=== PATIENT | male | born 1970 | race Caucasian/White ===

== ENCOUNTER 2016-12-22 20:49 | Outpatient (CLI) | payer OTHER | END 2016-12-22 20:50 | disposition critical access hospital (66) | DX: R61 Generalized hyperhidrosis (principal); R46.4 Slowness and poor responsiveness; R06.82 Tachypnea, not elsewhere classified | CPT/HCPCS: A0425; A0427 ==

== ENCOUNTER 2016-12-22 20:57 | Emergency (ER) | payer OTHER | END 2016-12-22 23:25 | disposition home or self-care (01) | DX: R41.82 Altered mental status, unspecified (principal); T50.7X5A Adverse effect of analeptics and opioid receptor antagonists, initial encounter; Y92.019 Unspecified place in single-family (private) house as the place of occurrence of the external cause; I10 Essential (primary) hypertension; E03.9 Hypothyroidism, unspecified; M54.9 Dorsalgia, unspecified; G89.29 Other chronic pain ==

== ENCOUNTER 2017-11-06 14:20 | Emergency (ER) | payer OTHER ==
--- NOTE | 2017-11-06 14:52 | ED Physician Documentation ---
PD HPI HEAD INJURY - Stated complaint Stated Complaint: GLF/HIT HEAD/NAUSEA/SANDERSON - Chief complaint Chief Complaint: Neuro - History obtained from History obtained from: Patient - History of Present Illness Mechanism of head injury: Fell, Blow (slipped and struck back of head with possible LOC of unknown duration. Has had headache, upper neck pain, nausea, and feeling lightheaded/slightly slow to process thoughts since that time.) Timing - onset: How many weeks ago (1) Location of injury: Back Quality of pain: Throbbing, Aching Associated symptoms: LOC, AMS, Nausea / vomiting, Neck pain. No: Paresthesias Symptoms improve with: Rest Symptoms worsen with: Palpation Contributing factors: No: Anticoagulated Similar symptoms before: Has not had sx before Recently seen: Not recently seen Review of Systems Eyes: denies: Loss of vision, Decreased vision, Photophobia Nose: denies: Rhinorrhea / runny nose, Congestion Throat: denies: Sore throat Cardiac: denies: Chest pain / pressure Respiratory: denies: Dyspnea, Cough GI: reports: Nausea. denies: Abdominal Pain, Vomiting, Diarrhea Neurologic: reports: Altered mental status (feeling slow to process thinking), Headache (posteriorly). denies: Focal weakness, Numbness Psychiatric: denies: Depressed, Suicidal PD PAST MEDICAL HISTORY - Past Medical History Cardiovascular: Hypertension Respiratory: None Neuro: None Endocrine/Autoimmune: HyPOthyroidism Psych: Depression Musculoskeletal: Chronic back pain - Past Surgical History Past Surgical History: Yes Ortho: Arthroscopic surgery, Spine surgery - Present Medications Home Medications: Ambulatory Orders Medication Instructions Recorded Confirmed Gabapentin [Neurontin] 600 mg PO TID 11/09/13 12/22/16 Levothyroxine [Synthroid] 200 mcg PO DAILY 11/09/13 12/22/16 Amitriptyline HCl 50 mg ORAL DAILY 12/22/16 12/22/16 Ibuprofen 800 mg PO Q6HR PRN 12/22/16 12/22/16 Lisinopril 10 mg PO DAILY 12/22/16 12/22/16 Oxycodone HCl/Acetaminophen 2 each PO Q6HR PRN 12/22/16 12/22/16 [Percocet 5-325 mg Tablet] oxyCODONE [Roxicodone] 20 mg ORAL Q6HR PRN 12/22/16 12/22/16 Dexamethasone [Decadron] 4 mg PO DAILY #5 tablet 11/06/17 Naproxen 375 mg PO BID #20 tablet 11/06/17 Ondansetron HCl [Zofran] 8 mg PO Q6H PRN #20 tablet 11/06/17 Oxycodone HCl/Acetaminophen 1 each PO Q6H PRN #20 tablet 11/06/17 [Percocet 5-325 mg Tablet] - Allergies Allergies/Adverse Reactions: Allergies Allergy/AdvReac Type Severity Reaction Status Date / Time No Known Drug Allergies Allergy Verified 12/22/16 21:09 - Social History Does the pt smoke?: No Smoking Status: Never smoker Does the pt drink ETOH?: No Does the pt have substance abuse?: No - Immunizations Immunizations are current?: Yes - POLST Patient has POLST: No PD ED PE NORMAL - Vitals Vital signs reviewed: Yes - General General: Alert and oriented X 3, No acute distress, Well developed/nourished - HEENT HEENT: PERRL, EOMI, Pharynx benign, Other (tender upper cervical to lower occipital area, more to right. No obvious deformity. ) - Neck Neck: Supple, no meningeal sign, No adenopathy - Cardiac Cardiac: RRR, No murmur - Respiratory Respiratory: Clear bilaterally - Abdomen Abdomen: Soft, Non tender - Back Back: No spinal TTP - Derm Derm: Normal color, Warm and dry - Neuro Neuro: Alert and oriented X 3, pediatric oncologist 2-12 intact, No motor deficit, No sensory deficit, Normal speech, Other Eye Opening: Spontaneous Motor: Obeys Commands Verbal: Oriented GCS Score: 15 - Psych Psych: Normal mood, Normal affect Results - Vitals Vitals: Vital Signs - 24 hr 11/06/17 11/06/17 14:28 17:08 Temperature 37.3 C Heart Rate 122 H 99 Respiratory 18 16 Rate Blood Pressure 137/101 H 161/98 H O2 Saturation 100 94 Oxygen O2 Source Room air - Rads (name of study) head CT Radiology: Prelim report reviewed (no ICH nor fractures; no acute findings) cervical CT Radiology: Prelim report reviewed (no fractures) PD MEDICAL DECISION MAKING - ED course Complexity details: reviewed results, considered differential, d/w patient, d/w family (friend) Departure - Departure Disposition: 01 Home, Self Care Clinical Impression: Post-concussion headache Condition: Stable Record reviewed to determine appropriate education?: Yes Instructions: ED Concussion Follow-Up: Joe Pantoja DO [Primary Care Provider] - Prescriptions: Dexamethasone [Decadron] 4 mg PO DAILY #5 tablet Naproxen 375 mg PO BID #20 tablet Ondansetron HCl [Zofran] 8 mg PO Q6H PRN #20 tablet PRN Reason: Nausea / Vomiting Oxycodone HCl/Acetaminophen [Percocet 5-325 mg Tablet] 1 each PO Q6H PRN #20 tablet PRN Reason: Pain Comments: Continue usual medications. For the short-term due to the postconcussive headache, add Decadron daily for the next 4 5 days. Naproxen twice daily for the next week. Add ondansetron if needed for nausea. Add oxycodone if needed for headache in the short-term. Follow-up with your primary care if not improved over the next several days. Discharge Date/Time: 11/06/17 17:09
[2017-11-06] MEDS ORDERED: oxyCOD/ACETAMIN 5 MG/325 MG TABLET PO STA (15:11)
[2017-11-06] MEDS ORDERED: DEXAMETHASONE 10 MG/ML VIAL PO STA (15:11)
[2017-11-06] MEDS ORDERED: ONDANSETRON ODT 4 MG TABLET TL STA (15:11)
--- NOTE | 2017-11-06 15:48 | CT Preliminary Report ---
Exam: CT HEAD W/O IMPRESSION: Normal head CT. [facility] SITE ID: [id number]
--- NOTE | 2017-11-06 15:54 | CT Preliminary Report ---
Exam: CT CERVICAL SPINE W/O IMPRESSION: No acute bony abnormality. [facility] SITE ID: [id number]
--- NOTE | 2017-11-06 15:55 | CT Report ---
EXAM: CT HEAD EXAM DATE: 11/06/2017 03:38 PM. CLINICAL HISTORY: Fall one week ago with posterior head trauma. Persistent headache. COMPARISON: 12/22/2016. Head MRI 06/12/2015. TECHNIQUE: Multiaxial CT images were obtained from the foramen magnum to the vertex. Reformats: Coron al. IV contrast: None. In accordance with CT protocol optimization, one or more of the following dose reduction techniques w ere utilized for this exam: automated exposure control, adjustment of mA and/or KV based on patient s ize, or use of iterative reconstructive technique. FINDINGS: Parenchyma: No intraparenchymal hemorrhage. No evidence of mass, midline shift, or CT findings of inf arction. Hummel-white differentiation is distinct. Extraaxial Spaces: Normal for age. No subdural or epidural collections identified. Ventricles: Normal in size and position. Sinuses and Orbits: Imaged paranasal sinuses, orbits, and mastoids show no significant abnormality. Bones: No evidence of fracture or calvarial defect. Other: None. IMPRESSION: Normal head CT. [facility] Referring Provider Line: [phone] SITE ID: [id number]
--- NOTE | 2017-11-06 16:02 | CT Report ---
EXAM: CT CERVICAL SPINE WITHOUT CONTRAST DATE: 11/06/2017 03:38 PM. HISTORY: Fall one week ago with posterior head trauma. Persistent headache and neck pain since then. COMPARISONS: None. TECHNIQUE: Thin-section axial images were acquired of the cervical spine without contrast. Post-proce ssing: Coronal and sagittal reformats. Other: None. In accordance with CT protocol optimization, one or more of the following dose reduction techniques w ere utilized for this exam: automated exposure control, adjustment of mA and/or KV based on patient s ize, or use of iterative reconstructive technique. FINDINGS: Alignment: No scoliosis or spondylolisthesis. Bones: No fracture or bone lesion. Interspace Levels/Facets: C1-C2: Unremarkable. C2-C3: Normal caliber. Old tiny central disk herniation. C3-C4: Normal caliber. Mild degenerative changes C3-C4 facets with mild bilateral C3-C4 bony neural f oraminal compromise. C4-C5: Slight narrowing. Mild degenerative changes C4-C5 facets bilaterally. C5-C6: Moderate narrowing. Old moderate central disk herniation. Mild degenerative changes C5-C6 face ts with mild bilateral C5-C6 bony neural foraminal compromise. C6-C7: Moderate narrowing. Old moderate central disk herniation. Mild degenerative changes C6-C7 face ts bilaterally with moderate bilateral C6-C7 bony neural foraminal compromise. C7-T1: Unremarkable. Musculature: Normal. No fatty atrophy. Other: The paravertebral and prevertebral soft tissues are unremarkable. The lung apices are clear. IMPRESSION: No acute bony abnormality. [facility] Referring Provider Line: [phone] SITE ID: [id number]
[2017-11-06] MEDS ORDERED: HYDROmorphone 1 MG/ML SYRINGE IM STA (16:17)
[2017-11-06] MEDS ORDERED: KETOROLAC 60 MG/2 ML VIAL IM STA (16:17)
[2017-11-06 17:09] VITALS: BP 161/98
== END 2017-11-06 17:09 | disposition home or self-care (01) ==
LOC: ED 14:20
DX: F07.81 Postconcussional syndrome (principal); G44.309 Post-traumatic headache, unspecified, not intractable; W01.198A Fall on same level from slipping, tripping and stumbling with subsequent striking against other object, initial encounter; I10 Essential (primary) hypertension; E03.9 Hypothyroidism, unspecified
CPT/HCPCS: 70450; 72125; 96372; 99283; 99284; A9270; J1170; Q0162

== ENCOUNTER 2017-11-29 13:15 | Emergency (ER) | payer OTHER ==
--- NOTE | 2017-11-29 13:37 | ED Physician Documentation ---
History of Present Illness - Stated complaint Stated Complaint: MALE - Chief complaint Chief Complaint: General - History obtained from History obtained from: Patient - History of Present Illness Timing: How many days ago (5) Pain level max: 10 Pain level now: 7 Improved by: elevating the scrotum Worsened by: walking - Additonal information Additional information: r sided, aching dull pain. Review of Systems Ten Systems: 10 systems reviewed and negative Constitutional: denies: Fever, Chills Ears: denies: Ear pain Nose: denies: Rhinorrhea / runny nose, Congestion Cardiac: denies: Chest pain / pressure Respiratory: denies: Cough GI: denies: Nausea, Vomiting, Diarrhea : reports: Testicular pain, Other (no change in sexual partners). denies: Dysuria, Frequency, Hesitancy, Discharge, Testicular mass Skin: denies: Rash Musculoskeletal: denies: Neck pain, Back pain PD PAST MEDICAL HISTORY - Past Medical History Past Medical History: Yes Cardiovascular: Hypertension Respiratory: None Neuro: None Endocrine/Autoimmune: HyPOthyroidism Psych: Depression Musculoskeletal: Chronic back pain - Past Surgical History Past Surgical History: Yes Ortho: Arthroscopic surgery, Spine surgery - Present Medications Home Medications: Ambulatory Orders Medication Instructions Recorded Confirmed Gabapentin [Neurontin] 600 mg PO TID 11/09/13 12/22/16 Levothyroxine [Synthroid] 200 mcg PO DAILY 11/09/13 12/22/16 Amitriptyline HCl 50 mg ORAL DAILY 12/22/16 12/22/16 Lisinopril 10 mg PO DAILY 12/22/16 12/22/16 Doxycycline Hyclate 100 mg PO BID #20 capsule 11/29/17 - Allergies Allergies/Adverse Reactions: Allergies Allergy/AdvReac Type Severity Reaction Status Date / Time No Known Drug Allergies Allergy Verified 11/29/17 13:21 - Social History Does the pt smoke?: No Smoking Status: Never smoker Does the pt drink ETOH?: No Does the pt have substance abuse?: No - Immunizations Immunizations are current?: Yes - POLST Patient has POLST: No PD ED PE NORMAL - Vitals Vital signs reviewed: Yes - General General: Alert and oriented X 3, No acute distress - HEENT HEENT: Moist mucous membranes - Neck Neck: Supple, no meningeal sign - Cardiac Cardiac: RRR - Respiratory Respiratory: No respiratory distress, Clear bilaterally - Abdomen Abdomen: Soft, Non tender, Non distended - Male Male : Other (no penile discharge. normal penis exam. L testicle is normal. R epididymis is swollen and tender. testicle is normal.) - Derm Derm: Warm and dry - Neuro Neuro: Alert and oriented X 3 - Psych Psych: Normal mood, Normal affect Results - Vitals Vitals: Vital Signs - 24 hr 11/29/17 11/29/17 13:18 14:51 Temperature 36.1 C L Heart Rate 86 74 Respiratory 20 18 Rate Blood Pressure 146/100 H 151/106 H O2 Saturation 100 99 Oxygen O2 Source Room air - Labs Labs: Laboratory Tests 11/29/17 14:52 Urine Color YELLOW Urine Clarity CLEAR Urine pH 7.0 Ur Specific [place] 1.010 Urine Protein NEGATIVE Urine Glucose (UA) NEGATIVE Urine Ketones NEGATIVE Urine Occult Blood NEGATIVE Urine Nitrite NEGATIVE Urine Bilirubin NEGATIVE Urine Urobilinogen 0.2 (NORMAL) Ur Leukocyte Esterase NEGATIVE Ur Microscopic Review NOT INDICATED Urine Culture Comments NOT INDICATED - Rads (name of study) testicular US Radiology: Prelim report reviewed, EMP read contemporaneously, See rad report ( Right inguinal hernia, fat-containing. Otherwise normal) PD MEDICAL DECISION MAKING - ED course Complexity details: reviewed results, re-evaluated patient, considered differential, d/w patient ED course: Patient is a 47-year-old male who presents to the emergency department with right testicular pain of unclear etiology. Will treat for epididymitis as this seems likely given his clinical presentation. No acute findings on ultrasound other than A fat-containing right inguinal hernia. No evidence of UTI. No blood in the urine. Abdomen is soft, nontender nondistended. No evidence of appendicitis. Doubt ureteral stone. Possible this is referred pain from his chronic back pain? We will have him follow-up with his doctor for further evaluation and care. Patient counseled regarding signs and symptoms for which I believe and urgent re-evaluation would be necessary. Patient with good understanding of and agreement to plan and is comfortable going home at this time This document was made in part using voice recognition software. While efforts are made to proofread this document, sound alike and grammatical errors may occur. Departure - Departure Disposition: 01 Home, Self Care Clinical Impression: Testicular pain, right, Inguinal hernia, right Condition: Good Instructions: ED Testicular Pain [facility] Follow-Up: Heimer,Joe A, DO [Primary Care Provider] - Within 1 week Prescriptions: Doxycycline Hyclate 100 mg PO BID #20 capsule Comments: Take all antibiotics until gone. Return if you worsen. The cause of your symptoms is unclear today. You do have a fat-containing right inguinal hernia, but this does not seem to be causing your pain today. Follow-up with your doctor for further care. Discharge Date/Time: 11/29/17 16:03
[2017-11-29] MEDS ORDERED: HYDROmorphone 1 MG/ML SYRINGE IM STA ×2 (13:49→15:32)
[2017-11-29 15:00] VITALS: BP 151/106
[2017-11-29 15:06] LABS: BILIRUBIN,URINE NEGATIVE (NEGATIVE); GLUCOSE, URINE (UA) NEGATIVE (NEGATIVE); KETONES,URINE (UA) NEGATIVE (NEGATIVE); LEUKOCYTE ESTERASE, URINE NEGATIVE (NEGATIVE); NITRITE,URINE NEGATIVE (NEGATIVE); OCCULT BLOOD,URINE NEGATIVE (NEGATIVE); PROTEIN,URINE NEGATIVE (NEGATIVE); UROBILINOGEN,URINE 0.2 (NORMAL) E.U./dL (NORMAL)
[2017-11-29 15:07] LABS: CLARITY,URINE CLEAR (CLEAR)
[2017-11-29] MEDS ORDERED: KETOROLAC 60 MG/2 ML VIAL IM STA (15:20)
[2017-11-29] MEDS ORDERED: LIDOCAINE 1% 2 ML VIAL SUBQ ONE (15:21)
[2017-11-29] MEDS ORDERED: cefTRIAXone 1 GM VIAL IM STA (15:21)
--- NOTE | 2017-11-29 18:03 | Ultrasound Report ---
SCROTAL DUPLEX: 11/29/2017 CLINICAL INDICATION: Right-sided pain. TECHNIQUE: Real-time scanning was performed with admissions representative static images obtained. FINDINGS: The right testicle measures 4.6 x 2.4 x 2.0 cm, and the left testicle measures 4.1 x 2.5 x 2.0 cm. Both testicles demonstrate normal flow and echotexture. Trace hydroceles are present. No varicocele is seen. The epididymides are unremarkable. There is a right inguinal hernia, containing fat. IMPRESSION: RIGHT INGUINAL HERNIA, CONTAINING FAT. NORMAL TESTES. TD: 11/29/2017 18:02
== END 2017-11-29 16:03 | disposition home or self-care (01) ==
LOC: ED 13:15
DX: N50.811 Right testicular pain (principal); K40.90 Unilateral inguinal hernia, without obstruction or gangrene, not specified as recurrent; I10 Essential (primary) hypertension
CPT/HCPCS: 76870; 81003; 87491; 87591; 93975; 96372; 99283; 99284; J1170; 81001; 87086

== ENCOUNTER 2018-03-11 07:08 | Day surgery (SDC) | payer OTHER ==
[2018-03-11] MEDS ORDERED: BUPIVACAINE 0.5% PF 30 ML VIAL ONE (07:23)
[2018-03-11] MEDS ORDERED: ceFAZolin 3 GM/20 ML SYRINGE ONE (07:26)
[2018-03-11] MEDS ORDERED: LACTATED RINGERS 1,000 ML IV ONE ×6 (08:03→11:30)
[2018-03-11] MEDS ORDERED: ceFAZolin 1 GM VIAL ONE (08:49)
[2018-03-11] MEDS ORDERED: SODIUM CHLORIDE FLUSH 0.9% 10 ML SYRINGE ONE (08:51)
[2018-03-11] MEDS ORDERED: SCOPOLAMINE PATCH TOP ONE (09:15)
[2018-03-11] MEDS ORDERED: BUPIVACAINE 0.5%-EPI 1:200000 PF 30 ML VIAL SUBQ ONE (09:48)
[2018-03-11] MEDS ORDERED: BUPIVACAINE 0.5%-EPI 1:200000 PF 30 ML VIAL ONE (09:58)
[2018-03-11] MEDS ORDERED: PHENYLEPHRINE 10 MG/ML VIAL IV ONE (10:25)
[2018-03-11] MEDS ORDERED: ePHEDrine 50 MG/ML AMP IVP ONE (10:25)
[2018-03-11] MEDS ORDERED: KETAMINE 500 MG/10 ML VIAL IVP ONE (10:25)
[2018-03-11] MEDS ORDERED: PROPOFOL 200 MG/20 ML VIAL IVP ONE (10:25)
[2018-03-11] MEDS ORDERED: fentaNYL 250 MCG/5 ML VIAL IVP ONE (10:25)
[2018-03-11] MEDS ORDERED: GLYCOPYRROLATE 1 MG/5 ML VIAL IVP ONE (10:25)
[2018-03-11] MEDS ORDERED: KETOROLAC 30 MG/ML VIAL IVP ONE (10:25)
[2018-03-11] MEDS ORDERED: SUCCINYLCHOLINE 200 MG/10 ML VIAL IVP ONE (10:25)
[2018-03-11] MEDS ORDERED: ONDANSETRON 4 MG/2 ML VIAL IVP ONE (10:25)
[2018-03-11] MEDS ORDERED: LIDOCAINE-MPF 2% 5 ML VIAL IM ONE (10:25)
[2018-03-11] MEDS ORDERED: MIDAZOLAM 2 MG/2 ML VIAL IVP ONE (10:25)
[2018-03-11] MEDS ORDERED: DEXAMETHASONE 4 MG/ML VIAL IVP ONE (10:25)
[2018-03-11] MEDS ORDERED: NEOSTIGMINE 1 MG/1 ML 10 ML MDV IVP ONE (10:25)
[2018-03-11] MEDS ORDERED: ACETAMINOPHEN 1,000 MG/100 ML 100 ML IV ONE (11:58)
[2018-03-11] MEDS: HYDROmorphone 1 MG/ML CARPUJECT ONE ×4 (12:15→12:30)
[2018-03-11] MEDS ORDERED: oxyCODONE 5 MG TABLET ONE (13:13)
[2018-03-11 13:55] VITALS: BP 133/92
--- NOTE | 2018-03-11 14:00 | OPERATIVE REPORT ---
DATE OF SERVICE: 03/11/2018 Physician: Colin Silva MD DATE OF PROCEDURE: 03/11/2018. PREOPERATIVE DIAGNOSIS: Symptomatic right inguinal hernia. POSTOPERATIVE DIAGNOSIS: Symptomatic right inguinal hernia. PROCEDURE PERFORMED: Laparoscopic repair of right inguinal hernia with mesh. ANESTHESIA: General endotracheal. SURGEON: Colin Silva MD ESTIMATED BLOOD LOSS: Minimal. DRAINS: None. COMPLICATIONS: None. FINDINGS: A moderately large cord lipoma was identified. There was no evidence of indirect right inguinal hernia, small direct defect was identified. No femoral hernia was noted. A right-sided 3DMax Light mesh was used for the reconstruction. INDICATIONS: The patient is a 47-year-old gentleman with recent onset of right groin pain. Evaluation included evidence of a small right inguinal hernia on ultrasound evaluation. Although his pain was more located in the scrotum than in the inguinal canal, he was interested in undergoing repair in an attempt to alleviate his symptoms. TECHNIQUE: After informed consent, the patient was taken to the operating room and was placed under general endotracheal anesthesia. Preoperative preparation included application of sequential calf compression boots, administration of 3 grams of cefazolin intravenously within an hour of the incision and the patient voiding prior to induction of anesthesia. His lower abdomen and right groin were clipped and prepared with ChloraPrep solution and draped in the usual sterile fashion. A 2 cm infraumbilical midline incision was made and carried down through subcutaneous tissues until the midline fascia was identified. It was incised, just to the right of the midline vertically 2 cm in length, exposing the right rectus sheath and muscle. The Covidien dissecting balloon was then inserted and directed towards the pubis, where it was inflated, held in place for 3 minutes, deflated and replaced with the structural balloon. Pneumopreperitoneum was achieved with carbon dioxide. The patient was placed in Trendelenburg position and rotated towards the left side. Two additional 5 mm ports were placed in the lower midline. A 10 mm 30-degree Deisy telescope was inserted. Laparoscopy was carried out. The retroperitoneal space was carefully dissected exposing the inguinal floor including Marty's ligament, the pubis, the epigastric vessels, the direct femoral and indirect spaces. It was noted that the balloon had dissected anterior to the epigastric vessels. These were mobilized and lifted anteriorly. The inguinal canal was carefully dissected and the peritoneum identified, but no indirect sac was noted. Small direct defect was noted. After the dissection was complete, hemostasis assured a right-sided 3DMax Light mesh Bard prosthesis was soaked in antibiotic solution containing 1 gram of cefazolin per liter placed into the preperitoneal space, where it was expanded to cover the direct femoral and indirect spaces. It was secured in place with approximately 5 absorbable helical tacks securing it to the pubis, Marty's ligament and the anterior abdominal wall on either side of the epigastric vessels. Care was taken to avoid placing tacks in the inferolateral quadrant to avoid nerve injury. After hemostasis was assured, pneumopreperitoneum was allowed to escape and the peritoneal sac was seen to expand nicely against the mesh. Instruments and cannulas removed and wound closure was accomplished in layers using continuous 0 Vicryl to reapproximate the midline fascia at the infraumbilical port, followed by 3-0 Vicryl for the subcutaneous tissues and 4-0 Monocryl for subcuticular skin closure at all the port sites, followed by Dermabond. A 20 mL of 0.5% Marcaine with epinephrine was infiltrated into the incisions to assist in postoperative analgesia. Anesthesia was terminated. The patient was transferred to the recovery room in satisfactory condition. Sponge and needle counts were correct. No drains were used. TD: 03/11/2018 11:49
[2018-03-11] MEDS ORDERED: ONDANSETRON 4 MG/2 ML VIAL IVP PRN (15:32)
[2018-03-11] MEDS ORDERED: SODIUM CHLORIDE FLUSH 0.9% 10 ML SYRINGE IVP PRN (15:32)
[2018-03-11] MEDS ORDERED: oxyCODONE 5 MG TABLET PO PRN (15:32)
[2018-03-11] MEDS ORDERED: LACTATED RINGERS 1,000 ML IV SCH (16:00)
== END 2018-03-11 07:09 | disposition home or self-care (01) ==
LOC: SDS 07:08
PROVIDERS: ATTEND Internal Medicine Gastroenterology
PROC: 0YU54JZ Supplement Right Inguinal Region with Synthetic Substitute, Percutaneous Endoscopic Approach (ICD-10-PCS; principal; 2018-03-11 08:15)
DX: K40.90 Unilateral inguinal hernia, without obstruction or gangrene, not specified as recurrent (principal); D17.6 Benign lipomatous neoplasm of spermatic cord; E03.9 Hypothyroidism, unspecified; G47.30 Sleep apnea, unspecified
CPT/HCPCS: 49650; A9270; C1781; J0131; J1170; J3490; J7120

== ENCOUNTER 2019-11-05 11:05 | Emergency (ER) | payer OTHER ==
[2019-11-05] MEDS ORDERED: ONDANSETRON ODT 4 MG TABLET TL STA (11:29)
[2019-11-05] MEDS ORDERED: KETOROLAC 60 MG/2 ML VIAL IM STA (11:29)
[2019-11-05] MEDS ORDERED: DEXAMETHASONE 10 MG/ML VIAL PO STA (11:29)
[2019-11-05] MEDS ORDERED: CHERRY SYRUP 10 ML UDC PO ONE (11:29)
[2019-11-05] MEDS ORDERED: HYDROmorphone 1 MG/ML CARPUJECT IM STA ×3 (11:29→13:37)
--- NOTE | 2019-11-05 11:32 | ED Physician Documentation ---
PD HPI BACK PAIN - Stated complaint Stated Complaint: BACK PAIN - Chief complaint Chief Complaint: Back Pain - History obtained from History obtained from: Patient - History of Present Illness Timing - onset: How many days ago (4) Timing - duration: Days (4) Timing - details: Abrupt onset, Still present Location: Lower, Left Quality: Pain, Spasm, Sharp, Similar to prior episodes Associated symptoms: Numbness. No: Fever, Weakness, Incontinent of urine, Unable to urinate, Hematuria, Incontinent of stool Improves with: Rest, Position, Meds Worsened by: Movement Similar symptoms before: Diagnosis (sciatica and lumbar disc disease) Recently seen: Not recently seen - Additional information Additional information: 49-year-old male with chronic back pain on pain management has had exacerbation of his back pain started about 4 days ago. He is unable to get comfortable at all with this he has pain radiating down the left leg and weakness his legs are giving out on him. He has had prior fusion and he is on pain management. Review of Systems Constitutional: denies: Fever Eyes: denies: Decreased vision Ears: denies: Ear pain Nose: denies: Congestion Throat: denies: Sore throat Cardiac: denies: Chest pain / pressure Respiratory: denies: Dyspnea, Cough GI: denies: Vomiting : denies: Dysuria PD PAST MEDICAL HISTORY - Past Medical History Cardiovascular: Hypertension Respiratory: Sleep apnea, CPAP use Endocrine/Autoimmune: HyPOthyroidism GI: None : None HEENT: Chronic vision loss, Other Psych: Depression, Anxiety Musculoskeletal: Chronic back pain Derm: None - Past Surgical History Past Surgical History: Yes Ortho: Arthroscopic surgery, Spine surgery - Present Medications Home Medications: Ambulatory Orders Medication Instructions Recorded Confirmed Gabapentin [Neurontin] 600 mg PO TID 11/09/13 03/08/18 Levothyroxine [Synthroid] 225 mcg PO DAILY 11/09/13 03/08/18 Amitriptyline HCl 100 mg ORAL DAILY 12/22/16 03/08/18 DULoxetine [Cymbalta] 30 mg PO DAILY 03/08/18 03/08/18 Lisinopril/Hydrochlorothiazide 1 each PO DAILY 03/08/18 03/08/18 [Lisinopril-Hctz 20-12.5 mg Tab] Oxycodone HCl 10 mg PO QDBREAKFAST 03/08/18 03/08/18 oxyCODONE ER [OxyCONTIN] 10 mg PO .QLUNCH, QDINNER 03/08/18 03/08/18 oxyCODONE ER [OxyCONTIN] 20 mg PO TID 03/08/18 03/08/18 - Allergies Allergies/Adverse Reactions: Allergies Allergy/AdvReac Type Severity Reaction Status Date / Time No Known Drug Allergies Allergy Verified 11/05/19 11:25 - Social History Does the pt smoke?: No Smoking Status: Never smoker Does the pt drink ETOH?: No Does the pt have substance abuse?: No - Immunizations Immunizations are current?: Yes - POLST Patient has POLST: No PD ED PE NORMAL - Vitals Vital signs reviewed: Yes (hypertensive ) - General General: Alert and oriented X 3, No acute distress, Well developed/nourished - HEENT HEENT: Atraumatic, PERRL, EOMI - Neck Neck: Supple, no meningeal sign, No bony TTP - Cardiac Cardiac: RRR, No murmur - Respiratory Respiratory: No respiratory distress, Clear bilaterally - Back Back: No CVA TTP, No spinal TTP, Other (There is a spinal stimulator in place on the left and there is tenderness present below this into the sciatic notch. ) - Derm Derm: Normal color, Warm and dry, No rash - Extremities Extremities: No deformity, No tenderness to palpate, Normal ROM s pain, No calf tenderness / cord - Neuro Neuro: Alert and oriented X 3, Normal speech, Other (there is mild weakness to dorsiflexion of the left great toe (per-existing)) Eye Opening: Spontaneous Motor: Obeys Commands Verbal: Oriented GCS Score: 15 - Psych Psych: Normal mood, Normal affect Results - Vitals Vitals: Vital Signs - 24 hr 11/05/19 11/05/19 11:22 12:29 Temperature 36.2 C L 36.8 C Heart Rate 90 76 Respiratory 16 18 Rate Blood Pressure 137/101 H 132/98 H O2 Saturation 100 97 Oxygen O2 Source Room air - Rads (name of study) lumbar spine Radiology: Prelim report reviewed (Pression: 1. Stable L5-S1 fusion. Alignment stable with no fracture or listhesis), EMP read indepedently, See rad report PD MEDICAL DECISION MAKING - ED course Complexity details: reviewed old records, re-evaluated patient, considered differential, d/w patient ED course: 49-year-old male with acute sciatica worsening of his chronic back pain is on pain management he is failed as an outpatient and he here in the emergency department is administered Toradol as well as Dilaudid he requires a second dose of Dilaudid we have given him some dexamethasone as well. He is worried about his hardware and he insists on an x-ray of his back. The patient is experiencing pain way out of proportion to what he normally experiences and he has come to the emergency department after collapsing twice on the way to the bathroom today. His pain is uncontrolled after a second dose of Dilaudid but with some improvement and a third dose is administered. I believe getting the patient's pain under control may help him keep his pain under control. Departure - Departure Disposition: 01 Home, Self Care Clinical Impression: Sciatica Qualifiers: Laterality: left Qualified Code(s): M54.32 - Sciatica, left side Condition: Stable Instructions: ED Sciatica Follow-Up: Ning Sanchez MD [Primary Care Provider] -
--- NOTE | 2019-11-05 13:13 | XRAY Report ---
Reason: increased chronic back pain with hardware in place Procedure Date: 11/05/2019 Accession Number: [id number] / [id number] Procedure: XR - Lumbar Spine 2 View CPT Code: Final Report FULL RESULT: EXAM: LUMBOSACRAL SPINE RADIOGRAPHY EXAM DATE: 11/05/2019 01:05 PM. CLINICAL HISTORY: Increased chronic back pain with hardware in place. COMPARISONS: LUMBAR SPINE 2 VIEW 08/02/2014 10:54 AM. TECHNIQUE: 2 views on 3 films. FINDINGS: Alignment: Mild, approximate 10 degree mid lumbar dextrocurvature, stable. No listhesis. Bones: Five [id number] lumbar vertebral bodies are present. Previous L5-S1 fusion, intact and solidly fused with normal alignment. Disks: Mild degenerative disk disease L4-L5, stable. Facets: Mild lower lumbar facet arthropathy, stable. Sacroiliac Joints: Unremarkable. Soft Tissues: Implanted neurostimulator device overlies left paraspinous region. IMPRESSION: 1. Stable L5-S1 fusion. 2. Alignment stable with no fracture or listhesis. 3. Stable degenerative disk disease and facet arthropathy lower lumbar spine. RADIA
[2019-11-05 14:16] VITALS: BP 137/101
== END 2019-11-05 14:19 | disposition home or self-care (01) ==
LOC: ED 11:05
DX: M51.16 Intervertebral disc disorders with radiculopathy, lumbar region (principal); Z98.1 Arthrodesis status; I10 Essential (primary) hypertension
CPT/HCPCS: 72100; 96372; 99283; 99284; J1170; Q0162

== ENCOUNTER 2019-12-05 09:21 | Emergency (ER) | payer OTHER ==
--- NOTE | 2019-12-05 10:14 | ED Physician Documentation ---
PD HPI HEAD INJURY - Stated complaint Stated Complaint: HEAD INJURY - Chief complaint Chief Complaint: Laceration - History obtained from History obtained from: Patient - History of Present Illness Mechanism of head injury: Fell (he says his back hurt as he was getting up and his back/leg gave out, and he fell, striking head on stove edge. No LOC nor concussive symptoms. Back has been hurting with ROM for awhile and PMD is getting pt into PT and for ?MRI.), Blow Where head injury occurred: Home Timing - onset: Today Location of injury: Front Associated symptoms: No: LOC, AMS, Nausea / vomiting Symptoms worsen with: Palpation Contributing factors: No: Anticoagulated, Intoxicated Similar symptoms before: Diagnosis (has had back spasms and surges of pain with ROM for months. History of prior back pain and surgery.) Review of Systems Constitutional: denies: Fever Nose: denies: Rhinorrhea / runny nose, Congestion Throat: denies: Sore throat Respiratory: denies: Cough GI: denies: Abdominal Pain, Nausea, Vomiting, Diarrhea Musculoskeletal: reports: Back pain. denies: Neck pain Neurologic: denies: Focal weakness (he does not have persistent leg weakness but says his right leg will give out with pain spasms at times.), Numbness PD PAST MEDICAL HISTORY - Past Medical History Cardiovascular: Hypertension Respiratory: Sleep apnea, CPAP use Endocrine/Autoimmune: HyPOthyroidism GI: None : None HEENT: Chronic vision loss, Other Psych: Depression, Anxiety Musculoskeletal: Chronic back pain Derm: None - Past Surgical History Past Surgical History: Yes Ortho: Arthroscopic surgery, Spine surgery - Present Medications Home Medications: Ambulatory Orders Medication Instructions Recorded Confirmed Gabapentin [Neurontin] 600 mg PO TID 11/09/13 03/08/18 Levothyroxine [Synthroid] 225 mcg PO DAILY 11/09/13 03/08/18 Amitriptyline HCl 100 mg ORAL DAILY 12/22/16 03/08/18 DULoxetine [Cymbalta] 30 mg PO DAILY 03/08/18 03/08/18 Lisinopril/Hydrochlorothiazide 1 each PO DAILY 03/08/18 03/08/18 [Lisinopril-Hctz 20-12.5 mg Tab] Oxycodone HCl 10 mg PO QDBREAKFAST 03/08/18 03/08/18 oxyCODONE ER [OxyCONTIN] 10 mg PO .QLUNCH, QDINNER 03/08/18 03/08/18 oxyCODONE ER [OxyCONTIN] 20 mg PO TID 03/08/18 03/08/18 Naproxen 500 mg PO BID #20 tablet 12/05/19 Tizanidine HCl 4 mg PO TID PRN #25 capsule 12/05/19 dexAMETHasone [Decadron] 4 mg PO DAILY #5 tablet 12/05/19 - Allergies Allergies/Adverse Reactions: Allergies Allergy/AdvReac Type Severity Reaction Status Date / Time No Known Drug Allergies Allergy Verified 12/05/19 09:30 - Social History Does the pt smoke?: No Smoking Status: Never smoker Does the pt drink ETOH?: No Does the pt have substance abuse?: No - Immunizations Immunizations are current?: Yes - POLST Patient has POLST: No PD ED PE NORMAL - Vitals Vital signs reviewed: Yes - General General: Alert and oriented X 3, No acute distress, Well developed/nourished - HEENT HEENT: Other (right frontal scalp with 2 cm laceration through skin, but not deeper. Some oozing of bleeding. No FB. ) - Neck Neck: Supple, no meningeal sign, No bony TTP, No adenopathy - Back Back: No spinal TTP - Derm Derm: Normal color, Warm and dry - Extremities Extremities: Normal ROM s pain - Neuro Neuro: Alert and oriented X 3, No motor deficit, No sensory deficit Eye Opening: Spontaneous Motor: Obeys Commands Verbal: Oriented GCS Score: 15 Results - Vitals Vitals: Oxygen O2 Source Room air Procedures - Laceration (location) right frontal scalp Length in cm: 2 Wound type: Linear, Into subcut fat, Clean Neurovascular status: Sensory intact Anesthesia: LET Wound Preparation: Irrigated copiously NS, Wound explored, To the base. No: FB identified Skin layer closure: Nylon, Running, Size #-0 - enter number (4) Other: Patient tolerated well, No complications, Neurovascular intact, Dressing applied Complexity: Simple PD MEDICAL DECISION MAKING - ED course Complexity details: considered differential (no notable leg weakness so not apparent need for urgent imaging. Scalp lac without concussive symptoms. No anticoagulants.), d/w patient Departure - Departure Disposition: 01 Home, Self Care Clinical Impression: Acute exacerbation of chronic low back pain Accidental fall Qualifiers: Encounter type: initial encounter Qualified Code(s): W19.XXXA - Unspecified fall, initial encounter Scalp laceration Qualifiers: Encounter type: initial encounter Qualified Code(s): S01.01XA - Laceration without foreign body of scalp, initial encounter Condition: Stable Record reviewed to determine appropriate education?: Yes Instructions: ED Laceration Scalp Stitch Or Stap Follow-Up: Ning Sanchez MD [Primary Care Provider] - Prescriptions: dexAMETHasone [Decadron] 4 mg PO DAILY #5 tablet Naproxen 500 mg PO BID #20 tablet Tizanidine HCl 4 mg PO TID PRN #25 capsule PRN Reason: Spasms Comments: It is okay to wash and shower. Clean off the wound twice a day with soap and water, or peroxide and water. Apply some antibiotic ointment to it to keep it moist. Also to watch for signs of infection such as purulence, redness or increasing pain. Return to your primary care or the ER at the specified time for suture removal. Suture removal 7 to 10 days. Continue usual medications. Add Decadron steroid daily for 5 days and tizanidine muscle relaxant 2 or 3 times a day for the next week. Add naproxen twice daily as needed for pains. Follow-up with your primary care regarding any additional opioid pain medicines and further evaluation of the back pain. Discharge Date/Time: 12/05/19 12:44
[2019-12-05] MEDS ORDERED: HYDROmorphone 2 MG/ML VIAL IM STA ×2 (10:36→12:21)
[2019-12-05] MEDS ORDERED: KETOROLAC 30 MG/ML VIAL IM STA (10:36)
[2019-12-05] MEDS ORDERED: LIDOCAINE-EPINEPH-TETRACAINE 3 ML SYRINGE TOP STA (10:36)
[2019-12-05] MEDS ORDERED: LIDOCAINE 1%-EPI 1:100000 20 ML MDV SUBQ STA (11:16)
[2019-12-05] MEDS ORDERED: DEXAMETHASONE 10 MG/ML VIAL PO STA (12:22)
[2019-12-05] MEDS ORDERED: CHERRY SYRUP 10 ML UDC PO ONE (12:22)
[2019-12-05 12:44] VITALS: BP 140/82
== END 2019-12-05 12:44 | disposition home or self-care (01) ==
LOC: ED 09:21
DX: S01.01XA Laceration without foreign body of scalp, initial encounter (principal); W18.39XA Other fall on same level, initial encounter; W22.09XA Striking against other stationary object, initial encounter; Y92.009 Unspecified place in unspecified non-institutional (private) residence as the place of occurrence of the external cause; M54.5 Low back pain; G89.29 Other chronic pain; M62.830 Muscle spasm of back; I10 Essential (primary) hypertension
CPT/HCPCS: 12001; 96372; 99283; 99284; A9270; J1170

== ENCOUNTER 2019-12-12 17:33 | Emergency (ER) | payer OTHER ==
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
[2019-12-12] MEDS ORDERED: KETOROLAC 60 MG/2 ML VIAL IM STA (18:59)
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
[2019-12-12] MEDS ORDERED: DEXAMETHASONE 10 MG/ML VIAL PO STA (20:11)
[2019-12-12] MEDS ORDERED: CHERRY SYRUP 10 ML UDC PO ONE (20:11)
[2019-12-12 20:23] VITALS: BP 159/120
== END 2019-12-12 20:25 | disposition home or self-care (01) ==
LOC: ED 17:33
DX: S01.81XA Laceration without foreign body of other part of head, initial encounter (principal); S09.90XA Unspecified injury of head, initial encounter; V89.2XXA Person injured in unspecified motor-vehicle accident, traffic, initial encounter; Y93.89 Activity, other specified; Y92.410 Unspecified street and highway as the place of occurrence of the external cause; I10 Essential (primary) hypertension
CPT/HCPCS: 70450; 72125; 72128; 72131; 96372; 99284; A9270

== ENCOUNTER 2021-11-11 09:59 | Emergency (ER) | payer OTHER ==
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
[2021-11-11] MEDS ORDERED: HYDROmorphone 1 MG/ML CARPUJECT IVP STA ×3 (10:56→13:23)
[2021-11-11] MEDS ORDERED: KETOROLAC 15 MG/ML VIAL IVP STA (12:04)
--- NOTE | 2021-11-11 13:36 | CT Report ---
PROCEDURE: LUMBAR SPINE WO INDICATIONS: back injury TECHNIQUE: Noncontrast 3 mm thick sections acquired from the T12 level to the sacrum. Sagittal and coronal refo rmats were constructed. For radiation dose reduction, the following was used: automated exposure co ntrol, adjustment of mA and/or kV according to patient size. COMPARISON: None. FINDINGS: Image quality: Excellent. Bones: There is normal bony alignment. No acute vertebral body compression fractures. No suspiciou s lytic or blastic bony lesions. Central spinal caliber is of normal overall caliber. No pars defec ts. T12-L1: No significant disc bulge. The foramina and central canal are patent. L1-L2: Mild diffuse disc bulge asymmetric to the right causing moderate right foraminal stenosis. T he left foramen and central canal are patent. L2-L3: No significant disc bulge. The foramina and central canal are patent. L3-L4: Diffuse disc bulge causes moderate bilateral foraminal stenosis. The central canal has mild stenosis. L4-L5: No significant disc bulge. The foramina and central canal are patent. L5-S1: Postoperative changes of discectomy, laminectomy, and fusion with pedicular screw and rajeev fi xation. The foramina and central canal are patent. Soft tissues: No retroperitoneal masses or hematomas. Visualized aorta is normal in caliber. The r ight kidney has a 5 cm simple cyst. IMPRESSION: 1. Postoperative changes at L5-S1 without complication. 2. No acute fracture or subluxation. 3. Multilevel chronic degenerative disc disease as above. Reviewed by: Oscar Vanegas on 11/11/2021 1:35 PM PST Approved by: Oscar Vanegas on 11/11/2021 1:35 PM PST Station ID: [id number]
[2021-11-11 13:59] VITALS: BP 140/100
== END 2021-11-11 13:59 | disposition home or self-care (01) ==
LOC: ED 09:59
DX: M54.50 Low back pain, unspecified (principal); G89.29 Other chronic pain; Z96.82 Presence of neurostimulator; I10 Essential (primary) hypertension; W18.30XA Fall on same level, unspecified, initial encounter
CPT/HCPCS: 72131; 96374; 96375; 96376; 99284; J1170

== ENCOUNTER 2021-11-13 11:46 | Emergency (ER) | payer OTHER ==
--- NOTE | 2021-11-13 12:03 | ED Physician Documentation ---
PD HPI BACK PAIN - Stated complaint Stated Complaint: EXTREME BACK PX - History obtained from History obtained from: Patient - History of Present Illness Timing - onset: How many days ago (several) Timing - duration: Days Timing - details: Abrupt onset (With a history of chronic back pain for which she takes ongoing pain medicine regularly. He states had increased pain a few days ago. Seen 2 days ago in the ER for this with medications in the ER and prescription lidocaine patch. He states no improvement and now some numbness in the right leg.), Still present Location: Lower, Right Quality: Pain, Spasm, Other (pain radiating posterolateral right leg and also noting some since last night to right inguinal/scrotal area. No swelling of testicle.) Associated symptoms: Weakness, Incontinent of stool (Description is really more pain and getting to the toilet and unable to get there prior to having to defecate.). No: Fever, Incontinent of urine, Unable to urinate Improves with: No: Meds (no improvement with lidocaine patch nor Tylenol orally.) Worsened by: Movement, Twisting Contributing factors: Twisting Similar symptoms before: Diagnosis (chronic low back pain with prior fusion and stimulator.) Recently seen: Emergency Dept (2 days ago here with meds in ER and CT lumbar.) Review of Systems Constitutional: denies: Fever, Chills Nose: denies: Rhinorrhea / runny nose, Congestion Throat: denies: Sore throat Cardiac: denies: Chest pain / pressure Respiratory: denies: Cough GI: denies: Abdominal Pain : denies: Dysuria, Frequency, Incontinent Skin: denies: Rash, Lesions Neurologic: reports: Numbness (lateral right leg and lateral foot.). denies: Focal weakness PD PAST MEDICAL HISTORY - Past Medical History Cardiovascular: Hypertension Respiratory: Sleep apnea, CPAP use Endocrine/Autoimmune: HyPOthyroidism GI: None : None HEENT: Chronic vision loss, Other Psych: Depression, Anxiety Musculoskeletal: Chronic back pain Derm: None - Past Surgical History Past Surgical History: Yes Ortho: Arthroscopic surgery, Spine surgery - Present Medications Home Medications: Ambulatory Orders Medication Instructions Recorded Confirmed Gabapentin [Neurontin] 600 mg PO TID 11/09/13 03/08/18 Levothyroxine [Synthroid] 225 mcg PO DAILY 11/09/13 03/08/18 Amitriptyline HCl 100 mg ORAL DAILY 12/22/16 03/08/18 DULoxetine [Cymbalta] 30 mg PO DAILY 03/08/18 03/08/18 Lisinopril/Hydrochlorothiazide 1 each PO DAILY 03/08/18 03/08/18 [Lisinopril-Hctz 20-12.5 mg Tab] Oxycodone HCl 10 mg PO QDBREAKFAST 03/08/18 03/08/18 oxyCODONE ER [OxyCONTIN] 10 mg PO .QLUNCH, QDINNER 03/08/18 03/08/18 oxyCODONE ER [OxyCONTIN] 20 mg PO TID 03/08/18 03/08/18 Naproxen 500 mg PO BID #20 tablet 12/05/19 Tizanidine HCl 4 mg PO TID PRN #25 capsule 12/05/19 dexAMETHasone [Decadron] 4 mg PO DAILY #5 tablet 12/05/19 predniSONE [Deltasone] 20 mg PO [id number] #21 tab 12/12/19 Lidocaine Patch 5% [Lidoderm Patch] 1 patch TOP DAILY PRN #10 patch 11/11/21 dexAMETHasone [Decadron] 4 mg PO DAILY #5 tablet 11/13/21 tiZANidine [Zanaflex] 4 mg PO Q8H PRN #25 tablet 11/13/21 - Allergies Allergies/Adverse Reactions: Allergies Allergy/AdvReac Type Severity Reaction Status Date / Time No Known Drug Allergies Allergy Verified 11/13/21 11:56 - Social History Does the pt smoke?: No Smoking Status: Never smoker Does the pt drink ETOH?: No Does the pt have substance abuse?: No - Immunizations Immunizations are current?: Yes - POLST Patient has POLST: No PD ED PE NORMAL - Vitals Vital signs reviewed: Yes - General General: Alert and oriented X 3, Well developed/nourished, Other (appears in pain, with spasm appearing worse with movement. ) - Cardiac Cardiac: RRR, No murmur - Respiratory Respiratory: Clear bilaterally - Abdomen Abdomen: Soft, Non tender - Male Male : Other (no inguinal hernias. Testicles normal size. Some tenderness ri ght scrotum/testicle. Normal cremaster reflex. Normal sensation penis and scrotum. ) - Back Back: No CVA TTP, No spinal TTP (tender right lower lumbar right paralumbar muscles, with focal tenderness area in muscle. ) - Derm Derm: Normal color, Warm and dry - Neuro Neuro: Alert and oriented X 3, Normal speech, Other (normal patellar reflexes. Normal cremater reflex and good perirectal muscle tone. ). No: No sensory deficit (decreased sensation lateral right thigh and anterolateral lower leg/foot c/w nerve root distribution. ) Eye Opening: Spontaneous Motor: Obeys Commands Verbal: Oriented GCS Score: 15 Results - Vitals Vitals: Vital Signs - 24 hr 11/13/21 11/13/21 11:56 14:03 Temperature 37.3 C Heart Rate 80 65 Respiratory 20 18 Rate Blood Pressure 157/115 H 129/105 H O2 Saturation 100 95 Oxygen O2 Source Room air Procedures - General procedure General procedure: The patient does have an area of worst tenderness in the right paralumbar area just at the iliac crest. No rash or redness seen. A trigger point injection was done with Marcaine 2 mL combined with Kenalog 40 milligrams in 1 mL. Patient tolerated well. He said it did help well in area administered and asked for another in muscle area a bit higher. I did second muscle injection with just Marcaine few cm higher and lateral to first. PD MEDICAL DECISION MAKING - ED course Complexity details: reviewed old records (seen 2 days ago with no acute findings on CT lumbar. ), considered differential (The patient states persistence of severe back pain primarily on the right with some numbness down the right leg. He still has patellar reflexes. Mild weakness for plantar flexion at the foot. He has normal rectal tone, cremaster reflex and sensation on the genitalia and perirectal.), d/w patient Departure - Departure Disposition: 01 Home, Self Care Clinical Impression: Acute exacerbation of chronic low back pain Inguinal strain Qualifiers: Encounter type: initial encounter Laterality: right Qualified Code(s): S76.211A - Strain of adductor muscle, fascia and tendon of right thigh, initial encounter Condition: Stable Record reviewed to determine appropriate education?: Yes Instructions: ED Sciatica Follow-Up: Ciro Vickers PA-C [Primary Care Provider] - Prescriptions: dexAMETHasone [Decadron] 4 mg PO DAILY #5 tablet tiZANidine [Zanaflex] 4 mg PO Q8H PRN #25 tablet PRN Reason: Spasms Comments: Continue with usual medications and Tylenol every 4-6 hours if needed for pain. Add tizanidine muscle relaxant for spasms. Also add Decadron steroid anti- inflammatory daily for 5 more days. Heat and stretching and gentle motion to reduce spasm and stiffness. Follow-up with your primary care regarding further assessment or any change in your opioid pain medicines. Discharge Date/Time: 11/13/21 14:40
[2021-11-13] MEDS ORDERED: methocarbamoL 500 MG TABLET PO STA (12:19)
[2021-11-13] MEDS ORDERED: BUPIVACAINE 0.5%-EPI 1:200000 PF 30 ML VIAL SUBQ ONE (12:19)
[2021-11-13] MEDS ORDERED: TRIAMCINOLONE 40 MG/ML VIAL IM STA (12:19)
[2021-11-13] MEDS ORDERED: HYDROmorphone 1 MG/ML CARPUJECT IM STA ×2 (12:19→13:30)
[2021-11-13] MEDS ORDERED: KETOROLAC 30 MG/ML VIAL IM STA (12:19)
[2021-11-13] MEDS ORDERED: BUPIVACAINE 0.5% PF 10 ML VIAL SUBQ STA (12:30)
[2021-11-13 14:35] VITALS: BP 129/105
== END 2021-11-13 14:40 | disposition home or self-care (01) ==
LOC: ED 11:46
DX: S76.211A Strain of adductor muscle, fascia and tendon of right thigh, initial encounter (principal); X58.XXXA Exposure to other specified factors, initial encounter; M54.50 Low back pain, unspecified; G89.29 Other chronic pain; Z96.82 Presence of neurostimulator; I10 Essential (primary) hypertension
CPT/HCPCS: 20552; 96372; 99282; 99283; A9270; J1170

== ENCOUNTER 2021-12-13 21:45 | Outpatient (CLI) | payer OTHER ==
--- NOTE | 2021-12-14 15:56 | Ultrasound Report ---
PROCEDURE: Testicle INDICATIONS: TESTICULAR PAIN TECHNIQUE: Real-time scanning was performed of the scrotum and testicles, with image documentation. Color and p ulse Doppler interrogation was performed of both testicles. COMPARISON: Testicular ultrasound 11/29/2017 FINDINGS: Right: Testicle is normal in size at 3.8 x 2.0 x 2.8 cm, and homogenous in echotexture. Epididymis is normal in overall size and morphology. No hydrocele. Minimal varicocele. Overlying scrotal skin is normal in thickness. Left: Testicle is normal in size at 1.9 x 2.2 x 3.7 cm, and homogeneous in echotexture. Epididymal c yst is present measuring 4 x 3 x 4 mm. This was not previously visualized. Minimal varicocele. Additi onal small hydrocele. Overlying scrotal skin is normal in thickness. Doppler: Color and pulse Doppler demonstrate normal and symmetric arterial flow in both testicles. IMPRESSION: Minimal left hydrocele. Minimal bilateral varicoceles. Left epididymal cyst. Reviewed by: January Rossi MD on 12/14/2021 3:55 PM PDT Approved by: January Rossi MD on 12/14/2021 3:55 PM PDT Station ID: [id number]
== END 2021-12-13 21:46 | disposition home or self-care (01) ==
LOC: DI 21:45
PROVIDERS: ATTEND Student in an Organized Health Care Education/Training Program
DX: N43.3 Hydrocele, unspecified (principal); I86.1 Scrotal varices; N50.3 Cyst of epididymis

== ENCOUNTER 2022-07-11 16:51 | Emergency (ER) | payer OTHER ==
--- NOTE | 2022-07-11 17:36 | ED Physician Documentation ---
PD HPI LOWER EXT INJURY - Stated complaint Stated Complaint: KNEE PAIN - Chief complaint Chief Complaint: Trauma Ext - History obtained from History obtained from: Patient - History of Present Illness PD HPI LOW EXT INJURY LOCATION: Right, Knee Type of injury: No: Fall, Twist Where injury occurred: Home Timing - onset: How many weeks ago Timing - duration: Weeks (2-3 weeks of right knee pain and some swelling, much worse the past few days.) Timing - details: Gradual onset, Still present (much worse to severe the past several days or so.) Improved by: No: Rest, Meds (takes pain meds oxycodone 10 mg 5 times daily for back pain. knee is still hurting worse than meds help.) Associated symptoms: Swelling. No: Weakness, Numbness, Discolored (no redness nor skin lesions.) Similar symptoms before: Has not had sx before (chronic back pain. No prior knee problems.) Recently seen: Clinic (Seen at [facility] this afternoon and he states they did an ultrasound and showed a fluid collection behind the knee but question of no DVT. Referred to the ER however. No paperwork with him.) Review of Systems Constitutional: denies: Fever, Chills Nose: denies: Rhinorrhea / runny nose, Congestion Throat: denies: Sore throat Cardiac: denies: Chest pain / pressure Respiratory: denies: Dyspnea, Cough Skin: denies: Rash, Lesions Musculoskeletal: reports: Back pain (chronic), Joint swelling (right knee effusion) Neurologic: denies: Focal weakness, Numbness PD PAST MEDICAL HISTORY - Past Medical History Cardiovascular: Hypertension Respiratory: Sleep apnea, CPAP use Endocrine/Autoimmune: HyPOthyroidism GI: None : None HEENT: Chronic vision loss, Other Psych: Depression, Anxiety Musculoskeletal: Chronic back pain Derm: None - Past Surgical History Past Surgical History: Yes Ortho: Arthroscopic surgery, Spine surgery - Present Medications Home Medications: Ambulatory Orders Medication Instructions Recorded Confirmed Gabapentin [Neurontin] 600 mg PO TID 11/09/13 03/08/18 Levothyroxine [Synthroid] 225 mcg PO DAILY 11/09/13 03/08/18 Amitriptyline HCl 100 mg ORAL DAILY 12/22/16 03/08/18 DULoxetine [Cymbalta] 30 mg PO DAILY 03/08/18 03/08/18 Lisinopril/Hydrochlorothiazide 1 each PO DAILY 03/08/18 03/08/18 [Lisinopril-Hctz 20-12.5 mg Tab] Oxycodone HCl 10 mg PO QDBREAKFAST 03/08/18 03/08/18 oxyCODONE ER [OxyCONTIN] 10 mg PO .QLUNCH, QDINNER 03/08/18 03/08/18 oxyCODONE ER [OxyCONTIN] 20 mg PO TID 03/08/18 03/08/18 Naproxen 500 mg PO BID #20 tablet 12/05/19 Tizanidine HCl 4 mg PO TID PRN #25 capsule 12/05/19 dexAMETHasone [Decadron] 4 mg PO DAILY #5 tablet 12/05/19 predniSONE [Deltasone] 20 mg PO [id number] #21 tab 12/12/19 Lidocaine Patch 5% [Lidoderm Patch] 1 patch TOP DAILY PRN #10 patch 11/11/21 dexAMETHasone [Decadron] 4 mg PO DAILY #5 tablet 11/13/21 tiZANidine [Zanaflex] 4 mg PO Q8H PRN #25 tablet 11/13/21 Meloxicam [Mobic] 7.5 mg PO BID 10 Days #20 tablet 07/11/22 - Allergies Allergies/Adverse Reactions: Allergies Allergy/AdvReac Type Severity Reaction Status Date / Time No Known Drug Allergies Allergy Verified 07/11/22 17:06 - Social History Does the pt smoke?: No Smoking Status: Never smoker Does the pt drink ETOH?: No Does the pt have substance abuse?: No - Immunizations Immunizations are current?: Yes - POLST Patient has POLST: No PD ED PE NORMAL - Vitals Vital signs reviewed: Yes - General General: Alert and oriented X 3, Well developed/nourished, Other (appears in pain with knee ROM and palpaiton laterally. ) - Derm Derm: Normal color, Warm and dry - Extremities Extremities: No tenderness to palpate, Normal ROM s pain, No edema, No calf tenderness / cord, Other (right knee with limited ligament testing due to pain. There is mild effusion. Most tenderness at lateral joint line and lateral peripatellar area. No redness, rash nor sores. ) - Neuro Neuro: Alert and oriented X 3, No motor deficit, No sensory deficit, Normal speech Results - Vitals Vitals: Vital Signs - 24 hr 07/11/22 07/11/22 07/11/22 17:02 17:06 19:06 Temperature 37.4 C 37.4 C 36.5 C Heart Rate 82 82 80 Respiratory 20 20 16 Rate Blood Pressure 159/102 H 159/102 H 150/90 H O2 Saturation 100 100 98 Oxygen O2 Source Room air - Rads (name of study) duplex right leg Radiology: Prelim report reviewed (no DVT. Has bakers cyst and some fluid lateral joint area. ), See rad report PD MEDICAL DECISION MAKING - ED course Complexity details: reviewed results (No DVT. Has moran cyst but that is not where main pain is. Seems more likely gout but not redness. consider meniscal process, or ligamental injury. Meniscal seems more likely. Soem pain may con tribute by Moran cyst but not most of it. ), re-evaluated patient (given higher doses of Dilaudid IM due to patient tolerance from usual PO pain meds. Moderate improvement. ), considered differential (History of back pain with occasional ER visits for exacerbations. No prior knee problems. Ultrasound done at [facility] with unclear findings and they were not called to us. Patient referred to the ER. At this point I think we just need to repeat the ultrasound.), d/w patient Departure - Departure Disposition: 01 Home, Self Care Clinical Impression: Acute pain of right knee, Bakers cyst, Knee internal derangement Clinical Impression: (Ruled Out): DVT (deep venous thrombosis) Condition: Stable Record reviewed to determine appropriate education?: Yes Instructions: ED Cyst Moran, ED Meniscal Injury Knee Poss Follow-Up: CARLOTA ALDANA MD [Primary Care Provider] - Prescriptions: Meloxicam [Mobic] 7.5 mg PO BID 10 Days #20 tablet Comments: Your ultrasound here to (since we did not get a official report from the one from the [facility]) showed a Moran's cyst which is a small fluid-filled cyst in the back of the knee. There was a little bit of fluid in the lateral aspect of the joint. You do have a knee effusion which is fluid in the joint as well. 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 I think the findings on your exam and the degree of pain are more likely attributable to a cartilage or meniscal type process with the Moran's cyst being in incidental and just slightly additive. To the pain and problem and not the primary cause. Continue with usual medications and including your pain medication. To that add an anti-inflammatory. I prescribed meloxicam 7.5 mg twice daily to take with food for the next 10 days. [place] Also consider calling the orthopedic office that takes care of your back and see if they are able to assess your knee as well. What likely will be useful will be an MRI of your knee to better assess the ligaments and cartilage. Use the knee immobilizer provided by the [facility]. Discharge Date/Time: 07/11/22 20:14
[2022-07-11] MEDS ORDERED: KETOROLAC 30 MG/ML VIAL IM STA (18:04)
[2022-07-11] MEDS ORDERED: HYDROmorphone 2 MG/ML VIAL IM STA ×2 (18:04→19:05)
[2022-07-11 19:33] VITALS: BP 150/90
--- NOTE | 2022-07-11 19:53 | Ultrasound Report ---
PROCEDURE: Duplex Ext Veins Right INDICATIONS: right knee/popliteal pain and swelling TECHNIQUE: Real-time imaging, as well as color and pulse Doppler interrogation, were performed of the lower extr emity deep veins from the inguinal ligament to the popliteal fossa. COMPARISON: None. FINDINGS: The deep veins are normally compressible, and free of intraluminal thrombus. Color and pu lse Doppler demonstrate normal phasic intraluminal flow. There is normal augmentation response to di stal compression maneuver. Right popliteal fossa cyst measuring 5.5 x 2.2 x 1.5 cm. Adjacent to the lateral aspect of the knee f luid collection measuring 5.1 x 4.7 x 1 cm. No hyperemia. No internal vascularity. IMPRESSION: No right lower extremity DVT. Suspect Moran's cyst or cysts. Possible lateral hematoma. Reviewed by: Gregory Tejeda MD on 07/11/2022 7:51 PM PDT Approved by: Gregory Tejeda MD on 07/11/2022 7:51 PM PDT Station ID: [id number]
== END 2022-07-11 20:14 | disposition home or self-care (01) ==
LOC: EDUNIT# → ED 16:51
DX: M71.21 Synovial cyst of popliteal space [Baker], right knee (principal); M23.91 Unspecified internal derangement of right knee
CPT/HCPCS: 93971; 96372; 99283; 99284; J1170

== ENCOUNTER 2022-08-01 14:04 | Outpatient (CLI) | payer OTHER ==
[2022-08-01 09:23] VITALS: BP 140/90
--- NOTE | 2022-08-01 09:23 | SLEEP CARE CONSULTATION ---
Information from patient questionnaire entered by Sharif Simpson. I have reviewed and concur with the information entered by Sharif Simpson. This document represents the service I personally performed and the decisions made by me, Niki Espinosa ARNP. History of Present Illness Service Date and Time: 08/01/2022 0840 Reason for Visit: New patient, Previously diagnosed sleep apnea, sleep apnea on CPAP therapy, Re-establish care Chief Complaint: reports: Unrefreshed sleep, Snoring, Observed pauses in breathing, Other (update suplies ) Date of Onset: 2001 Usual bedtime: 9pm Time it takes to fall asleep: 10 mins Snores at night: Yes Observed to quit breathing while asleep: Yes Sleeps alone due to snoring: No Number of times waking at night: 3-4 Reasons for waking at night: reports: Choking, Snoring, Gasping for air, Pain, Bathroom Toss, Turn, or Twitch while sleeping: Yes Recalls having dreams: No Usually gets out of bed at: 6-8 Feels refreshed in the morning: No Morning headache: Yes Sleepy or fatigued during the day: Yes Ever fallen asleep while driving: Yes Takes day naps: Yes Dreams during day naps: No Prior sleep studies: Yes Year and Where: located within [facility] 2007 Additional HPI information: I had the pleasure of seeing LARS KERN today regarding the possibility of him having a sleep disorder. His current complaints are unrefreshed sleep, obs erved pauses in breathing and snoring. Patient was seen previously and diagnosed with sleep apnea in 2009 here at [facility]. His AHI was 19.2, moderate obstructive sleep apnea. He states his old machine stopped working. His father and he inherited his father's machine. He changed it to the pressure he was used to on his old APAP machine. This machine is now not working well now and he feels the pressure is not coming out at the right level. He is here to get a prescription for supplies. He has been switching back and forth between machines to try to get good therapy but they are both malfunctioning. - Parasomnia Symptoms Ever been unable to move upon waking from sleep: No Walks in sleep: Yes Talks in sleep: Yes Ever acted out dreams in sleep: No Ever felt weak in the knees when startled or emotional: No Bothered by creepy, crawly, restless sensations in legs: Yes Problems with memory or concentration: Yes CPAP Compliance Data - Data Reviewed with Patient Average duration of nightly device use: 8 hours 14 minutes Compliance rate %: 80 (25/30 days used; 31.1% 222 days but using other CPAP at time) Current pressure setting (cmH2O): 13.0 Average residual AHI: 1.5 Average large leak: 5 mins 48 secs Compliance data discussion: He is using a ResMed Mirage and other full face that is very old. He has a RemStar Pro CPAP machine. It may be malfunctioning and is on the recall. It is now set at 13 cmH2O but he prefers 11.5 cmH2O when the pressure is coming out right. Subjective Missed days of use due to: reports: other (CPAP malfunctioning) Patient concerns: denies: aerophagia, mask discomfort, air blowing in eyes, mask leak noise, condensation in mask/hose, nasal congestion, dry mouth, nose, throat, epistaxis Observed to snore while using device: No Current pressure setting perceived as: too low (feels since machine is malfunctioning) On therapy, patient: reports: sleeping better, awakening more refreshed, being more awake and alert during the day, more rested overall. denies: drowsiness while driving Initial Noble Sleepiness Scale score: 14 (08/01/2022) Past Medical History Past Medical History: reports: Hypothyroidism, Anxiety Social History The patient's occupation is a RE. Patient is and lives in [place]. Have you smoked in the past 12 months: No Alcohol use: No Caffeine use: Yes Caffeine amount and frequency: daily Family History Family history of sleep disordered breathing: Yes Family Hx Sleep Apnea: Mother: Sleep apnea - Treated, Father: Snoring, Sleep apnea - Treated Allergies and Home Medications Known drug allergies: No Drug allergies reviewed: Yes (NKDA) Home medication list reviewed: Yes Allergy and home medication list: Medications: see list in chart Review of Systems Neurological: reports: gait or balance problems Psychiatric: reports: anxiety Ear/Nose/Throat: reports: wisdom teeth removed. denies: tonsillectomy Endocrine: reports: thyroid disease, sluggishness Musculoskeletal: reports: joint pain, back pain, mobility problems Physical Exam Vital signs obtained and entered by: SHARIF Carlson MA Blood Pressure: 140/90 (LEFT ARM) Cuff size: regular Heart Rate: 101 O2 Saturation: 98 Height: 6 ft 2 in Weight: 248 lb 12.8 oz Body Mass Index: 31.9 BMI Classification: Obese Neck circumference: 17.75 Heart: regular rate and rhythm Lungs: clear bilaterally Impression and Plan 1. Obstructive Sleep Apnea-Hypopnea Syndrome, moderate, with good treatment compliance and good apnea control. On CPAP therapy, the patient has better sleep quality and is more rested overall. Patient needs a new device because what he is using is malfunctioning. The patients CPAP is also over 5 years old and of reasonable use. Thus, the CPAP will be updated. A DWO prescription will be made. Compliance guidelines for new device and follow up discussed.Patient's apnea severity and rationale for treatment to reduce apnea, improve sleep quality and reduce cardiovascular and cerebrovascular events was reviewed. I also reviewed the benefit of consistent device use of CPAP for anxiety. 2. Obesity, unspecified. Currently patients BMI is 31.9. Obesity increases the risk of apnea, CPAP pressure requirements and overall health risks especially cardiovascular and diabetes. Thus patient is advised to lose weight. * Change auto CPAP pressure to 11.5-14 cmH2O * Update machine * Update supplies * Notify me if snoring with mask or feeling that the pressure is too much or too little * Attempt to lose weight * Call this office if any problems using CPAP * Return for follow up one month after obtaining new device, or sooner if concerns arise Counseling Topics: Spare mask, Weight loss health impact Visit Type: In Office Time Spent with Patient (minutes): 31 Provider Statement: I spent 100% of the Face to Face Visit with the patient with greater than 50% spent counseling the patient and coordination of care.
== END 2022-08-01 14:05 | disposition home or self-care (01) ==
LOC: SC 14:04
PROVIDERS: ATTEND Nurse Practitioner Family
DX: G47.33 Obstructive sleep apnea (adult) (pediatric) (principal); E66.9 Obesity, unspecified; Z68.31 Body mass index [BMI] 31.0-31.9, adult
CPT/HCPCS: 99203; 99212

== ENCOUNTER 2022-08-15 15:09 | Outpatient (CLI) | payer OTHER ==
--- NOTE | 2022-08-16 08:26 | XRAY Report ---
PROCEDURE: Knee 1 View BILAT INDICATIONS: RIGHT KNEE PAIN BILAT AP FOR COMPARISON TECHNIQUE: Weightbearing frontal view of both knees COMPARISON: Right knee radiographs 07/11/2022 FINDINGS: No definite acute fracture identified on this single view. Mild-moderate narrowing and spurring of th e right knee lateral compartment as before. Probable mild medial compartment narrowing of the left kn ee. IMPRESSION: Degenerative changes of both knees. Reviewed by: Parth Denton MD on 08/16/2022 8:25 AM PST Approved by: Parth Denton MD on 08/16/2022 8:25 AM PST Station ID: [id number]
== END 2022-08-15 15:10 | disposition home or self-care (01) ==
LOC: DI.WOS 15:09
PROVIDERS: ATTEND Physician Assistant Surgical
DX: M17.0 Bilateral primary osteoarthritis of knee (principal)

== ENCOUNTER 2022-09-11 12:36 | Emergency (ER) | payer OTHER ==
[2022-09-11] MEDS: HYDROmorphone 1 MG/ML CARPUJECT IM STA ×2 (15:10→16:32)
[2022-09-11] MEDS: KETOROLAC 60 MG/2 ML VIAL IM STA (15:12)
--- NOTE | 2022-09-11 15:13 | ED Physician Documentation ---
PD HPI LOWER EXT INJURY - Stated complaint Stated Complaint: R KNEE PX - Chief complaint Chief Complaint: Ext Problem - History obtained from History obtained from: Patient - History of Present Illness PD HPI LOW EXT INJURY LOCATION: Right, Knee Where injury occurred: Home Timing - duration: Days (1) Timing - details: Abrupt onset Pain level max: 10 Pain level now: 10 Improved by: Rest, Ice Worsened by: Moving, Palpating Associated symptoms: Swelling. No: Weakness, Numbness, Tingling, Discolored Contributing factors: No: Anticoagulated - Additional information Additional information: Patient is a 52-year-old male who presents to the emergency department the right knee pain. He states is been ongoing issue for about the past 6 months. He has seen orthopedics several times for same. He is on chronic oxycodone at home. He states that last night he fell and landed on the right knee. States increased pain today. He does have a knee brace but was not wearing this when he fell. Worse with walking, nothing makes it better. States increased swelling today. No numbness or tingling. No other injuries Review of Systems Constitutional: denies: Fever Respiratory: denies: Cough GI: denies: Vomiting, Diarrhea Skin: denies: Rash Musculoskeletal: denies: Neck pain, Back pain Neurologic: denies: Headache PD PAST MEDICAL HISTORY - Past Medical History Cardiovascular: Hypertension Respiratory: Sleep apnea, CPAP use Endocrine/Autoimmune: HyPOthyroidism GI: None : None HEENT: Chronic vision loss, Other Psych: Depression, Anxiety Musculoskeletal: Chronic back pain Derm: None - Past Surgical History Past Surgical History: Yes Ortho: Arthroscopic surgery, Spine surgery - Present Medications Home Medications: Ambulatory Orders Medication Instructions Recorded Confirmed Gabapentin [Neurontin] 600 mg PO TID 11/09/13 03/08/18 Levothyroxine [Synthroid] 225 mcg PO DAILY 11/09/13 03/08/18 Amitriptyline HCl 100 mg ORAL DAILY 12/22/16 03/08/18 DULoxetine [Cymbalta] 30 mg PO DAILY 03/08/18 03/08/18 oxyCODONE ER [OxyCONTIN] 40 mg PO TID 03/08/18 03/08/18 Ibuprofen [Motrin] See Rx Instructions .ROUTE .COMPLEX 08/01/22 08/01/22 Ketorolac [Toradol] 10 mg PO Q6H PRN #20 tablet 09/11/22 - Allergies Allergies/Adverse Reactions: Allergies Allergy/AdvReac Type Severity Reaction Status Date / Time No Known Drug Allergies Allergy Verified 07/11/22 17:06 - Social History Does the pt smoke?: No Smoking Status: Never smoker Does the pt drink ETOH?: No Does the pt have substance abuse?: No - Immunizations Immunizations are current?: Yes - POLST Patient has POLST: No PD ED PE NORMAL - Vitals Vital signs reviewed: Yes - General General: Alert and oriented X 3, No acute distress - HEENT HEENT: Moist mucous membranes - Derm Derm: Warm and dry - Extremities Extremities: Other (Right lower extremity - Mild swelling. No significant joint effusion. Tender to palpation over the patella. ACL, MCL, PCL, LCL are intact. Unable to tolerate meniscus testing. Neurovascularly intact. Otherwise normal exam of the knee.) - Neuro Neuro: Alert and oriented X 3 Results - Vitals Vitals: Vital Signs - 24 hr 09/11/22 09/11/22 12:49 16:48 Temperature 36.5 C 36.5 C Heart Rate 113 H 88 Respiratory 20 18 Rate Blood Pressure 146/103 H 140/90 H O2 Saturation 99 100 Oxygen O2 Source Room air - Rads (name of study) R knee xray Radiology: Final report received, See rad report PD Medical Decision Making - ED course Complexity details: reviewed results, re-evaluated patient, considered differential, d/w patient ED course: 52-year-old male with right knee pain, appears to be a strain/sprain. No acute findings on x-ray. He already has a hinged knee brace. Recommend that he wear this. He declines a walker. He is already on significant amounts of oxycodone at home. He requests a prescription of Toradol. We will prescribe this for him. Patient is ambulating well. Patient counseled regarding signs and symptoms for which I believe and urgent re-evaluation would be necessary. Patient with good understanding of and agreement to plan and is comfortable going home at this time This document was made in part using voice recognition software. While efforts are made to proofread this document, sound alike and grammatical errors may occur. Departure - Departure Disposition: 01 Home, Self Care Clinical Impression: Knee sprain Qualifiers: Encounter type: initial encounter Involved ligament of knee: unspecified ligament Laterality: right Qualified Code(s): S83.91XA - Sprain of unspecified site of right knee, initial encounter Condition: Good Instructions: ED Sprain Knee Follow-Up: JARAD DIAS ARNP [Primary Care Provider] - Within 1 week Prescriptions: Ketorolac [Toradol] 10 mg PO Q6H PRN #20 tablet PRN Reason: back pain Comments: Your x-ray does not show any acute abnormalities today. I would recommend that you wear your brace as given to you by orthopedics. Continue your pain medications at home. Your prescription was sent to the [facility] pharmacy. Please follow-up with your doctor for further care. Return if you worsen. Discharge Date/Time: 09/11/22 16:48
--- NOTE | 2022-09-11 15:47 | XRAY Report ---
PROCEDURE: Knee 4 View RT INDICATIONS: fall, R knee pain TECHNIQUE: 4 views of the right knee(s) were acquired. COMPARISON: None. FINDINGS: Bones: No fractures or dislocations. No suspicious bony lesions. There is degenerative arthritis w ith moderate lateral compartment joint space loss. Soft tissues: [Small joint effusion. No suspicious soft tissue calcifications. ] IMPRESSION: Degenerative arthritis of the right knee. No evidence acute bony abnormality of the righ t knee. If clinical suspicion and/or symptoms persist, further assessment with repeat plain films or advanced imaging (e.g., CT, MRI, or bone scan) may be helpful for further assessment. Reviewed by: Pablo Fuentes MD on 09/11/2022 3:46 PM PST Approved by: Pablo Fuentes MD on 09/11/2022 3:46 PM PST Station ID: [id number]
[2022-09-11 16:50] VITALS: BP 140/90
== END 2022-09-11 16:48 | disposition home or self-care (01) ==
LOC: ED 12:36
DX: S83.91XA Sprain of unspecified site of right knee, initial encounter (principal); W19.XXXA Unspecified fall, initial encounter
CPT/HCPCS: 73564; 96372; 99283; 99284; J1170

== ENCOUNTER 2022-09-23 07:37 | Outpatient (CLI) | payer OTHER | END 2022-09-23 07:38 | disposition EMS.NT | LOC: EMS 07:37 | DX: R40.4 Transient alteration of awareness (principal); T40.2X1A Poisoning by other opioids, accidental (unintentional), initial encounter ==

== ENCOUNTER 2022-10-26 15:06 | Outpatient (CLI) | payer OTHER ==
[2022-10-26 13:24] VITALS: BP 130/83
--- NOTE | 2022-10-26 13:24 | SLEEP CARE CONSULTATION ---
Information from patient questionnaire entered by Susanna Simpson. I have reviewed and concur with the information entered by Susanna Simpson. This document represents the service I personally performed and the decisions made by me, Niki Espinosa ARNP. History of Present Illness Service Date and Time: 10/26/2022 1300 Previous diagnosis: Moderate, Obstructive Sleep Apnea-Hypopnea Syndrome AHI: 19.2 (in 2009) Reason for follow up: first compliance after device update Equipment type: CPAP (RESMED Airsense 10, s/u 07/2022) Equipment obtained from: Other ([facility]; getting supplies) Mask style: Full face Mask brand: Resmed (Airfit F20) Backup mask available: Yes (old mask) Last cushion change: 4 days Prior sleep studies: Yes [facility] and Where: [facility] HPI additional information: LARS KERN was diagnosed to have moderate, AHI 19.2, obstructive sleep apnea-hypopnea syndrome and returns via video telehealth visit today for CPAP therapy first compliance after updating device follow-up. Sleep Study - Results Prior sleep studies: Yes Year and Where: [facility] CPAP Compliance Data - Data Reviewed with Patient Average duration of nightly device use: 7 HRS 20 MIN Compliance rate %: 93 (09/25/22-10/24/22; 30/ days used) Current pressure setting (cmH2O): 11.4-14 (median 11.4, avg 12.0, max 12.7) Average residual AHI: 1.8 Central apnea: 0.7 Obstructive apnea: 0.3 Subjective Patient concerns: reports: condensation in mask/hose ( resolved on own). denies: aerophagia, mask discomfort, air blowing in eyes, mask leak noise, nasal congestion, dry mouth, nose, throat, epistaxis Observed to snore while using device: No Current pressure setting perceived as: comfortable On therapy, patient: reports: sleeping better, awakening more refreshed, being more awake and alert during the day, more rested overall. denies: drowsiness while driving Initial [place] Sleepiness Scale score: 14 (08/01/2022) Current [place] Sleepiness Scale score: 2 (10/26/22) Allergies and Home Medications Drug allergies reviewed: Yes (NKDA) Home medication list reviewed: Yes (no changes) Review of Systems Review of systems same as previous: Yes (no changes) Physical Exam Vital signs obtained and entered by: VIA PHONE SUSANNA Carlson MA Blood Pressure: 130/83 (PER PT ) Height: 6 ft 1 in (PER PT) Weight: 235 lb (PER PT) Body Mass Index: 30.9 BMI Classification: Obese Impression and Plan 1. Obstructive Sleep Apnea-Hypopnea Syndrome, moderate, with good treatment compliance and good apnea control. On CPAP therapy, the patient has better sleep quality and is more rested overall. Patient has significant improvement of their sleep apnea and are satisfied with current CPAP therapy. Patient denies problems with oral dryness, nasal congestion, epistaxis, skin irritation or aerophagia. Patient's apnea severity and rationale for treatment to reduce apnea, improve sleep quality and reduce cardiovascular and cerebrovascular events was reviewed. I also reviewed the benefit of consistent device use of CPAP for anxiety. 2. Obesity, unspecified. Currently patients BMI is 30.9. Obesity increases the risk of apnea, CPAP pressure requirements and overall health risks especially cardiovascular and diabetes. Thus patient is advised to lose weight. * Continue auto CPAP pressure at 11.4-14 cmH2O * Notify me if snoring with mask or feeling that the pressure is too much or too little * Attempt to lose weight * Call this office if any problems using CPAP * Return for follow up in 1 year, or sooner if concerns arise Counseling Topics: Spare mask, Weight loss health impact Visit Type: Telehealth Video Video Type: Doximity Patient Location: car Location of Provider: Office Patient agrees and consents to this telehealth visit type: Yes Patient agrees to have their insurance billed: Yes Time Spent with Patient (minutes): 20 Provider Statement: I spent 100% of the Telehealth Video Call with the patient with greater than 50% spent counseling the patient and coordination of care.
== END 2022-10-26 15:07 | disposition home or self-care (01) ==
LOC: SC 15:06
PROVIDERS: ATTEND Nurse Practitioner Family
DX: G47.33 Obstructive sleep apnea (adult) (pediatric) (principal); E66.9 Obesity, unspecified; Z68.30 Body mass index [BMI] 30.0-30.9, adult

== ENCOUNTER 2022-12-01 13:55 | Emergency (ER) | payer OTHER ==
--- NOTE | 2022-12-01 14:21 | ED Physician Documentation ---
PD HPI BACK PAIN - Stated complaint Stated Complaint: GLF/BACK PX - Chief complaint Chief Complaint: Trauma Ch/Bk - History obtained from History obtained from: Patient - History of Present Illness Timing - onset: Today Timing - details: Abrupt onset, Still present (he has had chronic back pain and had surgery for insertion of spinal sitmulator a week ago at [facility], Dr. Thomas. He was doing okay. Has Oxycodone 10 mg 3-4 times daily for the pain. He uses cane. He says he lost balance due to back stiffness and fell back against a counter, hitting surgical area.) Location: Mid, Lower Quality: Pain, Spasm, Tearing Associated symptoms: No: Fever, Weakness, Numbness Worsened by: Movement, Palpation Contributing factors: No: Anticoagulated Recently seen: Surgery Review of Systems Constitutional: denies: Fever, Chills Skin: denies: Rash (he states had redness around lower incision last week and rx antibioticl, which he is still on.), Lesions Neurologic: denies: Altered mental status, Headache PD PAST MEDICAL HISTORY - Past Medical History Cardiovascular: Hypertension Respiratory: Sleep apnea, CPAP use Endocrine/Autoimmune: HyPOthyroidism GI: None : None HEENT: Chronic vision loss, Other Psych: Depression, Anxiety Musculoskeletal: Chronic back pain Derm: None - Past Surgical History Past Surgical History: Yes Ortho: Arthroscopic surgery, Spine surgery - Present Medications Home Medications: Ambulatory Orders Medication Instructions Recorded Confirmed Gabapentin [Neurontin] 600 mg PO TID 11/09/13 10/26/22 Levothyroxine [Synthroid] 225 mcg PO DAILY 11/09/13 10/26/22 Amitriptyline HCl 100 mg ORAL DAILY 12/22/16 10/26/22 DULoxetine [Cymbalta] 30 mg PO DAILY 03/08/18 10/26/22 oxyCODONE ER [OxyCONTIN] 40 mg PO TID 03/08/18 10/26/22 Ibuprofen [Motrin] See Rx Instructions .ROUTE .COMPLEX 08/01/22 10/26/22 Ketorolac [Toradol] 10 mg PO Q6H PRN #20 tablet 09/11/22 10/26/22 Oxycodone HCl 10 mg PO Q6H PRN #20 tablet 12/01/22 tiZANidine [Zanaflex] 4 mg PO Q8H PRN #25 tablet 12/01/22 - Allergies Allergies/Adverse Reactions: Allergies Allergy/AdvReac Type Severity Reaction Status Date / Time No Known Drug Allergies Allergy Verified 12/01/22 14:12 - Social History Does the pt smoke?: No Smoking Status: Never smoker Does the pt drink ETOH?: No Does the pt have substance abuse?: No - Immunizations Immunizations are current?: Yes - POLST Patient has POLST: No PD ED PE NORMAL - Vitals Vital signs reviewed: Yes - General General: Alert and oriented X 3, Well developed/nourished, Other (appears in considerable pain in back. the incisions there are with some ruffled redness at sunil c/w irritaion and does not appear infection. no purulence. the stimulator battery pouch is tender. There is lower incision to that that has 3 missing sunil. No dehiscence. Upper wound intact. ) - HEENT HEENT: Atraumatic - Respiratory Respiratory: Clear bilaterally - Abdomen Abdomen: Soft, Non tender - Back Back: No CVA TTP, No spinal TTP - Derm Derm: Normal color, Warm and dry - Neuro Neuro: No motor deficit, No sensory deficit Results - Vitals Vitals: Vital Signs - 24 hr 12/01/22 12/01/22 14:05 17:18 Temperature 36.9 C Heart Rate 111 H 83 Respiratory 18 20 Rate Blood Pressure 161/100 H 153/98 H O2 Saturation 100 100 Oxygen O2 Source Room air - Rads (name of study) thoracic and lumbar spines Relevant Findings:: Prelim report reviewed, EMP independent interpretation of test (stimulator parts and wires appear intact and connected. ), See rad report PD Medical Decision Making - ED course Complexity details: reviewed results, considered differential (he fell and struck back against counter. Had surgery a week ago for stimulator to treat chronic back pain. He did strike against that area. 3 sunil pulled out. No signs of infection. No dehiscence. ), d/w patient Drug Therapy Requiring Monitoring for Toxicity: he is given IM dilaudid and Toradol for pain iwth moderate improvement. Subsequently given dilaudid 2 mg more IM. this improved pain to closer to baseline amount. Discussion with him that he has meds for 3 daily to last til follow up. He is likely goiing to need more than baseline amount of pain meds for next few days, so will rx him more. He takes Methadone twice daily and then currently oxycodone 10 mg tid-qid post-op. The pharmacy called to see if I was aware that he had gotten Rx for 50 tabs oxycodone in the past week. I told them I was aware, he had told me, and I was writing for supplemental amount to last until his post-op follow up next . Departure - Departure Disposition: Home, Self Care Clinical Impression: Postoperative back pain, Accidental fall Condition: Stable Record reviewed to determine appropriate education?: Yes Prescriptions: Oxycodone HCl 10 mg PO Q6H PRN #20 tablet PRN Reason: Pain 5-7 tiZANidine [Zanaflex] 4 mg PO Q8H PRN #25 tablet PRN Reason: Spasms Comments: Your stimulator and the wires seem to be in place and connected on x-ray. The 3 sunil that were pulled out when he fell were replaced with Steri-Strips and that should be enough to hold the skin together in that area. The other areas show some redness around the staple points like an irritation but does not appear infected. We can supplement your current pain medication given you will have some increased pain with falling now. I wrote a prescription for some more oxycodone to be able to increase from 3-4 times a day for your pain. Continue your other usual medicines. Tizanidine muscle relaxants 3-4 times daily to help with spasms and stiffness. Activity as tolerated and allowed by your back surgeon. Follow-up Sunday as planned for your postop check. Return if needed. I sent your prescription to the [facility] pharmacy here in [place]. I am prescribing a short course of narcotic pain medication for you. These are potentially dangerous and addictive medications that should be used carefully. These medications may constipate you. Take an eedw-bfc-fawirmm stool softener such as docusate twice daily with plenty of water while taking these medicatio ns. If you go 24 hours without a bowel movement, take zxde-ilp-kklchhv MiraLAX, per package instructions. Do not drink or drive while taking these medications. If you received narcotic or sedating medications while in the emergency department do not drive for 24 hours. Store this medication in a safe, secure place and out of reach of children. It is a violation of federal law to give or sell this medication to another person or to use in a manner other than prescribed. The ED will not refill narcotic prescriptions, including prescriptions lost or stolen. You can dispose of unwanted medications at the [facility]'s office or at several pharmacies such as [facility]. Discharge Date/Time: 12/01/22 17:22
[2022-12-01] MEDS ORDERED: CYCLOBENZAPRINE 10 MG TABLET PO STA (14:32)
[2022-12-01] MEDS ORDERED: KETOROLAC 30 MG/ML VIAL IM STA (14:32)
[2022-12-01] MEDS ORDERED: HYDROmorphone 2 MG/ML VIAL IM STA ×2 (14:32→15:39)
--- NOTE | 2022-12-01 15:53 | XRAY Report ---
PROCEDURE: Thoracic Spine 2 View INDICATIONS: recent stimulator surgery; fell on back TECHNIQUE: 2 views of the thoracic spine were acquired. COMPARISON: Same day AP thoracic spine radiographs. CT thoracic spine 12/12/2019. FINDINGS: Bones: No fractures or dislocations. No suspicious bony lesions. 12 pairs of ribs are noted, and a ppear intact where visualized. Thecal lead projecting at T8-T9 level. Soft tissues: No paravertebral stripe thickening. IMPRESSION: No acute osseous abnormality. Reviewed by: Gregory Tejeda MD on 12/01/2022 3:51 PM PST Approved by: Gregory Tejeda MD on 12/01/2022 3:51 PM PST Station ID: [id number]
--- NOTE | 2022-12-01 15:54 | XRAY Report ---
PROCEDURE: Lumbar Spine 2 View INDICATIONS: recent stimulator surgery; fell onto back TECHNIQUE: 4 views of the lumbar spine were acquired. COMPARISON: None. FINDINGS: Bones: 5 cox-hie-rgozbxb vertebrae are present. Mild scoliosis. L5-S1 pedicle screw fixation. Left g enerator device with thecal lead projecting cranial. No vertebral body compression fractures. Small vertebral body osteophytes. No suspicious bony lesions. Soft tissues: Overlying bowel gas pattern is normal. No suspicious soft tissue calcifications. IMPRESSION: No acute osseous abnormality. L5-S1 pedicle screw fixation. Reviewed by: Gregory Tejeda MD on 12/01/2022 3:53 PM [facility] Approved by: Gregory Tejeda MD on 12/01/2022 3:53 PM [facility] Station ID: [id number]
[2022-12-01 17:21] VITALS: BP 153/98
== END 2022-12-01 17:22 | disposition home or self-care (01) ==
LOC: ED 13:55
DX: G89.18 Other acute postprocedural pain (principal); M54.50 Low back pain, unspecified; M54.6 Pain in thoracic spine
CPT/HCPCS: 72070; 72100; 96372; 99283; 99284; A9270; J1170

== ENCOUNTER 2022-12-03 12:54 | Emergency (ER) | payer OTHER ==
[2022-12-03] MEDS ORDERED: HYDROmorphone 1 MG/ML CARPUJECT IM STA (14:13)
--- NOTE | 2022-12-03 14:16 | ED Physician Documentation ---
PD HPI SKIN - Stated complaint Stated Complaint: INCISION OPEN - Chief complaint Chief Complaint: Laceration - History obtained from History obtained from: Patient - Additional information Additional information: The pt returns to the ED with CC of incision opening up after nerve stimulator placement about 10 days ago for chronic back pain. He was just seen 2 days ago for the same thing, at which time a small area of dehiscence was noted. Steri- strips were placed, and the pt was given a prescription for narcotic pain medication to last until his post-op appointment, which is coming up in 3 days. The pt reports that he has taken all of his pain medication in the past less than 48 hours, and that his incision keeps opening up. He states he can feel blood running down into his gluteal area, and "can't live with the bleeding". His surgeon's office had told him to come here for any problems prior to post-op follow-up appt. PD PAST MEDICAL HISTORY - Past Medical History Cardiovascular: Hypertension Respiratory: Sleep apnea, CPAP use Endocrine/Autoimmune: HyPOthyroidism GI: None : None HEENT: Chronic vision loss, Other Psych: Depression, Anxiety Musculoskeletal: Chronic back pain Derm: None - Past Surgical History Past Surgical History: Yes Ortho: Arthroscopic surgery, Spine surgery - Present Medications Home Medications: Ambulatory Orders Medication Instructions Recorded Confirmed Gabapentin [Neurontin] 600 mg PO TID 11/09/13 10/26/22 Levothyroxine [Synthroid] 225 mcg PO DAILY 11/09/13 10/26/22 Amitriptyline HCl 100 mg ORAL DAILY 12/22/16 10/26/22 DULoxetine [Cymbalta] 30 mg PO DAILY 03/08/18 10/26/22 oxyCODONE ER [OxyCONTIN] 40 mg PO TID 03/08/18 10/26/22 Ibuprofen [Motrin] See Rx Instructions .ROUTE .COMPLEX 08/01/22 10/26/22 Ketorolac [Toradol] 10 mg PO Q6H PRN #20 tablet 09/11/22 10/26/22 Oxycodone HCl 10 mg PO Q6H PRN #20 tablet 12/01/22 tiZANidine [Zanaflex] 4 mg PO Q8H PRN #25 tablet 12/01/22 oxyCODONE ER [OxyCONTIN] 10 mg PO Q12H PRN #6 tablet 12/03/22 - Allergies Allergies/Adverse Reactions: Allergies Allergy/AdvReac Type Severity Reaction Status Date / Time No Known Drug Allergies Allergy Verified 12/03/22 13:13 - Social History Does the pt smoke?: No Smoking Status: Never smoker Does the pt drink ETOH?: No Does the pt have substance abuse?: No - Immunizations Immunizations are current?: Yes - POLST Patient has POLST: No PD ED PE NORMAL - Vitals Vital signs reviewed: Yes - General General: Alert and oriented X 3, Well developed/nourished, Other (The pt is gasping and very agitated, stating that he can't bear the pain.) - HEENT HEENT: Atraumatic, PERRL, EOMI, Moist mucous membranes - Neck Neck: Supple, no meningeal sign - Respiratory Respiratory: No respiratory distress - Back Back: No spinal TTP, Other (midline lumbar incision site reveals a 2.5 cm length x 1.5 cm depth area of dehiscence and mild oozing of blood. No erythema or i nduration of surrounding skin. No purulent drainage. Remainder of wound intact, with sunil about 5mm apart. No trace of steri-strips) - Derm Derm: Normal color, Warm and dry, No rash - Extremities Extremities: No deformity - Neuro Neuro: Alert and oriented X 3 - Psych Psych: Normal mood, Normal affect Results - Vitals Vitals: Oxygen O2 Source Room air PD Medical Decision Making - ED course Complexity details: reviewed old records, considered differential, d/w patient ED course: The pt was very agitated and distraught in the ED, and complained of terrible pain at the area of wound dehiscence. There was no evidence of wound infection whatsoever, and the dehisced area appeared significantly longer than would be expected, given the spacing of the intact sunil, for the documented 3 sunil missing on the pt's previous visit. Additionally, there was no trace of the Steri-Strips which had been placed only 48 hours before in our department. There was no evidence of bruising, swelling, or other indicators of trauma to the surrounding tissues/skin. His x-rays had shown intact stimulator apparatus. The pt stated repeatedly that he has "a very high tolerance to narcotics". He is on methadone at baseline, and since the surgery, was given a large prescription for #50 10mg tabs of oxycodone. When seen in the ED 2 days ago, he was already running low on this, and was given an additional 20 tablets of oxycodone. The pt now states that just in the past 48 hours, he is down to 2 tablets, including what was already prescribed after the surgery. Review of the records reveals that the pt also was given a total of 4 mg of Dilaudid on the last visit before finally reporting pain relief. I am concerned, given all of the above, for nonaccidental trauma to the pt's wound in order to replace the narcotic meds he is going through too quickly. I ordered the pt 1mg of Dilaudid. The pt has asked for more Dilaudid, and I have declined. The reported pain is way out of proportion to the findings on examination of the wound, and the pt is 10 days post-op at this point, and surgery-related pain should be abating. I have discussed with the pt that I am giving him 6 tablets only of Percocet by prescription, and this will have to last him until his appointment. If he requires further pain management, he will need to call his surgeon. If he returns to the ED for this problem, he understands that no further pain medication will be prescribed. We have discussed that given the age of the wound, it will have to heal by secondary intention, and that no further sutures or sunil will be placed. Departure - Departure Disposition: 01 Home, Self Care Clinical Impression: Traumatic wound dehiscence Qualifiers: Encounter type: initial encounter Qualified Code(s): T81.33XA - Disruption of traumatic injury wound repair, initial encounter Condition: Stable Instructions: ED Wound Check Post Op Bleeding Prescriptions: oxyCODONE ER [OxyCONTIN] 10 mg PO Q12H PRN #6 tablet PRN Reason: Pain >8 Comments: You have traumatized your incision site and caused the wound end to split apart. If you have not had any further trauma to the wound, it is not clear why it has suddenly started bleeding now. Whatever the case, 10 days after the surgery, it is not appropriate to put more sunil or sutures in the wound. A dressing has been placed over the wound again today, as was done on Sunday when you were here. It is not clear how or why the adhesive Steri-Strips which we placed have gone missing, but you will need to leave the adhesive strips in place to allow the wound edges to stick together and prevent bleeding. As far as your need for pain medication, again it is not clear why there is such a large need for pain medication for this wound injury, even with the high tolerance for pain meds. You were already given enough extra medication to last until your doctor's appointment, and you have already gone through this in 2 days, on top of your usual oxycodone and methadone. We will give you a small amount more of oxycodone, but after this, no further pain medication will be given from the emergency department for this particular problem. You have already had imaging to show that there is no underlying damage to your nerve stimulator, and it is not appropriate to give further narcotic pain medication from the emergency department between now and your surgery appointment. Please call your surgeon's office first thing tomorrow to see if they would like to see you earlier. Otherwise, please follow up for your Sunday appointment, as scheduled. Your prescription has been electronically transmitted to the [facility] in [place]. You have been given a dose of Dilaudid in the emergency department, so you should not drive or operate heavy equipment for the next approximately 8 hours. Discharge Date/Time: 12/03/22 15:00
[2022-12-03 14:49] VITALS: BP 108/75
== END 2022-12-03 15:00 | disposition home or self-care (01) ==
LOC: ED 12:54
DX: T81.31XA Disruption of external operation (surgical) wound, not elsewhere classified, initial encounter (principal)
CPT/HCPCS: 96372; 99283; J1170

== ENCOUNTER 2022-12-15 09:01 | Emergency (ER) | payer OTHER ==
[2022-12-15 09:14] VITALS: BP 137/93
[2022-12-15] MEDS ORDERED: oxyCODONE 5 MG TABLET PO STA (09:47)
[2022-12-15] MEDS ORDERED: KETOROLAC 30 MG/ML VIAL IM STA (09:47)
--- NOTE | 2022-12-15 09:57 | ED Physician Documentation ---
PD HPI BACK PAIN - Stated complaint Stated Complaint: LOWER BACK PX - Chief complaint Chief Complaint: Back Pain - History obtained from History obtained from: Patient - Additional information Additional information: Patient is a 52-year-old with chronic low back pain presenting for evaluation of worsening back pain since Sunday. He reports the pain has actually been getting worse over the past 1 month since he had a spinal stimulator placed at [facility] by Dr. Tomlin.He has had other prior emergency department visits for the same reasons. He has also been seen by his orthopedic surgeon.Patient states that the pain is in his low back and radiates to his left leg. He denies bowel or bladder incontinence, saddle anesthesia, fevers.He does not take a blood thinner. Patient states he last received a pain prescription 2 weeks ago and that he ran out on Sunday. He states he has otherwise been using acetaminophen for pain which is not helping.He states that his surgeon will no longer see him as he should be recovered from his surgery and that he was directed to see his PCP. He states that he was post to see his PCP today but they canceled the appointment and rescheduled him for Sunday. He denies he is currently in pain management. Information obtained from the [facility] Rx Details Fill Date Drug Description Qty. Prescriber MED 2022-12-12 OXYCODONE HCL (IR) 5 MG TABLET 48 NUPUR Rapp'PATY 2 60 2022-12-11 DIAZEPAM 5 MG TABLET 20 GUILLERMINA RG MD 4 0 2022-12-06 OXYCODONE HCL (IR) 10 MG TAB 42 GUILLERMINA RG MD 0 2022-12-04 OXYCODONE HCL (IR) 10 MG TAB 20 SACHIN BURKS MD 2 60 2022-12-03 OXYCONTIN ER 10 MG TABLET 6 JERICHO NORMAN M.D. 2 30 2022-11-28 OXYCODONE HCL (IR) 10 MG TAB 50 GUILLERMINA RG MD 2 93.75 2022-11-27 DIAZEPAM 5 MG TABLET 15 GUILLERMINA RG MD 4 0 2022-11-22 OXYCODONE HCL (IR) 10 MG TAB 60 GUILLERMINA RG MD 2 300 Review of Systems Cardiac: denies: Chest pain / pressure Respiratory: denies: Dyspnea GI: denies: Abdominal Pain : denies: Dysuria, Unable to Void, Incontinent Musculoskeletal: reports: Back pain Neurologic: denies: Headache PD PAST MEDICAL HISTORY - Past Medical History Cardiovascular: Hypertension Respiratory: Sleep apnea, CPAP use Endocrine/Autoimmune: HyPOthyroidism GI: None : None HEENT: Chronic vision loss, Other Psych: Depression, Anxiety Musculoskeletal: Chronic back pain Derm: None - Past Surgical History Past Surgical History: Yes Ortho: Arthroscopic surgery, Spine surgery - Present Medications Home Medications: Ambulatory Orders Medication Instructions Recorded Confirmed Gabapentin [Neurontin] 600 mg PO TID 11/09/13 10/26/22 Levothyroxine [Synthroid] 225 mcg PO DAILY 11/09/13 10/26/22 Amitriptyline HCl 100 mg ORAL DAILY 12/22/16 10/26/22 DULoxetine [Cymbalta] 30 mg PO DAILY 03/08/18 10/26/22 oxyCODONE ER [OxyCONTIN] 40 mg PO TID 03/08/18 10/26/22 Ibuprofen [Motrin] See Rx Instructions .ROUTE .COMPLEX 08/01/22 10/26/22 Ketorolac [Toradol] 10 mg PO Q6H PRN #20 tablet 09/11/22 10/26/22 Oxycodone HCl 10 mg PO Q6H PRN #20 tablet 12/01/22 tiZANidine [Zanaflex] 4 mg PO Q8H PRN #25 tablet 12/01/22 oxyCODONE ER [OxyCONTIN] 10 mg PO Q12H PRN #6 tablet 12/03/22 - Allergies Allergies/Adverse Reactions: Allergies Allergy/AdvReac Type Severity Reaction Status Date / Time No Known Drug Allergies Allergy Verified 12/15/22 09:14 - Social History Does the pt smoke?: No Smoking Status: Never smoker Does the pt drink ETOH?: No Does the pt have substance abuse?: No - Immunizations Immunizations are current?: Yes - POLST Patient has POLST: No PD ED PE NORMAL - General General: Alert and oriented X 3, No acute distress, Well developed/nourished - HEENT HEENT: Atraumatic - Neck Neck: Supple, no meningeal sign - Cardiac Cardiac: RRR, Strong equal pulses - Respiratory Respiratory: No respiratory distress - Back Back: Other (Healing incision to left lumbar region with overlying Steri-Strips, no appreciable swelling, abnormal drainage or erythema) - Derm Derm: Warm and dry - Extremities Extremities: No deformity, No edema - Neuro Neuro: No motor deficit, No sensory deficit Results - Vitals Vitals: Vital Signs - 24 hr 12/15/22 09:08 Temperature 36.1 C L Heart Rate 116 H Respiratory 18 Rate Blood Pressure 137/93 H O2 Saturation 100 Oxygen O2 Source Room air PD Medical Decision Making - ED course ED course: Patient presenting to emergency department with worsening low back pain in the setting of chronic back pain.Surgical site from recent stimulator placement appears to be healing with no signs of infection. He has no red flag signs or symptoms in regards to his back pain and is ambulatory here with his cane.He has had prior visits for similar symptoms.He initially told me that his last pain prescription was written 2 weeks ago. I printed his [facility] and showed him the list of Recently filled her prescriptions including 1 for oxycodone that was filled to 3 days ago on December 12 for 42 pills.When asked about this he says "I guess the black and white doesn't lie". He did not seem to want to discuss much how much pain medicine he really is using recently. I expressed concern for how quickly he is going through pain medication recently prescribed to him.I explained that I am not able to provide any further narcotic prescriptions from the emergency department. I have able to give a one-time dose of a pain pill here. Patient states that he does understand this. I Offered other nonnarcotic treatments such as with muscle relaxers, anti-inflammatories, lidocaine patches. The patient does not want prescriptions for any of her medications. He is counseled to follow-up with his primary care doctor and highly encouraged to try to establish with pain management. He is advised on concerning symptoms to return for. Departure - Departure Disposition: Home, Self Care Clinical Impression: Back pain with sciatica of left side Condition: Stable Instructions: ED Neck Back Pain General Follow-Up: NATHAN Martinez [Provider Group] Comments: You were evaluated for pain in your back. I am concerned as to how quickly you are going through narcotic medications that have been prescribed to you recently. We are not able to write any further Prescriptions from the emergency department for any narcotic medications. I would recommend reaching out to your orthopedic surgeon, Dr. Tomlin or your primary care To see what else they may be able to offer you for your symptoms.You may consider getting a referral to pain management. Discharge Date/Time: 12/15/22 10:10
== END 2022-12-15 10:10 | disposition home or self-care (01) ==
LOC: ED 09:01
DX: M54.42 Lumbago with sciatica, left side (principal); I10 Essential (primary) hypertension
CPT/HCPCS: 96372; 99283; 99284; A9270

== ENCOUNTER 2022-12-21 16:05 | Emergency (ER) | payer OTHER ==
[2022-12-21 16:14] VITALS: BP 180/100
--- NOTE | 2022-12-21 16:51 | ED Physician Documentation ---
History of Present Illness - Stated complaint Stated Complaint: BACK PX/INCONTINENCE - Chief complaint Chief Complaint: Back Pain - History obtained from History obtained from: Patient - Additonal information Additional information: This is a 52-year-old male with a history of chronic lower back pain, status post L5-S1 spinal fusion as well as recent spinal stimulator replacement earlier this month. He is followed by Dr. Tolbert in [facility]. He has been seen here several times over the last couple of weeks for back pain related issues. He is here today because he states over the past 2 days he has had 5 incontinent episodes, incontinent of stool. He states he called his regular doctor as well as his surgeon who advised him to come into the ER. The patient states that 3 of the episodes has been while his spinal stimulator and on into while his spinal stimulator was off. This is new for him, he has never had issues with stool incontinence in the past. He is quite frustrated by this. He does not have urinary retention or incontinence, and denies any saddle anesthesia. He has no new lower extremity pain or weakness but does have chronic left leg weakness. Has not had any fever or chills, no chest pain or difficulty breathing, no abdominal pain nausea vomiting diarrhea or constipation. He states his new spinal simulator is MRI compatible. Review of Systems Constitutional: reports: Reviewed and negative Cardiac: reports: Reviewed and negative Respiratory: reports: Reviewed and negative GI: reports: Reviewed and negative : reports: Reviewed and negative Skin: reports: Reviewed and negative Musculoskeletal: reports: Back pain PD PAST MEDICAL HISTORY - Past Medical History Cardiovascular: Hypertension Respiratory: Sleep apnea, CPAP use Endocrine/Autoimmune: HyPOthyroidism GI: None : None HEENT: Chronic vision loss, Other Psych: Depression, Anxiety Musculoskeletal: Chronic back pain Derm: None - Past Surgical History Past Surgical History: Yes Ortho: Arthroscopic surgery, Spine surgery - Present Medications Home Medications: Ambulatory Orders Medication Instructions Recorded Confirmed Gabapentin [Neurontin] 600 mg PO TID 11/09/13 10/26/22 Levothyroxine [Synthroid] 225 mcg PO DAILY 11/09/13 10/26/22 Amitriptyline HCl 100 mg ORAL DAILY 12/22/16 10/26/22 DULoxetine [Cymbalta] 30 mg PO DAILY 03/08/18 10/26/22 oxyCODONE ER [OxyCONTIN] 40 mg PO TID 03/08/18 10/26/22 Ibuprofen [Motrin] See Rx Instructions .ROUTE .COMPLEX 08/01/22 10/26/22 Ketorolac [Toradol] 10 mg PO Q6H PRN #20 tablet 09/11/22 10/26/22 Oxycodone HCl 10 mg PO Q6H PRN #20 tablet 12/01/22 tiZANidine [Zanaflex] 4 mg PO Q8H PRN #25 tablet 12/01/22 oxyCODONE ER [OxyCONTIN] 10 mg PO Q12H PRN #6 tablet 12/03/22 - Allergies Allergies/Adverse Reactions: Allergies Allergy/AdvReac Type Severity Reaction Status Date / Time No Known Drug Allergies Allergy Verified 12/21/22 16:10 - Social History Does the pt smoke?: No Smoking Status: Never smoker Does the pt drink ETOH?: No Does the pt have substance abuse?: No - Immunizations Immunizations are current?: Yes - POLST Patient has POLST: No PD ED PE NORMAL - Vitals Vital signs reviewed: Yes - General General: Alert and oriented X 3, No acute distress, Well developed/nourished - Cardiac Cardiac: RRR, No murmur - Respiratory Respiratory: No respiratory distress, Clear bilaterally - Abdomen Abdomen: Normal bowel sounds, Soft, Non tender, Non distended - Back Back: No CVA TTP, Other (Lumbosacral tenderness to palpation) - Derm Derm: Normal color, Warm and dry, No rash - Extremities Extremities: No deformity, Normal ROM s pain, Other (No foot drop, normal sensation in the legs) - Neuro Neuro: Alert and oriented X 3 Eye Opening: Spontaneous Motor: Obeys Commands Verbal: Oriented GCS Score: 15 - Psych Psych: Normal mood, Normal affect Results - Vitals Vitals: Vital Signs - 24 hr 12/21/22 16:11 Temperature 36.5 C Heart Rate 100 Respiratory 18 Rate Blood Pressure 180/100 H O2 Saturation 100 Oxygen O2 Source Room air - Rads (name of study) No standard instances Relevant Findings:: Final report received PD Medical Decision Making - ED course Complexity details: reviewed results, re-evaluated patient, considered differential, d/w patient, d/w family ED course: 52-year-old male who has known history of chronic lower back pain status post spinal fusion and recent spinal stimulator placement presents with fecal incontinence. He has no other signs of cauda equina syndrome, no saddle anesthesia, no lower extremity weakness new or foot drop. He has not had a fever or chills. He is onChronic pain management. Here he presents appearing uncomfortable and reporting fecal incontinence though he had none here. He denies any other GI or symptoms such as vomiting, diarrhea, nausea, And does not believe this is related to constipation or fecal overload. I therefore did obtain an MRI of his back as he has an MRI compatible spinal stimulator. Showed no acute findings that would cause his symptoms. The patient requested pain medication prior to the MRI which she was given so that he could lay flat and then he required an additional 1 mg of Dilaudid prior to discharge but he was advised that I would not be giving him any other narcotic prescriptions as he is currently being followed on the outpatient basis for this issue, and he stated understanding. I do think the patient is stable for discharge home at this time, if he continues to have fecal incontinence, consider increasing bowel regimen to clear out any stool, and consider outpatient GI evaluation. The patient was also advised to talk to his surgeon as it seems that this is a more frequent occurrence and the spinal stimulator is on and this may be a factor though I am not sure therefore he is to follow-up with his spine surgeon. I discussed return precautions if new or worsening symptoms including fever, increasing lower extremity weakness foot drop or other new concerns. Departure - Departure Disposition: 01 Home, Self Care Clinical Impression: Chronic back pain Qualifiers: Back pain location: low back pain Back pain laterality: bilateral Sciatica presence: without sciatica Qualified Code(s): M54.50 - Low back pain, unspecified Fecal incontinence Qualifiers: Fecal incontinence type: unspecified Qualified Code(s): R15.9 - Full incontinence of feces Condition: Good Instructions: ED Chronic Pain Management Comments: Your MRI today was reassuring. There are no acute findings to explain your fecal incontinence. Please continue your chronic pain management via your pain specialist or surgeon. As previously discussed with you, we will not continue to prescribe narcotic pain medication for you from the ER. Discharge Date/Time: 12/21/22 19:28
[2022-12-21] MEDS: KETOROLAC 60 MG/2 ML VIAL IM STA (16:56)
[2022-12-21] MEDS: HYDROmorphone 1 MG/ML CARPUJECT IM STA ×2 (16:57→19:25)
--- NOTE | 2022-12-21 19:06 | MRI Report ---
PROCEDURE: LUMBAR SPINE WO INDICATIONS: chronic back issues, new incontinence TECHNIQUE: Noncontrast sagittal T1 spin echo and T2 fast echo, sagittal STIR, axial T1 and T2 fast spin echo thr ough the lumbar spine. In cases with scoliosis, additional coronal T2 fast spin echo may be performe d. COMPARISON: Radiographs 12/01/2022, CT 11/11/2021 FINDINGS: Image quality: There is motion artifact Alignment: Persistent trace anterolisthesis of L5 on S1. Marrow: No acute fracture. Postsurgical changes again seen at L5-S1, better evaluated on radiography or CT. Multilevel disc desiccation. Cord: Terminates in normal position. Normal appearance of the cauda equina nerve roots. Soft tissues: Large right renal cyst partially evaluated. No paravertebral abscess or hematoma identi fied. Specific levels: No stenosis identified from T12 to L3. Minimal disc bulging and facet arthropathy is present at these levels. L3-L4: Mild diffuse disc bulge and [id number] facet arthropathy. Mild central narrowing. Mild b ilateral neural foraminal narrowing. L4-L5: Mild diffuse disc bulge. There is facet arthropathy. Mild left subarticular recess narrowing. Mild right neural foraminal narrowing. L5-S1: No central stenosis identified. IMPRESSION: L5-S1 postsurgical changes. Hardware would be better evaluated on CT or x-ray, previously obtained. O verall low-grade degenerative disc disease and facet arthropathy at L3-L4 and L4-L5, above the fusion construct. No critical stenosis to suggest cauda equina syndrome. Reviewed by: Antwon Perry MD on 12/21/2022 7:05 PM PDT Approved by: Antwon Perry MD on 12/21/2022 7:05 PM PDT Station ID: [id number]
== END 2022-12-21 19:28 | disposition home or self-care (01) ==
LOC: ED 16:05
DX: R15.9 Full incontinence of feces (principal); M54.50 Low back pain, unspecified; G89.29 Other chronic pain
CPT/HCPCS: 72148; 96372; 99283; 99284; J1170

== ENCOUNTER 2022-12-23 15:55 | Emergency (ER) | payer OTHER ==
[2022-12-23] MEDS ORDERED: DIPHENOX/ATROPINE 2.5/0.025 MG TABLET PO STA (16:20)
[2022-12-23] MEDS ORDERED: HYDROmorphone 1 MG/ML CARPUJECT IM STA (16:22)
--- NOTE | 2022-12-23 16:59 | XRAY Report ---
PROCEDURE: Abdomen Acute INDICATIONS: constipation TECHNIQUE: One view chest and two views of the abdomen were acquired. COMPARISON: 12/01/2022 FINDINGS: Surgical changes and devices: There is a thoracic spine stimulator seen. L5-S1 postoperative hardware is seen. Chest: Lungs are clear. Heart size is normal. No pleural effusions. No pneumoperitoneum. Abdomen: Bowel gas pattern is normal. No suspicious calcifications. Visualized solid organ contour s appear normal. Bones: No suspicious bony lesions. Age-appropriate degenerative changes are seen. Mild dextroconve x scoliotic curvature is seen. IMPRESSION: There is a moderate amount of stool seen, which is consistent with the given clinical hi story of constipation. A nonobstructive bowel gas pattern is seen. Postoperative and degenerative changes are seen. Reviewed by: Fox Harirs MD on 12/23/2022 3:57 PM [facility] Approved by: Fox Harris MD on 12/23/2022 3:57 PM LAUR[facility] Station ID: [id number]
--- NOTE | 2022-12-23 17:05 | ED Physician Documentation ---
History of Present Illness - Stated complaint Stated Complaint: MALE - Chief complaint Chief Complaint: Back Pain - Additonal information Additional information: This is a 52-year-old male with type past medical history of chronic low back pain on chronic narcotics, status post recent LEEP placed new spinal stimulator who has been seen here several times in the past couple weeks for various issues with the spinal stimulator, back pain, and fecal incontinence. I actually saw him 2 days ago for fecal incontinence and he had an MRI at that time which was stable. He states he is continue to have issues with fecal incontinence despite having his spinal stimulator turned off. He claims to have normal bowel movements periodically and then occasional watery incontinent of bowel movements. He states that he is having to wear attends due to this issue. He has not had any abdominal pain, no nausea vomiting, he denies feeling constipated and states he has been taking Imodium without relief. He has not had a fever or chills. He has no saddle anesthesia, no lower extremity weakness or numbness that is new, and he has chronic unchanged low back pain. Review of Systems Constitutional: reports: Reviewed and negative, Other (All other systems reviewed and are negative as described in HPI) PD PAST MEDICAL HISTORY - Past Medical History Cardiovascular: Hypertension Respiratory: Sleep apnea, CPAP use Endocrine/Autoimmune: HyPOthyroidism GI: None : None HEENT: Chronic vision loss, Other Psych: Depression, Anxiety Musculoskeletal: Chronic back pain Derm: None - Past Surgical History Past Surgical History: Yes Ortho: Arthroscopic surgery, Spine surgery - Present Medications Home Medications: Ambulatory Orders Medication Instructions Recorded Confirmed Gabapentin [Neurontin] 600 mg PO TID 11/09/13 10/26/22 Levothyroxine [Synthroid] 225 mcg PO DAILY 11/09/13 10/26/22 Amitriptyline HCl 100 mg ORAL DAILY 12/22/16 10/26/22 DULoxetine [Cymbalta] 30 mg PO DAILY 03/08/18 10/26/22 oxyCODONE ER [OxyCONTIN] 40 mg PO TID 03/08/18 10/26/22 Ibuprofen [Motrin] See Rx Instructions .ROUTE .COMPLEX 08/01/22 10/26/22 Ketorolac [Toradol] 10 mg PO Q6H PRN #20 tablet 09/11/22 10/26/22 Oxycodone HCl 10 mg PO Q6H PRN #20 tablet 12/01/22 tiZANidine [Zanaflex] 4 mg PO Q8H PRN #25 tablet 12/01/22 oxyCODONE ER [OxyCONTIN] 10 mg PO Q12H PRN #6 tablet 12/03/22 Psyllium [Metamucil] 1 each PO DAILY #30 packet 12/23/22 - Allergies Allergies/Adverse Reactions: Allergies Allergy/AdvReac Type Severity Reaction Status Date / Time No Known Drug Allergies Allergy Verified 12/21/22 16:10 - Social History Does the pt smoke?: No Smoking Status: Never smoker Does the pt drink ETOH?: No Does the pt have substance abuse?: No - Immunizations Immunizations are current?: Yes - POLST Patient has POLST: No PD ED PE NORMAL - Vitals Vital signs reviewed: Yes - General General: Alert and oriented X 3, No acute distress, Well developed/nourished - HEENT HEENT: Atraumatic, Moist mucous membranes - Cardiac Cardiac: RRR, No murmur - Respiratory Respiratory: No respiratory distress, Clear bilaterally - Abdomen Abdomen: Normal bowel sounds, Soft, Non tender, Non distended Results - Vitals Vitals: Vital Signs - 24 hr 12/23/22 12/23/22 15:58 17:14 Temperature 36.8 C 36.7 C Heart Rate 104 H 94 Respiratory 16 18 Rate Blood Pressure 164/101 H 166/109 H O2 Saturation 100 95 Oxygen O2 Source Room air - Rads (name of study) No standard instances Relevant Findings:: Final report received PD Medical Decision Making - ED course Complexity details: reviewed results, re-evaluated patient ED course: 52-year-old male on chronic narcotic therapy for chronic lower back pain presents for the second time in a couple of days for fecal incontinence. He had a recent MRI which was reassuring. He is well-appearing on physical exam in no acute distress. I discussed with patient this this may be Constipation with overflow, versus other incontinence. I discussed supportive measures including fiber, toileting, and ensuring that he is not in fact constipated. We obtained a x-ray of his abdomen which does show mild constipation, no other acute findings. I suspect the patient is suffering from overflow incontinence, and recommended that he increase fiber in his diet, have provided Metamucil. I recommended that he stop using the Imodium as its not working anyhow. He should continue his regular bowel regimen at home and try to clear out his constipation. He has follow-up with his surgeon and neurosurgeon soon to address his issues with the spinal stimulator but. At this time, there are no other emergent issues causing his fecal incontinence, as I did an MRI just 2 days ago. The patient was given a single dose of IM pain control here for his chronic pain issues but was advised that no further medication will be given no prescriptions for pain medication would be given from here as this needs to all come from his primary pain specialist at this time. Departure - Departure Disposition: Home, Self Care Clinical Impression: Constipation Qualifiers: Constipation type: unspecified constipation type Qualified Code(s): K59.00 - Constipation, unspecified Condition: Good Instructions: Diet High Fiber Dc, ED Constipation Prescriptions: Psyllium [Metamucil] 1 each PO DAILY #30 packet Comments: Your xray does show Constipation therefore I am reluctant to give you any more antidiarrheal medication. You can try bulking medication such as psyllium fiber to help both constipation and diarrhea. Please follow-up with your surgeon regarding her spinal stimulator issues.
[2022-12-23 17:16] VITALS: BP 166/109
== END 2022-12-23 17:15 | disposition home or self-care (01) ==
LOC: ED 15:55
DX: K59.00 Constipation, unspecified (principal); M54.50 Low back pain, unspecified; G89.29 Other chronic pain; Z96.82 Presence of neurostimulator
CPT/HCPCS: 74022; 96372; 99283; 99284; A9270; J1170

== ENCOUNTER 2022-12-26 16:13 | Emergency (ER) | payer OTHER ==
--- NOTE | 2022-12-26 17:26 | ED Physician Documentation ---
PD HPI BACK PAIN - Stated complaint Stated Complaint: BACK PX - Chief complaint Chief Complaint: Back Pain - History obtained from History obtained from: Patient PD PAST MEDICAL HISTORY - Past Medical History Cardiovascular: Hypertension Respiratory: Sleep apnea, CPAP use Endocrine/Autoimmune: HyPOthyroidism GI: None : None HEENT: Chronic vision loss, Other Psych: Depression, Anxiety Musculoskeletal: Chronic back pain Derm: None - Past Surgical History Past Surgical History: Yes Ortho: Arthroscopic surgery, Spine surgery - Present Medications Home Medications: Ambulatory Orders Medication Instructions Recorded Confirmed Gabapentin [Neurontin] 600 mg PO TID 11/09/13 10/26/22 Levothyroxine [Synthroid] 225 mcg PO DAILY 11/09/13 10/26/22 Amitriptyline HCl 100 mg ORAL DAILY 12/22/16 10/26/22 DULoxetine [Cymbalta] 30 mg PO DAILY 03/08/18 10/26/22 oxyCODONE ER [OxyCONTIN] 40 mg PO TID 03/08/18 10/26/22 Ibuprofen [Motrin] See Rx Instructions .ROUTE .COMPLEX 08/01/22 10/26/22 Ketorolac [Toradol] 10 mg PO Q6H PRN #20 tablet 09/11/22 10/26/22 Oxycodone HCl 10 mg PO Q6H PRN #20 tablet 12/01/22 tiZANidine [Zanaflex] 4 mg PO Q8H PRN #25 tablet 12/01/22 oxyCODONE ER [OxyCONTIN] 10 mg PO Q12H PRN #6 tablet 12/03/22 Psyllium [Metamucil] 1 each PO DAILY #30 packet 12/23/22 - Allergies Allergies/Adverse Reactions: Allergies Allergy/AdvReac Type Severity Reaction Status Date / Time No Known Drug Allergies Allergy Verified 12/26/22 16:27 - Social History Does the pt smoke?: No Smoking Status: Never smoker Does the pt drink ETOH?: No Does the pt have substance abuse?: No - Immunizations Immunizations are current?: Yes - POLST Patient has POLST: No PD ED PE NORMAL - Vitals Vital signs reviewed: Yes - General General: Alert and oriented X 3, Well developed/nourished, Other (appears in considerable pain. ) - Cardiac Cardiac: RRR, No murmur - Respiratory Respiratory: No respiratory distress, Clear bilaterally - Abdomen Abdomen: Soft, Non tender - Back Back: No CVA TTP, Other (healing surgical scars in back without signs of infection. walks with cane. ) - Derm Derm: Normal color, Warm and dry, No rash - Extremities Extremities: No edema, No calf tenderness / cord - Neuro Neuro: Alert and oriented X 3, No motor deficit, Normal speech Results - Vitals Vitals: Vital Signs - 24 hr 12/26/22 12/26/22 16:17 18:05 Temperature 36.6 C Heart Rate 109 H 111 H Respiratory 20 20 Rate Blood Pressure 154/117 H 130/96 H O2 Saturation 99 98 Oxygen O2 Source Room air PD Medical Decision Making - ED course Complexity details: reviewed results (recent MRI lumbar when he complained of incontinence urine. He talked with Spine surgeon office today and they wanted thoracic spine mRI now as well. set up for . Had worse pain so here to ED to see if can get it earlier. ), considered differential (severe back pain with recent surgery for spinal stimulator. Had a fall after surgery and has had increased pain. had ct scan that showed no disruption of stimulator/wires. back several times for pain. Had MRI lumbar few days ago without acute findings. no caudal compression. ), d/w patient Drug Therapy Requiring Monitoring for Toxicity: IM dilaudid and toradol to decrease current pain in ER. No untoward effects. Moderate enough pain improvement. ED course: Has chronic pain, recently worse post stimulator suregery and fall striking back after that. Had MRI lumbar few days ago with complaints of incontinence. That was deemed urgent/emergent. His back surgeon wants thoracic MRI to ensure the wi res/stimulator are in position/etc. Pt with CT scan for that issue after his fall recently. I presume his surgeon knows that ct was done. The thoracic mri right now would not seem to fit as emergent, but urgent. We are not able to get mrI at this time of day. He can get MRI through his spine surgeon outpt. He has increased pain and was given IM Dilaudid and toradol here in ED to decrease symptoms. review of his Johana and recent scripts review from pharmacy audit shows that he has gotten large amount of meds by script the past month. also review of his recent MRI. Departure - Departure Disposition: 01 Home, Self Care Clinical Impression: Intractable low back pain Condition: Stable Record reviewed to determine appropriate education?: Yes Follow-Up: NATHAN Martinez [Provider Group] Comments: We are unable to get a nonemergent or even emergent MRI of the back at this time of day. Sometimes were able to get nonemergent ones during the day if they can fit them into the schedule. Otherwise good mostly be appropriate to get an urgent MRI scheduled by your back surgeon at a scheduled time. I do not know the capabilities of [facility] for getting MRIs after hours. Continue with your current usual medications. We did give you a injection of extra medications for this evening. Follow-up with your back specialist. Discharge Date/Time: 12/26/22 18:06
[2022-12-26] MEDS ORDERED: KETOROLAC 30 MG/ML VIAL IM STA (17:39)
[2022-12-26] MEDS ORDERED: LIDOCAINE PATCH 5% TOP STA (17:40)
[2022-12-26] MEDS ORDERED: HYDROmorphone 2 MG/ML VIAL IM STA (17:40)
[2022-12-26 18:06] VITALS: BP 130/96
== END 2022-12-26 18:06 | disposition home or self-care (01) ==
LOC: ED 16:13
DX: M54.50 Low back pain, unspecified (principal); G89.29 Other chronic pain; Z96.82 Presence of neurostimulator
CPT/HCPCS: 96372; 99283; A9270; J1170

== ENCOUNTER 2022-12-27 14:03 | Emergency (ER) | payer OTHER ==
--- NOTE | 2022-12-27 15:06 | ED Physician Documentation ---
PD HPI BACK PAIN - Stated complaint Stated Complaint: BACK PX - Chief complaint Chief Complaint: Back Pain - History obtained from History obtained from: Patient - History of Present Illness Timing - onset: Chronic Timing - duration: Years (but has had current level of pain since recent surgery with spinal stimulator placed by back surgeon, dr. Tolbert at [facility]. Has had multiple visits for intractable pain. Had MRI lumbar several days ago to exclude caudal compression. Surgeon ordering thoracic mri to eval position of the stimulator.) Timing - details: Constant Location: Lower Recently seen: Clinic, Emergency Dept Review of Systems Constitutional: denies: Fever, Chills Skin: denies: Rash, Lesions Neurologic: denies: Focal weakness PD PAST MEDICAL HISTORY - Past Medical History Cardiovascular: Hypertension Respiratory: Sleep apnea, CPAP use Endocrine/Autoimmune: HyPOthyroidism GI: None : None HEENT: Chronic vision loss, Other Psych: Depression, Anxiety Musculoskeletal: Chronic back pain Derm: None - Past Surgical History Past Surgical History: Yes Ortho: Arthroscopic surgery, Spine surgery - Present Medications Home Medications: Ambulatory Orders Medication Instructions Recorded Confirmed Gabapentin [Neurontin] 600 mg PO TID 11/09/13 10/26/22 Levothyroxine [Synthroid] 225 mcg PO DAILY 11/09/13 10/26/22 Amitriptyline HCl 100 mg ORAL DAILY 12/22/16 10/26/22 DULoxetine [Cymbalta] 30 mg PO DAILY 03/08/18 10/26/22 oxyCODONE ER [OxyCONTIN] 40 mg PO TID 03/08/18 10/26/22 Ibuprofen [Motrin] See Rx Instructions .ROUTE .COMPLEX 08/01/22 10/26/22 Ketorolac [Toradol] 10 mg PO Q6H PRN #20 tablet 09/11/22 10/26/22 Oxycodone HCl 10 mg PO Q6H PRN #20 tablet 12/01/22 tiZANidine [Zanaflex] 4 mg PO Q8H PRN #25 tablet 12/01/22 oxyCODONE ER [OxyCONTIN] 10 mg PO Q12H PRN #6 tablet 12/03/22 Psyllium [Metamucil] 1 each PO DAILY #30 packet 12/23/22 - Allergies Allergies/Adverse Reactions: Allergies Allergy/AdvReac Type Severity Reaction Status Date / Time No Known Drug Allergies Allergy Verified 12/27/22 14:14 - Social History Does the pt smoke?: No Smoking Status: Never smoker Does the pt drink ETOH?: No Does the pt have substance abuse?: No - Immunizations Immunizations are current?: Yes - POLST Patient has POLST: No PD ED PE NORMAL - General General: Alert and oriented X 3, Well developed/nourished - Back Back: Other (seems tender at lower back midlines and sides. No redness/signs of infection. Healing surgical wounds. ) - Derm Derm: Normal color, Warm and dry Results - Vitals Vitals: Vital Signs - 24 hr 12/27/22 12/27/22 14:09 16:21 Temperature 35.7 C L Heart Rate 100 86 Respiratory 17 16 Rate Blood Pressure 158/98 H 138/106 H O2 Saturation 100 97 Oxygen O2 Source Room air PD Medical Decision Making - ED course Complexity details: reviewed old records (multiple prior visits to the er. ), considered differential, d/w patient ED course: patient has become familiar to department staff, with frequent visits for pain. I had seen him couple days ago. given iM meds for pain, but he needs to see his primary and back surgeon for pain control outpt and not get scripts from the ER. Departure - Departure Disposition: 01 Home, Self Care Clinical Impression: Acute exacerbation of chronic low back pain Condition: Stable Record reviewed to determine appropriate education?: Yes Follow-Up: Reuben Tolbert MD [Physician No Access] - Comments: Follow-up with your primary care and your back specialist (Dr. Tomlin) regarding coordinated pain management. Continue your current prescriptions for now. Follow-up with your back specialist regarding the request for the thoracic spine MRI. Return as needed. Discharge Date/Time: 12/27/22 16:22
[2022-12-27] MEDS ORDERED: KETOROLAC 15 MG/ML VIAL IM STA (15:36)
[2022-12-27] MEDS ORDERED: HYDROmorphone 2 MG/ML VIAL IM STA (15:36)
[2022-12-27] MEDS ORDERED: tiZANidine 4 MG TABLET PO STA (15:37)
[2022-12-27 16:22] VITALS: BP 138/106
== END 2022-12-27 16:22 | disposition home or self-care (01) ==
LOC: ED 14:03
DX: G89.29 Other chronic pain (principal); M54.50 Low back pain, unspecified; I10 Essential (primary) hypertension
CPT/HCPCS: 96372; 99283; A9270; J1170

== ENCOUNTER 2022-12-28 17:31 | Emergency (ER) | payer OTHER ==
[2022-12-28] MEDS ORDERED: KETOROLAC 30 MG/ML VIAL IM STA (18:58)
--- NOTE | 2022-12-28 19:01 | ED Physician Documentation ---
PD HPI BACK PAIN - Stated complaint Stated Complaint: BACK PAIN - Chief complaint Chief Complaint: Back Pain - History obtained from History obtained from: Patient - History of Present Illness Timing - onset: Chronic Timing - details: Gradual onset, Still present Worsened by: Movement (he describes a pinching pain when he straightens back, is in area of stimulator and wires.) Recently seen: Emergency Dept (has been to ED multiple times recently for ongoing pain. I had seen him several times this week and had been telling him each time that we would not bee repeating meds for chronic pain and needs to be through his pmd/back surgeon.) PD PAST MEDICAL HISTORY - Past Medical History Cardiovascular: Hypertension Respiratory: Sleep apnea, CPAP use Endocrine/Autoimmune: HyPOthyroidism GI: None : None HEENT: Chronic vision loss, Other Psych: Depression, Anxiety Musculoskeletal: Chronic back pain Derm: None - Past Surgical History Past Surgical History: Yes Ortho: Arthroscopic surgery, Spine surgery - Present Medications Home Medications: Ambulatory Orders Medication Instructions Recorded Confirmed Gabapentin [Neurontin] 600 mg PO TID 11/09/13 10/26/22 Levothyroxine [Synthroid] 225 mcg PO DAILY 11/09/13 10/26/22 Amitriptyline HCl 100 mg ORAL DAILY 12/22/16 10/26/22 DULoxetine [Cymbalta] 30 mg PO DAILY 03/08/18 10/26/22 oxyCODONE ER [OxyCONTIN] 40 mg PO TID 03/08/18 10/26/22 Ibuprofen [Motrin] See Rx Instructions .ROUTE .COMPLEX 08/01/22 10/26/22 Ketorolac [Toradol] 10 mg PO Q6H PRN #20 tablet 09/11/22 10/26/22 Oxycodone HCl 10 mg PO Q6H PRN #20 tablet 12/01/22 tiZANidine [Zanaflex] 4 mg PO Q8H PRN #25 tablet 12/01/22 oxyCODONE ER [OxyCONTIN] 10 mg PO Q12H PRN #6 tablet 12/03/22 Psyllium [Metamucil] 1 each PO DAILY #30 packet 12/23/22 - Allergies Allergies/Adverse Reactions: Allergies Allergy/AdvReac Type Severity Reaction Status Date / Time No Known Drug Allergies Allergy Verified 12/28/22 18:24 - Social History Does the pt smoke?: No Smoking Status: Never smoker Does the pt drink ETOH?: No Does the pt have substance abuse?: No - Immunizations Immunizations are current?: Yes - POLST Patient has POLST: No PD ED PE NORMAL - Vitals Vital signs reviewed: Yes - General General: Alert and oriented X 3, Well developed/nourished - Back Back: Other (healing wounds without signs of infection. ) - Derm Derm: Normal color, Warm and dry Results - Vitals Vitals: Vital Signs - 24 hr 12/28/22 12/28/22 18:19 19:22 Temperature 36.6 C Heart Rate 97 99 Respiratory 16 18 Rate Blood Pressure 149/100 H 144/96 H O2 Saturation 98 98 Oxygen O2 Source Room air PD Medical Decision Making - ED course Complexity details: considered differential (he has been to ED multiple times for this. he has gotten scripts from PMD and back surgeon for pain meds. See script pharmacy report and VANDANA. I have seen him several times this past week myself in er. He had been told that we would not keep giving meds for his pain; to see own providers. ), d/w patient ED course: I had been telling pt that he needs to have pain meds through pMD and back surgeon. This visit is the one that I am holding to that. I told him he had had warnings and this should not be a surprise. Departure - Departure Disposition: 01 Home, Self Care Clinical Impression: Chronic back pain Qualifiers: Back pain location: low back pain Back pain laterality: bilateral Sciatica presence: with sciatica Sciatica laterality: sciatica laterality unspecified Qualified Code(s): M54.40 - Lumbago with sciatica, unspecified side Condition: Stable Record reviewed to determine appropriate education?: Yes Follow-Up: Reuben Tolbert MD [Primary Care Provider] - Comments: I am sorry if I was not for more clear in telling you that we were not going to be continuing repeated medication for you and that this was not the proper way to continue daily. I am sorry it is been taking time for you to work with your primary care and back specialist regarding further pain medicines. Our department here does follow of appropriate pain management guidelines that we are not the source for chronic ongoing pain management. You were given a injection of Toradol here. I am not going to give you any narcotic medication. This needs to be done through your primary care and back specialist. You have been here several days in a row and multiple times even before that and we did try to convey to you that that was not going to be an ongoing process. You are welcome to return to the ER at any time and we you will always see you to evaluate for emergency medical conditions. Discharge Date/Time: 12/28/22 19:25
[2022-12-28 19:25] VITALS: BP 144/96
== END 2022-12-28 19:25 | disposition home or self-care (01) ==
LOC: ED 17:31
DX: M54.40 Lumbago with sciatica, unspecified side (principal)
CPT/HCPCS: 96374; 99283

== ENCOUNTER 2023-01-21 12:03 | Emergency (ER) | payer OTHER ==
[2023-01-21] MEDS ORDERED: KETOROLAC 60 MG/2 ML VIAL IM STA (14:19)
[2023-01-21] MEDS ORDERED: DEXAMETHASONE 10 MG/ML VIAL IM STA (14:19)
[2023-01-21] MEDS ORDERED: HYDROmorphone 2 MG TABLET PO STA (14:20)
--- NOTE | 2023-01-21 14:38 | ED Physician Documentation ---
PD HPI BACK PAIN - Stated complaint Stated Complaint: BACK PX - Chief complaint Chief Complaint: Back Pain - History obtained from History obtained from: Patient - History of Present Illness Timing - onset: Chronic (several weeks) Timing - duration: Weeks Timing - details: Gradual onset Pain level max: 10 Pain level now: 10 Location: Mid, Lower Quality: Pain, Spasm, Similar to prior episodes Associated symptoms: Incontinent of urine (has had some issues with this, none currently. has had MRI's since.). No: Fever, Weakness, Numbness, Unable to urinate, Hematuria, Incontinent of stool Improves with: Rest Worsened by: Movement Contributing factors: Other (states down to 30mg oxycodone daily.). No: Lifting, Twisting, Trauma, Anticoagulated, Cancer, IVDA - Additional information Additional information: 52-year-old male with chronic back pain. He states he had a spinal stimulator placed a few months ago. He states since that time he has had continued pain. He states that he had been on as much as 120 mg of oxycodone a day, states that he is down to 30 mg. He states increasing pain over the past week. He has had an MRI of his thoracic and lumbar spine which reportedly shows a herniated disc at T9 but no other findings. He states his doctor told him to come here for pain control if he has increasing pain. Patient has had intermittent loss of bowel control. none recently. none since the MRI. No numbness or tingling. Worse with movement, better with rest. Denies any current injury. Review of Systems Constitutional: denies: Fever, Chills Throat: denies: Sore throat Cardiac: denies: Chest pain / pressure, Palpitations Respiratory: denies: Cough GI: denies: Vomiting, Diarrhea Skin: denies: Rash Musculoskeletal: denies: Neck pain Neurologic: denies: Focal weakness, Numbness, Headache PD PAST MEDICAL HISTORY - Past Medical History Cardiovascular: Hypertension Respiratory: Sleep apnea, CPAP use Endocrine/Autoimmune: HyPOthyroidism GI: None : None HEENT: Chronic vision loss, Other Psych: Depression, Anxiety Musculoskeletal: Chronic back pain Derm: None - Past Surgical History Past Surgical History: Yes Ortho: Arthroscopic surgery, Spine surgery - Present Medications Home Medications: Ambulatory Orders Medication Instructions Recorded Confirmed Gabapentin [Neurontin] 600 mg PO TID 11/09/13 10/26/22 Levothyroxine [Synthroid] 225 mcg PO DAILY 11/09/13 10/26/22 Amitriptyline HCl 100 mg ORAL DAILY 12/22/16 10/26/22 DULoxetine [Cymbalta] 30 mg PO DAILY 03/08/18 10/26/22 oxyCODONE ER [OxyCONTIN] 40 mg PO TID 03/08/18 10/26/22 Ibuprofen [Motrin] See Rx Instructions .ROUTE .COMPLEX 08/01/22 10/26/22 Ketorolac [Toradol] 10 mg PO Q6H PRN #20 tablet 09/11/22 10/26/22 Oxycodone HCl 10 mg PO Q6H PRN #20 tablet 12/01/22 tiZANidine [Zanaflex] 4 mg PO Q8H PRN #25 tablet 12/01/22 oxyCODONE ER [OxyCONTIN] 10 mg PO Q12H PRN #6 tablet 12/03/22 Psyllium [Metamucil] 1 each PO DAILY #30 packet 12/23/22 Ketorolac [Toradol] 10 mg PO Q6H PRN #30 tablet 01/21/23 methylPREDNISolone [Medrol] 4 mg PO DAILY #1 tab 01/21/23 - Allergies Allergies/Adverse Reactions: Allergies Allergy/AdvReac Type Severity Reaction Status Date / Time No Known Drug Allergies Allergy Verified 01/21/23 12:27 - Social History Does the pt smoke?: No Smoking Status: Never smoker Does the pt drink ETOH?: No Does the pt have substance abuse?: No - Immunizations Immunizations are current?: Yes - POLST Patient has POLST: No PD ED PE NORMAL - Vitals Vital signs reviewed: Yes - General General: Alert and oriented X 3, No acute distress - HEENT HEENT: PERRL, Moist mucous membranes - Neck Neck: Supple, no meningeal sign - Cardiac Cardiac: RRR, Strong equal pulses - Respiratory Respiratory: No respiratory distress, Clear bilaterally - Abdomen Abdomen: Soft, Non tender, Non distended - Back Back: Other (Mild tenderness to palpation around T10. No swelling. No signs of infection. No step-off or deformity. Surgical sites do not show any sign of infection) - Derm Derm: Warm and dry - Extremities Extremities: No edema, No calf tenderness / cord - Neuro Neuro: Alert and oriented X 3, No motor deficit, No sensory deficit, Other (No saddle anesthesia.) - Psych Psych: Normal mood, Normal affect Results - Vitals Vitals: Vital Signs - 24 hr 01/21/23 01/21/23 12:21 14:53 Temperature 36.8 C Heart Rate 118 H 103 H Respiratory 17 18 Rate Blood Pressure 158/107 H 150/105 H O2 Saturation 100 99 Oxygen O2 Source Room air PD Medical Decision Making - ED course Complexity details: reviewed old records, considered differential (No cauda equina, no spinal epidural abscess, no fracture, no aortic dissection or evidence of aneursym rupture), d/w patient ED course: Patient with acute on chronic back pain. Given Toradol and dexamethasone intramuscularly. Given oral Dilaudid. He has been told in the past that he will not receive injectable narcotics for his chronic pain. Patient will need to follow-up with his surgeon for further care. We will place him on oral Toradol and a Medrol Dosepak for home. He has oxycodone and Valium at home. No evidence of cauda equina, epidural abscess. No indication for emergent neuroimaging. Ambulating well in the emergency department. Patient counseled regarding signs and symptoms for which I believe and urgent re-evaluation would be necessary. Patient with good understanding of and agreement to plan and is comfortable going home at this time This document was made in part using voice recognition software. While efforts are made to proofread this document, sound alike and grammatical errors may occur. Departure - Departure Disposition: 01 Home, Self Care Clinical Impression: Acute exacerbation of chronic low back pain Condition: Good Instructions: ED Neck Back Pain General Follow-Up: Reuben Tolbert MD [Physician No Access] - Within 1 week Prescriptions: methylPREDNISolone [Medrol] 4 mg PO DAILY #1 tab Ketorolac [Toradol] 10 mg PO Q6H PRN #30 tablet PRN Reason: back pain Comments: We will try changing you to oral Toradol for home and trial you on a Medrol Dosepak as well. Please follow-up with your surgeon tomorrow for further care of your back. Your prescriptions were sent to the [facility] pharmacy. Discharge Date/Time: 01/21/23 14:53
[2023-01-21 14:54] VITALS: BP 150/105
== END 2023-01-21 14:53 | disposition home or self-care (01) ==
LOC: ED 12:03
DX: M54.50 Low back pain, unspecified (principal); G89.29 Other chronic pain; I10 Essential (primary) hypertension; E03.9 Hypothyroidism, unspecified; Z79.899 Other long term (current) drug therapy
CPT/HCPCS: 96372; 99283; 99284; A9270

== ENCOUNTER 2023-01-22 15:03 | Emergency (ER) | payer OTHER ==
[2023-01-22 15:21] VITALS: BP 158/102
[2023-01-22] MEDS ORDERED: KETOROLAC 60 MG/2 ML VIAL IM STA (15:24)
--- NOTE | 2023-01-22 15:26 | ED Physician Documentation ---
PD HPI BACK PAIN - Stated complaint Stated Complaint: BACK PX - Chief complaint Chief Complaint: Back Pain - History obtained from History obtained from: Patient - Additional information Additional information: 52-year-old gentleman presents for an exacerbation of chronic back pain. He has been having increased trouble with his back over the last 3 weeks and has a known T9 herniated disc for which she is seeing Dr. Tolbert in [place]. States he is receiving 3 [place] pain is uncontrolled. Chart review shows that this is his 12th emergency department visit in the last 12 months here and also 1 to [facility]. He has been receiving quite a bit of pain medication both from his back surgeon as well as his primary care physician as well as a smattering of emergency physicians. He denies saddle anesthesia, fevers, or incontinence. PD PAST MEDICAL HISTORY - Past Medical History Cardiovascular: Hypertension Respiratory: Sleep apnea, CPAP use Endocrine/Autoimmune: HyPOthyroidism GI: None : None HEENT: Chronic vision loss, Other Psych: Depression, Anxiety Musculoskeletal: Chronic back pain Derm: None - Past Surgical History Past Surgical History: Yes Ortho: Arthroscopic surgery, Spine surgery - Present Medications Home Medications: Ambulatory Orders Medication Instructions Recorded Confirmed Gabapentin [Neurontin] 600 mg PO TID 11/09/13 10/26/22 Levothyroxine [Synthroid] 225 mcg PO DAILY 11/09/13 10/26/22 Amitriptyline HCl 100 mg ORAL DAILY 12/22/16 10/26/22 DULoxetine [Cymbalta] 30 mg PO DAILY 03/08/18 10/26/22 oxyCODONE ER [OxyCONTIN] 40 mg PO TID 03/08/18 10/26/22 Ibuprofen [Motrin] See Rx Instructions .ROUTE .COMPLEX 08/01/22 10/26/22 Ketorolac [Toradol] 10 mg PO Q6H PRN #20 tablet 09/11/22 10/26/22 Oxycodone HCl 10 mg PO Q6H PRN #20 tablet 12/01/22 tiZANidine [Zanaflex] 4 mg PO Q8H PRN #25 tablet 12/01/22 oxyCODONE ER [OxyCONTIN] 10 mg PO Q12H PRN #6 tablet 12/03/22 Psyllium [Metamucil] 1 each PO DAILY #30 packet 12/23/22 Ketorolac [Toradol] 10 mg PO Q6H PRN #30 tablet 01/21/23 methylPREDNISolone [Medrol] 4 mg PO DAILY #1 tab 01/21/23 - Allergies Allergies/Adverse Reactions: Allergies Allergy/AdvReac Type Severity Reaction Status Date / Time No Known Drug Allergies Allergy Verified 01/21/23 12:27 - Social History Does the pt smoke?: No Smoking Status: Never smoker Does the pt drink ETOH?: No Does the pt have substance abuse?: No - Immunizations Immunizations are current?: Yes - POLST Patient has POLST: No PD ED PE NORMAL - Vitals Vital signs reviewed: Yes - General General: Alert and oriented X 3, No acute distress - HEENT HEENT: Other (Dilated pupils) - Back Back: No spinal TTP - Extremities Extremities: Other (The patient has equal and normal Achilles and patellar reflexes bilaterally. Normal sensation in all areas of the legs. Patient denies saddle anesthesia. Normal strength in flexion-extension at the ankles, knees, and flexion of the hips.) - Neuro Neuro: Alert and oriented X 3, Normal speech Results - Vitals Vitals: Vital Signs - 24 hr 01/22/23 15:14 Temperature 36.9 C Heart Rate 102 H Respiratory 24 Rate Blood Pressure 158/102 H O2 Saturation 99 Oxygen O2 Source Room air PD Medical Decision Making - ED course ED course: 52-year-old gentleman with an exacerbation of chronic back pain. Discussed with him that per policy and best practice we could no longer prescribe or dispense narcotics from the emergency department. He received 60 mg of IM Toradol here. He was seen here yesterday and states his prescription was not at the pharmacy, but he [facility]. I will resend his prescriptions from yesterday to the [facility] pharmacy. Departure - Departure Disposition: 01 Home, Self Care Clinical Impression: Acute exacerbation of chronic low back pain Condition: Good Record reviewed to determine appropriate education?: Yes Instructions: ED Neck Back Pain General Comments: I resent your prescriptions from Dr. Marc from yesterday to the [facility] pharmacy at the corner of [facility] [address] here in [place]. Follow-up with your back surgeon as scheduled. The policy of this emergency department is to not give more than 3 prescriptions for narcotics or other controlled substances in any 1 year. You have already surpassed this benchmark and we cannot prescribe narcotics for you. I encourage you to follow up with your primary care physician or to establish care with a primary care physician for ongoing pain management. You are always welcome to seek emergency care here for this or new issues but there will likely be limitations in the prescription of narcotic pain medication. Discharge Date/Time: 01/22/23 15:48
== END 2023-01-22 15:48 | disposition home or self-care (01) ==
LOC: ED 15:03
DX: M54.50 Low back pain, unspecified (principal); G89.29 Other chronic pain
CPT/HCPCS: 96372; 99283; 99284

== ENCOUNTER 2023-01-26 11:25 | Emergency (ER) | payer OTHER ==
[2023-01-26] MEDS ORDERED: oxyCODONE 5 MG TABLET PO STA (12:00)
[2023-01-26] MEDS ORDERED: KETOROLAC 60 MG/2 ML VIAL IM STA (12:00)
--- NOTE | 2023-01-26 12:06 | ED Physician Documentation ---
PD HPI BACK PAIN - Stated complaint Stated Complaint: BACK PX - Chief complaint Chief Complaint: Back Pain - History obtained from History obtained from: Patient - Additional information Additional information: Patient is a 52-year-old male presenting for evaluation of worsening chronic back pain. He has been having increasing episodes of back pain for the past month. He has recently had MRI both of his lumbar spine and thoracic spine and was found to have a T9 herniated disc. He follows with Dr. Tomlin in [facility]. He states that currently he is receiving 3 oxycodone a day and that his pain has not been controlled in a few days. He states that he previously had a Valium prescription but he is out of this. On chart review, patient filled a prescription for 30 Valium on January 18.Patient denies any new episodes of bowel or bladder incontinence. He denies saddle anesthesia, fevers. He does have a spinal stimulator in place. Reports having a follow-up appointment on Sunday with Dr. Tolbert. Review of Systems Constitutional: denies: Fever Cardiac: denies: Chest pain / pressure Respiratory: denies: Dyspnea GI: denies: Abdominal Pain : denies: Incontinent Musculoskeletal: reports: Back pain PD PAST MEDICAL HISTORY - Past Medical History Past Medical History: Yes Cardiovascular: Hypertension Respiratory: Sleep apnea, CPAP use Neuro: None Endocrine/Autoimmune: HyPOthyroidism GI: None : None HEENT: Chronic vision loss, Other Psych: Depression, Anxiety Musculoskeletal: Chronic back pain Derm: None - Past Surgical History Past Surgical History: Yes Ortho: Arthroscopic surgery, Spine surgery - Present Medications Home Medications: Ambulatory Orders Medication Instructions Recorded Confirmed Gabapentin [Neurontin] 600 mg PO TID 11/09/13 01/26/23 Levothyroxine [Synthroid] 225 mcg PO DAILY 11/09/13 01/26/23 Amitriptyline HCl 100 mg ORAL DAILY 12/22/16 01/26/23 DULoxetine [Cymbalta] 30 mg PO DAILY 03/08/18 01/26/23 Oxycodone HCl 10 mg PO Q6H PRN #20 tablet 12/01/22 01/26/23 Ibuprofen [Motrin] 600 mg PO Q6H PRN 01/26/23 01/26/23 - Allergies Allergies/Adverse Reactions: Allergies Allergy/AdvReac Type Severity Reaction Status Date / Time No Known Drug Allergies Allergy Verified 01/26/23 11:30 - Social History Does the pt smoke?: No Smoking Status: Never smoker Does the pt drink ETOH?: No Does the pt have substance abuse?: No - Immunizations Immunizations are current?: Yes - POLST Patient has POLST: No PD ED PE NORMAL - General General: Alert and oriented X 3, No acute distress, Well developed/nourished - HEENT HEENT: Atraumatic - Neck Neck: Supple, no meningeal sign - Cardiac Cardiac: RRR, No murmur, Strong equal pulses - Respiratory Respiratory: No respiratory distress, Clear bilaterally - Abdomen Abdomen: Soft, Non tender - Back Back: No spinal TTP, Other (Well-healing incisions, spinal stimulator in place with no overlying erythema) - Extremities Extremities: Other (Normal strength and sensation bilateral lower extremities, patient is ambulatory, normal patellar & achilles reflexes) - Neuro Neuro: Alert and oriented X 3, No motor deficit, No sensory deficit, Normal speech Results - Vitals Vitals: Vital Signs - 24 hr 01/26/23 01/26/23 11:32 12:30 Temperature 37.2 C Heart Rate 122 H 113 H Respiratory 20 16 Rate Blood Pressure 152/102 H 173/116 H O2 Saturation 100 100 Oxygen O2 Source Room air PD Medical Decision Making - ED course ED course: Patient is a 52-year-old presenting for evaluation of chronic back pain exacerbation. Patient has been seen numerous times in our emergency department. I have previously reviewed his Prior work-ups and visits. Patient has no red flag signs or symptoms in regards to his back pain.He is afebrile.He is aware of our department policies regarding refill of medications as well as treatment of chronic pain. I have offered him a single dose of pain medicine here as well as IM Toradol which she is agreeable to. I have encouraged him to continue to work with Dr. Tolbert in finding a more long-term solution to his pain. Patient is aware of return precautions. He is ambulatory at discharge. Departure - Departure Disposition: 01 Home, Self Care Clinical Impression: Chronic back pain Condition: Stable Instructions: ED Chronic Pain Management Follow-Up: Reuben Tolbert MD [Physician No Access] - Comments: Please follow-up with Dr. Tolbert as scheduled. Please make sure you are taking your medication only as prescribed. I am prescribing a short course of narcotic pain medication for you. These are potentially dangerous and addictive medications that should be used carefully. These medications may constipate you. Take an [id number] stool softener (docusate) twice daily with plenty of water while taking these medications. If you go 24 hours without a bowel movement, take [id number] miralax, per package instructions. Do not drink or drive while taking these medications. If you received narcotic or sedating medications while in the emergency department, do not drive for 24 hours. Store this medication in a safe, secure place and out of reach of children. It is a violation of federal law to give or sell this medication to another person or to use in a manner other than prescribed. The ED will not refill narcotic prescriptions, including prescriptions lost or stolen. To dispose of unwanted medications: 1. [facility] [address] [facility] in [place] has a medication drop box. They accept prescription medications (in pill form) Sunday through Sunday 9:00 a.m. to 5:00 p.m. 2. The [facility] [employer] accepts prescription medications (in pill form only) for disposal year round. Call for more information. 3. Contact the [facility] for the next [facility] sponsored prescription drug collection event. , [phone], or [phone]; Note that many narcotic pain relievers also contain Tylenol/acetaminophen. Please ensure that your total dose of acetaminophen from all sources does not exceed 3 g (3000 mg) per day. Discharge Date/Time: 01/26/23 12:31
--- OUTSIDE RECORDS SUMMARY | 2023-01-26 12:10 | EXTERNAL MEDICAL SUMMARY RPT | Continuity of Care Document ---
:1970 Author Organization [place] Address [address] [place] [address] Phone Care Team Providers Name Role Phone Ning Sanchez Unavailable Unavailable Allergies and Intolerances date description facility type (no date) No Known Drug Allergies [facility] (unkn own) Encounters No information. Functional Status No information. Immunizations No information. Medications date description facility 2023-01-25 00:00 [facility] 2023-01-25 00:00 Cyclobenzaprine [facility] Problems date description facility 2023-01-25 00:00 Back pain [facility] Procedures No information. Results/Labs test date author facility value unit interpret ation Result panel 1 (unknown) (no (unknown) (unknown) (no value) (units (unk nown) date) unknown) (unknown) (no (unknown) (unknown) (Neurontin) (units (un known) date) unknown) (unknown) (no (unknown) (unknown) (Synthroid) (units (un known) date) unknown) (unknown) (no (unknown) (unknown) * Clinical (units (unk nown) date) Decision unknown) Rules/Scores evaluated: None (unknown) (no (unknown) (unknown) * Independent (units ( unknown) date) discussions with: unknown) None (unknown) (no (unknown) (unknown) * My imgaing (units (u nknown) date) interpretation: [ unknown) ] (unknown) (no (unknown) (unknown) * My lab (units (unkno wn) date) interpretation: [ unknown) ] (unknown) (no (unknown) (unknown) * Prior records (units (unknown) date) reviewed: [ ] unknown) (unknown) (no (unknown) (unknown) * differential (units (unknown) date) diagnosis unknown) includes but not limited to [ ] (unknown) (no (unknown) (unknown) 0.2 mg PO QDAY (units (unknown) date) Qty: 0 unknown) (unknown) (no (unknown) (unknown) [id number] (units (unkn own) date) unknown) (unknown) (no (unknown) (unknown) 01/25/23 (units (unkno wn) date) unknown) (unknown) (no (unknown) (unknown) 1,200 mg PO TID (units (unknown) date) Qty: 0 unknown) (unknown) (no (unknown) (unknown) 10 mg PO QDAY (units ( unknown) date) Qty: 0 unknown) (unknown) (no (unknown) (unknown) 12 point review (units (unknown) date) of systems is unknown) negative except for those stated above (unknown) (no (unknown) (unknown) 12:07 (units (unkno wn) date) unknown) (unknown) (no (unknown) (unknown) 20 mg PO QID (units (u nknown) date) Qty: 0 unknown) (unknown) (no (unknown) (unknown) 50 mg PO HS Qty: (units (unknown) date) 0 unknown) (unknown) (no (unknown) (unknown) Age/Sex: 52 / M (units (unknown) date) unknown) (unknown) (no (unknown) (unknown) Allergies (units (unkn own) date) unknown) (unknown) (no (unknown) (unknown) Allergy/AdvReac (units (unknown) date) Type Severity unknown) Reaction Status Date / Time (unknown) (no (unknown) (unknown) BACK: Nontender (units (unknown) date) without deformity unknown) or crepitance. No flank tenderness. (unknown) (no (unknown) (unknown) Blood Pressure (units (unknown) date) 172/107 H unknown) 01/25/23 12:07 (unknown) (no (unknown) (unknown) Blood Pressure (units (unknown) date) 172/107 H unknown) (unknown) (no (unknown) (unknown) Ning Sanchez, (units (unknown) date) [Primary Care unknown) Provider] (unknown) (no (unknown) (unknown) CARDIOVASCULAR: (units (unknown) date) Denies chest unknown) pain, palpitations, orthopnea, edema, (unknown) (no (unknown) (unknown) CARDIOVASCULAR: (units (unknown) date) Regular rate and unknown) rhythm without murmurs, gallops, or rubs. (unknown) (no (unknown) (unknown) Chief Complaint: (units (unknown) date) Back Pain/Injury unknown) (unknown) (no (unknown) (unknown) Course (units (unkno wn) date) unknown) (unknown) (no (unknown) (unknown) : 1970 (units (unknown) date) Acct:[id number] unknown) (unknown) (no (unknown) (unknown) Date of Service: (units (unknown) date) 01/25/23 unknown) (unknown) (no (unknown) (unknown) Departure (units (unkn own) date) unknown) (unknown) (no (unknown) (unknown) Discharge Plan (units (unknown) date) unknown) (unknown) (no (unknown) (unknown) Disposition: [ ] (units (unknown) date) unknown) (unknown) (no (unknown) (unknown) ED Course: [ ] (units (unknown) date) unknown) (unknown) (no (unknown) (unknown) ENT: Nose (units (unkn own) date) without bleeding, unknown) purulent drainage. Throat without erythema, (unknown) (no (unknown) (unknown) ER Physician: (units ( unknown) date) Wilfred Phillips P.A-C unknown) (unknown) (no (unknown) (unknown) EXTREMITIES: No (units (unknown) date) edema or joint unknown) tenderness. (unknown) (no (unknown) (unknown) EYES: Pupils (units (u nknown) date) equal round and unknown) reactive. Extraocular motions intact. No scleral (unknown) (no (unknown) (unknown) Emergency Report (units (unknown) date) unknown) (unknown) (no (unknown) (unknown) Exam Narrative: (units (unknown) date) unknown) (unknown) (no (unknown) (unknown) Exam (units (unkno wn) date) unknown) (unknown) (no (unknown) (unknown) GASTROINTESTINAL (units (unknown) date) : Abdomen soft, unknown) non-tender, nondistended. (unknown) (no (unknown) (unknown) GASTROINTESTINAL (units (unknown) date) : Denies nausea, unknown) vomiting, abdominal pain, diarrhea, (unknown) (no (unknown) (unknown) GENERAL: Denies (units (unknown) date) chills, fatigue, unknown) malaise, fever, sweats. (unknown) (no (unknown) (unknown) GENERAL: (units (unkno wn) date) Well-developed unknown) patient, in mild distress. (unknown) (no (unknown) (unknown) : Denies (units (unk nown) date) dysuria, unknown) frequency, incontinence, hematuria, urinary retention. (unknown) (no (unknown) (unknown) General (units (unkno wn) date) unknown) (unknown) (no (unknown) (unknown) HEAD: (units (unkno wn) date) Atraumatic. unknown) Normocephalic. (unknown) (no (unknown) (unknown) HEENT: Denies (units ( unknown) date) sinus pain, ear unknown) pain, sore throat, difficulty swallowing, (unknown) (no (unknown) (unknown) HPI - Back (units (unk nown) date) Pain/Injury unknown) (unknown) (no (unknown) (unknown) HPI Narrative: (units (unknown) date) unknown) (unknown) (no (unknown) (unknown) History of (units (unk nown) date) Present Illness unknown) (unknown) (no (unknown) (unknown) Home Medications (units (unknown) date) unknown) (unknown) (no (unknown) (unknown) Initial Vital (units ( unknown) date) Signs unknown) (unknown) (no (unknown) (unknown) Initial Vital (units ( unknown) date) Signs: unknown) (unknown) (no (unknown) (unknown) [facility] (units (unknown) date) [address] [place] [address] Street unknown) [place] [address] (unknown) (no (unknown) (unknown) MDM - Back (units (unk nown) date) Pain/Injury unknown) (unknown) (no (unknown) (unknown) MDM Narrative (units ( unknown) date) unknown) (unknown) (no (unknown) (unknown) MDM (units (unkno wn) date) unknown) (unknown) (no (unknown) (unknown) MUSCULOSKELETAL: (units (unknown) date) Reports back unknown) pain, denies weakness, joint pain, or bony pain (unknown) (no (unknown) (unknown) Medical decision (units (unknown) date) making narrative: unknown) (unknown) (no (unknown) (unknown) Medication (units (unk nown) date) Instructions unknown) Recorded Confirmed (unknown) (no (unknown) (unknown) NECK: Trachea (units ( unknown) date) midline. Non unknown) tender (unknown) (no (unknown) (unknown) NEURO: AOx3. (units (u nknown) date) unknown) (unknown) (no (unknown) (unknown) NEUROLOGIC: (units (un known) date) Denies weakness, unknown) headache, numbness, change in speech, confusion, (unknown) (no (unknown) (unknown) Narrative (units (unkn own) date) unknown) (unknown) (no (unknown) (unknown) Narrative: (units (unk nown) date) unknown) (unknown) (no (unknown) (unknown) No Action (units (unkn own) date) unknown) (unknown) (no (unknown) (unknown) No Known Drug (units ( unknown) date) Allergies Allergy unknown) Verified 01/25/23 12:12 (unknown) (no (unknown) (unknown) Oxygen Delivery (units (unknown) date) Method Room Air unknown) 01/25/23 12:07 (unknown) (no (unknown) (unknown) Oxygen Delivery (units (unknown) date) Method Room Air unknown) (unknown) (no (unknown) (unknown) PSYCHIATRIC: No (units (unknown) date) concerning unknown) psychosocial issues. (unknown) (no (unknown) (unknown) Patient History (units (unknown) date) unknown) (unknown) (no (unknown) (unknown) Patient has a (units ( unknown) date) history of back unknown) surgery, L5-S1 secondary fracture. Two months ago (unknown) (no (unknown) (unknown) Patient has an (units (unknown) date) appointment next unknown) Sunday, in 5 days. Already has a oxycodone (unknown) (no (unknown) (unknown) Patient: (units (unkno wn) date) Mikey Velez Jyotsna unknown) MR#: M (unknown) (no (unknown) (unknown) Prescriptions: (units (unknown) date) unknown) (unknown) (no (unknown) (unknown) Pulse Oximetry (units (unknown) date) 99 01/25/23 12:07 unknown) (unknown) (no (unknown) (unknown) Pulse Oximetry (units (unknown) date) 99 unknown) (unknown) (no (unknown) (unknown) Pulse Rate 107 H (units (unknown) date) 01/25/23 12:07 unknown) (unknown) (no (unknown) (unknown) Pulse Rate 107 H (units (unknown) date) unknown) (unknown) (no (unknown) (unknown) RESPIRATORY: (units (un known) date) Clear to unknown) auscultation. Breath sounds equal bilaterally. No wheezes, (unknown) (no (unknown) (unknown) RESPIRATORY: (units (u nknown) date) Denies dyspnea, unknown) cough, wheezing, hemoptysis, sputum. (unknown) (no (unknown) (unknown) Referrals: (units (unk nown) date) unknown) (unknown) (no (unknown) (unknown) Related Data (units (u nknown) date) unknown) (unknown) (no (unknown) (unknown) Respiratory Rate (units (unknown) date) 18 01/25/23 12:07 unknown) (unknown) (no (unknown) (unknown) Respiratory Rate (units (unknown) date) 18 unknown) (unknown) (no (unknown) (unknown) Review of (units (unkn own) date) Systems unknown) (unknown) (no (unknown) (unknown) SKIN: Denies (units (u nknown) date) rash, skin unknown) lesions, or other (unknown) (no (unknown) (unknown) SKIN: No rash or (units (unknown) date) erythema of unknown) visible areas (unknown) (no (unknown) (unknown) Shared Decision (units (unknown) date) Making: Discussed unknown) plan with patient who is comfortable with the (unknown) (no (unknown) (unknown) Signed By: (units (unk nown) date) unknown) (unknown) (no (unknown) (unknown) Smoking Status: (units (unknown) date) Never smoker unknown) (unknown) (no (unknown) (unknown) Social (units (unkno wn) date) Considerations: unknown) None (unknown) (no (unknown) (unknown) Social History (units (unknown) date) unknown) (unknown) (no (unknown) (unknown) Source: patient (units (unknown) date) unknown) (unknown) (no (unknown) (unknown) Stated (units (unkno wn) date) Complaint: unknown) extreme back pain (unknown) (no (unknown) (unknown) Substance Use (units ( unknown) date) Type: does not unknown) use (unknown) (no (unknown) (unknown) Temperature 98.8 (units (unknown) date) F 01/25/23 12:07 unknown) (unknown) (no (unknown) (unknown) Temperature 98.8 (units (unknown) date) F unknown) (unknown) (no (unknown) (unknown) This is a (units (unkn own) date) 52-year-old male unknown) presents to the emergency department due to mid back (unknown) (no (unknown) (unknown) Time Seen by (units (u nknown) date) Provider: unknown) 01/25/23 12:34 (unknown) (no (unknown) (unknown) Vital Signs - 8 (units (unknown) date) hr unknown) (unknown) (no (unknown) (unknown) Vital Signs (units (un known) date) unknown) (unknown) (no (unknown) (unknown) Vital signs: (units (u nknown) date) unknown) (unknown) (no (unknown) (unknown) alcohol intake (units (unknown) date) frequency: 0-2 unknown) drinks per day (unknown) (no (unknown) (unknown) amitriptyline 50 (units (unknown) date) MG tablet unknown) (unknown) (no (unknown) (unknown) amitriptyline 50 (units (unknown) date) mg tablet 50 mg unknown) PO HS ##0 10/30/16 (unknown) (no (unknown) (unknown) constipation, (units ( unknown) date) melena. unknown) (unknown) (no (unknown) (unknown) dizziness. (units (unk nown) date) unknown) (unknown) (no (unknown) (unknown) gabapentin 600 (units (unknown) date) mg tablet 1,200 unknown) mg PO TID ##0 10/30/16 (unknown) (no (unknown) (unknown) gabapentin (units (unk nown) date) [Neurontin] 600 unknown) MG tablet (unknown) (no (unknown) (unknown) he would a (units (unk nown) date) stimulator placed unknown) scheduled. MRI was ordered which showed a (unknown) (no (unknown) (unknown) herniated disc (units (unknown) date) at T9. Has had unknown) sharp pain since the stimulator was placed. (unknown) (no (unknown) (unknown) icterus. No (units (un known) date) injection or unknown) drainage. (unknown) (no (unknown) (unknown) levothyroxine (units ( unknown) date) 200 mcg tablet unknown) 0.2 mg PO QDAY ##0 11/19/12 (unknown) (no (unknown) (unknown) levothyroxine (units ( unknown) date) [Synthroid] 200 unknown) MCG tablet (unknown) (no (unknown) (unknown) lisinopril 10 MG (units (unknown) date) tablet unknown) (unknown) (no (unknown) (unknown) lisinopril 10 mg (units (unknown) date) tablet 10 mg PO unknown) QDAY ##0 10/30/16 (unknown) (no (unknown) (unknown) oxycodone 5 MG (units (unknown) date) tablet unknown) (unknown) (no (unknown) (unknown) oxycodone 5 mg (units (unknown) date) tablet 20 mg PO unknown) QID ##0 10/30/16 (unknown) (no (unknown) (unknown) pain. (units (unkno wn) date) unknown) (unknown) (no (unknown) (unknown) plan. (units (unkno wn) date) unknown) (unknown) (no (unknown) (unknown) prescription for (units (unknown) date) 10 mg t.i.d.. unknown) Patient complaining of mid back pain and T9. (unknown) (no (unknown) (unknown) rales, or (units (unkn own) date) rhonchi. unknown) (unknown) (no (unknown) (unknown) seizures, (units (unkn own) date) incoordination. unknown) (unknown) (no (unknown) (unknown) tonsillar (units (unkn own) date) hypertrophy or unknown) exudate. Airway patent. Result panel 2 (unknown) (no (unknown) (unknown) (no value) (units (unk nown) date) unknown) (unknown) (no (unknown) (unknown) (Neurontin) (units (un known) date) unknown) (unknown) (no (unknown) (unknown) (Synthroid) (units (un known) date) unknown) (unknown) (no (unknown) (unknown) * Clinical (units (unk nown) date) Decision unknown) Rules/Scores evaluated: None (unknown) (no (unknown) (unknown) * Independent (units ( unknown) date) discussions with: unknown) None (unknown) (no (unknown) (unknown) * My imgaing (units (u nknown) date) interpretation: unknown) None obtained (unknown) (no (unknown) (unknown) * My lab (units (unkno wn) date) interpretation: unknown) None obtained (unknown) (no (unknown) (unknown) * Prior records (units (unknown) date) reviewed: Patient unknown) has not been here for the emergency (unknown) (no (unknown) (unknown) * differential (units (unknown) date) diagnosis unknown) includes but not limited to vertebral fracture, (unknown) (no (unknown) (unknown) 0.2 mg PO QDAY (units (unknown) date) Qty: 0 unknown) (unknown) (no (unknown) (unknown) [id number] (units (unkn own) date) unknown) (unknown) (no (unknown) (unknown) 01/25/23 (units (unkno wn) date) unknown) (unknown) (no (unknown) (unknown) 1,200 mg PO TID (units (unknown) date) Qty: 0 unknown) (unknown) (no (unknown) (unknown) 10 mg PO QDAY (units ( unknown) date) Qty: 0 unknown) (unknown) (no (unknown) (unknown) 12 point review (units (unknown) date) of systems is unknown) negative except for those stated above (unknown) (no (unknown) (unknown) 12:07 (units (unkno wn) date) unknown) (unknown) (no (unknown) (unknown) 20 mg PO QID (units (u nknown) date) Qty: 0 unknown) (unknown) (no (unknown) (unknown) 50 mg PO HS Qty: (units (unknown) date) 0 unknown) (unknown) (no (unknown) (unknown) Activity (units (unkno wn) date) Restrictions/Real unknown) tional Instructions: (unknown) (no (unknown) (unknown) Age/Sex: 52 / M (units (unknown) date) unknown) (unknown) (no (unknown) (unknown) Allergies (units (unkn own) date) unknown) (unknown) (no (unknown) (unknown) Allergy/AdvReac (units (unknown) date) Type Severity unknown) Reaction Status Date / Time (unknown) (no (unknown) (unknown) BACK: Mild (units (unk nown) date) tenderness to unknown) palpation to midthoracic spine, . No flank tenderness. (unknown) (no (unknown) (unknown) Back pain (units (unkn own) date) unknown) (unknown) (no (unknown) (unknown) Bedside Urine (units ( unknown) date) Bilirubin - unknown) Negative (unknown) (no (unknown) (unknown) Bedside Urine (units ( unknown) date) Glucose Negative unknown) (unknown) (no (unknown) (unknown) Bedside Urine (units ( unknown) date) Ketone - Negative unknown) (unknown) (no (unknown) (unknown) Bedside Urine (units ( unknown) date) Leukocytes - unknown) Negative (unknown) (no (unknown) (unknown) Bedside Urine (units ( unknown) date) Nitrite - unknown) Negative (unknown) (no (unknown) (unknown) Bedside Urine (units ( unknown) date) Occult Blood - unknown) Negative (unknown) (no (unknown) (unknown) Bedside Urine (units ( unknown) date) Protein - unknown) Negative (unknown) (no (unknown) (unknown) Bedside Urine (units ( unknown) date) Urobilinogen 0.2 unknown) (unknown) (no (unknown) (unknown) Bedside Urine pH (units (unknown) date) 6.0 unknown) (unknown) (no (unknown) (unknown) Blood Pressure (units (unknown) date) 172/107 H unknown) 01/25/23 12:07 (unknown) (no (unknown) (unknown) Blood Pressure (units (unknown) date) 172/107 H unknown) (unknown) (no (unknown) (unknown) Ning Sanchez, (units (unknown) date) [Primary Care unknown) Provider] (unknown) (no (unknown) (unknown) CARDIOVASCULAR: (units (unknown) date) Denies chest unknown) pain, palpitations, orthopnea, edema, (unknown) (no (unknown) (unknown) CARDIOVASCULAR: (units (unknown) date) Regular rate and unknown) rhythm without murmurs, gallops, or rubs. . (unknown) (no (unknown) (unknown) Chief Complaint: (units (unknown) date) Back Pain/Injury unknown) (unknown) (no (unknown) (unknown) Clinical (units (unkno wn) date) Impression: unknown) (unknown) (no (unknown) (unknown) Course (units (unkno wn) date) unknown) (unknown) (no (unknown) (unknown) : 1970 (units (unknown) date) Acct:[id number] unknown) (unknown) (no (unknown) (unknown) Date of Service: (units (unknown) date) 01/25/23 unknown) (unknown) (no (unknown) (unknown) Departure (units (unkn own) date) unknown) (unknown) (no (unknown) (unknown) Discharge Plan (units (unknown) date) unknown) (unknown) (no (unknown) (unknown) Discontinued (units (u nknown) date) Medications unknown) (unknown) (no (unknown) (unknown) Disposition: (units (u nknown) date) Discharged to unknown) home (unknown) (no (unknown) (unknown) ED Course: This (units (unknown) date) is a 52-year-old unknown) male presents emergency department due to (unknown) (no (unknown) (unknown) ENT: Nose (units (unkn own) date) without bleeding, unknown) purulent drainage. Throat without erythema, (unknown) (no (unknown) (unknown) ER Physician: (units ( unknown) date) Wilfred Phillips P.A-C unknown) (unknown) (no (unknown) (unknown) EXTREMITIES: No (units (unknown) date) edema or joint unknown) tenderness. (unknown) (no (unknown) (unknown) EYES: Pupils (units (u nknown) date) equal round and unknown) reactive. Extraocular motions intact. No scleral (unknown) (no (unknown) (unknown) Emergency Report (units (unknown) date) unknown) (unknown) (no (unknown) (unknown) Esterase (units (unkno wn) date) unknown) (unknown) (no (unknown) (unknown) Exam Narrative: (units (unknown) date) unknown) (unknown) (no (unknown) (unknown) Exam (units (unkno wn) date) unknown) (unknown) (no (unknown) (unknown) GASTROINTESTINAL (units (unknown) date) : Denies nausea, unknown) vomiting, abdominal pain, diarrhea, (unknown) (no (unknown) (unknown) GENERAL: Denies (units (unknown) date) chills, fatigue, unknown) malaise, fever, sweats. (unknown) (no (unknown) (unknown) GENERAL: (units (unkno wn) date) Well-developed unknown) patient, in mild distress. (unknown) (no (unknown) (unknown) : Denies (units (unk nown) date) dysuria, unknown) frequency, incontinence, hematuria, urinary retention. (unknown) (no (unknown) (unknown) General (units (unkno wn) date) unknown) (unknown) (no (unknown) (unknown) HEAD: (units (o wn) date) Atraumatic. unknown) Normocephalic. (unknown) (no (unknown) (unknown) HEENT: Denies (units ( unknown) date) sinus pain, ear unknown) pain, sore throat, difficulty swallowing, (unknown) (no (unknown) (unknown) HPI - Back (units (unk nown) date) Pain/Injury unknown) (unknown) (no (unknown) (unknown) HPI Narrative: (units (unknown) date) unknown) (unknown) (no (unknown) (unknown) History of (units (unk nown) date) Present Illness unknown) (unknown) (no (unknown) (unknown) Home Medications (units (unknown) date) unknown) (unknown) (no (unknown) (unknown) Hydromorphone (units ( unknown) date) HCl unknown) (Hydromorphone 1 Mg Inj) 0.5 mg IM NOW ONE (unknown) (no (unknown) (unknown) I hope you feel (units (unknown) date) better soon. unknown) (unknown) (no (unknown) (unknown) Initial Vital (units ( unknown) date) Signs unknown) (unknown) (no (unknown) (unknown) Initial Vital (units ( unknown) date) Signs: unknown) (unknown) (no (unknown) (unknown) Instructions: DI (units (unknown) date) for Back Strain unknown) or Sprain (unknown) (no (unknown) (unknown) [facility] (units (unknown) date) [address] unknown) [place] [address] (unknown) (no (unknown) (unknown) Ketorolac (units (unkn own) date) Tromethamine unknown) (Ketorolac 30 Mg/Ml Vial) 15 mg IM NOW ONE (unknown) (no (unknown) (unknown) Lab Data (units (unkno wn) date) unknown) (unknown) (no (unknown) (unknown) Labs: (units (unkno wn) date) unknown) (unknown) (no (unknown) (unknown) MDM - Back (units (unk nown) date) Pain/Injury unknown) (unknown) (no (unknown) (unknown) MDM Narrative (units ( unknown) date) unknown) (unknown) (no (unknown) (unknown) MDM (units (unkno wn) date) unknown) (unknown) (no (unknown) (unknown) MRI which showed (units (unknown) date) a herniated disc unknown) at T9 and has a appointment in 5 days to speak (unknown) (no (unknown) (unknown) MUSCULOSKELETAL: (units (unknown) date) Reports back unknown) pain, denies weakness, joint pain, or bony pain (unknown) (no (unknown) (unknown) Medical decision (units (unknown) date) making narrative: unknown) (unknown) (no (unknown) (unknown) Medication (units (unk nown) date) Instructions unknown) Recorded Confirmed (unknown) (no (unknown) (unknown) NECK: Trachea (units ( unknown) date) midline. Non unknown) tender (unknown) (no (unknown) (unknown) NEURO: AOx3. (units (u nknown) date) unknown) (unknown) (no (unknown) (unknown) NEUROLOGIC: (units (un known) date) Denies weakness, unknown) headache, numbness, change in speech, confusion, (unknown) (no (unknown) (unknown) Narrative (units (unkn own) date) unknown) (unknown) (no (unknown) (unknown) Narrative: (units (unk nown) date) unknown) (unknown) (no (unknown) (unknown) No Action (units (unkn own) date) unknown) (unknown) (no (unknown) (unknown) No Known Drug (units ( unknown) date) Allergies Allergy unknown) Verified 01/25/23 12:12 (unknown) (no (unknown) (unknown) Ordered: (units (unkno wn) date) unknown) (unknown) (no (unknown) (unknown) Orders (units (unkno wn) date) unknown) (unknown) (no (unknown) (unknown) Oxygen Delivery (units (unknown) date) Method Room Air unknown) 01/25/23 12:07 (unknown) (no (unknown) (unknown) Oxygen Delivery (units (unknown) date) Method Room Air unknown) (unknown) (no (unknown) (unknown) PSYCHIATRIC: No (units (unknown) date) concerning unknown) psychosocial issues. (unknown) (no (unknown) (unknown) Patient (units (unkno wn) date) Disposition: Home unknown) (unknown) (no (unknown) (unknown) Patient History (units (unknown) date) unknown) (unknown) (no (unknown) (unknown) Patient has a (units ( unknown) date) history of back unknown) surgery, L5-S1 secondary fracture. Two months ago (unknown) (no (unknown) (unknown) Patient has an (units (unknown) date) appointment next unknown) Sunday, in 5 days. Already has a oxycodone (unknown) (no (unknown) (unknown) Patient: (units (unkno wn) date) Mikey Velez Jyotsna unknown) MR#: M (unknown) (no (unknown) (unknown) Prescriptions: (units (unknown) date) unknown) (unknown) (no (unknown) (unknown) Pulse Oximetry (units (unknown) date) 99 01/25/23 12:07 unknown) (unknown) (no (unknown) (unknown) Pulse Oximetry (units (unknown) date) 99 unknown) (unknown) (no (unknown) (unknown) Pulse Rate 107 H (units (unknown) date) 01/25/23 12:07 unknown) (unknown) (no (unknown) (unknown) Pulse Rate 107 H (units (unknown) date) unknown) (unknown) (no (unknown) (unknown) RESPIRATORY: (units (u nknown) date) Denies dyspnea, unknown) cough, wheezing, hemoptysis, sputum. (unknown) (no (unknown) (unknown) Referrals: (units (unk nown) date) unknown) (unknown) (no (unknown) (unknown) Related Data (units (u nknown) date) unknown) (unknown) (no (unknown) (unknown) Respiratory Rate (units (unknown) date) 18 01/25/23 12:07 unknown) (unknown) (no (unknown) (unknown) Respiratory Rate (units (unknown) date) 18 unknown) (unknown) (no (unknown) (unknown) Review of (units (unkn own) date) Systems unknown) (unknown) (no (unknown) (unknown) SKIN: Denies (units (u nknown) date) rash, skin unknown) lesions, or other (unknown) (no (unknown) (unknown) SKIN: No rash or (units (unknown) date) erythema of unknown) visible areas (unknown) (no (unknown) (unknown) Shared Decision (units (unknown) date) Making: Discussed unknown) plan with patient who is comfortable with the (unknown) (no (unknown) (unknown) Signed By: (units (unk nown) date) unknown) (unknown) (no (unknown) (unknown) Smoking Status: (units (unknown) date) Never smoker unknown) (unknown) (no (unknown) (unknown) Social (units (unkno wn) date) Considerations: unknown) None (unknown) (no (unknown) (unknown) Social History (units (unknown) date) unknown) (unknown) (no (unknown) (unknown) Source: patient (units (unknown) date) unknown) (unknown) (no (unknown) (unknown) Stand Alone (units (un known) date) Forms: Patient unknown) Portal/API (unknown) (no (unknown) (unknown) Stated (units (unkno wn) date) Complaint: unknown) extreme back pain (unknown) (no (unknown) (unknown) Stop: 01/25/23 (units (unknown) date) 12:59 unknown) (unknown) (no (unknown) (unknown) Strongly (units (unkno wn) date) reinforced the unknown) fact that the emergency department is not the (unknown) (no (unknown) (unknown) Substance Use (units ( unknown) date) Type: does not unknown) use (unknown) (no (unknown) (unknown) Temperature 98.8 (units (unknown) date) F 01/25/23 12:07 unknown) (unknown) (no (unknown) (unknown) Temperature 98.8 (units (unknown) date) F unknown) (unknown) (no (unknown) (unknown) Thank you for (units ( unknown) date) coming to the unknown) [facility] Emergency Department today. We are (unknown) (no (unknown) (unknown) This is a (units (unkn own) date) 52-year-old male unknown) presents to the emergency department due to mid back (unknown) (no (unknown) (unknown) Time Seen by (units (u nknown) date) Provider: unknown) 01/25/23 12:34 (unknown) (no (unknown) (unknown) Tylenol and (units (unk nown) date) ibuprofen to help unknown) with the back pain until you are able to follow-up (unknown) (no (unknown) (unknown) Urine Dip (units (unkn own) date) unknown) (unknown) (no (unknown) (unknown) Urine Specific (units (unknown) date) [place] 1.010 unknown) (unknown) (no (unknown) (unknown) Vital Signs - 8 (units (unknown) date) hr unknown) (unknown) (no (unknown) (unknown) Vital Signs (units (un known) date) unknown) (unknown) (no (unknown) (unknown) Vital signs: (units (u nknown) date) unknown) (unknown) (no (unknown) (unknown) able to give you (units (unknown) date) a 1 time dose of unknown) Toradol as well as IM Dilaudid here but I (unknown) (no (unknown) (unknown) acute on chronic (units (unknown) date) worsening back unknown) pain. He states he has been unable to sleep for (unknown) (no (unknown) (unknown) alcohol intake (units (unknown) date) frequency: 0-2 unknown) drinks per day (unknown) (no (unknown) (unknown) amitriptyline 50 (units (unknown) date) MG tablet unknown) (unknown) (no (unknown) (unknown) amitriptyline 50 (units (unknown) date) mg tablet 50 mg unknown) PO HS ##0 10/30/16 (unknown) (no (unknown) (unknown) any new symptoms (units (unknown) date) since the MRI was unknown) taken. (unknown) (no (unknown) (unknown) appointment with (units (unknown) date) a spine unknown) specialist very soon for definitive management. (unknown) (no (unknown) (unknown) appropriate (units (un known) date) place for repeat unknown) visits for opiate pain relief. Eventually a 1 time (unknown) (no (unknown) (unknown) approximately a (units (unknown) date) month. He states unknown) for the last 4 days he has been unable to (unknown) (no (unknown) (unknown) as a steroid (units (u nknown) date) burst to help unknown) with the symptoms until he is able to follow up with (unknown) (no (unknown) (unknown) constipation, (units ( unknown) date) melena. unknown) (unknown) (no (unknown) (unknown) denies any new (units (unknown) date) weakness or focal unknown) nervous system changes. He is already had a (unknown) (no (unknown) (unknown) department for (units (unknown) date) similar symptoms unknown) in the past. (unknown) (no (unknown) (unknown) dizziness. (units (unk nown) date) unknown) (unknown) (no (unknown) (unknown) dose of Dilaudid (units (unknown) date) IM will be given unknown) here for the patient as well as Toradol as (unknown) (no (unknown) (unknown) dosing similar (units (unknown) date) to this. Please unknown) use the prescribed medications as well as (unknown) (no (unknown) (unknown) gabapentin 600 (units (unknown) date) mg tablet 1,200 unknown) mg PO TID ##0 10/30/16 (unknown) (no (unknown) (unknown) gabapentin (units (unk nown) date) [Neurontin] 600 unknown) MG tablet (unknown) (no (unknown) (unknown) he would a (units (unk nown) date) stimulator placed unknown) scheduled. MRI was ordered which showed a (unknown) (no (unknown) (unknown) herniated disc (units (unknown) date) at T9. Has had unknown) sharp pain since the stimulator was placed. (unknown) (no (unknown) (unknown) his spine (units (unkn own) date) specialist as he unknown) already has a prescription for oxycodone. Patient (unknown) (no (unknown) (unknown) icterus. No (units (un known) date) injection or unknown) drainage. (unknown) (no (unknown) (unknown) levothyroxine (units ( unknown) date) 200 mcg tablet unknown) 0.2 mg PO QDAY ##0 11/19/12 (unknown) (no (unknown) (unknown) levothyroxine (units ( unknown) date) [Synthroid] 200 unknown) MCG tablet (unknown) (no (unknown) (unknown) lisinopril 10 MG (units (unknown) date) tablet unknown) (unknown) (no (unknown) (unknown) lisinopril 10 mg (units (unknown) date) tablet 10 mg PO unknown) QDAY ##0 10/30/16 (unknown) (no (unknown) (unknown) muscular back (units ( unknown) date) pain, spinal unknown) stenosis (unknown) (no (unknown) (unknown) oxycodone 5 MG (units (unknown) date) tablet unknown) (unknown) (no (unknown) (unknown) oxycodone 5 mg (units (unknown) date) tablet 20 mg PO unknown) QID ##0 10/30/16 (unknown) (no (unknown) (unknown) pain. Patient (units ( unknown) date) states this unknown) episode of pain has been affecting him for (unknown) (no (unknown) (unknown) plan. (units (unkno wn) date) unknown) (unknown) (no (unknown) (unknown) prescription for (units (unknown) date) 10 mg t.i.d.. unknown) Patient complaining of mid back pain and T9. (unknown) (no (unknown) (unknown) repeatedly (units (unk nown) date) requested IM unknown) Dilaudid as he says this worked in the past, extensive (unknown) (no (unknown) (unknown) seizures, (units (unkn own) date) incoordination. unknown) (unknown) (no (unknown) (unknown) sleep due to the (units (unknown) date) severity of the unknown) pain. He is already taking oxycodone 10 mg (unknown) (no (unknown) (unknown) states that he (units (unknown) date) was instructed to unknown) come here through ?break through pain?. He (unknown) (no (unknown) (unknown) strongly (units (unkno wn) date) recommend you do unknown) not return to the emergency department for repeat (unknown) (no (unknown) (unknown) t.i.d. as (units (unkn own) date) prescribed by his unknown) closing specialist in [facility]. He (unknown) (no (unknown) (unknown) the last 4 days. (units (unknown) date) Offered IM unknown) Toradol, prescription for muscle relaxants, as well (unknown) (no (unknown) (unknown) tonsillar (units (unkn own) date) hypertrophy or unknown) exudate. Airway patent. (unknown) (no (unknown) (unknown) tox were had (units (u nknown) date) with the patient unknown) regarding the risks of opiate dependency. (unknown) (no (unknown) (unknown) well as muscle (units (unknown) date) relaxants as well unknown) as steroids prescribed. Patient has an (unknown) (no (unknown) (unknown) with the spine (units (unknown) date) specialist. He unknown) denies any urinary or bowel incontinence, denies (unknown) (no (unknown) (unknown) with your spine (units (unknown) date) specialist next unknown) Sunday. Result panel 3 (unknown) (no (unknown) (unknown) (no value) (units (unk nown) date) unknown) (unknown) (no (unknown) (unknown) (Neurontin) (units (un known) date) unknown) (unknown) (no (unknown) (unknown) (Synthroid) (units (un known) date) unknown) (unknown) (no (unknown) (unknown) * Clinical Decision (unit s (unknown) date) Rules/Scores unknown) evaluated: None (unknown) (no (unknown) (unknown) * Independent (units ( unknown) date) discussions with: unknown) None (unknown) (no (unknown) (unknown) * My imgaing (units (u nknown) date) interpretation: None unknown) obtained (unknown) (no (unknown) (unknown) * My lab (units (unkno wn) date) interpretation: None unknown) obtained (unknown) (no (unknown) (unknown) * Prior records (units (unknown) date) reviewed: Patient unknown) has not been here for the emergency (unknown) (no (unknown) (unknown) * differential (units (unknown) date) diagnosis includes unknown) but not limited to vertebral fracture, (unknown) (no (unknown) (unknown) 0.2 mg PO QDAY Qty: (unit s (unknown) date) 0 unknown) (unknown) (no (unknown) (unknown) [id number] (units (unkn own) date) unknown) (unknown) (no (unknown) (unknown) 01/25/23 (units (unkno wn) date) unknown) (unknown) (no (unknown) (unknown) 1,200 mg PO TID (units (unknown) date) Qty: 0 unknown) (unknown) (no (unknown) (unknown) 10 mg PO QDAY Qty: (units (unknown) date) 0 unknown) (unknown) (no (unknown) (unknown) 10 mg PO TID Qty: (units (unknown) date) 20 0RF unknown) (unknown) (no (unknown) (unknown) 12 point review of (units (unknown) date) systems is negative unknown) except for those stated above (unknown) (no (unknown) (unknown) 12:07 (units (unkno wn) date) unknown) (unknown) (no (unknown) (unknown) 20 mg PO QID Qty: 0 (unit s (unknown) date) unknown) (unknown) (no (unknown) (unknown) 50 mg PO HS Qty: 0 (units (unknown) date) unknown) (unknown) (no (unknown) (unknown) Activity (units (unkno wn) date) Restrictions/Additio unknown) nal Instructions: (unknown) (no (unknown) (unknown) Age/Sex: 52 / M (units (unknown) date) unknown) (unknown) (no (unknown) (unknown) Allergies (units (unkn own) date) unknown) (unknown) (no (unknown) (unknown) Allergy/AdvReac (units (unknown) date) Type Severity unknown) Reaction Status Date / Time (unknown) (no (unknown) (unknown) BACK: Mild (units (unk nown) date) tenderness to unknown) palpation to midthoracic spine, . No flank tenderness. (unknown) (no (unknown) (unknown) Back pain (units (unkn own) date) unknown) (unknown) (no (unknown) (unknown) Bedside Urine (units ( unknown) date) Bilirubin - Negative unknown) (unknown) (no (unknown) (unknown) Bedside Urine (units ( unknown) date) Glucose Negative unknown) (unknown) (no (unknown) (unknown) Bedside Urine (units ( unknown) date) Ketone - Negative unknown) (unknown) (no (unknown) (unknown) Bedside Urine (units ( unknown) date) Leukocytes - unknown) Negative (unknown) (no (unknown) (unknown) Bedside Urine (units ( unknown) date) Nitrite - Negative unknown) (unknown) (no (unknown) (unknown) Bedside Urine (units ( unknown) date) Occult Blood - unknown) Negative (unknown) (no (unknown) (unknown) Bedside Urine (units ( unknown) date) Protein - Negative unknown) (unknown) (no (unknown) (unknown) Bedside Urine (units ( unknown) date) Urobilinogen 0.2 unknown) (unknown) (no (unknown) (unknown) Bedside Urine pH (units (unknown) date) 6.0 unknown) (unknown) (no (unknown) (unknown) Blood Pressure (units (unknown) date) 172/107 H 01/25/23 unknown) 12:07 (unknown) (no (unknown) (unknown) Blood Pressure (units (unknown) date) 172/107 H unknown) (unknown) (no (unknown) (unknown) Ning Sanchez MD (units (unknown) date) [Primary Care unknown) Provider] (unknown) (no (unknown) (unknown) CARDIOVASCULAR: (units (unknown) date) Denies chest pain, unknown) palpitations, orthopnea, edema, (unknown) (no (unknown) (unknown) CARDIOVASCULAR: (units (unknown) date) Regular rate and unknown) rhythm without murmurs, gallops, or rubs. . (unknown) (no (unknown) (unknown) Chief Complaint: (units (unknown) date) Back Pain/Injury unknown) (unknown) (no (unknown) (unknown) Clinical (units (unkno wn) date) Impression: unknown) (unknown) (no (unknown) (unknown) Course (units (unkno wn) date) unknown) (unknown) (no (unknown) (unknown) : 1970 (units (unknown) date) Acct:[id number] unknown) (unknown) (no (unknown) (unknown) Date of Service: (units (unknown) date) 01/25/23 unknown) (unknown) (no (unknown) (unknown) Departure (units (unkn own) date) unknown) (unknown) (no (unknown) (unknown) Discharge Plan (units (unknown) date) unknown) (unknown) (no (unknown) (unknown) Discontinued (units (u nknown) date) Medications unknown) (unknown) (no (unknown) (unknown) Disposition: (units (u nknown) date) Discharged to home unknown) (unknown) (no (unknown) (unknown) ED Course: This is (units (unknown) date) a 52-year-old male unknown) presents emergency department due to (unknown) (no (unknown) (unknown) ENT: Nose without (units (unknown) date) bleeding, purulent unknown) drainage. Throat without erythema, (unknown) (no (unknown) (unknown) ER Physician: (units ( unknown) date) Wilfred Phillips P.A-C unknown) (unknown) (no (unknown) (unknown) EXTREMITIES: No (units (unknown) date) edema or joint unknown) tenderness. (unknown) (no (unknown) (unknown) EYES: Pupils equal (units (unknown) date) round and reactive. unknown) Extraocular motions intact. No scleral (unknown) (no (unknown) (unknown) Emergency Report (units (unknown) date) unknown) (unknown) (no (unknown) (unknown) Esterase (units (unkno wn) date) unknown) (unknown) (no (unknown) (unknown) Exam Narrative: (units (unknown) date) unknown) (unknown) (no (unknown) (unknown) Exam (units (unkno wn) date) unknown) (unknown) (no (unknown) (unknown) GASTROINTESTINAL: (units (unknown) date) Denies nausea, unknown) vomiting, abdominal pain, diarrhea, (unknown) (no (unknown) (unknown) GENERAL: Denies (units (unknown) date) chills, fatigue, unknown) malaise, fever, sweats. (unknown) (no (unknown) (unknown) GENERAL: (units (unkno wn) date) Well-developed unknown) patient, in mild distress. (unknown) (no (unknown) (unknown) : Denies dysuria, (unit s (unknown) date) frequency, unknown) incontinence, hematuria, urinary retention. (unknown) (no (unknown) (unknown) General (units (unkno wn) date) unknown) (unknown) (no (unknown) (unknown) HEAD: Atraumatic. (units (unknown) date) Normocephalic. unknown) (unknown) (no (unknown) (unknown) HEENT: Denies sinus (unit s (unknown) date) pain, ear pain, sore unknown) throat, difficulty swallowing, (unknown) (no (unknown) (unknown) HPI - Back (units (unk nown) date) Pain/Injury unknown) (unknown) (no (unknown) (unknown) HPI Narrative: (units (unknown) date) unknown) (unknown) (no (unknown) (unknown) History of Present (units (unknown) date) Illness unknown) (unknown) (no (unknown) (unknown) Home Medications (units (unknown) date) unknown) (unknown) (no (unknown) (unknown) Hydromorphone HCl (units (unknown) date) (Hydromorphone 1 Mg unknown) Inj) 0.5 mg IM NOW ONE (unknown) (no (unknown) (unknown) I hope you feel (units (unknown) date) better soon. unknown) (unknown) (no (unknown) (unknown) Initial Vital Signs (unit s (unknown) date) unknown) (unknown) (no (unknown) (unknown) Initial Vital (units ( unknown) date) Signs: unknown) (unknown) (no (unknown) (unknown) Instructions: DI (units (unknown) date) for Back Strain or unknown) Sprain (unknown) (no (unknown) (unknown) [facility] (units (unknown) date) [address] [place] [address] unknown) [place] [address] (unknown) (no (unknown) (unknown) Ketorolac (units (unkn own) date) Tromethamine unknown) (Ketorolac 30 Mg/Ml Vial) 15 mg IM NOW ONE (unknown) (no (unknown) (unknown) Lab Data (units (unkno wn) date) unknown) (unknown) (no (unknown) (unknown) Labs: (units (unkno wn) date) unknown) (unknown) (no (unknown) (unknown) MDM - Back (units (unk nown) date) Pain/Injury unknown) (unknown) (no (unknown) (unknown) MDM Narrative (units ( unknown) date) unknown) (unknown) (no (unknown) (unknown) MDM (units (unkno wn) date) unknown) (unknown) (no (unknown) (unknown) MRI which showed a (units (unknown) date) herniated disc at T9 unknown) and has a appointment in 5 days to speak (unknown) (no (unknown) (unknown) MUSCULOSKELETAL: (units (unknown) date) Reports back pain, unknown) denies weakness, joint pain, or bony pain (unknown) (no (unknown) (unknown) Medical decision (units (unknown) date) making narrative: unknown) (unknown) (no (unknown) (unknown) Medication (units (unk nown) date) Instructions unknown) Recorded Confirmed (unknown) (no (unknown) (unknown) Medication (units (unk nown) date) Instructions unknown) Recorded (unknown) (no (unknown) (unknown) NECK: Trachea (units ( unknown) date) midline. Non tender unknown) (unknown) (no (unknown) (unknown) NEURO: AOx3. (units (u nknown) date) unknown) (unknown) (no (unknown) (unknown) NEUROLOGIC: Denies (units (unknown) date) weakness, headache, unknown) numbness, change in speech, confusion, (unknown) (no (unknown) (unknown) Narrative (units (unkn own) date) unknown) (unknown) (no (unknown) (unknown) Narrative: (units (unk nown) date) unknown) (unknown) (no (unknown) (unknown) New (units (unkno wn) date) unknown) (unknown) (no (unknown) (unknown) No Action (units (unkn own) date) unknown) (unknown) (no (unknown) (unknown) No Known Drug (units ( unknown) date) Allergies Allergy unknown) Verified 01/25/23 12:12 (unknown) (no (unknown) (unknown) [place]. (units (un known) date) unknown) (unknown) (no (unknown) (unknown) Ordered: (units (unkno wn) date) unknown) (unknown) (no (unknown) (unknown) Orders (units (unkno wn) date) unknown) (unknown) (no (unknown) (unknown) Oxygen Delivery (units (unknown) date) Method Room Air unknown) 01/25/23 12:07 (unknown) (no (unknown) (unknown) Oxygen Delivery (units (unknown) date) Method Room Air unknown) (unknown) (no (unknown) (unknown) PSYCHIATRIC: No (units (unknown) date) concerning unknown) psychosocial issues. (unknown) (no (unknown) (unknown) Patient (units (unkno wn) date) Disposition: Home unknown) (unknown) (no (unknown) (unknown) Patient History (units (unknown) date) unknown) (unknown) (no (unknown) (unknown) Patient has a (units ( unknown) date) history of back unknown) surgery, L5-S1 secondary fracture. Two months ago (unknown) (no (unknown) (unknown) Patient has an (units (unknown) date) appointment next unknown) Sunday, in 5 days. Already has a oxycodone (unknown) (no (unknown) (unknown) Patient: (units (unkno wn) date) Mikey Velez Jyotsna unknown) MR#: [id number] (unknown) (no (unknown) (unknown) Prescriptions: (units (unknown) date) unknown) (unknown) (no (unknown) (unknown) Previous Rx's (units ( unknown) date) unknown) (unknown) (no (unknown) (unknown) Pulse Oximetry 99 (units (unknown) date) 01/25/23 12:07 unknown) (unknown) (no (unknown) (unknown) Pulse Oximetry 99 (units (unknown) date) unknown) (unknown) (no (unknown) (unknown) Pulse Rate 107 H (units (unknown) date) 01/25/23 12:07 unknown) (unknown) (no (unknown) (unknown) Pulse Rate 107 H (units (unknown) date) unknown) (unknown) (no (unknown) (unknown) RESPIRATORY: Denies (unit s (unknown) date) dyspnea, cough, unknown) wheezing, hemoptysis, sputum. (unknown) (no (unknown) (unknown) Referrals: (units (unk nown) date) unknown) (unknown) (no (unknown) (unknown) Related Data (units (u nknown) date) unknown) (unknown) (no (unknown) (unknown) Respiratory Rate 18 (unit s (unknown) date) 01/25/23 12:07 unknown) (unknown) (no (unknown) (unknown) Respiratory Rate 18 (unit s (unknown) date) unknown) (unknown) (no (unknown) (unknown) Review of Systems (units (unknown) date) unknown) (unknown) (no (unknown) (unknown) Rx Instructions: (units (unknown) date) unknown) (unknown) (no (unknown) (unknown) SKIN: Denies rash, (units (unknown) date) skin lesions, or unknown) other (unknown) (no (unknown) (unknown) SKIN: No rash or (units (unknown) date) erythema of visible unknown) areas (unknown) (no (unknown) (unknown) See Rx Instructions (unit s (unknown) date) .ROUTE .COMPLEX Qty: unknown) 21 0RF (unknown) (no (unknown) (unknown) Shared Decision (units (unknown) date) Making: Discussed unknown) plan with patient who is comfortable with the (unknown) (no (unknown) (unknown) Signed By: (units (unk nown) date) unknown) (unknown) (no (unknown) (unknown) Smoking Status: (units (unknown) date) Never smoker unknown) (unknown) (no (unknown) (unknown) Social (units (unkno wn) date) Considerations: None unknown) (unknown) (no (unknown) (unknown) Social History (units (unknown) date) unknown) (unknown) (no (unknown) (unknown) Source: patient (units (unknown) date) unknown) (unknown) (no (unknown) (unknown) Stand Alone Forms: (units (unknown) date) Patient Portal/API unknown) (unknown) (no (unknown) (unknown) Stated Complaint: (units (unknown) date) extreme back pain unknown) (unknown) (no (unknown) (unknown) Stop: 01/25/23 (units (unknown) date) 12:59 unknown) (unknown) (no (unknown) (unknown) Strongly reinforced (unit s (unknown) date) the fact that the unknown) emergency department is not the (unknown) (no (unknown) (unknown) Substance Use Type: (unit s (unknown) date) does not use unknown) (unknown) (no (unknown) (unknown) Temperature 98.8 F (units (unknown) date) 01/25/23 12:07 unknown) (unknown) (no (unknown) (unknown) Temperature 98.8 F (units (unknown) date) unknown) (unknown) (no (unknown) (unknown) Thank you for (units ( unknown) date) coming to the [facility] Emergency Department today. We are (unknown) (no (unknown) (unknown) This is a (units (unkn own) date) 52-year-old male unknown) presents to the emergency department due to mid back (unknown) (no (unknown) (unknown) Time Seen by (units (u nknown) date) Provider: 01/25/23 unknown) 12:34 (unknown) (no (unknown) (unknown) Tylenol and (units (unk nown) date) ibuprofen to help unknown) with the back pain until you are able to follow-up (unknown) (no (unknown) (unknown) Urine Dip (units (unkn own) date) unknown) (unknown) (no (unknown) (unknown) Urine Specific (units (unknown) date) [place] 1.010 unknown) (unknown) (no (unknown) (unknown) Vital Signs - 8 hr (units (unknown) date) unknown) (unknown) (no (unknown) (unknown) Vital Signs (units (un known) date) unknown) (unknown) (no (unknown) (unknown) Vital signs: (units (u nknown) date) unknown) (unknown) (no (unknown) (unknown) a dose pack (Medrol (unit s (unknown) date) (Orlin)) #21 ea unknown) (unknown) (no (unknown) (unknown) able to give you a (units (unknown) date) 1 time dose of unknown) Toradol as well as IM Dilaudid here but I (unknown) (no (unknown) (unknown) acute on chronic (units (unknown) date) worsening back pain. unknown) He states he has been unable to sleep for (unknown) (no (unknown) (unknown) alcohol intake (units (unknown) date) frequency: 0-2 unknown) drinks per day (unknown) (no (unknown) (unknown) amitriptyline 50 MG (unit s (unknown) date) tablet unknown) (unknown) (no (unknown) (unknown) amitriptyline 50 mg (unit s (unknown) date) tablet 50 mg PO HS unknown) ##0 10/30/16 (unknown) (no (unknown) (unknown) any new symptoms (units (unknown) date) since the MRI was unknown) taken. (unknown) (no (unknown) (unknown) appointment with a (units (unknown) date) closing specialist unknown) very soon for definitive management. (unknown) (no (unknown) (unknown) appropriate place (units (unknown) date) for repeat visits unknown) for opiate pain relief. Eventually a 1 time (unknown) (no (unknown) (unknown) approximately a (units (unknown) date) month. He states for unknown) the last 4 days he has been unable to (unknown) (no (unknown) (unknown) as a steroid burst (units (unknown) date) to help with the unknown) symptoms until he is able to follow up with (unknown) (no (unknown) (unknown) constipation, (units ( unknown) date) melena. unknown) (unknown) (no (unknown) (unknown) cyclobenzaprine 10 (units (unknown) date) mg tablet 10 mg PO unknown) TID #20 tabs 01/25/23 (unknown) (no (unknown) (unknown) cyclobenzaprine 10 (units (unknown) date) mg tablet unknown) (unknown) (no (unknown) (unknown) denies any new (units (unknown) date) weakness or focal unknown) nervous system changes. He is already had a (unknown) (no (unknown) (unknown) department for (units (unknown) date) similar symptoms in unknown) the past. (unknown) (no (unknown) (unknown) dizziness. (units (unk nown) date) unknown) (unknown) (no (unknown) (unknown) dose of Dilaudid IM (unit s (unknown) date) will be given here unknown) for the patient as well as Toradol as (unknown) (no (unknown) (unknown) dosing similar to (units (unknown) date) this. Please use the unknown) prescribed medications as well as (unknown) (no (unknown) (unknown) gabapentin 600 mg (units (unknown) date) tablet 1,200 mg PO unknown) TID ##0 10/30/16 (unknown) (no (unknown) (unknown) gabapentin (units (unk nown) date) [Neurontin] 600 MG unknown) tablet (unknown) (no (unknown) (unknown) he would a (units (unk nown) date) stimulator placed unknown) scheduled. MRI was ordered which showed a (unknown) (no (unknown) (unknown) herniated disc at (units (unknown) date) T9. Has had sharp unknown) pain since the stimulator was placed. (unknown) (no (unknown) (unknown) his spine (units (unkn own) date) specialist as he unknown) already has a prescription for oxycodone. Patient (unknown) (no (unknown) (unknown) icterus. No (units (un known) date) injection or unknown) drainage. (unknown) (no (unknown) (unknown) levothyroxine 200 (units (unknown) date) mcg tablet 0.2 mg PO unknown) QDAY ##0 11/19/12 (unknown) (no (unknown) (unknown) levothyroxine (units ( unknown) date) [Synthroid] 200 MCG unknown) tablet (unknown) (no (unknown) (unknown) lisinopril 10 MG (units (unknown) date) tablet unknown) (unknown) (no (unknown) (unknown) lisinopril 10 mg (units (unknown) date) tablet 10 mg PO QDAY unknown) ##0 10/30/16 (unknown) (no (unknown) (unknown) methylprednisolone (units (unknown) date) 4 mg tablets in See unknown) Rx Instructions PO .COMPLEX 01/25/23 (unknown) (no (unknown) (unknown) methylprednisolone (units (unknown) date) [Medrol (Orlin)] 4 mg unknown) tablets,dose pack (unknown) (no (unknown) (unknown) muscular back pain, (unit s (unknown) date) spinal stenosis unknown) (unknown) (no (unknown) (unknown) orally per package (units (unknown) date) directions unknown) (unknown) (no (unknown) (unknown) oxycodone 5 MG (units (unknown) date) tablet unknown) (unknown) (no (unknown) (unknown) oxycodone 5 mg (units (unknown) date) tablet 20 mg PO QID unknown) ##0 10/30/16 (unknown) (no (unknown) (unknown) pain. Patient (units ( unknown) date) states this episode unknown) of pain has been affecting him for (unknown) (no (unknown) (unknown) plan. (units (unkno wn) date) unknown) (unknown) (no (unknown) (unknown) prescription for 10 (unit s (unknown) date) mg t.i.d.. Patient unknown) complaining of mid back pain and T9. (unknown) (no (unknown) (unknown) repeatedly (units (unk nown) date) requested IM unknown) Dilaudid as he says this worked in the past, extensive (unknown) (no (unknown) (unknown) seizures, (units (unkn own) date) incoordination. unknown) (unknown) (no (unknown) (unknown) sleep due to the (units (unknown) date) severity of the unknown) pain. He is already taking oxycodone 10 mg (unknown) (no (unknown) (unknown) states that he was (units (unknown) date) instructed to come unknown) here through ?break through pain?. He (unknown) (no (unknown) (unknown) strongly recommend (units (unknown) date) you do not return to unknown) the emergency department for repeat (unknown) (no (unknown) (unknown) t.i.d. as (units (unkn own) date) prescribed by his unknown) closing specialist in [facility]. He (unknown) (no (unknown) (unknown) the last 4 days. (units (unknown) date) Offered IM Toradol, unknown) prescription for muscle relaxants, as well (unknown) (no (unknown) (unknown) tonsillar (units (unkn own) date) hypertrophy or unknown) exudate. Airway patent. (unknown) (no (unknown) (unknown) tox were had with (units (unknown) date) the patient unknown) regarding the risks of opiate dependency. (unknown) (no (unknown) (unknown) well as muscle (units (unknown) date) relaxants as well as unknown) steroids prescribed. Patient has an (unknown) (no (unknown) (unknown) with the spine (units (unknown) date) specialist. He unknown) denies any urinary or bowel incontinence, denies (unknown) (no (unknown) (unknown) with your spine (units (unknown) date) specialist next unknown) Sunday. I sent your medications to [facility] and Result panel 4 (unknown) (no (unknown) (unknown) (no value) (units (unk nown) date) unknown) (unknown) (no (unknown) (unknown) <Electronically (units (unknown) date) signed by Wilfred Beaver unknown) Alan> (unknown) (no (unknown) (unknown) (Neurontin) (units (un known) date) unknown) (unknown) (no (unknown) (unknown) (Synthroid) (units (un known) date) unknown) (unknown) (no (unknown) (unknown) * Clinical Decision (unit s (unknown) date) Rules/Scores unknown) evaluated: None (unknown) (no (unknown) (unknown) * Independent (units ( unknown) date) discussions with: unknown) None (unknown) (no (unknown) (unknown) * My imgaing (units (u nknown) date) interpretation: None unknown) obtained (unknown) (no (unknown) (unknown) * My lab (units (unkno wn) date) interpretation: None unknown) obtained (unknown) (no (unknown) (unknown) * Prior records (units (unknown) date) reviewed: Patient unknown) has not been here for the emergency (unknown) (no (unknown) (unknown) * differential (units (unknown) date) diagnosis includes unknown) but not limited to vertebral fracture, (unknown) (no (unknown) (unknown) 0.2 mg PO QDAY Qty: (unit s (unknown) date) 0 unknown) (unknown) (no (unknown) (unknown) [id number] (units (unkn own) date) unknown) (unknown) (no (unknown) (unknown) 01/25/23 1621 (units ( unknown) date) unknown) (unknown) (no (unknown) (unknown) 01/25/23 (units (unkno wn) date) unknown) (unknown) (no (unknown) (unknown) 1,200 mg PO TID (units (unknown) date) Qty: 0 unknown) (unknown) (no (unknown) (unknown) 10 mg PO QDAY Qty: (units (unknown) date) 0 unknown) (unknown) (no (unknown) (unknown) 10 mg PO TID Qty: (units (unknown) date) 20 0RF unknown) (unknown) (no (unknown) (unknown) 12 point review of (units (unknown) date) systems is negative unknown) except for those stated above (unknown) (no (unknown) (unknown) 12:07 01/25/23 (units (unknown) date) unknown) (unknown) (no (unknown) (unknown) 15:06 (units (unkno wn) date) unknown) (unknown) (no (unknown) (unknown) 20 mg PO QID Qty: 0 (unit s (unknown) date) unknown) (unknown) (no (unknown) (unknown) 50 mg PO HS Qty: 0 (units (unknown) date) unknown) (unknown) (no (unknown) (unknown) Activity (units (unkno wn) date) Restrictions/Additio unknown) nal Instructions: (unknown) (no (unknown) (unknown) Age/Sex: 52 / M (units (unknown) date) unknown) (unknown) (no (unknown) (unknown) Allergies (units (unkn own) date) unknown) (unknown) (no (unknown) (unknown) Allergy/AdvReac (units (unknown) date) Type Severity unknown) Reaction Status Date / Time (unknown) (no (unknown) (unknown) BACK: Mild (units (unk nown) date) tenderness to unknown) palpation to midthoracic spine, . No flank tenderness. (unknown) (no (unknown) (unknown) Back pain (units (unkn own) date) unknown) (unknown) (no (unknown) (unknown) Bedside Urine (units ( unknown) date) Bilirubin - Negative unknown) (unknown) (no (unknown) (unknown) Bedside Urine (units ( unknown) date) Glucose Negative unknown) (unknown) (no (unknown) (unknown) Bedside Urine (units ( unknown) date) Ketone - Negative unknown) (unknown) (no (unknown) (unknown) Bedside Urine (units ( unknown) date) Leukocytes - unknown) Negative (unknown) (no (unknown) (unknown) Bedside Urine (units ( unknown) date) Nitrite - Negative unknown) (unknown) (no (unknown) (unknown) Bedside Urine (units ( unknown) date) Occult Blood - unknown) Negative (unknown) (no (unknown) (unknown) Bedside Urine (units ( unknown) date) Protein - Negative unknown) (unknown) (no (unknown) (unknown) Bedside Urine (units ( unknown) date) Urobilinogen 0.2 unknown) (unknown) (no (unknown) (unknown) Bedside Urine pH (units (unknown) date) 6.0 unknown) (unknown) (no (unknown) (unknown) Blood Pressure (units (unknown) date) 172/107 H 01/25/23 unknown) 12:07 (unknown) (no (unknown) (unknown) Blood Pressure (units (unknown) date) 172/107 H 160/90 H unknown) (unknown) (no (unknown) (unknown) Ning Sanchez MD (units (unknown) date) [Primary Care unknown) Provider] (unknown) (no (unknown) (unknown) CARDIOVASCULAR: (units (unknown) date) Denies chest pain, unknown) palpitations, orthopnea, edema, (unknown) (no (unknown) (unknown) CARDIOVASCULAR: (units (unknown) date) Regular rate and unknown) rhythm without murmurs, gallops, or rubs. . (unknown) (no (unknown) (unknown) Chief Complaint: (units (unknown) date) Back Pain/Injury unknown) (unknown) (no (unknown) (unknown) Clinical (units (unkno wn) date) Impression: unknown) (unknown) (no (unknown) (unknown) Course (units (unkno wn) date) unknown) (unknown) (no (unknown) (unknown) Cyclobenzaprine HCl (unit s (unknown) date) (Cyclobenzaprine 10 unknown) Mg Tablet) 10 mg PO NOW ONE (unknown) (no (unknown) (unknown) : 1970 (units (unknown) date) Acct:[id number] unknown) (unknown) (no (unknown) (unknown) Date of Service: (units (unknown) date) 01/25/23 unknown) (unknown) (no (unknown) (unknown) Departure (units (unkn own) date) unknown) (unknown) (no (unknown) (unknown) Discharge Plan (units (unknown) date) unknown) (unknown) (no (unknown) (unknown) Discontinued (units (u nknown) date) Medications unknown) (unknown) (no (unknown) (unknown) Disposition: (units (u nknown) date) Discharged to home unknown) (unknown) (no (unknown) (unknown) Documented By: KB (units (unknown) date) unknown) (unknown) (no (unknown) (unknown) Documented By: RB (units (unknown) date) unknown) (unknown) (no (unknown) (unknown) ED Course: This is (units (unknown) date) a 52-year-old male unknown) presents emergency department due to (unknown) (no (unknown) (unknown) ENT: Nose without (units (unknown) date) bleeding, purulent unknown) drainage. Throat without erythema, (unknown) (no (unknown) (unknown) ER Physician: (units ( unknown) date) Wilfred Phillips P.A-C unknown) (unknown) (no (unknown) (unknown) EXTREMITIES: No (units (unknown) date) edema or joint unknown) tenderness. (unknown) (no (unknown) (unknown) EYES: Pupils equal (units (unknown) date) round and reactive. unknown) Extraocular motions intact. No scleral (unknown) (no (unknown) (unknown) Emergency Report (units (unknown) date) unknown) (unknown) (no (unknown) (unknown) Esterase (units (unkno wn) date) unknown) (unknown) (no (unknown) (unknown) Exam Narrative: (units (unknown) date) unknown) (unknown) (no (unknown) (unknown) Exam (units (unkno wn) date) unknown) (unknown) (no (unknown) (unknown) GASTROINTESTINAL: (units (unknown) date) Denies nausea, unknown) vomiting, abdominal pain, diarrhea, (unknown) (no (unknown) (unknown) GENERAL: Denies (units (unknown) date) chills, fatigue, unknown) malaise, fever, sweats. (unknown) (no (unknown) (unknown) GENERAL: (units (unkno wn) date) Well-developed unknown) patient, in mild distress. (unknown) (no (unknown) (unknown) : Denies dysuria, (unit s (unknown) date) frequency, unknown) incontinence, hematuria, urinary retention. (unknown) (no (unknown) (unknown) General (units (unkno wn) date) unknown) (unknown) (no (unknown) (unknown) HEAD: Atraumatic. (units (unknown) date) Normocephalic. unknown) (unknown) (no (unknown) (unknown) HEENT: Denies sinus (unit s (unknown) date) pain, ear pain, sore unknown) throat, difficulty swallowing, (unknown) (no (unknown) (unknown) HPI - Back (units (unk nown) date) Pain/Injury unknown) (unknown) (no (unknown) (unknown) HPI Narrative: (units (unknown) date) unknown) (unknown) (no (unknown) (unknown) History of Present (units (unknown) date) Illness unknown) (unknown) (no (unknown) (unknown) Home Medications (units (unknown) date) unknown) (unknown) (no (unknown) (unknown) Hydromorphone HCl (units (unknown) date) (Hydromorphone 1 Mg unknown) Inj) 0.5 mg IM NOW ONE (unknown) (no (unknown) (unknown) I hope you feel (units (unknown) date) better soon. unknown) (unknown) (no (unknown) (unknown) Initial Vital Signs (unit s (unknown) date) unknown) (unknown) (no (unknown) (unknown) Initial Vital (units ( unknown) date) Signs: unknown) (unknown) (no (unknown) (unknown) Instructions: DI (units (unknown) date) for Back Strain or unknown) Sprain (unknown) (no (unknown) (unknown) [facility] (units (unknown) date) [address] unknown) [place] [address] (unknown) (no (unknown) (unknown) Ketorolac (units (unkn own) date) Tromethamine unknown) (Ketorolac 30 Mg/Ml Vial) 15 mg IM NOW ONE (unknown) (no (unknown) (unknown) Lab Data (units (unkno wn) date) unknown) (unknown) (no (unknown) (unknown) Labs: (units (unkno wn) date) unknown) (unknown) (no (unknown) (unknown) Last Admin: (units (un known) date) 01/25/23 13:11 Dose: unknown) 0.5 mg (unknown) (no (unknown) (unknown) Last Admin: (units (un known) date) 01/25/23 13:11 Dose: unknown) 15 mg (unknown) (no (unknown) (unknown) Last Admin: (units (un known) date) 01/25/23 14:20 Dose: unknown) 0.5 mg (unknown) (no (unknown) (unknown) Last Admin: (units (un known) date) 01/25/23 14:21 Dose: unknown) 10 mg (unknown) (no (unknown) (unknown) MDM - Back (units (unk nown) date) Pain/Injury unknown) (unknown) (no (unknown) (unknown) MDM Narrative (units ( unknown) date) unknown) (unknown) (no (unknown) (unknown) MDM (units (unkno wn) date) unknown) (unknown) (no (unknown) (unknown) MRI which showed a (units (unknown) date) herniated disc at T9 unknown) and has a appointment in 5 days to speak (unknown) (no (unknown) (unknown) MUSCULOSKELETAL: (units (unknown) date) Reports back pain, unknown) denies weakness, joint pain, or bony pain (unknown) (no (unknown) (unknown) Medical decision (units (unknown) date) making narrative: unknown) (unknown) (no (unknown) (unknown) Medication (units (unk nown) date) Instructions unknown) Recorded Confirmed (unknown) (no (unknown) (unknown) Medication (units (unk nown) date) Instructions unknown) Recorded (unknown) (no (unknown) (unknown) NECK: Trachea (units ( unknown) date) midline. Non tender unknown) (unknown) (no (unknown) (unknown) NEURO: AOx3. (units (u nknown) date) unknown) (unknown) (no (unknown) (unknown) NEUROLOGIC: Denies (units (unknown) date) weakness, headache, unknown) numbness, change in speech, confusion, (unknown) (no (unknown) (unknown) Narrative (units (unkn own) date) unknown) (unknown) (no (unknown) (unknown) Narrative: (units (unk nown) date) unknown) (unknown) (no (unknown) (unknown) New (units (unkno wn) date) unknown) (unknown) (no (unknown) (unknown) No Action (units (unkn own) date) unknown) (unknown) (no (unknown) (unknown) No Known Drug (units ( unknown) date) Allergies Allergy unknown) Verified 01/25/23 12:12 (unknown) (no (unknown) (unknown) [place]. (units (un known) date) unknown) (unknown) (no (unknown) (unknown) Ordered: (units (unkno wn) date) unknown) (unknown) (no (unknown) (unknown) Orders (units (unkno wn) date) unknown) (unknown) (no (unknown) (unknown) Oxygen Delivery (units (unknown) date) Method Room Air unknown) 01/25/23 12:07 (unknown) (no (unknown) (unknown) Oxygen Delivery (units (unknown) date) Method Room Air Room unknown) Air (unknown) (no (unknown) (unknown) PSYCHIATRIC: No (units (unknown) date) concerning unknown) psychosocial issues. (unknown) (no (unknown) (unknown) Patient (units (unkno wn) date) Disposition: Home unknown) (unknown) (no (unknown) (unknown) Patient History (units (unknown) date) unknown) (unknown) (no (unknown) (unknown) Patient has a (units ( unknown) date) history of back unknown) surgery, L5-S1 secondary fracture. Two months ago (unknown) (no (unknown) (unknown) Patient has an (units (unknown) date) appointment next unknown) Sunday, in 5 days. Already has a oxycodone (unknown) (no (unknown) (unknown) Patient: (units (unkno wn) date) Mikey Velez unknown) MR#: [id number] (unknown) (no (unknown) (unknown) Prescriptions: (units (unknown) date) unknown) (unknown) (no (unknown) (unknown) Previous Rx's (units ( unknown) date) unknown) (unknown) (no (unknown) (unknown) Pulse Oximetry 99 (units (unknown) date) 01/25/23 12:07 unknown) (unknown) (no (unknown) (unknown) Pulse Oximetry 99 (units (unknown) date) 98 unknown) (unknown) (no (unknown) (unknown) Pulse Rate 107 H (units (unknown) date) 01/25/23 12:07 unknown) (unknown) (no (unknown) (unknown) Pulse Rate 107 H 78 (unit s (unknown) date) unknown) (unknown) (no (unknown) (unknown) RESPIRATORY: Denies (unit s (unknown) date) dyspnea, cough, unknown) wheezing, hemoptysis, sputum. (unknown) (no (unknown) (unknown) Referrals: (units (unk nown) date) unknown) (unknown) (no (unknown) (unknown) Related Data (units (u nknown) date) unknown) (unknown) (no (unknown) (unknown) Respiratory Rate 18 (unit s (unknown) date) 01/25/23 12:07 unknown) (unknown) (no (unknown) (unknown) Respiratory Rate 18 (unit s (unknown) date) 18 unknown) (unknown) (no (unknown) (unknown) Review of Systems (units (unknown) date) unknown) (unknown) (no (unknown) (unknown) Rx Instructions: (units (unknown) date) unknown) (unknown) (no (unknown) (unknown) SKIN: Denies rash, (units (unknown) date) skin lesions, or unknown) other (unknown) (no (unknown) (unknown) SKIN: No rash or (units (unknown) date) erythema of visible unknown) areas (unknown) (no (unknown) (unknown) See Rx Instructions (unit s (unknown) date) .ROUTE .COMPLEX Qty: unknown) 21 0RF (unknown) (no (unknown) (unknown) Shared Decision (units (unknown) date) Making: Discussed unknown) plan with patient who is comfortable with the (unknown) (no (unknown) (unknown) Signed By: (units (unk nown) date) unknown) (unknown) (no (unknown) (unknown) Smoking Status: (units (unknown) date) Never smoker unknown) (unknown) (no (unknown) (unknown) Social (units (unkno wn) date) Considerations: None unknown) (unknown) (no (unknown) (unknown) Social History (units (unknown) date) unknown) (unknown) (no (unknown) (unknown) Source: patient (units (unknown) date) unknown) (unknown) (no (unknown) (unknown) Stand Alone Forms: (units (unknown) date) Patient Portal/API unknown) (unknown) (no (unknown) (unknown) Stated Complaint: (units (unknown) date) extreme back pain unknown) (unknown) (no (unknown) (unknown) Stop: 01/25/23 (units (unknown) date) 12:59 unknown) (unknown) (no (unknown) (unknown) Stop: 01/25/23 (units (unknown) date) 13:55 unknown) (unknown) (no (unknown) (unknown) Strongly reinforced (unit s (unknown) date) the fact that the unknown) emergency department is not the (unknown) (no (unknown) (unknown) Substance Use Type: (unit s (unknown) date) does not use unknown) (unknown) (no (unknown) (unknown) Temperature 98.8 F (units (unknown) date) 01/25/23 12:07 unknown) (unknown) (no (unknown) (unknown) Temperature 98.8 F (units (unknown) date) unknown) (unknown) (no (unknown) (unknown) Thank you for (units ( unknown) date) coming to the [facility] Emergency Department today. We are (unknown) (no (unknown) (unknown) This is a (units (unkn own) date) 52-year-old male unknown) presents to the emergency department due to mid back (unknown) (no (unknown) (unknown) Time Seen by (units (u nknown) date) Provider: 01/25/23 unknown) 12:34 (unknown) (no (unknown) (unknown) Tylenol and (units (unk nown) date) ibuprofen to help unknown) with the back pain until you are able to follow-up (unknown) (no (unknown) (unknown) Urine Dip (units (unkn own) date) unknown) (unknown) (no (unknown) (unknown) Urine Specific (units (unknown) date) [place] 1.010 unknown) (unknown) (no (unknown) (unknown) Vital Signs - 8 hr (units (unknown) date) unknown) (unknown) (no (unknown) (unknown) Vital Signs (units (un known) date) unknown) (unknown) (no (unknown) (unknown) Vital signs: (units (u nknown) date) unknown) (unknown) (no (unknown) (unknown) a dose pack (Medrol (unit s (unknown) date) (Orlin)) #21 ea unknown) (unknown) (no (unknown) (unknown) able to give you a (units (unknown) date) 1 time dose of unknown) Toradol as well as IM Dilaudid here but I (unknown) (no (unknown) (unknown) acute on chronic (units (unknown) date) worsening back pain. unknown) He states he has been unable to sleep for (unknown) (no (unknown) (unknown) alcohol intake (units (unknown) date) frequency: 0-2 unknown) drinks per day (unknown) (no (unknown) (unknown) amitriptyline 50 MG (unit s (unknown) date) tablet unknown) (unknown) (no (unknown) (unknown) amitriptyline 50 mg (unit s (unknown) date) tablet 50 mg PO HS unknown) ##0 10/30/16 (unknown) (no (unknown) (unknown) any new symptoms (units (unknown) date) since the MRI was unknown) taken. (unknown) (no (unknown) (unknown) appointment with a (units (unknown) date) closing specialist unknown) very soon for definitive management. (unknown) (no (unknown) (unknown) appropriate place (units (unknown) date) for repeat visits unknown) for opiate pain relief. Eventually a 1 time (unknown) (no (unknown) (unknown) approximately a (units (unknown) date) month. He states for unknown) the last 4 days he has been unable to (unknown) (no (unknown) (unknown) as a steroid burst (units (unknown) date) to help with the unknown) symptoms until he is able to follow up with (unknown) (no (unknown) (unknown) constipation, (units ( unknown) date) melena. unknown) (unknown) (no (unknown) (unknown) cyclobenzaprine 10 (units (unknown) date) mg tablet 10 mg PO unknown) TID #20 tabs 01/25/23 (unknown) (no (unknown) (unknown) cyclobenzaprine 10 (units (unknown) date) mg tablet unknown) (unknown) (no (unknown) (unknown) denies any new (units (unknown) date) weakness or focal unknown) nervous system changes. He is already had a (unknown) (no (unknown) (unknown) department for (units (unknown) date) similar symptoms in unknown) the past. (unknown) (no (unknown) (unknown) dizziness. (units (unk nown) date) unknown) (unknown) (no (unknown) (unknown) dose of Dilaudid IM (unit s (unknown) date) will be given here unknown) for the patient as well as Toradol as (unknown) (no (unknown) (unknown) dosing similar to (units (unknown) date) this. Please use the unknown) prescribed medications as well as (unknown) (no (unknown) (unknown) gabapentin 600 mg (units (unknown) date) tablet 1,200 mg PO unknown) TID ##0 10/30/16 (unknown) (no (unknown) (unknown) gabapentin (units (unk nown) date) [Neurontin] 600 MG unknown) tablet (unknown) (no (unknown) (unknown) he would a (units (unk nown) date) stimulator placed unknown) scheduled. MRI was ordered which showed a (unknown) (no (unknown) (unknown) herniated disc at (units (unknown) date) T9. Has had sharp unknown) pain since the stimulator was placed. (unknown) (no (unknown) (unknown) his spine (units (unkn own) date) specialist as he unknown) already has a prescription for oxycodone. Patient (unknown) (no (unknown) (unknown) icterus. No (units (un known) date) injection or unknown) drainage. (unknown) (no (unknown) (unknown) levothyroxine 200 (units (unknown) date) mcg tablet 0.2 mg PO unknown) QDAY ##0 11/19/12 (unknown) (no (unknown) (unknown) levothyroxine (units ( unknown) date) [Synthroid] 200 MCG unknown) tablet (unknown) (no (unknown) (unknown) lisinopril 10 MG (units (unknown) date) tablet unknown) (unknown) (no (unknown) (unknown) lisinopril 10 mg (units (unknown) date) tablet 10 mg PO QDAY unknown) ##0 10/30/16 (unknown) (no (unknown) (unknown) methylprednisolone (units (unknown) date) 4 mg tablets in See unknown) Rx Instructions PO .COMPLEX 01/25/23 (unknown) (no (unknown) (unknown) methylprednisolone (units (unknown) date) [Medrol (Orlin)] 4 mg unknown) tablets,dose pack (unknown) (no (unknown) (unknown) muscular back pain, (unit s (unknown) date) spinal stenosis unknown) (unknown) (no (unknown) (unknown) orally per package (units (unknown) date) directions unknown) (unknown) (no (unknown) (unknown) oxycodone 5 MG (units (unknown) date) tablet unknown) (unknown) (no (unknown) (unknown) oxycodone 5 mg (units (unknown) date) tablet 20 mg PO QID unknown) ##0 10/30/16 (unknown) (no (unknown) (unknown) pain. Patient (units ( unknown) date) states this episode unknown) of pain has been affecting him for (unknown) (no (unknown) (unknown) plan. (units (unkno wn) date) unknown) (unknown) (no (unknown) (unknown) prescription for 10 (unit s (unknown) date) mg t.i.d.. Patient unknown) complaining of mid back pain and T9. (unknown) (no (unknown) (unknown) repeatedly (units (unk nown) date) requested IM unknown) Dilaudid as he says this worked in the past, extensive (unknown) (no (unknown) (unknown) seizures, (units (unkn own) date) incoordination. unknown) (unknown) (no (unknown) (unknown) sleep due to the (units (unknown) date) severity of the unknown) pain. He is already taking oxycodone 10 mg (unknown) (no (unknown) (unknown) states that he was (units (unknown) date) instructed to come unknown) here through ?break through pain?. He (unknown) (no (unknown) (unknown) strongly recommend (units (unknown) date) you do not return to unknown) the emergency department for repeat (unknown) (no (unknown) (unknown) t.i.d. as (units (unkn own) date) prescribed by his unknown) closing specialist in [facility]. He (unknown) (no (unknown) (unknown) the last 4 days. (units (unknown) date) Offered IM Toradol, unknown) prescription for muscle relaxants, as well (unknown) (no (unknown) (unknown) tonsillar (units (unkn own) date) hypertrophy or unknown) exudate. Airway patent. (unknown) (no (unknown) (unknown) tox were had with (units (unknown) date) the patient unknown) regarding the risks of opiate dependency. (unknown) (no (unknown) (unknown) well as muscle (units (unknown) date) relaxants as well as unknown) steroids prescribed. Patient has an (unknown) (no (unknown) (unknown) with the spine (units (unknown) date) specialist. He unknown) denies any urinary or bowel incontinence, denies (unknown) (no (unknown) (unknown) with your spine (units (unknown) date) specialist next unknown) Sunday. I sent your medications to [facility] and Result panel 5 (unknown) (no (unknown) (unknown) (no value) (units (unk nown) date) unknown) (unknown) (no (unknown) (unknown) <Electronically (units (unknown) date) signed by Ruben centeno) Fabiana SeoOTamela> (unknown) (no (unknown) (unknown) <Electronically (units (unknown) date) signed by Ruben centeno) Fabiana D.O.> (unknown) (no (unknown) (unknown) <Electronically (units (unknown) date) signed by Wilfred Beaver unknown) Alan> (unknown) (no (unknown) (unknown) <Ruben Jung DO (unit s (unknown) date) - Last Filed: unknown) 01/25/23 17:55> (unknown) (no (unknown) (unknown) <Wilfred Phillips PA-C - (units (unknown) date) Last Filed: 01/25/23 unknown) 16:21> (unknown) (no (unknown) (unknown) <cosigner> (units (unk nown) date) unknown) (unknown) (no (unknown) (unknown) (Neurontin) (units (un known) date) unknown) (unknown) (no (unknown) (unknown) (Synthroid) (units (un known) date) unknown) (unknown) (no (unknown) (unknown) * Clinical Decision (unit s (unknown) date) Rules/Scores unknown) evaluated: None (unknown) (no (unknown) (unknown) * Independent (units ( unknown) date) discussions with: unknown) None (unknown) (no (unknown) (unknown) * My imgaing (units (u nknown) date) interpretation: None unknown) obtained (unknown) (no (unknown) (unknown) * My lab (units (unkno wn) date) interpretation: None unknown) obtained (unknown) (no (unknown) (unknown) * Prior records (units (unknown) date) reviewed: Patient unknown) has not been here for the emergency (unknown) (no (unknown) (unknown) * differential (units (unknown) date) diagnosis includes unknown) but not limited to vertebral fracture, (unknown) (no (unknown) (unknown) 0.2 mg PO QDAY Qty: (unit s (unknown) date) 0 unknown) (unknown) (no (unknown) (unknown) [id number] (units (unkn own) date) unknown) (unknown) (no (unknown) (unknown) 01/25/23 1621 (units ( unknown) date) unknown) (unknown) (no (unknown) (unknown) 01/25/23 1755 (units ( unknown) date) unknown) (unknown) (no (unknown) (unknown) 01/25/23 (units (unkno wn) date) unknown) (unknown) (no (unknown) (unknown) 1,200 mg PO TID (units (unknown) date) Qty: 0 unknown) (unknown) (no (unknown) (unknown) 10 mg PO QDAY Qty: (units (unknown) date) 0 unknown) (unknown) (no (unknown) (unknown) 10 mg PO TID Qty: (units (unknown) date) 20 0RF unknown) (unknown) (no (unknown) (unknown) 12 point review of (units (unknown) date) systems is negative unknown) except for those stated above (unknown) (no (unknown) (unknown) 12:07 01/25/23 (units (unknown) date) unknown) (unknown) (no (unknown) (unknown) 15:06 (units (unkno wn) date) unknown) (unknown) (no (unknown) (unknown) 20 mg PO QID Qty: 0 (unit s (unknown) date) unknown) (unknown) (no (unknown) (unknown) 50 mg PO HS Qty: 0 (units (unknown) date) unknown) (unknown) (no (unknown) (unknown) Activity (units (unkno wn) date) Restrictions/Additio unknown) nal Instructions: (unknown) (no (unknown) (unknown) Age/Sex: 52 / M (units (unknown) date) unknown) (unknown) (no (unknown) (unknown) Allergies (units (unkn own) date) unknown) (unknown) (no (unknown) (unknown) Allergy/AdvReac (units (unknown) date) Type Severity unknown) Reaction Status Date / Time (unknown) (no (unknown) (unknown) BACK: Mild (units (unk nown) date) tenderness to unknown) palpation to midthoracic spine, . No flank tenderness. (unknown) (no (unknown) (unknown) Back pain (units (unkn own) date) unknown) (unknown) (no (unknown) (unknown) Bedside Urine (units ( unknown) date) Bilirubin - Negative unknown) (unknown) (no (unknown) (unknown) Bedside Urine (units ( unknown) date) Glucose Negative unknown) (unknown) (no (unknown) (unknown) Bedside Urine (units ( unknown) date) Ketone - Negative unknown) (unknown) (no (unknown) (unknown) Bedside Urine (units ( unknown) date) Leukocytes - unknown) Negative (unknown) (no (unknown) (unknown) Bedside Urine (units ( unknown) date) Nitrite - Negative unknown) (unknown) (no (unknown) (unknown) Bedside Urine (units ( unknown) date) Occult Blood - unknown) Negative (unknown) (no (unknown) (unknown) Bedside Urine (units ( unknown) date) Protein - Negative unknown) (unknown) (no (unknown) (unknown) Bedside Urine (units ( unknown) date) Urobilinogen 0.2 unknown) (unknown) (no (unknown) (unknown) Bedside Urine pH (units (unknown) date) 6.0 unknown) (unknown) (no (unknown) (unknown) Blood Pressure (units (unknown) date) 172/107 H 01/25/23 unknown) 12:07 (unknown) (no (unknown) (unknown) Blood Pressure (units (unknown) date) 172/107 H 160/90 H unknown) (unknown) (no (unknown) (unknown) Ning Sanchez MD (units (unknown) date) [Primary Care unknown) Provider] (unknown) (no (unknown) (unknown) CARDIOVASCULAR: (units (unknown) date) Denies chest pain, unknown) palpitations, orthopnea, edema, (unknown) (no (unknown) (unknown) CARDIOVASCULAR: (units (unknown) date) Regular rate and unknown) rhythm without murmurs, gallops, or rubs. . (unknown) (no (unknown) (unknown) Chief Complaint: (units (unknown) date) Back Pain/Injury unknown) (unknown) (no (unknown) (unknown) Clinical (units (unkno wn) date) Impression: unknown) (unknown) (no (unknown) (unknown) Cosign (units (unkno wn) date) unknown) (unknown) (no (unknown) (unknown) Course (units (unkno wn) date) unknown) (unknown) (no (unknown) (unknown) Cyclobenzaprine HCl (unit s (unknown) date) (Cyclobenzaprine 10 unknown) Mg Tablet) 10 mg PO NOW ONE (unknown) (no (unknown) (unknown) : 1970 (units (unknown) date) Acct:[id number] unknown) (unknown) (no (unknown) (unknown) Date of Service: (units (unknown) date) 01/25/23 unknown) (unknown) (no (unknown) (unknown) Departure (units (unkn own) date) unknown) (unknown) (no (unknown) (unknown) Discharge Plan (units (unknown) date) unknown) (unknown) (no (unknown) (unknown) Discontinued (units (u nknown) date) Medications unknown) (unknown) (no (unknown) (unknown) Disposition: (units (u nknown) date) Discharged to home unknown) (unknown) (no (unknown) (unknown) Documented By: KB (units (unknown) date) unknown) (unknown) (no (unknown) (unknown) Documented By: RB (units (unknown) date) unknown) (unknown) (no (unknown) (unknown) Dr Jung Co-Sign (units (unknown) date) Statement: I was unknown) available for consultation during this (unknown) (no (unknown) (unknown) ED Attending (units (u nknown) date) Cosignature unknown) Attestation: (unknown) (no (unknown) (unknown) ED Course: This is (units (unknown) date) a 52-year-old male unknown) presents emergency department due to (unknown) (no (unknown) (unknown) ENT: Nose without (units (unknown) date) bleeding, purulent unknown) drainage. Throat without erythema, (unknown) (no (unknown) (unknown) ER Physician: (units ( unknown) date) Wilfred Phillips P.A-C unknown) (unknown) (no (unknown) (unknown) EXTREMITIES: No (units (unknown) date) edema or joint unknown) tenderness. (unknown) (no (unknown) (unknown) EYES: Pupils equal (units (unknown) date) round and reactive. unknown) Extraocular motions intact. No scleral (unknown) (no (unknown) (unknown) Emergency Report (units (unknown) date) unknown) (unknown) (no (unknown) (unknown) Esterase (units (unkno wn) date) unknown) (unknown) (no (unknown) (unknown) Exam Narrative: (units (unknown) date) unknown) (unknown) (no (unknown) (unknown) Exam (units (unkno wn) date) unknown) (unknown) (no (unknown) (unknown) GASTROINTESTINAL: (units (unknown) date) Denies nausea, unknown) vomiting, abdominal pain, diarrhea, (unknown) (no (unknown) (unknown) GENERAL: Denies (units (unknown) date) chills, fatigue, unknown) malaise, fever, sweats. (unknown) (no (unknown) (unknown) GENERAL: (units (unkno wn) date) Well-developed unknown) patient, in mild distress. (unknown) (no (unknown) (unknown) : Denies dysuria, (unit s (unknown) date) frequency, unknown) incontinence, hematuria, urinary retention. (unknown) (no (unknown) (unknown) General (units (unkno wn) date) unknown) (unknown) (no (unknown) (unknown) HEAD: Atraumatic. (units (unknown) date) Normocephalic. unknown) (unknown) (no (unknown) (unknown) HEENT: Denies sinus (unit s (unknown) date) pain, ear pain, sore unknown) throat, difficulty swallowing, (unknown) (no (unknown) (unknown) HPI - Back (units (unk nown) date) Pain/Injury unknown) (unknown) (no (unknown) (unknown) HPI Narrative: (units (unknown) date) unknown) (unknown) (no (unknown) (unknown) History of Present (units (unknown) date) Illness unknown) (unknown) (no (unknown) (unknown) Home Medications (units (unknown) date) unknown) (unknown) (no (unknown) (unknown) Hydromorphone HCl (units (unknown) date) (Hydromorphone 1 Mg unknown) Inj) 0.5 mg IM NOW ONE (unknown) (no (unknown) (unknown) I hope you feel (units (unknown) date) better soon. unknown) (unknown) (no (unknown) (unknown) Initial Vital Signs (unit s (unknown) date) unknown) (unknown) (no (unknown) (unknown) Initial Vital (units ( unknown) date) Signs: unknown) (unknown) (no (unknown) (unknown) Instructions: DI (units (unknown) date) for Back Strain or unknown) Sprain (unknown) (no (unknown) (unknown) [facility] (units (unknown) date) [address] [place] [address] Street unknown) [place] [address] (unknown) (no (unknown) (unknown) Ketorolac (units (unkn own) date) Tromethamine unknown) (Ketorolac 30 Mg/Ml Vial) 15 mg IM NOW ONE (unknown) (no (unknown) (unknown) Lab Data (units (unkno wn) date) unknown) (unknown) (no (unknown) (unknown) Labs: (units (unkno wn) date) unknown) (unknown) (no (unknown) (unknown) Last Admin: (units (un known) date) 01/25/23 13:11 Dose: unknown) 0.5 mg (unknown) (no (unknown) (unknown) Last Admin: (units (un known) date) 01/25/23 13:11 Dose: unknown) 15 mg (unknown) (no (unknown) (unknown) Last Admin: (units (un known) date) 01/25/23 14:20 Dose: unknown) 0.5 mg (unknown) (no (unknown) (unknown) Last Admin: (units (un known) date) 01/25/23 14:21 Dose: unknown) 10 mg (unknown) (no (unknown) (unknown) MDM - Back (units (unk nown) date) Pain/Injury unknown) (unknown) (no (unknown) (unknown) MDM Narrative (units ( unknown) date) unknown) (unknown) (no (unknown) (unknown) MDM (units (unkno wn) date) unknown) (unknown) (no (unknown) (unknown) MRI which showed a (units (unknown) date) herniated disc at T9 unknown) and has a appointment in 5 days to speak (unknown) (no (unknown) (unknown) MUSCULOSKELETAL: (units (unknown) date) Reports back pain, unknown) denies weakness, joint pain, or bony pain (unknown) (no (unknown) (unknown) Medical decision (units (unknown) date) making narrative: unknown) (unknown) (no (unknown) (unknown) Medication (units (unk nown) date) Instructions unknown) Recorded Confirmed (unknown) (no (unknown) (unknown) Medication (units (unk nown) date) Instructions unknown) Recorded (unknown) (no (unknown) (unknown) NECK: Trachea (units ( unknown) date) midline. Non tender unknown) (unknown) (no (unknown) (unknown) NEURO: AOx3. (units (u nknown) date) unknown) (unknown) (no (unknown) (unknown) NEUROLOGIC: Denies (units (unknown) date) weakness, headache, unknown) numbness, change in speech, confusion, (unknown) (no (unknown) (unknown) Narrative (units (unkn own) date) unknown) (unknown) (no (unknown) (unknown) Narrative: (units (unk nown) date) unknown) (unknown) (no (unknown) (unknown) New (units (unkno wn) date) unknown) (unknown) (no (unknown) (unknown) No Action (units (unkn own) date) unknown) (unknown) (no (unknown) (unknown) No Known Drug (units ( unknown) date) Allergies Allergy unknown) Verified 01/25/23 12:12 (unknown) (no (unknown) (unknown) [place]. (units (un known) date) unknown) (unknown) (no (unknown) (unknown) Ordered: (units (unkno wn) date) unknown) (unknown) (no (unknown) (unknown) Orders (units (unkno wn) date) unknown) (unknown) (no (unknown) (unknown) Oxygen Delivery (units (unknown) date) Method Room Air unknown) 01/25/23 12:07 (unknown) (no (unknown) (unknown) Oxygen Delivery (units (unknown) date) Method Room Air Room unknown) Air (unknown) (no (unknown) (unknown) PSYCHIATRIC: No (units (unknown) date) concerning unknown) psychosocial issues. (unknown) (no (unknown) (unknown) Patient (units (unkno wn) date) Disposition: Home unknown) (unknown) (no (unknown) (unknown) Patient History (units (unknown) date) unknown) (unknown) (no (unknown) (unknown) Patient has a (units ( unknown) date) history of back unknown) surgery, L5-S1 secondary fracture. Two months ago (unknown) (no (unknown) (unknown) Patient: (units (unkno wn) date) Mikey Velez unknown) MR#: [id number] (unknown) (no (unknown) (unknown) Prescriptions: (units (unknown) date) unknown) (unknown) (no (unknown) (unknown) Previous Rx's (units ( unknown) date) unknown) (unknown) (no (unknown) (unknown) Pulse Oximetry 99 (units (unknown) date) 01/25/23 12:07 unknown) (unknown) (no (unknown) (unknown) Pulse Oximetry 99 (units (unknown) date) 98 unknown) (unknown) (no (unknown) (unknown) Pulse Rate 107 H (units (unknown) date) 01/25/23 12:07 unknown) (unknown) (no (unknown) (unknown) Pulse Rate 107 H 78 (unit s (unknown) date) unknown) (unknown) (no (unknown) (unknown) RESPIRATORY: Denies (unit s (unknown) date) dyspnea, cough, unknown) wheezing, hemoptysis, sputum. (unknown) (no (unknown) (unknown) Referrals: (units (unk nown) date) unknown) (unknown) (no (unknown) (unknown) Related Data (units (u nknown) date) unknown) (unknown) (no (unknown) (unknown) Respiratory Rate 18 (unit s (unknown) date) 01/25/23 12:07 unknown) (unknown) (no (unknown) (unknown) Respiratory Rate 18 (unit s (unknown) date) 18 unknown) (unknown) (no (unknown) (unknown) Review of Systems (units (unknown) date) unknown) (unknown) (no (unknown) (unknown) Rx Instructions: (units (unknown) date) unknown) (unknown) (no (unknown) (unknown) SKIN: Denies rash, (units (unknown) date) skin lesions, or unknown) other (unknown) (no (unknown) (unknown) SKIN: No rash or (units (unknown) date) erythema of visible unknown) areas (unknown) (no (unknown) (unknown) See Rx Instructions (unit s (unknown) date) .ROUTE .COMPLEX Qty: unknown) 21 0RF (unknown) (no (unknown) (unknown) Shared Decision (units (unknown) date) Making: Discussed unknown) plan with patient who is comfortable with the (unknown) (no (unknown) (unknown) Signed By: (units (unk nown) date) unknown) (unknown) (no (unknown) (unknown) Smoking Status: (units (unknown) date) Never smoker unknown) (unknown) (no (unknown) (unknown) Social (units (unkno wn) date) Considerations: None unknown) (unknown) (no (unknown) (unknown) Social History (units (unknown) date) unknown) (unknown) (no (unknown) (unknown) Source: patient (units (unknown) date) unknown) (unknown) (no (unknown) (unknown) Stand Alone Forms: (units (unknown) date) Patient Portal/API unknown) (unknown) (no (unknown) (unknown) Stated Complaint: (units (unknown) date) extreme back pain unknown) (unknown) (no (unknown) (unknown) Stop: 01/25/23 (units (unknown) date) 12:59 unknown) (unknown) (no (unknown) (unknown) Stop: 01/25/23 (units (unknown) date) 13:55 unknown) (unknown) (no (unknown) (unknown) Strongly reinforced (unit s (unknown) date) the fact that the unknown) emergency department is not the (unknown) (no (unknown) (unknown) Substance Use Type: (unit s (unknown) date) does not use unknown) (unknown) (no (unknown) (unknown) Temperature 98.8 F (units (unknown) date) 01/25/23 12:07 unknown) (unknown) (no (unknown) (unknown) Temperature 98.8 F (units (unknown) date) unknown) (unknown) (no (unknown) (unknown) Thank you for (units ( unknown) date) coming to the [facility] Emergency Department today. We are (unknown) (no (unknown) (unknown) This is a (units (unkn own) date) 52-year-old male unknown) presents to the emergency department due to mid back (unknown) (no (unknown) (unknown) Time Seen by (units (u nknown) date) Provider: 01/25/23 unknown) 12:34 (unknown) (no (unknown) (unknown) Tylenol and (units (unk nown) date) ibuprofen to help unknown) with the back pain until you are able to follow-up (unknown) (no (unknown) (unknown) Urine Dip (units (unkn own) date) unknown) (unknown) (no (unknown) (unknown) Urine Specific (units (unknown) date) [place] 1.010 unknown) (unknown) (no (unknown) (unknown) Vital Signs - 8 hr (units (unknown) date) unknown) (unknown) (no (unknown) (unknown) Vital Signs (units (un known) date) unknown) (unknown) (no (unknown) (unknown) Vital signs: (units (u nknown) date) unknown) (unknown) (no (unknown) (unknown) a dose pack (Medrol (unit s (unknown) date) (Orlin)) #21 ea unknown) (unknown) (no (unknown) (unknown) able to give you a (units (unknown) date) 1 time dose of unknown) Toradol as well as IM Dilaudid here but I (unknown) (no (unknown) (unknown) acute on chronic (units (unknown) date) worsening back pain. unknown) He states he has been unable to sleep for (unknown) (no (unknown) (unknown) administrative (units (unknown) date) purposes only. I did unknown) not have direct contact with this patient (unknown) (no (unknown) (unknown) alcohol intake (units (unknown) date) frequency: 0-2 unknown) drinks per day (unknown) (no (unknown) (unknown) amitriptyline 50 MG (unit s (unknown) date) tablet unknown) (unknown) (no (unknown) (unknown) amitriptyline 50 mg (unit s (unknown) date) tablet 50 mg PO HS unknown) ##0 10/30/16 (unknown) (no (unknown) (unknown) any new symptoms (units (unknown) date) since the MRI was unknown) taken. (unknown) (no (unknown) (unknown) appointment with a (units (unknown) date) closing specialist unknown) very soon for definitive management. (unknown) (no (unknown) (unknown) appropriate place (units (unknown) date) for repeat visits unknown) for opiate pain relief. Eventually a 1 time (unknown) (no (unknown) (unknown) approximately a (units (unknown) date) month. He states for unknown) the last 4 days he has been unable to (unknown) (no (unknown) (unknown) as a steroid burst (units (unknown) date) to help with the unknown) symptoms until he is able to follow up with (unknown) (no (unknown) (unknown) constipation, (units ( unknown) date) melena. unknown) (unknown) (no (unknown) (unknown) cyclobenzaprine 10 (units (unknown) date) mg tablet 10 mg PO unknown) TID #20 tabs 01/25/23 (unknown) (no (unknown) (unknown) cyclobenzaprine 10 (units (unknown) date) mg tablet unknown) (unknown) (no (unknown) (unknown) denies any new (units (unknown) date) weakness or focal unknown) nervous system changes. He is already had a (unknown) (no (unknown) (unknown) department for (units (unknown) date) similar symptoms in unknown) the past. (unknown) (no (unknown) (unknown) dizziness. (units (unk nown) date) unknown) (unknown) (no (unknown) (unknown) dose of Dilaudid IM (unit s (unknown) date) will be given here unknown) for the patient as well as Toradol as (unknown) (no (unknown) (unknown) dosing similar to (units (unknown) date) this. Please use the unknown) prescribed medications as well as (unknown) (no (unknown) (unknown) during this visit. (units (unknown) date) They were seen unknown) independently by the [facility]. (unknown) (no (unknown) (unknown) gabapentin 600 mg (units (unknown) date) tablet 1,200 mg PO unknown) TID ##0 10/30/16 (unknown) (no (unknown) (unknown) gabapentin (units (unk nown) date) [Neurontin] 600 MG unknown) tablet (unknown) (no (unknown) (unknown) has an appointment (units (unknown) date) next Sunday, in 5 unknown) days. Already has a oxycodone (unknown) (no (unknown) (unknown) he would a (units (unk nown) date) stimulator placed unknown) scheduled. MRI was ordered which showed a jovany (unknown) (no (unknown) (unknown) his spine (units (unkn own) date) specialist as he unknown) already has a prescription for oxycodone. Patient (unknown) (no (unknown) (unknown) iated disc at T9. (units (unknown) date) Has had sharp pain unknown) since the stimulator was placed. Patient (unknown) (no (unknown) (unknown) icterus. No (units (un known) date) injection or unknown) drainage. (unknown) (no (unknown) (unknown) levothyroxine 200 (units (unknown) date) mcg tablet 0.2 mg PO unknown) QDAY ##0 11/19/12 (unknown) (no (unknown) (unknown) levothyroxine (units ( unknown) date) [Synthroid] 200 MCG unknown) tablet (unknown) (no (unknown) (unknown) lisinopril 10 MG (units (unknown) date) tablet unknown) (unknown) (no (unknown) (unknown) lisinopril 10 mg (units (unknown) date) tablet 10 mg PO QDAY unknown) ##0 10/30/16 (unknown) (no (unknown) (unknown) methylprednisolone (units (unknown) date) 4 mg tablets in See unknown) Rx Instructions PO .COMPLEX 01/25/23 (unknown) (no (unknown) (unknown) methylprednisolone (units (unknown) date) [Medrol (Orlin)] 4 mg unknown) tablets,dose pack (unknown) (no (unknown) (unknown) muscular back pain, (unit s (unknown) date) spinal stenosis unknown) (unknown) (no (unknown) (unknown) orally per package (units (unknown) date) directions unknown) (unknown) (no (unknown) (unknown) oxycodone 5 MG (units (unknown) date) tablet unknown) (unknown) (no (unknown) (unknown) oxycodone 5 mg (units (unknown) date) tablet 20 mg PO QID unknown) ##0 10/30/16 (unknown) (no (unknown) (unknown) pain. Patient (units ( unknown) date) states this episode unknown) of pain has been affecting him for (unknown) (no (unknown) (unknown) patient's emergency (unit s (unknown) date) department visit. unknown) This chart is signed by myself for (unknown) (no (unknown) (unknown) plan. (units (unkno wn) date) unknown) (unknown) (no (unknown) (unknown) prescription for 10 (unit s (unknown) date) mg t.i.d.. Patient unknown) complaining of mid back pain and T9. (unknown) (no (unknown) (unknown) repeatedly (units (unk nown) date) requested IM unknown) Dilaudid as he says this worked in the past, extensive (unknown) (no (unknown) (unknown) seizures, (units (unkn own) date) incoordination. unknown) (unknown) (no (unknown) (unknown) sleep due to the (units (unknown) date) severity of the unknown) pain. He is already taking oxycodone 10 mg (unknown) (no (unknown) (unknown) states that he was (units (unknown) date) instructed to come unknown) here through ?break through pain?. He (unknown) (no (unknown) (unknown) strongly recommend (units (unknown) date) you do not return to unknown) the emergency department for repeat (unknown) (no (unknown) (unknown) t.i.d. as (units (unkn own) date) prescribed by his unknown) closing specialist in [facility]. He (unknown) (no (unknown) (unknown) the last 4 days. (units (unknown) date) Offered IM Toradol, unknown) prescription for muscle relaxants, as well (unknown) (no (unknown) (unknown) tonsillar (units (unkn own) date) hypertrophy or unknown) exudate. Airway patent. (unknown) (no (unknown) (unknown) tox were had with (units (unknown) date) the patient unknown) regarding the risks of opiate dependency. (unknown) (no (unknown) (unknown) well as muscle (units (unknown) date) relaxants as well as unknown) steroids prescribed. Patient has an (unknown) (no (unknown) (unknown) with the spine (units (unknown) date) specialist. He unknown) denies any urinary or bowel incontinence, denies (unknown) (no (unknown) (unknown) with your spine (units (unknown) date) specialist next unknown) Sunday. I sent your medications to [facility] and Social History date description facility 2023-01-25 00:00 Never smoked tobacco ([facility]) [facility] Vital Signs date measurement value units 2023-01-25 00:00 BMI 33.0 kg/m2 2023-01-25 00:00 BP_diastolic 90 mmHg 2023-01-25 00:00 BP_systolic 160 mmHg 2023-01-25 00:00 heart_rate 78 /min 2023-01-25 00:00 height_metric 185.42 cm 2023-01-25 00:00 height_standard 73 in 2023-01-25 00:00 o2_saturation 98 % 2023-01-25 00:00 respiration_rate 18 /min 2023-01-25 00:00 temperature_metric 37.11 C 2023-01-25 00:00 temperature_standard 98.8 F 2023-01-25 00:00 weight_metric 113.39 kg 2023-01-25 00:00 weight_standard 249.98 lb
[2023-01-26 12:31] VITALS: BP 173/116
== END 2023-01-26 12:31 | disposition home or self-care (01) ==
LOC: ED 11:25
DX: M54.9 Dorsalgia, unspecified (principal); G89.29 Other chronic pain
CPT/HCPCS: 96372; 99283; A9270

== ENCOUNTER 2023-01-28 13:26 | Emergency (ER) | payer OTHER ==
[2023-01-28 13:41] VITALS: BP 174/102
[2023-01-28] MEDS ORDERED: KETOROLAC 60 MG/2 ML VIAL IM STA (13:49)
--- OUTSIDE RECORDS SUMMARY | 2023-01-28 13:49 | EXTERNAL MEDICAL SUMMARY RPT | Continuity of Care Document ---
:1970 Author Organization [facility] Address [address] [place] [address] Phone Care Team Providers Name Role Phone Ning Sanchez Unavailable Unavailable Allergies and Intolerances date description facility type (no date) No Known Drug Allergies [facility] (unkn own) Encounters No information. Functional Status No information. Immunizations No information. Medications date description facility 2023-01-25 00:00 [facility] 2023-01-25 00:00 Cyclobenzaprine [facility] Problems date description facility 2023-01-25 00:00 Back pain [facility] Procedures No information. Results/Labs test date [...] Qty: 0 unknown) (unknown) (no (unknown) (unknown) [id number] (units (unkn own) date) unknown) (unknown) (no [...] (unknown) (unknown) : 1970 (units (unknown) date) Acct:[id number] unknown) (unknown) (no (unknown) (unknown) Date of [...] date) Signs: unknown) (unknown) (no (unknown) (unknown) [facility] (units (unknown) date) [address] [place] [address] Street unknown) [place] [address] (unknown) (no (unknown) (unknown) MDM - Back [...] Qty: 0 unknown) (unknown) (no (unknown) (unknown) [id number] (units (unkn own) date) unknown) (unknown) (no [...] (unknown) (unknown) : 1970 (units (unknown) date) Acct:[id number] unknown) (unknown) (no (unknown) (unknown) Date of [...] sweats. (unknown) (no (unknown) (unknown) GENERAL: (units (o wn) date) Well-developed unknown) patient, in mild [...] unknown) or Sprain (unknown) (no (unknown) (unknown) [facility] (units (unknown) date) [address] unknown) [place] [address] (unknown) (no (unknown) (unknown) Ketorolac (units (unkn [...] ( unknown) date) coming to the unknown) [facility] Department today. We are (unknown) (no [...] (unknown) (unknown) Urine Specific (units (unknown) date) [place] 1.010 unknown) (unknown) (no (unknown) (unknown) Vital [...] (unkn own) date) prescribed by his unknown) revenue tax specialist in [facility]. He (unknown) (no (unknown) (unknown) the last [...] date) 0 unknown) (unknown) (no (unknown) (unknown) [id number] (units (unkn own) date) unknown) (unknown) (no [...] (unknown) (unknown) : 1970 (units (unknown) date) Acct:[id number] unknown) (unknown) (no (unknown) (unknown) Date of [...] or unknown) Sp[place] (unknown) (no (unknown) (unknown) [facility] (units (unknown) date) [address] unknown) [place] [address] (unknown) (no (unknown) (unknown) Ketorolac (units (unkn [...] Verified 01/25/23 12:12 (unknown) (no (unknown) (unknown) [place]. (units (un known) date) unknown) (unknown) (no [...] (units ( unknown) date) coming to the [facility] Emergency Department today. We are (unknown) (no [...] (unknown) (unknown) Urine Specific (units (unknown) date) [place] 1.010 unknown) (unknown) (no (unknown) (unknown) Vital [...] (unknown) appointment with a (units (unknown) date) revenue tax specialist unknown) very soon for definitive management. [...] (unkn own) date) prescribed by his unknown) revenue tax specialist in [facility]. He (unknown) (no (unknown) (unknown) the last [...] unknown) Sunday. I sent your medications to [facility] and Result panel 4 (unknown) (no (unknown) [...] date) 0 unknown) (unknown) (no (unknown) (unknown) [id number] (units (unkn own) date) unknown) (unknown) (no [...] (unknown) (unknown) : 1970 (units (unknown) date) Acct:[id number] unknown) (unknown) (no (unknown) (unknown) Date of [...] or unknown) [place] (unknown) (no (unknown) (unknown) [facility] (units (unknown) date) [address] unknown) [place] [address] (unknown) (no (unknown) (unknown) Ketorolac (units (unkn [...] Verified 01/25/23 12:12 (unknown) (no (unknown) (unknown) [place]. (units (un known) date) unknown) (unknown) (no [...] (units ( unknown) date) coming to the [facility] Emergency Department today. We are (unknown) (no [...] (unknown) (unknown) Urine Specific (units (unknown) date) [place] 1.010 unknown) (unknown) (no (unknown) (unknown) Vital [...] (unknown) appointment with a (units (unknown) date) revenue tax specialist unknown) very soon for definitive management. [...] (unkn own) date) prescribed by his unknown) revenue tax specialist in [facility]. He (unknown) (no (unknown) (unknown) the last [...] unknown) Sunday. I sent your medications to [facility] and Result panel 5 (unknown) (no (unknown) (unknown) (no value) (units (unk nown) date) unknown) (unknown) (no (unknown) (unknown) <Electronically (units (unknown) date) signed by Ruben centeno) Fabiana SeoOTamela> (unknown) (no (unknown) (unknown) <Electronically (units (unknown) date) signed by Ruben centeno) Rayray JungOTamela> (unknown) (no (unknown) (unknown) <Electronically (units (unknown) [...] date) 0 unknown) (unknown) (no (unknown) (unknown) [id number] (units (unkn own) date) unknown) (unknown) (no [...] (unknown) (unknown) : 1970 (units (unknown) date) Acct:[id number] unknown) (unknown) (no (unknown) (unknown) Date of [...] or unknown) [place] (unknown) (no (unknown) (unknown) [facility] (units (unknown) date) [address] [place] [address] Street unknown) [place] [address] (unknown) (no (unknown) (unknown) Ketorolac (units (unkn [...] Verified 01/25/23 12:12 (unknown) (no (unknown) (unknown) [place]. (units (un known) date) unknown) (unknown) (no [...] (units ( unknown) date) coming to the [facility] Emergency Department today. We are (unknown) (no [...] (unknown) (unknown) Urine Specific (units (unknown) date) [place] 1.010 unknown) (unknown) (no (unknown) (unknown) Vital [...] (unknown) appointment with a (units (unknown) date) revenue tax specialist unknown) very soon for definitive management. [...] (unkn own) date) prescribed by his unknown) revenue tax specialist in [facility]. He (unknown) (no (unknown) (unknown) the last [...] unknown) Sunday. I sent your medications to [facility] History date description facility 2023-01-25 00:00 Never smoked tobacco ([facility]) [facility] Vital Signs date measurement value units [...]
--- NOTE | 2023-01-28 13:52 | ED Physician Documentation ---
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 He is seeing his surgeon on Sunday and pain is out of control. He denies weakness, numbness, tingling, saddle anesthesia, fevers. He is currently maintained on oxycodone 10 mg 3 times a day. This is his 12th emergency department visit here in the last 2 months for exacerbations of chronic back pain. PD PAST MEDICAL HISTORY - Past Medical History Cardiovascular: Hypertension Respiratory: Sleep apnea, CPAP use Neuro: None Endocrine/Autoimmune: HyPOthyroidism GI: None : None HEENT: Chronic vision loss, Other Psych: Depression, Anxiety Musculoskeletal: Chronic back pain Derm: None - Past Surgical History Past Surgical History: Yes Ortho: Arthroscopic surgery, Spine surgery - Present Medications Home Medications: Ambulatory Orders Medication Instructions Recorded Confirmed Gabapentin [Neurontin] 600 mg PO TID 11/09/13 01/26/23 Levothyroxine [Synthroid] 225 mcg PO DAILY 11/09/13 01/26/23 Amitriptyline HCl 100 mg ORAL DAILY 12/22/16 01/26/23 DULoxetine [Cymbalta] 30 mg PO DAILY 03/08/18 01/26/23 Oxycodone HCl 10 mg PO Q6H PRN #20 tablet 12/01/22 01/26/23 Ibuprofen [Motrin] 600 mg PO Q6H PRN 01/26/23 01/26/23 - Allergies Allergies/Adverse Reactions: Allergies Allergy/AdvReac Type Severity Reaction Status Date / Time No Known Drug Allergies Allergy Verified 01/28/23 13:40 - Social History Does the pt smoke?: No Smoking Status: Never smoker Does the pt drink ETOH?: No Does the pt have substance abuse?: No - Immunizations Immunizations are current?: Yes - POLST Patient has POLST: No PD ED PE NORMAL - Vitals Vital signs reviewed: Yes (He is tachycardic and hypertensive. Review of prior charts show this is no) - General General: Alert and oriented X 3, No acute distress - Extremities Extremities: Other (The patient has equal and normal Achilles and patellar reflexes bilaterally. Normal sensation in all areas of the legs. Patient denies saddle anesthesia. Normal strength in flexion-extension at the ankles, knees, and flexion of the hips.) - Neuro Neuro: Alert and oriented X 3, Normal speech Results - Vitals Vitals: Vital Signs - 24 hr 01/28/23 13:38 Temperature 36.3 C L Heart Rate 130 H Respiratory 20 Rate Blood Pressure 174/102 H O2 Saturation 97 Oxygen O2 Source Room air PD Medical Decision Making - ED course ED course: 52-year-old gentleman presents with ongoing exacerbation of chronic back pain related to a known disc herniation and he is seeing his surgeon on Sunday. Discussed with him again that we could not accelerate his narcotic regimen, that would not be appropriate from the emergency department and recommended he follow-up with his surgeon on Sunday as scheduled. He did receive Toradol 60 mg IM here. Nothing in the history or physical would suggest an acute cauda equina syndrome. Departure - Departure Disposition: 01 Home, Self Care Clinical Impression: Acute exacerbation of chronic low back pain Condition: Good Record reviewed to determine appropriate education?: Yes Instructions: ED Neck Back Pain General Comments: As previously repeatedly discussed, unfortunately we cannot accelerate your narcotic regimen for your chronic back pain. Return for new or worsening symptoms. Follow-up with your surgeon on Sunday as scheduled. Discharge Date/Time: 01/28/23 14:09
== END 2023-01-28 14:09 | disposition home or self-care (01) ==
LOC: ED 13:26
DX: M54.50 Low back pain, unspecified (principal); G89.29 Other chronic pain
CPT/HCPCS: 96372; 99283

== ENCOUNTER 2023-02-17 12:40 | Emergency (ER) | payer OTHER ==
--- OUTSIDE RECORDS SUMMARY | 2023-02-17 13:26 | EXTERNAL MEDICAL SUMMARY RPT | Continuity of Care Document ---
Author Name Unknown Address [address] [place] [address] Phone Organization [facility] Address [address] [place] [address] Phone Care Team Providers Care Scallop Raker Name Role Phone Ning Sanchez Unavailable Unavailable Allergies and Intolerances date description facility type (no date) No Known Drug Allergies [facility] ( unknown) Medications date description facility 2023-01-25 00:00 Methylprednisolone [facility] 2023-01-25 00:00 Cyclobenzaprine [facility] Problems date description facility 2023-01-25 00:00 Back pain [facility] Results/Labs test date author facility value unit interpretation Result panel 1 (unknown) (no date) (unknown) (unknown) (no value) (units unknown) (unknown) (unknown) (no date) (unknown) (unknown) (Neurontin) (units unknown) (unknown) (unknown) (no date) (unknown) (unknown) (Synthroid) (units unknown) (unknown) (unknown) (no date) (unknown) (unknown) * Clinical Dec ision Rules/Scores evaluated: None (units unknown) (unknown) (unknown) (no date) (unknown) (unknown) * Independent discussions with: None (units unknown) (unknown) (unknown) (no date) (unknown) (unknown) * My imgaing interpretation: [ ] (units unknown) (unknown) (unknown) (no date) (unknown) (unknown) * My lab interpretation: [ ] (units unknown) (unknown) (unknown) (no date) (unknown) (unknown) * Prior record s reviewed: [ ] (units unknown) (unknown) (unknown) (no date) (unknown) (unknown) * differential diagnosis includes but not limited to [ ] (units unknown) (unknown) (unknown) (no date) (unknown) (unknown) 0.2 mg PO QDAY Qty: 0 (units unknown) (unknown) (unknown) (no date) (unknown) (unknown) [id number] (units unknown) (unknown) (unknown) (no date) (unknown) (unknown) 01/25/23 (units unknown) (unknown) (unknown) (no date) (unknown) (unknown) 1,200 mg PO TID Qty: 0 (units unknown) (unknown) (unknown) (no date) (unknown) (unknown) 10 mg PO QDAY Qty: 0 (units unknown) (unknown) (unknown) (no date) (unknown) (unknown) 12 point revie w of systems is negative except for those stated above (units unknown) (unknown) (unknown) (no date) (unknown) (unknown) 12:07 (units unknown) (unknown) (unknown) (no date) (unknown) (unknown) 20 mg PO QID Qty: 0 (units unknown) (unknown) (unknown) (no date) (unknown) (unknown) 50 mg PO HS Qty: 0 ( units unknown) (unknown) (unknown) (no date) (unknown) (unknown) Age/Sex: 52 / M (uni ts unknown) (unknown) (unknown) (no date) (unknown) (unknown) Allergies (units unknown) (unknown) (unknown) (no date) (unknown) (unknown) Allergy/AdvRea c Type Severity Reaction Status Date / Time (units unknown) (unknown) (unknown) (no date) (unknown) (unknown) BACK: Nontende r without deformity or crepitance. No flank tenderness. (units unknown) (unknown) (unknown) (no date) (unknown) (unknown) Blood Pressure 172/107 H 01/25/23 12:07 (units unknown) (unknown) (unknown) (no date) (unknown) (unknown) Blood Pressure 172/107 H (units unknown) (unknown) (unknown) (no date) (unknown) (unknown) Ning Sanchez MD [Primary Care Provider] (units unknown) (unknown) (unknown) (no date) (unknown) (unknown) CARDIOVASCULAR : Denies chest pain, palpitations, orthopnea, edema, (units unknown) (unknown) (unknown) (no date) (unknown) (unknown) CARDIOVASCULAR : Regular rate and rhythm without murmurs, gallops, or rubs. (units unknown) (unknown) (unknown) (no date) (unknown) (unknown) Chief Complain t: Back Pain/Injury (units unknown) (unknown) (unknown) (no date) (unknown) (unknown) Course (units unknown) (unknown) (unknown) (no date) (unknown) (unknown) : 0 Acct:[id number] (units unknown) (unknown) (unknown) (no date) (unknown) (unknown) Date of Servic e: 01/25/23 (units unknown) (unknown) (unknown) (no date) (unknown) (unknown) Departure (units unknown) (unknown) (unknown) (no date) (unknown) (unknown) Discharge Plan (unit s unknown) (unknown) (unknown) (no date) (unknown) (unknown) Disposition: [ ] (un its unknown) (unknown) (unknown) (no date) (unknown) (unknown) ED Course: [ ] (unit s unknown) (unknown) (unknown) (no date) (unknown) (unknown) ENT: Nose with out bleeding, purulent drainage. Throat without erythema, (units unknown) (unknown) (unknown) (no date) (unknown) (unknown) ER Physician: Wilfred Phillips P.A-C (units unknown) (unknown) (unknown) (no date) (unknown) (unknown) EXTREMITIES: N o edema or joint tenderness. (units unknown) (unknown) (unknown) (no date) (unknown) (unknown) EYES: Pupils e qual round and reactive. Extraocular motions intact. No scleral (units unknown) (unknown) (unknown) (no date) (unknown) (unknown) Emergency Report (un its unknown) (unknown) (unknown) (no date) (unknown) (unknown) Exam Narrative: (uni ts unknown) (unknown) (unknown) (no date) (unknown) (unknown) Exam (units unknown) (unknown) (unknown) (no date) (unknown) (unknown) GASTROINTESTIN AL: Abdomen soft, non-tender, nondistended. (units unknown) (unknown) (unknown) (no date) (unknown) (unknown) GASTROINTESTIN AL: Denies nausea, vomiting, abdominal pain, diarrhea, (units unknown) (unknown) (unknown) (no date) (unknown) (unknown) GENERAL: Denie s chills, fatigue, malaise, fever, sweats. (units unknown) (unknown) (unknown) (no date) (unknown) (unknown) GENERAL: Well-developed patient, in mild distress. (units unknown) (unknown) (unknown) (no date) (unknown) (unknown) : Denies dys uria, frequency, incontinence, hematuria, urinary retention. (units unknown) (unknown) (unknown) (no date) (unknown) (unknown) General (units unknown) (unknown) (unknown) (no date) (unknown) (unknown) HEAD: Atraumat ic. Normocephalic. (units unknown) (unknown) (unknown) (no date) (unknown) (unknown) HEENT: Denies sinus pain, ear pain, sore throat, difficulty swallowing, (units unknown) (unknown) (unknown) (no date) (unknown) (unknown) HPI - Back Pain/Inju ry (units unknown) (unknown) (unknown) (no date) (unknown) (unknown) HPI Narrative: (unit s unknown) (unknown) (unknown) (no date) (unknown) (unknown) History of Pre sent Illness (units unknown) (unknown) (unknown) (no date) (unknown) (unknown) Home Medications (un its unknown) (unknown) (unknown) (no date) (unknown) (unknown) Initial Vital Signs (units unknown) (unknown) (unknown) (no date) (unknown) (unknown) Initial Vital Signs: (units unknown) (unknown) (unknown) (no date) (unknown) (unknown) [address] [address] (units unknown) (unknown) (unknown) (no date) (unknown) (unknown) MDM - Back Pain/Inju ry (units unknown) (unknown) (unknown) (no date) (unknown) (unknown) MDM Narrative (units unknown) (unknown) (unknown) (no date) (unknown) (unknown) MDM (units unknown) (unknown) (unknown) (no date) (unknown) (unknown) MUSCULOSKELETA L: Reports back pain, denies weakness, joint pain, or bony pain (units unknown) (unknown) (unknown) (no date) (unknown) (unknown) Medical decisi on making narrative: (units unknown) (unknown) (unknown) (no date) (unknown) (unknown) Medication Instructions Recorded Confirmed (units unknown) (unknown) (unknown) (no date) (unknown) (unknown) NECK: Trachea midline. Non tender (units unknown) (unknown) (unknown) (no date) (unknown) (unknown) NEURO: AOx3. (units unknown) (unknown) (unknown) (no date) (unknown) (unknown) NEUROLOGIC: De nies weakness, headache, numbness, change in speech, confusion, (units unknown) (unknown) (unknown) (no date) (unknown) (unknown) Narrative (units unknown) (unknown) (unknown) (no date) (unknown) (unknown) Narrative: (units unknown) (unknown) (unknown) (no date) (unknown) (unknown) No Action (units unknown) (unknown) (unknown) (no date) (unknown) (unknown) No Known Drug Allergies Allergy Verified 01/25/23 12:12 (units unknown) (unknown) (unknown) (no date) (unknown) (unknown) Oxygen Deliver y Method Room Air 01/25/23 12:07 (units unknown) (unknown) (unknown) (no date) (unknown) (unknown) Oxygen Deliver y Method Room Air (units unknown) (unknown) (unknown) (no date) (unknown) (unknown) PSYCHIATRIC: N o concerning psychosocial issues. (units unknown) (unknown) (unknown) (no date) (unknown) (unknown) Patient History (uni ts unknown) (unknown) (unknown) (no date) (unknown) (unknown) Patient has a history of back surgery, L5-S1 secondary fracture. Two months ago (units unknown) (unknown) (unknown) (no date) (unknown) (unknown) Patient has an appointment next Sunday, in 5 days. Already has a oxycodone (units unknown) (unknown) (unknown) (no date) (unknown) (unknown) Patient: Lars Velez MR#: M (units unknown) (unknown) (unknown) (no date) (unknown) (unknown) Prescriptions: (unit s unknown) (unknown) (unknown) (no date) (unknown) (unknown) Pulse Oximetry 99 01/25/23 12:07 (units unknown) (unknown) (unknown) (no date) (unknown) (unknown) Pulse Oximetry 99 (u nits unknown) (unknown) (unknown) (no date) (unknown) (unknown) Pulse Rate 107 H 01/25/23 12:07 (units unknown) (unknown) (unknown) (no date) (unknown) (unknown) Pulse Rate 107 H (un its unknown) (unknown) (unknown) (no date) (unknown) (unknown) RESPIRATORY: C lear to auscultation. Breath sounds equal bilaterally. No wheezes, (units unknown) (unknown) (unknown) (no date) (unknown) (unknown) RESPIRATORY: D enies dyspnea, cough, wheezing, hemoptysis, sputum. (units unknown) (unknown) (unknown) (no date) (unknown) (unknown) Referrals: (units unknown) (unknown) (unknown) (no date) (unknown) (unknown) Related Data (units unknown) (unknown) (unknown) (no date) (unknown) (unknown) Respiratory Ra te 18 01/25/23 12:07 (units unknown) (unknown) (unknown) (no date) (unknown) (unknown) Respiratory Rate 18 (units unknown) (unknown) (unknown) (no date) (unknown) (unknown) Review of Systems (u nits unknown) (unknown) (unknown) (no date) (unknown) (unknown) SKIN: Denies r lonnie, skin lesions, or other (units unknown) (unknown) (unknown) (no date) (unknown) (unknown) SKIN: No rash or erythema of visible areas (units unknown) (unknown) (unknown) (no date) (unknown) (unknown) Shared Decisio n Making: Discussed plan with patient who is comfortable with the (units unknown) (unknown) (unknown) (no date) (unknown) (unknown) Signed By: (units unknown) (unknown) (unknown) (no date) (unknown) (unknown) Smoking Status : Never smoker (units unknown) (unknown) (unknown) (no date) (unknown) (unknown) Social Conside rations: None (units unknown) (unknown) (unknown) (no date) (unknown) (unknown) Social History (unit s unknown) (unknown) (unknown) (no date) (unknown) (unknown) Source: patient (uni ts unknown) (unknown) (unknown) (no date) (unknown) (unknown) Stated Complai nt: extreme back pain (units unknown) (unknown) (unknown) (no date) (unknown) (unknown) Substance Use Type: does not use (units unknown) (unknown) (unknown) (no date) (unknown) (unknown) Temperature 98 .8 F 01/25/23 12:07 (units unknown) (unknown) (unknown) (no date) (unknown) (unknown) Temperature 98.8 F ( units unknown) (unknown) (unknown) (no date) (unknown) (unknown) This is a 52-y ear-old male presents to the emergency department due to mid back (units unknown) (unknown) (unknown) (no date) (unknown) (unknown) Time Seen by Kalpesh vivas: 01/25/23 12:34 (units unknown) (unknown) (unknown) (no date) (unknown) (unknown) Vital Signs - 8 hr ( units unknown) (unknown) (unknown) (no date) (unknown) (unknown) Vital Signs (units unknown) (unknown) (unknown) (no date) (unknown) (unknown) Vital signs: (units unknown) (unknown) (unknown) (no date) (unknown) (unknown) alcohol intake frequency: 0-2 drinks per day (units unknown) (unknown) (unknown) (no date) (unknown) (unknown) amitriptyline 50 MG tablet (units unknown) (unknown) (unknown) (no date) (unknown) (unknown) amitriptyline 50 mg tablet 50 mg PO HS ##0 10/30/16 (units unknown) (unknown) (unknown) (no date) (unknown) (unknown) constipation, melena . (units unknown) (unknown) (unknown) (no date) (unknown) (unknown) dizziness. (units unknown) (unknown) (unknown) (no date) (unknown) (unknown) gabapentin 600 mg tablet 1,200 mg PO TID ##0 10/30/16 (units unknown) (unknown) (unknown) (no date) (unknown) (unknown) gabapentin [Ne urontin] 600 MG tablet (units unknown) (unknown) (unknown) (no date) (unknown) (unknown) he would a sti mulator placed scheduled. MRI was ordered which showed a (units unknown) (unknown) (unknown) (no date) (unknown) (unknown) herniated disc at T9. Has had sharp pain since the stimulator was placed. (units unknown) (unknown) (unknown) (no date) (unknown) (unknown) icterus. No in jection or drainage. (units unknown) (unknown) (unknown) (no date) (unknown) (unknown) levothyroxine 200 mcg tablet 0.2 mg PO QDAY ##0 11/19/12 (units unknown) (unknown) (unknown) (no date) (unknown) (unknown) levothyroxine [Synthroid] 200 MCG tablet (units unknown) (unknown) (unknown) (no date) (unknown) (unknown) lisinopril 10 MG tablet (units unknown) (unknown) (unknown) (no date) (unknown) (unknown) lisinopril 10 mg tablet 10 mg PO QDAY ##0 10/30/16 (units unknown) (unknown) (unknown) (no date) (unknown) (unknown) oxycodone 5 MG table t (units unknown) (unknown) (unknown) (no date) (unknown) (unknown) oxycodone 5 mg tablet 20 mg PO QID ##0 10/30/16 (units unknown) (unknown) (unknown) (no date) (unknown) (unknown) pain. (units unknown) (unknown) (unknown) (no date) (unknown) (unknown) plan. (units unknown) (unknown) (unknown) (no date) (unknown) (unknown) prescription f or 10 mg t.i.d.. Patient complaining of mid back pain and T9. (units unknown) (unknown) (unknown) (no date) (unknown) (unknown) rales, or rhonchi. ( units unknown) (unknown) (unknown) (no date) (unknown) (unknown) seizures, incoordination. (units unknown) (unknown) (unknown) (no date) (unknown) (unknown) tonsillar hype rtrophy or exudate. Airway patent. (units unknown) (unknown) Result panel 2 (unknown) (no date) (unknown) (unknown) (no value) (units unknown) (unknown) (unknown) (no date) (unknown) (unknown) (Neurontin) (units unknown) (unknown) (unknown) (no date) (unknown) (unknown) (Synthroid) (units unknown) (unknown) (unknown) (no date) (unknown) (unknown) * Clinical Dec ision Rules/Scores evaluated: None (units unknown) (unknown) (unknown) (no date) (unknown) (unknown) * Independent discussions with: None (units unknown) (unknown) (unknown) (no date) (unknown) (unknown) * My imgaing interpretation: None obtained (units unknown) (unknown) (unknown) (no date) (unknown) (unknown) * My lab interpretation: None obtained (units unknown) (unknown) (unknown) (no date) (unknown) (unknown) * Prior record s reviewed: Patient has not been here for the emergency (units unknown) (unknown) (unknown) (no date) (unknown) (unknown) * differential diagnosis includes but not limited to vertebral fracture, (units unknown) (unknown) (unknown) (no date) (unknown) (unknown) 0.2 mg PO QDAY Qty: 0 (units unknown) (unknown) (unknown) (no date) (unknown) (unknown) [id number] (units unknown) (unknown) (unknown) (no date) (unknown) (unknown) 01/25/23 (units unknown) (unknown) (unknown) (no date) (unknown) (unknown) 1,200 mg PO TID Qty: 0 (units unknown) (unknown) (unknown) (no date) (unknown) (unknown) 10 mg PO QDAY Qty: 0 (units unknown) (unknown) (unknown) (no date) (unknown) (unknown) 12 point revie w of systems is negative except for those stated above (units unknown) (unknown) (unknown) (no date) (unknown) (unknown) 12:07 (units unknown) (unknown) (unknown) (no date) (unknown) (unknown) 20 mg PO QID Qty: 0 (units unknown) (unknown) (unknown) (no date) (unknown) (unknown) 50 mg PO HS Qty: 0 ( units unknown) (unknown) (unknown) (no date) (unknown) (unknown) Activity Restrictions/Additiona l Instructions: (units unknown) (unknown) (unknown) (no date) (unknown) (unknown) Age/Sex: 52 / M (uni ts unknown) (unknown) (unknown) (no date) (unknown) (unknown) Allergies (units unknown) (unknown) (unknown) (no date) (unknown) (unknown) Allergy/AdvRea c Type Severity Reaction Status Date / Time (units unknown) (unknown) (unknown) (no date) (unknown) (unknown) BACK: Mild ten derness to palpation to midthoracic spine, . No flank tenderness. (units unknown) (unknown) (unknown) (no date) (unknown) (unknown) Back pain (units unknown) (unknown) (unknown) (no date) (unknown) (unknown) Bedside Urine Bilirubin - Negative (units unknown) (unknown) (unknown) (no date) (unknown) (unknown) Bedside Urine Glucose Negative (units unknown) (unknown) (unknown) (no date) (unknown) (unknown) Bedside Urine Ketone - Negative (units unknown) (unknown) (unknown) (no date) (unknown) (unknown) Bedside Urine Leukocytes - Negative (units unknown) (unknown) (unknown) (no date) (unknown) (unknown) Bedside Urine Nitrite - Negative (units unknown) (unknown) (unknown) (no date) (unknown) (unknown) Bedside Urine Occult Blood - Negative (units unknown) (unknown) (unknown) (no date) (unknown) (unknown) Bedside Urine Protein - Negative (units unknown) (unknown) (unknown) (no date) (unknown) (unknown) Bedside Urine Urobilinogen 0.2 (units unknown) (unknown) (unknown) (no date) (unknown) (unknown) Bedside Urine pH 6.0 (units unknown) (unknown) (unknown) (no date) (unknown) (unknown) Blood Pressure 172/107 H 01/25/23 12:07 (units unknown) (unknown) (unknown) (no date) (unknown) (unknown) Blood Pressure 172/107 H (units unknown) (unknown) (unknown) (no date) (unknown) (unknown) Ning Sanchez MD [Primary Care Provider] (units unknown) (unknown) (unknown) (no date) (unknown) (unknown) CARDIOVASCULAR : Denies chest pain, palpitations, orthopnea, edema, (units unknown) (unknown) (unknown) (no date) (unknown) (unknown) CARDIOVASCULAR : Regular rate and rhythm without murmurs, gallops, or rubs. . (units unknown) (unknown) (unknown) (no date) (unknown) (unknown) Chief Complain t: Back Pain/Injury (units unknown) (unknown) (unknown) (no date) (unknown) (unknown) Clinical Impression: (units unknown) (unknown) (unknown) (no date) (unknown) (unknown) Course (units unknown) (unknown) (unknown) (no date) (unknown) (unknown) : 0 Acct:[id number] (units unknown) (unknown) (unknown) (no date) (unknown) (unknown) Date of Servic e: 01/25/23 (units unknown) (unknown) (unknown) (no date) (unknown) (unknown) Departure (units unknown) (unknown) (unknown) (no date) (unknown) (unknown) Discharge Plan (unit s unknown) (unknown) (unknown) (no date) (unknown) (unknown) Discontinued Medications (units unknown) (unknown) (unknown) (no date) (unknown) (unknown) Disposition: Discharged to home (units unknown) (unknown) (unknown) (no date) (unknown) (unknown) ED Course: Farrah roque is a 52-year-old male presents emergency department due to (units unknown) (unknown) (unknown) (no date) (unknown) (unknown) ENT: Nose with out bleeding, purulent drainage. Throat without erythema, (units unknown) (unknown) (unknown) (no date) (unknown) (unknown) ER Physician: Wilfred Phillips P.A-C (units unknown) (unknown) (unknown) (no date) (unknown) (unknown) EXTREMITIES: N o edema or joint tenderness. (units unknown) (unknown) (unknown) (no date) (unknown) (unknown) EYES: Pupils e qual round and reactive. Extraocular motions intact. No scleral (units unknown) (unknown) (unknown) (no date) (unknown) (unknown) Emergency Report (un its unknown) (unknown) (unknown) (no date) (unknown) (unknown) Esterase (units unknown) (unknown) (unknown) (no date) (unknown) (unknown) Exam Narrative: (uni ts unknown) (unknown) (unknown) (no date) (unknown) (unknown) Exam (units unknown) (unknown) (unknown) (no date) (unknown) (unknown) GASTROINTESTIN AL: Denies nausea, vomiting, abdominal pain, diarrhea, (units unknown) (unknown) (unknown) (no date) (unknown) (unknown) GENERAL: Denie s chills, fatigue, malaise, fever, sweats. (units unknown) (unknown) (unknown) (no date) (unknown) (unknown) GENERAL: Well-developed patient, in mild distress. (units unknown) (unknown) (unknown) (no date) (unknown) (unknown) : Denies dys uria, frequency, incontinence, hematuria, urinary retention. (units unknown) (unknown) (unknown) (no date) (unknown) (unknown) General (units unknown) (unknown) (unknown) (no date) (unknown) (unknown) HEAD: Atraumat ic. Normocephalic. (units unknown) (unknown) (unknown) (no date) (unknown) (unknown) HEENT: Denies sinus pain, ear pain, sore throat, difficulty swallowing, (units unknown) (unknown) (unknown) (no date) (unknown) (unknown) HPI - Back Pain/Inju ry (units unknown) (unknown) (unknown) (no date) (unknown) (unknown) HPI Narrative: (unit s unknown) (unknown) (unknown) (no date) (unknown) (unknown) History of Pre sent Illness (units unknown) (unknown) (unknown) (no date) (unknown) (unknown) Home Medications (un its unknown) (unknown) (unknown) (no date) (unknown) (unknown) Hydromorphone HCl (Hydromorphone 1 Mg Inj) 0.5 mg IM NOW ONE (units unknown) (unknown) (unknown) (no date) (unknown) (unknown) I hope you fee l better soon. (units unknown) (unknown) (unknown) (no date) (unknown) (unknown) Initial Vital Signs (units unknown) (unknown) (unknown) (no date) (unknown) (unknown) Initial Vital Signs: (units unknown) (unknown) (unknown) (no date) (unknown) (unknown) Instructions: DI for Back Strain or Sprain (units unknown) (unknown) (unknown) (no date) (unknown) (unknown) [address] [address] (units unknown) (unknown) (unknown) (no date) (unknown) (unknown) Ketorolac Trom ethamine (Ketorolac 30 Mg/Ml Vial) 15 mg IM NOW ONE (units unknown) (unknown) (unknown) (no date) (unknown) (unknown) Lab Data (units unknown) (unknown) (unknown) (no date) (unknown) (unknown) Labs: (units unknown) (unknown) (unknown) (no date) (unknown) (unknown) MDM - Back Pain/Inju ry (units unknown) (unknown) (unknown) (no date) (unknown) (unknown) MDM Narrative (units unknown) (unknown) (unknown) (no date) (unknown) (unknown) MDM (units unknown) (unknown) (unknown) (no date) (unknown) (unknown) MRI which show ed a herniated disc at T9 and has a appointment in 5 days to speak (units unknown) (unknown) (unknown) (no date) (unknown) (unknown) MUSCULOSKELETA L: Reports back pain, denies weakness, joint pain, or bony pain (units unknown) (unknown) (unknown) (no date) (unknown) (unknown) Medical decisi on making narrative: (units unknown) (unknown) (unknown) (no date) (unknown) (unknown) Medication Instructions Recorded Confirmed (units unknown) (unknown) (unknown) (no date) (unknown) (unknown) NECK: Trachea midline. Non tender (units unknown) (unknown) (unknown) (no date) (unknown) (unknown) NEURO: AOx3. (units unknown) (unknown) (unknown) (no date) (unknown) (unknown) NEUROLOGIC: De nies weakness, headache, numbness, change in speech, confusion, (units unknown) (unknown) (unknown) (no date) (unknown) (unknown) Narrative (units unknown) (unknown) (unknown) (no date) (unknown) (unknown) Narrative: (units unknown) (unknown) (unknown) (no date) (unknown) (unknown) No Action (units unknown) (unknown) (unknown) (no date) (unknown) (unknown) No Known Drug Allergies Allergy Verified 01/25/23 12:12 (units unknown) (unknown) (unknown) (no date) (unknown) (unknown) Ordered: (units unknown) (unknown) (unknown) (no date) (unknown) (unknown) Orders (units unknown) (unknown) (unknown) (no date) (unknown) (unknown) Oxygen Deliver y Method Room Air 01/25/23 12:07 (units unknown) (unknown) (unknown) (no date) (unknown) (unknown) Oxygen Deliver y Method Room Air (units unknown) (unknown) (unknown) (no date) (unknown) (unknown) PSYCHIATRIC: N o concerning psychosocial issues. (units unknown) (unknown) (unknown) (no date) (unknown) (unknown) Patient Dispos ition: Home (units unknown) (unknown) (unknown) (no date) (unknown) (unknown) Patient History (uni ts unknown) (unknown) (unknown) (no date) (unknown) (unknown) Patient has a history of back surgery, L5-S1 secondary fracture. Two months ago (units unknown) (unknown) (unknown) (no date) (unknown) (unknown) Patient has an appointment next Sunday, in 5 days. Already has a oxycodone (units unknown) (unknown) (unknown) (no date) (unknown) (unknown) Patient: Lars Velez MR#: M (units unknown) (unknown) (unknown) (no date) (unknown) (unknown) Prescriptions: (unit s unknown) (unknown) (unknown) (no date) (unknown) (unknown) Pulse Oximetry 99 01/25/23 12:07 (units unknown) (unknown) (unknown) (no date) (unknown) (unknown) Pulse Oximetry 99 (u nits unknown) (unknown) (unknown) (no date) (unknown) (unknown) Pulse Rate 107 H 01/25/23 12:07 (units unknown) (unknown) (unknown) (no date) (unknown) (unknown) Pulse Rate 107 H (un its unknown) (unknown) (unknown) (no date) (unknown) (unknown) RESPIRATORY: D enies dyspnea, cough, wheezing, hemoptysis, sputum. (units unknown) (unknown) (unknown) (no date) (unknown) (unknown) Referrals: (units unknown) (unknown) (unknown) (no date) (unknown) (unknown) Related Data (units unknown) (unknown) (unknown) (no date) (unknown) (unknown) Respiratory Ra te 18 01/25/23 12:07 (units unknown) (unknown) (unknown) (no date) (unknown) (unknown) Respiratory Rate 18 (units unknown) (unknown) (unknown) (no date) (unknown) (unknown) Review of Systems (u nits unknown) (unknown) (unknown) (no date) (unknown) (unknown) SKIN: Denies r lonnie, skin lesions, or other (units unknown) (unknown) (unknown) (no date) (unknown) (unknown) SKIN: No rash or erythema of visible areas (units unknown) (unknown) (unknown) (no date) (unknown) (unknown) Shared Decisio n Making: Discussed plan with patient who is comfortable with the (units unknown) (unknown) (unknown) (no date) (unknown) (unknown) Signed By: (units unknown) (unknown) (unknown) (no date) (unknown) (unknown) Smoking Status : Never smoker (units unknown) (unknown) (unknown) (no date) (unknown) (unknown) Social Conside rations: None (units unknown) (unknown) (unknown) (no date) (unknown) (unknown) Social History (unit s unknown) (unknown) (unknown) (no date) (unknown) (unknown) Source: patient (uni ts unknown) (unknown) (unknown) (no date) (unknown) (unknown) Stand Alone Fo merrill: Patient Portal/API (units unknown) (unknown) (unknown) (no date) (unknown) (unknown) Stated Complai nt: extreme back pain (units unknown) (unknown) (unknown) (no date) (unknown) (unknown) Stop: 01/25/23 12:59 (units unknown) (unknown) (unknown) (no date) (unknown) (unknown) Strongly reinf orced the fact that the emergency department is not the (units unknown) (unknown) (unknown) (no date) (unknown) (unknown) Substance Use Type: does not use (units unknown) (unknown) (unknown) (no date) (unknown) (unknown) Temperature 98 .8 F 01/25/23 12:07 (units unknown) (unknown) (unknown) (no date) (unknown) (unknown) Temperature 98.8 F ( units unknown) (unknown) (unknown) (no date) (unknown) (unknown) Thank you for coming to the [facility] Emergency Department today. We are (units unknown) (unknown) (unknown) (no date) (unknown) (unknown) This is a 52-y ear-old male presents to the emergency department due to mid back (units unknown) (unknown) (unknown) (no date) (unknown) (unknown) Time Seen by Kalpesh vivas: 01/25/23 12:34 (units unknown) (unknown) (unknown) (no date) (unknown) (unknown) Tylenol and ib uprofen to help with the back pain until you are able to follow-up (units unknown) (unknown) (unknown) (no date) (unknown) (unknown) Urine Dip (units unknown) (unknown) (unknown) (no date) (unknown) (unknown) Urine Specific [employer] 1.010 (units unknown) (unknown) (unknown) (no date) (unknown) (unknown) Vital Signs - 8 hr ( units unknown) (unknown) (unknown) (no date) (unknown) (unknown) Vital Signs (units unknown) (unknown) (unknown) (no date) (unknown) (unknown) Vital signs: (units unknown) (unknown) (unknown) (no date) (unknown) (unknown) able to give y ou a 1 time dose of Toradol as well as IM Dilaudid here but I (units unknown) (unknown) (unknown) (no date) (unknown) (unknown) acute on chron ic worsening back pain. He states he has been unable to sleep for (units unknown) (unknown) (unknown) (no date) (unknown) (unknown) alcohol intake frequency: 0-2 drinks per day (units unknown) (unknown) (unknown) (no date) (unknown) (unknown) amitriptyline 50 MG tablet (units unknown) (unknown) (unknown) (no date) (unknown) (unknown) amitriptyline 50 mg tablet 50 mg PO HS ##0 10/30/16 (units unknown) (unknown) (unknown) (no date) (unknown) (unknown) any new sympto ms since the MRI was taken. (units unknown) (unknown) (unknown) (no date) (unknown) (unknown) appointment wi a volunteer specialist very soon for definitive management. (units unknown) (unknown) (unknown) (no date) (unknown) (unknown) appropriate pl víctor for repeat visits for opiate pain relief. Eventually a 1 time (units unknown) (unknown) (unknown) (no date) (unknown) (unknown) approximately a month. He states for the last 4 days he has been unable to (units unknown) (unknown) (unknown) (no date) (unknown) (unknown) as a steroid b urst to help with the symptoms until he is able to follow up with (units unknown) (unknown) (unknown) (no date) (unknown) (unknown) constipation, melena . (units unknown) (unknown) (unknown) (no date) (unknown) (unknown) denies any new weakness or focal nervous system changes. He is already had a (units unknown) (unknown) (unknown) (no date) (unknown) (unknown) department for similar symptoms in the past. (units unknown) (unknown) (unknown) (no date) (unknown) (unknown) dizziness. (units unknown) (unknown) (unknown) (no date) (unknown) (unknown) dose of Dilaud id IM will be given here for the patient as well as Toradol as (units unknown) (unknown) (unknown) (no date) (unknown) (unknown) dosing similar to this. Please use the prescribed medications as well as (units unknown) (unknown) (unknown) (no date) (unknown) (unknown) gabapentin 600 mg tablet 1,200 mg PO TID ##0 10/30/16 (units unknown) (unknown) (unknown) (no date) (unknown) (unknown) gabapentin [Ne urontin] 600 MG tablet (units unknown) (unknown) (unknown) (no date) (unknown) (unknown) he would a sti mulator placed scheduled. MRI was ordered which showed a (units unknown) (unknown) (unknown) (no date) (unknown) (unknown) herniated disc at T9. Has had sharp pain since the stimulator was placed. (units unknown) (unknown) (unknown) (no date) (unknown) (unknown) his spine spec ialist as he already has a prescription for oxycodone. Patient (units unknown) (unknown) (unknown) (no date) (unknown) (unknown) icterus. No in jection or drainage. (units unknown) (unknown) (unknown) (no date) (unknown) (unknown) levothyroxine 200 mcg tablet 0.2 mg PO QDAY ##0 11/19/12 (units unknown) (unknown) (unknown) (no date) (unknown) (unknown) levothyroxine [Synthroid] 200 MCG tablet (units unknown) (unknown) (unknown) (no date) (unknown) (unknown) lisinopril 10 MG tablet (units unknown) (unknown) (unknown) (no date) (unknown) (unknown) lisinopril 10 mg tablet 10 mg PO QDAY ##0 10/30/16 (units unknown) (unknown) (unknown) (no date) (unknown) (unknown) muscular back pain, spinal stenosis (units unknown) (unknown) (unknown) (no date) (unknown) (unknown) oxycodone 5 MG table t (units unknown) (unknown) (unknown) (no date) (unknown) (unknown) oxycodone 5 mg tablet 20 mg PO QID ##0 10/30/16 (units unknown) (unknown) (unknown) (no date) (unknown) (unknown) pain. Patient states this episode of pain has been affecting him for (units unknown) (unknown) (unknown) (no date) (unknown) (unknown) plan. (units unknown) (unknown) (unknown) (no date) (unknown) (unknown) prescription f or 10 mg t.i.d.. Patient complaining of mid back pain and T9. (units unknown) (unknown) (unknown) (no date) (unknown) (unknown) repeatedly req uested IM Dilaudid as he says this worked in the past, extensive (units unknown) (unknown) (unknown) (no date) (unknown) (unknown) seizures, incoordination. (units unknown) (unknown) (unknown) (no date) (unknown) (unknown) sleep due to t he severity of the pain. He is already taking oxycodone 10 mg (units unknown) (unknown) (unknown) (no date) (unknown) (unknown) states that he was instructed to come here through ?break through pain?. He (units unknown) (unknown) (unknown) (no date) (unknown) (unknown) strongly recom mend you do not return to the emergency department for repeat (units unknown) (unknown) (unknown) (no date) (unknown) (unknown) anjelica as pres cribed by his volunteer specialist in [facility]. He (units unknown) (unknown) (unknown) (no date) (unknown) (unknown) the last 4 day s. Offered IM Toradol, prescription for muscle relaxants, as well (units unknown) (unknown) (unknown) (no date) (unknown) (unknown) tonsillar hype rtrophy or exudate. Airway patent. (units unknown) (unknown) (unknown) (no date) (unknown) (unknown) tox were had w ith the patient regarding the risks of opiate dependency. (units unknown) (unknown) (unknown) (no date) (unknown) (unknown) well as muscle relaxants as well as steroids prescribed. Patient has an (units unknown) (unknown) (unknown) (no date) (unknown) (unknown) with the volunteer specialist. He denies any urinary or bowel incontinence, denies (units unknown) (unknown) (unknown) (no date) (unknown) (unknown) with your spin e specialist next Sunday. (units unknown) (unknown) Result panel 3 (unknown) (no date) (unknown) (unknown) (no value) (units unknown) (unknown) (unknown) (no date) (unknown) (unknown) (Neurontin) (units unknown) (unknown) (unknown) (no date) (unknown) (unknown) (Synthroid) (units unknown) (unknown) (unknown) (no date) (unknown) (unknown) * Clinical Dec ision Rules/Scores evaluated: None (units unknown) (unknown) (unknown) (no date) (unknown) (unknown) * Independent discussions with: None (units unknown) (unknown) (unknown) (no date) (unknown) (unknown) * My imgaing interpretation: None obtained (units unknown) (unknown) (unknown) (no date) (unknown) (unknown) * My lab interpretation: None obtained (units unknown) (unknown) (unknown) (no date) (unknown) (unknown) * Prior record s reviewed: Patient has not been here for the emergency (units unknown) (unknown) (unknown) (no date) (unknown) (unknown) * differential diagnosis includes but not limited to vertebral fracture, (units unknown) (unknown) (unknown) (no date) (unknown) (unknown) 0.2 mg PO QDAY Qty: 0 (units unknown) (unknown) (unknown) (no date) (unknown) (unknown) [id number] (units unknown) (unknown) (unknown) (no date) (unknown) (unknown) 01/25/23 (units unknown) (unknown) (unknown) (no date) (unknown) (unknown) 1,200 mg PO TID Qty: 0 (units unknown) (unknown) (unknown) (no date) (unknown) (unknown) 10 mg PO QDAY Qty: 0 (units unknown) (unknown) (unknown) (no date) (unknown) (unknown) 10 mg PO TID Q ty: 20 0RF (units unknown) (unknown) (unknown) (no date) (unknown) (unknown) 12 point revie w of systems is negative except for those stated above (units unknown) (unknown) (unknown) (no date) (unknown) (unknown) 12:07 (units unknown) (unknown) (unknown) (no date) (unknown) (unknown) 20 mg PO QID Qty: 0 (units unknown) (unknown) (unknown) (no date) (unknown) (unknown) 50 mg PO HS Qty: 0 ( units unknown) (unknown) (unknown) (no date) (unknown) (unknown) Activity Restrictions/Additiona l Instructions: (units unknown) (unknown) (unknown) (no date) (unknown) (unknown) Age/Sex: 52 / M (uni ts unknown) (unknown) (unknown) (no date) (unknown) (unknown) Allergies (units unknown) (unknown) (unknown) (no date) (unknown) (unknown) Allergy/AdvRea c Type Severity Reaction Status Date / Time (units unknown) (unknown) (unknown) (no date) (unknown) (unknown) BACK: Mild ten derness to palpation to midthoracic spine, . No flank tenderness. (units unknown) (unknown) (unknown) (no date) (unknown) (unknown) Back pain (units unknown) (unknown) (unknown) (no date) (unknown) (unknown) Bedside Urine Bilirubin - Negative (units unknown) (unknown) (unknown) (no date) (unknown) (unknown) Bedside Urine Glucose Negative (units unknown) (unknown) (unknown) (no date) (unknown) (unknown) Bedside Urine Ketone - Negative (units unknown) (unknown) (unknown) (no date) (unknown) (unknown) Bedside Urine Leukocytes - Negative (units unknown) (unknown) (unknown) (no date) (unknown) (unknown) Bedside Urine Nitrite - Negative (units unknown) (unknown) (unknown) (no date) (unknown) (unknown) Bedside Urine Occult Blood - Negative (units unknown) (unknown) (unknown) (no date) (unknown) (unknown) Bedside Urine Protein - Negative (units unknown) (unknown) (unknown) (no date) (unknown) (unknown) Bedside Urine Urobilinogen 0.2 (units unknown) (unknown) (unknown) (no date) (unknown) (unknown) Bedside Urine pH 6.0 (units unknown) (unknown) (unknown) (no date) (unknown) (unknown) Blood Pressure 172/107 H 01/25/23 12:07 (units unknown) (unknown) (unknown) (no date) (unknown) (unknown) Blood Pressure 172/107 H (units unknown) (unknown) (unknown) (no date) (unknown) (unknown) Ning Sanchez MD [Primary Care Provider] (units unknown) (unknown) (unknown) (no date) (unknown) (unknown) CARDIOVASCULAR : Denies chest pain, palpitations, orthopnea, edema, (units unknown) (unknown) (unknown) (no date) (unknown) (unknown) CARDIOVASCULAR : Regular rate and rhythm without murmurs, gallops, or rubs. . (units unknown) (unknown) (unknown) (no date) (unknown) (unknown) Chief Complain t: Back Pain/Injury (units unknown) (unknown) (unknown) (no date) (unknown) (unknown) Clinical Impression: (units unknown) (unknown) (unknown) (no date) (unknown) (unknown) Course (units unknown) (unknown) (unknown) (no date) (unknown) (unknown) : 0 Acct:[id number] (units unknown) (unknown) (unknown) (no date) (unknown) (unknown) Date of Servic e: 01/25/23 (units unknown) (unknown) (unknown) (no date) (unknown) (unknown) Departure (units unknown) (unknown) (unknown) (no date) (unknown) (unknown) Discharge Plan (unit s unknown) (unknown) (unknown) (no date) (unknown) (unknown) Discontinued Medications (units unknown) (unknown) (unknown) (no date) (unknown) (unknown) Disposition: Discharged to home (units unknown) (unknown) (unknown) (no date) (unknown) (unknown) ED Course: Farrah roque is a 52-year-old male presents emergency department due to (units unknown) (unknown) (unknown) (no date) (unknown) (unknown) ENT: Nose with out bleeding, purulent drainage. Throat without erythema, (units unknown) (unknown) (unknown) (no date) (unknown) (unknown) ER Physician: Wilfred Phillips P.A-C (units unknown) (unknown) (unknown) (no date) (unknown) (unknown) EXTREMITIES: N o edema or joint tenderness. (units unknown) (unknown) (unknown) (no date) (unknown) (unknown) EYES: Pupils e qual round and reactive. Extraocular motions intact. No scleral (units unknown) (unknown) (unknown) (no date) (unknown) (unknown) Emergency Report (un its unknown) (unknown) (unknown) (no date) (unknown) (unknown) Esterase (units unknown) (unknown) (unknown) (no date) (unknown) (unknown) Exam Narrative: (uni ts unknown) (unknown) (unknown) (no date) (unknown) (unknown) Exam (units unknown) (unknown) (unknown) (no date) (unknown) (unknown) GASTROINTESTIN AL: Denies nausea, vomiting, abdominal pain, diarrhea, (units unknown) (unknown) (unknown) (no date) (unknown) (unknown) GENERAL: Denie s chills, fatigue, malaise, fever, sweats. (units unknown) (unknown) (unknown) (no date) (unknown) (unknown) GENERAL: Well-developed patient, in mild distress. (units unknown) (unknown) (unknown) (no date) (unknown) (unknown) : Denies dys uria, frequency, incontinence, hematuria, urinary retention. (units unknown) (unknown) (unknown) (no date) (unknown) (unknown) General (units unknown) (unknown) (unknown) (no date) (unknown) (unknown) HEAD: Atraumat ic. Normocephalic. (units unknown) (unknown) (unknown) (no date) (unknown) (unknown) HEENT: Denies sinus pain, ear pain, sore throat, difficulty swallowing, (units unknown) (unknown) (unknown) (no date) (unknown) (unknown) HPI - Back Pain/Inju ry (units unknown) (unknown) (unknown) (no date) (unknown) (unknown) HPI Narrative: (unit s unknown) (unknown) (unknown) (no date) (unknown) (unknown) History of Pre sent Illness (units unknown) (unknown) (unknown) (no date) (unknown) (unknown) Home Medications (un its unknown) (unknown) (unknown) (no date) (unknown) (unknown) Hydromorphone HCl (Hydromorphone 1 Mg Inj) 0.5 mg IM NOW ONE (units unknown) (unknown) (unknown) (no date) (unknown) (unknown) I hope you fee l better soon. (units unknown) (unknown) (unknown) (no date) (unknown) (unknown) Initial Vital Signs (units unknown) (unknown) (unknown) (no date) (unknown) (unknown) Initial Vital Signs: (units unknown) (unknown) (unknown) (no date) (unknown) (unknown) Instructions: DI for Back Strain or Sprain (units unknown) (unknown) (unknown) (no date) (unknown) (unknown) [address] [address] (units unknown) (unknown) (unknown) (no date) (unknown) (unknown) Ketorolac Trom ethamine (Ketorolac 30 Mg/Ml Vial) 15 mg IM NOW ONE (units unknown) (unknown) (unknown) (no date) (unknown) (unknown) Lab Data (units unknown) (unknown) (unknown) (no date) (unknown) (unknown) Labs: (units unknown) (unknown) (unknown) (no date) (unknown) (unknown) MDM - Back Pain/Inju ry (units unknown) (unknown) (unknown) (no date) (unknown) (unknown) MDM Narrative (units unknown) (unknown) (unknown) (no date) (unknown) (unknown) MDM (units unknown) (unknown) (unknown) (no date) (unknown) (unknown) MRI which show ed a herniated disc at T9 and has a appointment in 5 days to speak (units unknown) (unknown) (unknown) (no date) (unknown) (unknown) MUSCULOSKELETA L: Reports back pain, denies weakness, joint pain, or bony pain (units unknown) (unknown) (unknown) (no date) (unknown) (unknown) Medical decisi on making narrative: (units unknown) (unknown) (unknown) (no date) (unknown) (unknown) Medication Instructions Recorded Confirmed (units unknown) (unknown) (unknown) (no date) (unknown) (unknown) Medication Instructions Recorded (units unknown) (unknown) (unknown) (no date) (unknown) (unknown) NECK: Trachea midline. Non tender (units unknown) (unknown) (unknown) (no date) (unknown) (unknown) NEURO: AOx3. (units unknown) (unknown) (unknown) (no date) (unknown) (unknown) NEUROLOGIC: De nies weakness, headache, numbness, change in speech, confusion, (units unknown) (unknown) (unknown) (no date) (unknown) (unknown) Narrative (units unknown) (unknown) (unknown) (no date) (unknown) (unknown) Narrative: (units unknown) (unknown) (unknown) (no date) (unknown) (unknown) New (units unknown) (unknown) (unknown) (no date) (unknown) (unknown) No Action (units unknown) (unknown) (unknown) (no date) (unknown) (unknown) No Known Drug Allergies Allergy Verified 01/25/23 12:12 (units unknown) (unknown) (unknown) (no date) (unknown) (unknown) [place]. (units unknown) (unknown) (unknown) (no date) (unknown) (unknown) Ordered: (units unknown) (unknown) (unknown) (no date) (unknown) (unknown) Orders (units unknown) (unknown) (unknown) (no date) (unknown) (unknown) Oxygen Deliver y Method Room Air 01/25/23 12:07 (units unknown) (unknown) (unknown) (no date) (unknown) (unknown) Oxygen Deliver y Method Room Air (units unknown) (unknown) (unknown) (no date) (unknown) (unknown) PSYCHIATRIC: N o concerning psychosocial issues. (units unknown) (unknown) (unknown) (no date) (unknown) (unknown) Patient Dispos ition: Home (units unknown) (unknown) (unknown) (no date) (unknown) (unknown) Patient History (uni ts unknown) (unknown) (unknown) (no date) (unknown) (unknown) Patient has a history of back surgery, L5-S1 secondary fracture. Two months ago (units unknown) (unknown) (unknown) (no date) (unknown) (unknown) Patient has an appointment next Sunday, in 5 days. Already has a oxycodone (units unknown) (unknown) (unknown) (no date) (unknown) (unknown) Patient: Lars Velez MR#: [id number] (units unknown) (unknown) (unknown) (no date) (unknown) (unknown) Prescriptions: (unit s unknown) (unknown) (unknown) (no date) (unknown) (unknown) Previous Rx's (units unknown) (unknown) (unknown) (no date) (unknown) (unknown) Pulse Oximetry 99 01/25/23 12:07 (units unknown) (unknown) (unknown) (no date) (unknown) (unknown) Pulse Oximetry 99 (u nits unknown) (unknown) (unknown) (no date) (unknown) (unknown) Pulse Rate 107 H 01/25/23 12:07 (units unknown) (unknown) (unknown) (no date) (unknown) (unknown) Pulse Rate 107 H (un its unknown) (unknown) (unknown) (no date) (unknown) (unknown) RESPIRATORY: D enies dyspnea, cough, wheezing, hemoptysis, sputum. (units unknown) (unknown) (unknown) (no date) (unknown) (unknown) Referrals: (units unknown) (unknown) (unknown) (no date) (unknown) (unknown) Related Data (units unknown) (unknown) (unknown) (no date) (unknown) (unknown) Respiratory Ra te 18 01/25/23 12:07 (units unknown) (unknown) (unknown) (no date) (unknown) (unknown) Respiratory Rate 18 (units unknown) (unknown) (unknown) (no date) (unknown) (unknown) Review of Systems (u nits unknown) (unknown) (unknown) (no date) (unknown) (unknown) Rx Instructions: (un its unknown) (unknown) (unknown) (no date) (unknown) (unknown) SKIN: Denies r lonnie, skin lesions, or other (units unknown) (unknown) (unknown) (no date) (unknown) (unknown) SKIN: No rash or erythema of visible areas (units unknown) (unknown) (unknown) (no date) (unknown) (unknown) See Rx Instruc tions .ROUTE .COMPLEX Qty: 21 0RF (units unknown) (unknown) (unknown) (no date) (unknown) (unknown) Shared Decisio n Making: Discussed plan with patient who is comfortable with the (units unknown) (unknown) (unknown) (no date) (unknown) (unknown) Signed By: (units unknown) (unknown) (unknown) (no date) (unknown) (unknown) Smoking Status : Never smoker (units unknown) (unknown) (unknown) (no date) (unknown) (unknown) Social Conside rations: None (units unknown) (unknown) (unknown) (no date) (unknown) (unknown) Social History (unit s unknown) (unknown) (unknown) (no date) (unknown) (unknown) Source: patient (uni ts unknown) (unknown) (unknown) (no date) (unknown) (unknown) Stand Alone Fo merrill: Patient Portal/API (units unknown) (unknown) (unknown) (no date) (unknown) (unknown) Stated Complai nt: extreme back pain (units unknown) (unknown) (unknown) (no date) (unknown) (unknown) Stop: 01/25/23 12:59 (units unknown) (unknown) (unknown) (no date) (unknown) (unknown) Strongly reinf orced the fact that the emergency department is not the (units unknown) (unknown) (unknown) (no date) (unknown) (unknown) Substance Use Type: does not use (units unknown) (unknown) (unknown) (no date) (unknown) (unknown) Temperature 98 .8 F 01/25/23 12:07 (units unknown) (unknown) (unknown) (no date) (unknown) (unknown) Temperature 98.8 F ( units unknown) (unknown) (unknown) (no date) (unknown) (unknown) Thank you for coming to the [facility] Emergency Department today. We are (units unknown) (unknown) (unknown) (no date) (unknown) (unknown) This is a 52-y ear-old male presents to the emergency department due to mid back (units unknown) (unknown) (unknown) (no date) (unknown) (unknown) Time Seen by Kalpesh vivas: 01/25/23 12:34 (units unknown) (unknown) (unknown) (no date) (unknown) (unknown) Tylenol and ib uprofen to help with the back pain until you are able to follow-up (units unknown) (unknown) (unknown) (no date) (unknown) (unknown) Urine Dip (units unknown) (unknown) (unknown) (no date) (unknown) (unknown) Urine Specific [employer] 1.010 (units unknown) (unknown) (unknown) (no date) (unknown) (unknown) Vital Signs - 8 hr ( units unknown) (unknown) (unknown) (no date) (unknown) (unknown) Vital Signs (units unknown) (unknown) (unknown) (no date) (unknown) (unknown) Vital signs: (units unknown) (unknown) (unknown) (no date) (unknown) (unknown) a dose pack (Morgan babcock (Orlin)) #21 ea (units unknown) (unknown) (unknown) (no date) (unknown) (unknown) able to give y ou a 1 time dose of Toradol as well as IM Dilaudid here but I (units unknown) (unknown) (unknown) (no date) (unknown) (unknown) acute on chron ic worsening back pain. He states he has been unable to sleep for (units unknown) (unknown) (unknown) (no date) (unknown) (unknown) alcohol intake frequency: 0-2 drinks per day (units unknown) (unknown) (unknown) (no date) (unknown) (unknown) amitriptyline 50 MG tablet (units unknown) (unknown) (unknown) (no date) (unknown) (unknown) amitriptyline 50 mg tablet 50 mg PO HS ##0 10/30/16 (units unknown) (unknown) (unknown) (no date) (unknown) (unknown) any new sympto ms since the MRI was taken. (units unknown) (unknown) (unknown) (no date) (unknown) (unknown) appointment wi a volunteer specialist very soon for definitive management. (units unknown) (unknown) (unknown) (no date) (unknown) (unknown) appropriate pl víctor for repeat visits for opiate pain relief. Eventually a 1 time (units unknown) (unknown) (unknown) (no date) (unknown) (unknown) approximately a month. He states for the last 4 days he has been unable to (units unknown) (unknown) (unknown) (no date) (unknown) (unknown) as a steroid b urst to help with the symptoms until he is able to follow up with (units unknown) (unknown) (unknown) (no date) (unknown) (unknown) constipation, melena . (units unknown) (unknown) (unknown) (no date) (unknown) (unknown) cyclobenzaprin e 10 mg tablet 10 mg PO TID #20 tabs 01/25/23 (units unknown) (unknown) (unknown) (no date) (unknown) (unknown) cyclobenzaprin e 10 mg tablet (units unknown) (unknown) (unknown) (no date) (unknown) (unknown) denies any new weakness or focal nervous system changes. He is already had a (units unknown) (unknown) (unknown) (no date) (unknown) (unknown) department for similar symptoms in the past. (units unknown) (unknown) (unknown) (no date) (unknown) (unknown) dizziness. (units unknown) (unknown) (unknown) (no date) (unknown) (unknown) dose of Dilaud id IM will be given here for the patient as well as Toradol as (units unknown) (unknown) (unknown) (no date) (unknown) (unknown) dosing similar to this. Please use the prescribed medications as well as (units unknown) (unknown) (unknown) (no date) (unknown) (unknown) gabapentin 600 mg tablet 1,200 mg PO TID ##0 10/30/16 (units unknown) (unknown) (unknown) (no date) (unknown) (unknown) gabapentin [Ne urontin] 600 MG tablet (units unknown) (unknown) (unknown) (no date) (unknown) (unknown) he would a sti mulator placed scheduled. MRI was ordered which showed a (units unknown) (unknown) (unknown) (no date) (unknown) (unknown) herniated disc at T9. Has had sharp pain since the stimulator was placed. (units unknown) (unknown) (unknown) (no date) (unknown) (unknown) his spine spec ialist as he already has a prescription for oxycodone. Patient (units unknown) (unknown) (unknown) (no date) (unknown) (unknown) icterus. No in jection or drainage. (units unknown) (unknown) (unknown) (no date) (unknown) (unknown) levothyroxine 200 mcg tablet 0.2 mg PO QDAY ##0 11/19/12 (units unknown) (unknown) (unknown) (no date) (unknown) (unknown) levothyroxine [Synthroid] 200 MCG tablet (units unknown) (unknown) (unknown) (no date) (unknown) (unknown) lisinopril 10 MG tablet (units unknown) (unknown) (unknown) (no date) (unknown) (unknown) lisinopril 10 mg tablet 10 mg PO QDAY ##0 10/30/16 (units unknown) (unknown) (unknown) (no date) (unknown) (unknown) methylpredniso lone 4 mg tablets in See Rx Instructions PO .COMPLEX 01/25/23 (units unknown) (unknown) (unknown) (no date) (unknown) (unknown) methylpredniso lone [Medrol (Orlin)] 4 mg tablets,dose pack (units unknown) (unknown) (unknown) (no date) (unknown) (unknown) muscular back pain, spinal stenosis (units unknown) (unknown) (unknown) (no date) (unknown) (unknown) orally per pac kamary directions (units unknown) (unknown) (unknown) (no date) (unknown) (unknown) oxycodone 5 MG table t (units unknown) (unknown) (unknown) (no date) (unknown) (unknown) oxycodone 5 mg tablet 20 mg PO QID ##0 10/30/16 (units unknown) (unknown) (unknown) (no date) (unknown) (unknown) pain. Patient states this episode of pain has been affecting him for (units unknown) (unknown) (unknown) (no date) (unknown) (unknown) plan. (units unknown) (unknown) (unknown) (no date) (unknown) (unknown) prescription f or 10 mg t.i.d.. Patient complaining of mid back pain and T9. (units unknown) (unknown) (unknown) (no date) (unknown) (unknown) repeatedly req uested IM Dilaudid as he says this worked in the past, extensive (units unknown) (unknown) (unknown) (no date) (unknown) (unknown) seizures, incoordination. (units unknown) (unknown) (unknown) (no date) (unknown) (unknown) sleep due to t he severity of the pain. He is already taking oxycodone 10 mg (units unknown) (unknown) (unknown) (no date) (unknown) (unknown) states that he was instructed to come here through ?break through pain?. He (units unknown) (unknown) (unknown) (no date) (unknown) (unknown) strongly recom mend you do not return to the emergency department for repeat (units unknown) (unknown) (unknown) (no date) (unknown) (unknown) t.i.d. as pres cribed by his volunteer specialist in [facility]. He (units unknown) (unknown) (unknown) (no date) (unknown) (unknown) the last 4 day s. Offered IM Toradol, prescription for muscle relaxants, as well (units unknown) (unknown) (unknown) (no date) (unknown) (unknown) tonsillar hype rtrophy or exudate. Airway patent. (units unknown) (unknown) (unknown) (no date) (unknown) (unknown) tox were had w ith the patient regarding the risks of opiate dependency. (units unknown) (unknown) (unknown) (no date) (unknown) (unknown) well as muscle relaxants as well as steroids prescribed. Patient has an (units unknown) (unknown) (unknown) (no date) (unknown) (unknown) with the volunteer specialist. He denies any urinary or bowel incontinence, denies (units unknown) (unknown) (unknown) (no date) (unknown) (unknown) with your spin e specialist next Sunday. I sent your medications to [facility] and (units unknown) (unknown) Result panel 4 (unknown) (no date) (unknown) (unknown) (no value) (units unknown) (unknown) (unknown) (no date) (unknown) (unknown) <Electronicall y signed by Wilfred Phillips> (units unknown) (unknown) (unknown) (no date) (unknown) (unknown) (Neurontin) (units unknown) (unknown) (unknown) (no date) (unknown) (unknown) (Synthroid) (units unknown) (unknown) (unknown) (no date) (unknown) (unknown) * Clinical Dec ision Rules/Scores evaluated: None (units unknown) (unknown) (unknown) (no date) (unknown) (unknown) * Independent discussions with: None (units unknown) (unknown) (unknown) (no date) (unknown) (unknown) * My imgaing interpretation: None obtained (units unknown) (unknown) (unknown) (no date) (unknown) (unknown) * My lab interpretation: None obtained (units unknown) (unknown) (unknown) (no date) (unknown) (unknown) * Prior record s reviewed: Patient has not been here for the emergency (units unknown) (unknown) (unknown) (no date) (unknown) (unknown) * differential diagnosis includes but not limited to vertebral fracture, (units unknown) (unknown) (unknown) (no date) (unknown) (unknown) 0.2 mg PO QDAY Qty: 0 (units unknown) (unknown) (unknown) (no date) (unknown) (unknown) [id number] (units unknown) (unknown) (unknown) (no date) (unknown) (unknown) 01/25/23 1621 (units unknown) (unknown) (unknown) (no date) (unknown) (unknown) 01/25/23 (units unknown) (unknown) (unknown) (no date) (unknown) (unknown) 1,200 mg PO TID Qty: 0 (units unknown) (unknown) (unknown) (no date) (unknown) (unknown) 10 mg PO QDAY Qty: 0 (units unknown) (unknown) (unknown) (no date) (unknown) (unknown) 10 mg PO TID Q ty: 20 0RF (units unknown) (unknown) (unknown) (no date) (unknown) (unknown) 12 point revie w of systems is negative except for those stated above (units unknown) (unknown) (unknown) (no date) (unknown) (unknown) 12:07 01/25/23 (unit s unknown) (unknown) (unknown) (no date) (unknown) (unknown) 15:06 (units unknown) (unknown) (unknown) (no date) (unknown) (unknown) 20 mg PO QID Qty: 0 (units unknown) (unknown) (unknown) (no date) (unknown) (unknown) 50 mg PO HS Qty: 0 ( units unknown) (unknown) (unknown) (no date) (unknown) (unknown) Activity Restrictions/Additiona l Instructions: (units unknown) (unknown) (unknown) (no date) (unknown) (unknown) Age/Sex: 52 / M (uni ts unknown) (unknown) (unknown) (no date) (unknown) (unknown) Allergies (units unknown) (unknown) (unknown) (no date) (unknown) (unknown) Allergy/AdvRea c Type Severity Reaction Status Date / Time (units unknown) (unknown) (unknown) (no date) (unknown) (unknown) BACK: Mild ten derness to palpation to midthoracic spine, . No flank tenderness. (units unknown) (unknown) (unknown) (no date) (unknown) (unknown) Back pain (units unknown) (unknown) (unknown) (no date) (unknown) (unknown) Bedside Urine Bilirubin - Negative (units unknown) (unknown) (unknown) (no date) (unknown) (unknown) Bedside Urine Glucose Negative (units unknown) (unknown) (unknown) (no date) (unknown) (unknown) Bedside Urine Ketone - Negative (units unknown) (unknown) (unknown) (no date) (unknown) (unknown) Bedside Urine Leukocytes - Negative (units unknown) (unknown) (unknown) (no date) (unknown) (unknown) Bedside Urine Nitrite - Negative (units unknown) (unknown) (unknown) (no date) (unknown) (unknown) Bedside Urine Occult Blood - Negative (units unknown) (unknown) (unknown) (no date) (unknown) (unknown) Bedside Urine Protein - Negative (units unknown) (unknown) (unknown) (no date) (unknown) (unknown) Bedside Urine Urobilinogen 0.2 (units unknown) (unknown) (unknown) (no date) (unknown) (unknown) Bedside Urine pH 6.0 (units unknown) (unknown) (unknown) (no date) (unknown) (unknown) Blood Pressure 172/107 H 01/25/23 12:07 (units unknown) (unknown) (unknown) (no date) (unknown) (unknown) Blood Pressure 172/107 H 160/90 H (units unknown) (unknown) (unknown) (no date) (unknown) (unknown) Ning Sanchez MD [Primary Care Provider] (units unknown) (unknown) (unknown) (no date) (unknown) (unknown) CARDIOVASCULAR : Denies chest pain, palpitations, orthopnea, edema, (units unknown) (unknown) (unknown) (no date) (unknown) (unknown) CARDIOVASCULAR : Regular rate and rhythm without murmurs, gallops, or rubs. . (units unknown) (unknown) (unknown) (no date) (unknown) (unknown) Chief Complain t: Back Pain/Injury (units unknown) (unknown) (unknown) (no date) (unknown) (unknown) Clinical Impression: (units unknown) (unknown) (unknown) (no date) (unknown) (unknown) Course (units unknown) (unknown) (unknown) (no date) (unknown) (unknown) Cyclobenzaprin e HCl (Cyclobenzaprine 10 Mg Tablet) 10 mg PO NOW ONE (units unknown) (unknown) (unknown) (no date) (unknown) (unknown) : 0 Acct:[id number] (units unknown) (unknown) (unknown) (no date) (unknown) (unknown) Date of Servic e: 01/25/23 (units unknown) (unknown) (unknown) (no date) (unknown) (unknown) Departure (units unknown) (unknown) (unknown) (no date) (unknown) (unknown) Discharge Plan (unit s unknown) (unknown) (unknown) (no date) (unknown) (unknown) Discontinued Medications (units unknown) (unknown) (unknown) (no date) (unknown) (unknown) Disposition: Discharged to home (units unknown) (unknown) (unknown) (no date) (unknown) (unknown) Documented By: KB (u nits unknown) (unknown) (unknown) (no date) (unknown) (unknown) Documented By: RB (u nits unknown) (unknown) (unknown) (no date) (unknown) (unknown) ED Course: Farrah roque is a 52-year-old male presents emergency department due to (units unknown) (unknown) (unknown) (no date) (unknown) (unknown) ENT: Nose with out bleeding, purulent drainage. Throat without erythema, (units unknown) (unknown) (unknown) (no date) (unknown) (unknown) ER Physician: Wilfred Phillips P.A-C (units unknown) (unknown) (unknown) (no date) (unknown) (unknown) EXTREMITIES: N o edema or joint tenderness. (units unknown) (unknown) (unknown) (no date) (unknown) (unknown) EYES: Pupils e qual round and reactive. Extraocular motions intact. No scleral (units unknown) (unknown) (unknown) (no date) (unknown) (unknown) Emergency Report (un its unknown) (unknown) (unknown) (no date) (unknown) (unknown) Esterase (units unknown) (unknown) (unknown) (no date) (unknown) (unknown) Exam Narrative: (uni ts unknown) (unknown) (unknown) (no date) (unknown) (unknown) Exam (units unknown) (unknown) (unknown) (no date) (unknown) (unknown) GASTROINTESTIN AL: Denies nausea, vomiting, abdominal pain, diarrhea, (units unknown) (unknown) (unknown) (no date) (unknown) (unknown) GENERAL: Denie s chills, fatigue, malaise, fever, sweats. (units unknown) (unknown) (unknown) (no date) (unknown) (unknown) GENERAL: Well-developed patient, in mild distress. (units unknown) (unknown) (unknown) (no date) (unknown) (unknown) : Denies dys uria, frequency, incontinence, hematuria, urinary retention. (units unknown) (unknown) (unknown) (no date) (unknown) (unknown) General (units unknown) (unknown) (unknown) (no date) (unknown) (unknown) HEAD: Atraumat ic. Normocephalic. (units unknown) (unknown) (unknown) (no date) (unknown) (unknown) HEENT: Denies sinus pain, ear pain, sore throat, difficulty swallowing, (units unknown) (unknown) (unknown) (no date) (unknown) (unknown) HPI - Back Pain/Inju ry (units unknown) (unknown) (unknown) (no date) (unknown) (unknown) HPI Narrative: (unit s unknown) (unknown) (unknown) (no date) (unknown) (unknown) History of Pre sent Illness (units unknown) (unknown) (unknown) (no date) (unknown) (unknown) Home Medications (un its unknown) (unknown) (unknown) (no date) (unknown) (unknown) Hydromorphone HCl (Hydromorphone 1 Mg Inj) 0.5 mg IM NOW ONE (units unknown) (unknown) (unknown) (no date) (unknown) (unknown) I hope you fee l better soon. (units unknown) (unknown) (unknown) (no date) (unknown) (unknown) Initial Vital Signs (units unknown) (unknown) (unknown) (no date) (unknown) (unknown) Initial Vital Signs: (units unknown) (unknown) (unknown) (no date) (unknown) (unknown) Instructions: DI for Back Strain or Sprain (units unknown) (unknown) (unknown) (no date) (unknown) (unknown) [address] [address] (units unknown) (unknown) (unknown) (no date) (unknown) (unknown) Ketorolac Trom ethamine (Ketorolac 30 Mg/Ml Vial) 15 mg IM NOW ONE (units unknown) (unknown) (unknown) (no date) (unknown) (unknown) Lab Data (units unknown) (unknown) (unknown) (no date) (unknown) (unknown) Labs: (units unknown) (unknown) (unknown) (no date) (unknown) (unknown) Last Admin: 13:11 Dose: 0.5 mg (units unknown) (unknown) (unknown) (no date) (unknown) (unknown) Last Admin: 13:11 Dose: 15 mg (units unknown) (unknown) (unknown) (no date) (unknown) (unknown) Last Admin: 14:20 Dose: 0.5 mg (units unknown) (unknown) (unknown) (no date) (unknown) (unknown) Last Admin: 14:21 Dose: 10 mg (units unknown) (unknown) (unknown) (no date) (unknown) (unknown) MDM - Back Pain/Inju ry (units unknown) (unknown) (unknown) (no date) (unknown) (unknown) MDM Narrative (units unknown) (unknown) (unknown) (no date) (unknown) (unknown) MDM (units unknown) (unknown) (unknown) (no date) (unknown) (unknown) MRI which show ed a herniated disc at T9 and has a appointment in 5 days to speak (units unknown) (unknown) (unknown) (no date) (unknown) (unknown) MUSCULOSKELETA L: Reports back pain, denies weakness, joint pain, or bony pain (units unknown) (unknown) (unknown) (no date) (unknown) (unknown) Medical decisi on making narrative: (units unknown) (unknown) (unknown) (no date) (unknown) (unknown) Medication Instructions Recorded Confirmed (units unknown) (unknown) (unknown) (no date) (unknown) (unknown) Medication Instructions Recorded (units unknown) (unknown) (unknown) (no date) (unknown) (unknown) NECK: Trachea midline. Non tender (units unknown) (unknown) (unknown) (no date) (unknown) (unknown) NEURO: AOx3. (units unknown) (unknown) (unknown) (no date) (unknown) (unknown) NEUROLOGIC: De nies weakness, headache, numbness, change in speech, confusion, (units unknown) (unknown) (unknown) (no date) (unknown) (unknown) Narrative (units unknown) (unknown) (unknown) (no date) (unknown) (unknown) Narrative: (units unknown) (unknown) (unknown) (no date) (unknown) (unknown) New (units unknown) (unknown) (unknown) (no date) (unknown) (unknown) No Action (units unknown) (unknown) (unknown) (no date) (unknown) (unknown) No Known Drug Allergies Allergy Verified 01/25/23 12:12 (units unknown) (unknown) (unknown) (no date) (unknown) (unknown) [place]. (units unknown) (unknown) (unknown) (no date) (unknown) (unknown) Ordered: (units unknown) (unknown) (unknown) (no date) (unknown) (unknown) Orders (units unknown) (unknown) (unknown) (no date) (unknown) (unknown) Oxygen Deliver y Method Room Air 01/25/23 12:07 (units unknown) (unknown) (unknown) (no date) (unknown) (unknown) Oxygen Deliver y Method Room Air Room Air (units unknown) (unknown) (unknown) (no date) (unknown) (unknown) PSYCHIATRIC: N o concerning psychosocial issues. (units unknown) (unknown) (unknown) (no date) (unknown) (unknown) Patient Dispos ition: Home (units unknown) (unknown) (unknown) (no date) (unknown) (unknown) Patient History (uni ts unknown) (unknown) (unknown) (no date) (unknown) (unknown) Patient has a history of back surgery, L5-S1 secondary fracture. Two months ago (units unknown) (unknown) (unknown) (no date) (unknown) (unknown) Patient has an appointment next Sunday, in 5 days. Already has a oxycodone (units unknown) (unknown) (unknown) (no date) (unknown) (unknown) Patient: Lars Velez MR#: M (units unknown) (unknown) (unknown) (no date) (unknown) (unknown) Prescriptions: (unit s unknown) (unknown) (unknown) (no date) (unknown) (unknown) Previous Rx's (units unknown) (unknown) (unknown) (no date) (unknown) (unknown) Pulse Oximetry 99 01/25/23 12:07 (units unknown) (unknown) (unknown) (no date) (unknown) (unknown) Pulse Oximetry 99 98 (units unknown) (unknown) (unknown) (no date) (unknown) (unknown) Pulse Rate 107 H 01/25/23 12:07 (units unknown) (unknown) (unknown) (no date) (unknown) (unknown) Pulse Rate 107 H 78 (units unknown) (unknown) (unknown) (no date) (unknown) (unknown) RESPIRATORY: D enies dyspnea, cough, wheezing, hemoptysis, sputum. (units unknown) (unknown) (unknown) (no date) (unknown) (unknown) Referrals: (units unknown) (unknown) (unknown) (no date) (unknown) (unknown) Related Data (units unknown) (unknown) (unknown) (no date) (unknown) (unknown) Respiratory Ra te 18 01/25/23 12:07 (units unknown) (unknown) (unknown) (no date) (unknown) (unknown) Respiratory Rate 18 18 (units unknown) (unknown) (unknown) (no date) (unknown) (unknown) Review of Systems (u nits unknown) (unknown) (unknown) (no date) (unknown) (unknown) Rx Instructions: (un its unknown) (unknown) (unknown) (no date) (unknown) (unknown) SKIN: Denies r lonnie, skin lesions, or other (units unknown) (unknown) (unknown) (no date) (unknown) (unknown) SKIN: No rash or erythema of visible areas (units unknown) (unknown) (unknown) (no date) (unknown) (unknown) See Rx Instruc tions .ROUTE .COMPLEX Qty: 21 0RF (units unknown) (unknown) (unknown) (no date) (unknown) (unknown) Shared Decisio n Making: Discussed plan with patient who is comfortable with the (units unknown) (unknown) (unknown) (no date) (unknown) (unknown) Signed By: (units unknown) (unknown) (unknown) (no date) (unknown) (unknown) Smoking Status : Never smoker (units unknown) (unknown) (unknown) (no date) (unknown) (unknown) Social Conside rations: None (units unknown) (unknown) (unknown) (no date) (unknown) (unknown) Social History (unit s unknown) (unknown) (unknown) (no date) (unknown) (unknown) Source: patient (uni ts unknown) (unknown) (unknown) (no date) (unknown) (unknown) Stand Alone Fo merrill: Patient Portal/API (units unknown) (unknown) (unknown) (no date) (unknown) (unknown) Stated Complai nt: extreme back pain (units unknown) (unknown) (unknown) (no date) (unknown) (unknown) Stop: 01/25/23 12:59 (units unknown) (unknown) (unknown) (no date) (unknown) (unknown) Stop: 01/25/23 13:55 (units unknown) (unknown) (unknown) (no date) (unknown) (unknown) Strongly reinf orced the fact that the emergency department is not the (units unknown) (unknown) (unknown) (no date) (unknown) (unknown) Substance Use Type: does not use (units unknown) (unknown) (unknown) (no date) (unknown) (unknown) Temperature 98 .8 F 01/25/23 12:07 (units unknown) (unknown) (unknown) (no date) (unknown) (unknown) Temperature 98.8 F ( units unknown) (unknown) (unknown) (no date) (unknown) (unknown) Thank you for coming to the [facility] Emergency Department today. We are (units unknown) (unknown) (unknown) (no date) (unknown) (unknown) This is a 52-y ear-old male presents to the emergency department due to mid back (units unknown) (unknown) (unknown) (no date) (unknown) (unknown) Time Seen by Kalpesh vivas: 01/25/23 12:34 (units unknown) (unknown) (unknown) (no date) (unknown) (unknown) Tylenol and ib uprofen to help with the back pain until you are able to follow-up (units unknown) (unknown) (unknown) (no date) (unknown) (unknown) Urine Dip (units unknown) (unknown) (unknown) (no date) (unknown) (unknown) Urine Specific [employer] 1.010 (units unknown) (unknown) (unknown) (no date) (unknown) (unknown) Vital Signs - 8 hr ( units unknown) (unknown) (unknown) (no date) (unknown) (unknown) Vital Signs (units unknown) (unknown) (unknown) (no date) (unknown) (unknown) Vital signs: (units unknown) (unknown) (unknown) (no date) (unknown) (unknown) a dose pack (Morgan babcock (Orlin)) #21 ea (units unknown) (unknown) (unknown) (no date) (unknown) (unknown) able to give y ou a 1 time dose of Toradol as well as IM Dilaudid here but I (units unknown) (unknown) (unknown) (no date) (unknown) (unknown) acute on chron ic worsening back pain. He states he has been unable to sleep for (units unknown) (unknown) (unknown) (no date) (unknown) (unknown) alcohol intake frequency: 0-2 drinks per day (units unknown) (unknown) (unknown) (no date) (unknown) (unknown) amitriptyline 50 MG tablet (units unknown) (unknown) (unknown) (no date) (unknown) (unknown) amitriptyline 50 mg tablet 50 mg PO HS ##0 10/30/16 (units unknown) (unknown) (unknown) (no date) (unknown) (unknown) any new sympto ms since the MRI was taken. (units unknown) (unknown) (unknown) (no date) (unknown) (unknown) appointment wi a volunteer specialist very soon for definitive management. (units unknown) (unknown) (unknown) (no date) (unknown) (unknown) appropriate pl víctor for repeat visits for opiate pain relief. Eventually a 1 time (units unknown) (unknown) (unknown) (no date) (unknown) (unknown) approximately a month. He states for the last 4 days he has been unable to (units unknown) (unknown) (unknown) (no date) (unknown) (unknown) as a steroid b urst to help with the symptoms until he is able to follow up with (units unknown) (unknown) (unknown) (no date) (unknown) (unknown) constipation, melena . (units unknown) (unknown) (unknown) (no date) (unknown) (unknown) cyclobenzaprin e 10 mg tablet 10 mg PO TID #20 tabs 01/25/23 (units unknown) (unknown) (unknown) (no date) (unknown) (unknown) cyclobenzaprin e 10 mg tablet (units unknown) (unknown) (unknown) (no date) (unknown) (unknown) denies any new weakness or focal nervous system changes. He is already had a (units unknown) (unknown) (unknown) (no date) (unknown) (unknown) department for similar symptoms in the past. (units unknown) (unknown) (unknown) (no date) (unknown) (unknown) dizziness. (units unknown) (unknown) (unknown) (no date) (unknown) (unknown) dose of Dilaud id IM will be given here for the patient as well as Toradol as (units unknown) (unknown) (unknown) (no date) (unknown) (unknown) dosing similar to this. Please use the prescribed medications as well as (units unknown) (unknown) (unknown) (no date) (unknown) (unknown) gabapentin 600 mg tablet 1,200 mg PO TID ##0 10/30/16 (units unknown) (unknown) (unknown) (no date) (unknown) (unknown) gabapentin [Ne urontin] 600 MG tablet (units unknown) (unknown) (unknown) (no date) (unknown) (unknown) he would a sti mulator placed scheduled. MRI was ordered which showed a (units unknown) (unknown) (unknown) (no date) (unknown) (unknown) herniated disc at T9. Has had sharp pain since the stimulator was placed. (units unknown) (unknown) (unknown) (no date) (unknown) (unknown) his spine spec ialist as he already has a prescription for oxycodone. Patient (units unknown) (unknown) (unknown) (no date) (unknown) (unknown) icterus. No in jection or drainage. (units unknown) (unknown) (unknown) (no date) (unknown) (unknown) levothyroxine 200 mcg tablet 0.2 mg PO QDAY ##0 11/19/12 (units unknown) (unknown) (unknown) (no date) (unknown) (unknown) levothyroxine [Synthroid] 200 MCG tablet (units unknown) (unknown) (unknown) (no date) (unknown) (unknown) lisinopril 10 MG tablet (units unknown) (unknown) (unknown) (no date) (unknown) (unknown) lisinopril 10 mg tablet 10 mg PO QDAY ##0 10/30/16 (units unknown) (unknown) (unknown) (no date) (unknown) (unknown) methylpredniso lone 4 mg tablets in See Rx Instructions PO .COMPLEX 01/25/23 (units unknown) (unknown) (unknown) (no date) (unknown) (unknown) methylpredniso lone [Medrol (Orlin)] 4 mg tablets,dose pack (units unknown) (unknown) (unknown) (no date) (unknown) (unknown) muscular back pain, spinal stenosis (units unknown) (unknown) (unknown) (no date) (unknown) (unknown) orally per pac kage directions (units unknown) (unknown) (unknown) (no date) (unknown) (unknown) oxycodone 5 MG table t (units unknown) (unknown) (unknown) (no date) (unknown) (unknown) oxycodone 5 mg tablet 20 mg PO QID ##0 10/30/16 (units unknown) (unknown) (unknown) (no date) (unknown) (unknown) pain. Patient states this episode of pain has been affecting him for (units unknown) (unknown) (unknown) (no date) (unknown) (unknown) plan. (units unknown) (unknown) (unknown) (no date) (unknown) (unknown) prescription f or 10 mg t.i.d.. Patient complaining of mid back pain and T9. (units unknown) (unknown) (unknown) (no date) (unknown) (unknown) repeatedly req uested IM Dilaudid as he says this worked in the past, extensive (units unknown) (unknown) (unknown) (no date) (unknown) (unknown) seizures, incoordination. (units unknown) (unknown) (unknown) (no date) (unknown) (unknown) sleep due to t he severity of the pain. He is already taking oxycodone 10 mg (units unknown) (unknown) (unknown) (no date) (unknown) (unknown) states that he was instructed to come here through ?break through pain?. He (units unknown) (unknown) (unknown) (no date) (unknown) (unknown) strongly recom mend you do not return to the emergency department for repeat (units unknown) (unknown) (unknown) (no date) (unknown) (unknown) t.i.d. as pres cribed by his volunteer specialist in [facility]. He (units unknown) (unknown) (unknown) (no date) (unknown) (unknown) the last 4 day s. Offered IM Toradol, prescription for muscle relaxants, as well (units unknown) (unknown) (unknown) (no date) (unknown) (unknown) tonsillar hype rtrophy or exudate. Airway patent. (units unknown) (unknown) (unknown) (no date) (unknown) (unknown) tox were had w ith the patient regarding the risks of opiate dependency. (units unknown) (unknown) (unknown) (no date) (unknown) (unknown) well as muscle relaxants as well as steroids prescribed. Patient has an (units unknown) (unknown) (unknown) (no date) (unknown) (unknown) with the volunteer specialist. He denies any urinary or bowel incontinence, denies (units unknown) (unknown) (unknown) (no date) (unknown) (unknown) with your spin e specialist next Sunday. I sent your medications to [facility] and (units unknown) (unknown) Result panel 5 (unknown) (no date) (unknown) (unknown) (no value) (units unknown) (unknown) (unknown) (no date) (unknown) (unknown) <Electronicall y signed by Ruben Jung D.O.> (units unknown) (unknown) (unknown) (no date) (unknown) (unknown) <Electronicall y signed by Ruben Jung D.O.> (units unknown) (unknown) (unknown) (no date) (unknown) (unknown) <Electronicall y signed by Wilfred Phillips> (units unknown) (unknown) (unknown) (no date) (unknown) (unknown) <Ruben patel DO - Last Filed: 01/25/23 17:55> (units unknown) (unknown) (unknown) (no date) (unknown) (unknown) <NICK Bains - Last Filed: 01/25/23 16:21> (units unknown) (unknown) (unknown) (no date) (unknown) (unknown) <cosigner> (units unknown) (unknown) (unknown) (no date) (unknown) (unknown) (Neurontin) (units unknown) (unknown) (unknown) (no date) (unknown) (unknown) (Synthroid) (units unknown) (unknown) (unknown) (no date) (unknown) (unknown) * Clinical Dec ision Rules/Scores evaluated: None (units unknown) (unknown) (unknown) (no date) (unknown) (unknown) * Independent discussions with: None (units unknown) (unknown) (unknown) (no date) (unknown) (unknown) * My imgaing interpretation: None obtained (units unknown) (unknown) (unknown) (no date) (unknown) (unknown) * My lab interpretation: None obtained (units unknown) (unknown) (unknown) (no date) (unknown) (unknown) * Prior record s reviewed: Patient has not been here for the emergency (units unknown) (unknown) (unknown) (no date) (unknown) (unknown) * differential diagnosis includes but not limited to vertebral fracture, (units unknown) (unknown) (unknown) (no date) (unknown) (unknown) 0.2 mg PO QDAY Qty: 0 (units unknown) (unknown) (unknown) (no date) (unknown) (unknown) [id number] (units unknown) (unknown) (unknown) (no date) (unknown) (unknown) 01/25/23 1621 (units unknown) (unknown) (unknown) (no date) (unknown) (unknown) 01/25/23 1755 (units unknown) (unknown) (unknown) (no date) (unknown) (unknown) 01/25/23 (units unknown) (unknown) (unknown) (no date) (unknown) (unknown) 1,200 mg PO TID Qty: 0 (units unknown) (unknown) (unknown) (no date) (unknown) (unknown) 10 mg PO QDAY Qty: 0 (units unknown) (unknown) (unknown) (no date) (unknown) (unknown) 10 mg PO TID Q ty: 20 0RF (units unknown) (unknown) (unknown) (no date) (unknown) (unknown) 12 point revie w of systems is negative except for those stated above (units unknown) (unknown) (unknown) (no date) (unknown) (unknown) 12:07 01/25/23 (unit s unknown) (unknown) (unknown) (no date) (unknown) (unknown) 15:06 (units unknown) (unknown) (unknown) (no date) (unknown) (unknown) 20 mg PO QID Qty: 0 (units unknown) (unknown) (unknown) (no date) (unknown) (unknown) 50 mg PO HS Qty: 0 ( units unknown) (unknown) (unknown) (no date) (unknown) (unknown) Activity Restrictions/Additiona l Instructions: (units unknown) (unknown) (unknown) (no date) (unknown) (unknown) Age/Sex: 52 / M (uni ts unknown) (unknown) (unknown) (no date) (unknown) (unknown) Allergies (units unknown) (unknown) (unknown) (no date) (unknown) (unknown) Allergy/AdvRea c Type Severity Reaction Status Date / Time (units unknown) (unknown) (unknown) (no date) (unknown) (unknown) BACK: Mild ten derness to palpation to midthoracic spine, . No flank tenderness. (units unknown) (unknown) (unknown) (no date) (unknown) (unknown) Back pain (units unknown) (unknown) (unknown) (no date) (unknown) (unknown) Bedside Urine Bilirubin - Negative (units unknown) (unknown) (unknown) (no date) (unknown) (unknown) Bedside Urine Glucose Negative (units unknown) (unknown) (unknown) (no date) (unknown) (unknown) Bedside Urine Ketone - Negative (units unknown) (unknown) (unknown) (no date) (unknown) (unknown) Bedside Urine Leukocytes - Negative (units unknown) (unknown) (unknown) (no date) (unknown) (unknown) Bedside Urine Nitrite - Negative (units unknown) (unknown) (unknown) (no date) (unknown) (unknown) Bedside Urine Occult Blood - Negative (units unknown) (unknown) (unknown) (no date) (unknown) (unknown) Bedside Urine Protein - Negative (units unknown) (unknown) (unknown) (no date) (unknown) (unknown) Bedside Urine Urobilinogen 0.2 (units unknown) (unknown) (unknown) (no date) (unknown) (unknown) Bedside Urine pH 6.0 (units unknown) (unknown) (unknown) (no date) (unknown) (unknown) Blood Pressure 172/107 H 01/25/23 12:07 (units unknown) (unknown) (unknown) (no date) (unknown) (unknown) Blood Pressure 172/107 H 160/90 H (units unknown) (unknown) (unknown) (no date) (unknown) (unknown) Ning Sanchez MD [Primary Care Provider] (units unknown) (unknown) (unknown) (no date) (unknown) (unknown) CARDIOVASCULAR : Denies chest pain, palpitations, orthopnea, edema, (units unknown) (unknown) (unknown) (no date) (unknown) (unknown) CARDIOVASCULAR : Regular rate and rhythm without murmurs, gallops, or rubs. . (units unknown) (unknown) (unknown) (no date) (unknown) (unknown) Chief Complain t: Back Pain/Injury (units unknown) (unknown) (unknown) (no date) (unknown) (unknown) Clinical Impression: (units unknown) (unknown) (unknown) (no date) (unknown) (unknown) Cosign (units unknown) (unknown) (unknown) (no date) (unknown) (unknown) Course (units unknown) (unknown) (unknown) (no date) (unknown) (unknown) Cyclobenzaprin e HCl (Cyclobenzaprine 10 Mg Tablet) 10 mg PO NOW ONE (units unknown) (unknown) (unknown) (no date) (unknown) (unknown) : 0 Acct:[id number] (units unknown) (unknown) (unknown) (no date) (unknown) (unknown) Date of Servic e: 01/25/23 (units unknown) (unknown) (unknown) (no date) (unknown) (unknown) Departure (units unknown) (unknown) (unknown) (no date) (unknown) (unknown) Discharge Plan (unit s unknown) (unknown) (unknown) (no date) (unknown) (unknown) Discontinued Medications (units unknown) (unknown) (unknown) (no date) (unknown) (unknown) Disposition: Discharged to home (units unknown) (unknown) (unknown) (no date) (unknown) (unknown) Documented By: KB (u nits unknown) (unknown) (unknown) (no date) (unknown) (unknown) Documented By: RB (u nits unknown) (unknown) (unknown) (no date) (unknown) (unknown) Dr Jung Co-S ign Statement: I was available for consultation during this (units unknown) (unknown) (unknown) (no date) (unknown) (unknown) ED Attending Cosignature Attestation: (units unknown) (unknown) (unknown) (no date) (unknown) (unknown) ED Course: Farrah roque is a 52-year-old male presents emergency department due to (units unknown) (unknown) (unknown) (no date) (unknown) (unknown) ENT: Nose with out bleeding, purulent drainage. Throat without erythema, (units unknown) (unknown) (unknown) (no date) (unknown) (unknown) ER Physician: Wilfred Phillips P.A-C (units unknown) (unknown) (unknown) (no date) (unknown) (unknown) EXTREMITIES: N o edema or joint tenderness. (units unknown) (unknown) (unknown) (no date) (unknown) (unknown) EYES: Pupils e qual round and reactive. Extraocular motions intact. No scleral (units unknown) (unknown) (unknown) (no date) (unknown) (unknown) Emergency Report (un its unknown) (unknown) (unknown) (no date) (unknown) (unknown) Esterase (units unknown) (unknown) (unknown) (no date) (unknown) (unknown) Exam Narrative: (uni ts unknown) (unknown) (unknown) (no date) (unknown) (unknown) Exam (units unknown) (unknown) (unknown) (no date) (unknown) (unknown) GASTROINTESTIN AL: Denies nausea, vomiting, abdominal pain, diarrhea, (units unknown) (unknown) (unknown) (no date) (unknown) (unknown) GENERAL: Denie s chills, fatigue, malaise, fever, sweats. (units unknown) (unknown) (unknown) (no date) (unknown) (unknown) GENERAL: Well-developed patient, in mild distress. (units unknown) (unknown) (unknown) (no date) (unknown) (unknown) : Denies dys uria, frequency, incontinence, hematuria, urinary retention. (units unknown) (unknown) (unknown) (no date) (unknown) (unknown) General (units unknown) (unknown) (unknown) (no date) (unknown) (unknown) HEAD: Atraumat ic. Normocephalic. (units unknown) (unknown) (unknown) (no date) (unknown) (unknown) HEENT: Denies sinus pain, ear pain, sore throat, difficulty swallowing, (units unknown) (unknown) (unknown) (no date) (unknown) (unknown) HPI - Back Pain/Inju ry (units unknown) (unknown) (unknown) (no date) (unknown) (unknown) HPI Narrative: (unit s unknown) (unknown) (unknown) (no date) (unknown) (unknown) History of Pre sent Illness (units unknown) (unknown) (unknown) (no date) (unknown) (unknown) Home Medications (un its unknown) (unknown) (unknown) (no date) (unknown) (unknown) Hydromorphone HCl (Hydromorphone 1 Mg Inj) 0.5 mg IM NOW ONE (units unknown) (unknown) (unknown) (no date) (unknown) (unknown) I hope you fee l better soon. (units unknown) (unknown) (unknown) (no date) (unknown) (unknown) Initial Vital Signs (units unknown) (unknown) (unknown) (no date) (unknown) (unknown) Initial Vital Signs: (units unknown) (unknown) (unknown) (no date) (unknown) (unknown) Instructions: DI for Back Strain or Sprain (units unknown) (unknown) (unknown) (no date) (unknown) (unknown) [address] [address] (units unknown) (unknown) (unknown) (no date) (unknown) (unknown) Ketorolac Trom ethamine (Ketorolac 30 Mg/Ml Vial) 15 mg IM NOW ONE (units unknown) (unknown) (unknown) (no date) (unknown) (unknown) Lab Data (units unknown) (unknown) (unknown) (no date) (unknown) (unknown) Labs: (units unknown) (unknown) (unknown) (no date) (unknown) (unknown) Last Admin: 13:11 Dose: 0.5 mg (units unknown) (unknown) (unknown) (no date) (unknown) (unknown) Last Admin: 13:11 Dose: 15 mg (units unknown) (unknown) (unknown) (no date) (unknown) (unknown) Last Admin: 14:20 Dose: 0.5 mg (units unknown) (unknown) (unknown) (no date) (unknown) (unknown) Last Admin: 14:21 Dose: 10 mg (units unknown) (unknown) (unknown) (no date) (unknown) (unknown) MDM - Back Pain/Inju ry (units unknown) (unknown) (unknown) (no date) (unknown) (unknown) MDM Narrative (units unknown) (unknown) (unknown) (no date) (unknown) (unknown) MDM (units unknown) (unknown) (unknown) (no date) (unknown) (unknown) MRI which show ed a herniated disc at T9 and has a appointment in 5 days to speak (units unknown) (unknown) (unknown) (no date) (unknown) (unknown) MUSCULOSKELETA L: Reports back pain, denies weakness, joint pain, or bony pain (units unknown) (unknown) (unknown) (no date) (unknown) (unknown) Medical decisi on making narrative: (units unknown) (unknown) (unknown) (no date) (unknown) (unknown) Medication Instructions Recorded Confirmed (units unknown) (unknown) (unknown) (no date) (unknown) (unknown) Medication Instructions Recorded (units unknown) (unknown) (unknown) (no date) (unknown) (unknown) NECK: Trachea midline. Non tender (units unknown) (unknown) (unknown) (no date) (unknown) (unknown) NEURO: AOx3. (units unknown) (unknown) (unknown) (no date) (unknown) (unknown) NEUROLOGIC: De nies weakness, headache, numbness, change in speech, confusion, (units unknown) (unknown) (unknown) (no date) (unknown) (unknown) Narrative (units unknown) (unknown) (unknown) (no date) (unknown) (unknown) Narrative: (units unknown) (unknown) (unknown) (no date) (unknown) (unknown) New (units unknown) (unknown) (unknown) (no date) (unknown) (unknown) No Action (units unknown) (unknown) (unknown) (no date) (unknown) (unknown) No Known Drug Allergies Allergy Verified 01/25/23 12:12 (units unknown) (unknown) (unknown) (no date) (unknown) (unknown) [place]. (units unknown) (unknown) (unknown) (no date) (unknown) (unknown) Ordered: (units unknown) (unknown) (unknown) (no date) (unknown) (unknown) Orders (units unknown) (unknown) (unknown) (no date) (unknown) (unknown) Oxygen Deliver y Method Room Air 01/25/23 12:07 (units unknown) (unknown) (unknown) (no date) (unknown) (unknown) Oxygen Deliver y Method Room Air Room Air (units unknown) (unknown) (unknown) (no date) (unknown) (unknown) PSYCHIATRIC: N o concerning psychosocial issues. (units unknown) (unknown) (unknown) (no date) (unknown) (unknown) Patient Dispos ition: Home (units unknown) (unknown) (unknown) (no date) (unknown) (unknown) Patient History (uni ts unknown) (unknown) (unknown) (no date) (unknown) (unknown) Patient has a history of back surgery, L5-S1 secondary fracture. Two months ago (units unknown) (unknown) (unknown) (no date) (unknown) (unknown) Patient: Lars Velez MR#: [id number] (units unknown) (unknown) (unknown) (no date) (unknown) (unknown) Prescriptions: (unit s unknown) (unknown) (unknown) (no date) (unknown) (unknown) Previous Rx's (units unknown) (unknown) (unknown) (no date) (unknown) (unknown) Pulse Oximetry 99 01/25/23 12:07 (units unknown) (unknown) (unknown) (no date) (unknown) (unknown) Pulse Oximetry 99 98 (units unknown) (unknown) (unknown) (no date) (unknown) (unknown) Pulse Rate 107 H 01/25/23 12:07 (units unknown) (unknown) (unknown) (no date) (unknown) (unknown) Pulse Rate 107 H 78 (units unknown) (unknown) (unknown) (no date) (unknown) (unknown) RESPIRATORY: D enies dyspnea, cough, wheezing, hemoptysis, sputum. (units unknown) (unknown) (unknown) (no date) (unknown) (unknown) Referrals: (units unknown) (unknown) (unknown) (no date) (unknown) (unknown) Related Data (units unknown) (unknown) (unknown) (no date) (unknown) (unknown) Respiratory Ra te 18 01/25/23 12:07 (units unknown) (unknown) (unknown) (no date) (unknown) (unknown) Respiratory Rate 18 18 (units unknown) (unknown) (unknown) (no date) (unknown) (unknown) Review of Systems (u nits unknown) (unknown) (unknown) (no date) (unknown) (unknown) Rx Instructions: (un its unknown) (unknown) (unknown) (no date) (unknown) (unknown) SKIN: Denies r lonnie, skin lesions, or other (units unknown) (unknown) (unknown) (no date) (unknown) (unknown) SKIN: No rash or erythema of visible areas (units unknown) (unknown) (unknown) (no date) (unknown) (unknown) See Rx Instruc tions .ROUTE .COMPLEX Qty: 21 0RF (units unknown) (unknown) (unknown) (no date) (unknown) (unknown) Shared Decisio n Making: Discussed plan with patient who is comfortable with the (units unknown) (unknown) (unknown) (no date) (unknown) (unknown) Signed By: (units unknown) (unknown) (unknown) (no date) (unknown) (unknown) Smoking Status : Never smoker (units unknown) (unknown) (unknown) (no date) (unknown) (unknown) Social Conside rations: None (units unknown) (unknown) (unknown) (no date) (unknown) (unknown) Social History (unit s unknown) (unknown) (unknown) (no date) (unknown) (unknown) Source: patient (uni ts unknown) (unknown) (unknown) (no date) (unknown) (unknown) Stand Alone Fo merrill: Patient Portal/API (units unknown) (unknown) (unknown) (no date) (unknown) (unknown) Stated Complai nt: extreme back pain (units unknown) (unknown) (unknown) (no date) (unknown) (unknown) Stop: 01/25/23 12:59 (units unknown) (unknown) (unknown) (no date) (unknown) (unknown) Stop: 01/25/23 13:55 (units unknown) (unknown) (unknown) (no date) (unknown) (unknown) Strongly reinf orced the fact that the emergency department is not the (units unknown) (unknown) (unknown) (no date) (unknown) (unknown) Substance Use Type: does not use (units unknown) (unknown) (unknown) (no date) (unknown) (unknown) Temperature 98 .8 F 01/25/23 12:07 (units unknown) (unknown) (unknown) (no date) (unknown) (unknown) Temperature 98.8 F ( units unknown) (unknown) (unknown) (no date) (unknown) (unknown) Thank you for coming to the [facility] Emergency Department today. We are (units unknown) (unknown) (unknown) (no date) (unknown) (unknown) This is a 52-y ear-old male presents to the emergency department due to mid back (units unknown) (unknown) (unknown) (no date) (unknown) (unknown) Time Seen by Kalpesh vivas: 01/25/23 12:34 (units unknown) (unknown) (unknown) (no date) (unknown) (unknown) Tylenol and ib uprofen to help with the back pain until you are able to follow-up (units unknown) (unknown) (unknown) (no date) (unknown) (unknown) Urine Dip (units unknown) (unknown) (unknown) (no date) (unknown) (unknown) Urine Specific [employer] 1.010 (units unknown) (unknown) (unknown) (no date) (unknown) (unknown) Vital Signs - 8 hr ( units unknown) (unknown) (unknown) (no date) (unknown) (unknown) Vital Signs (units unknown) (unknown) (unknown) (no date) (unknown) (unknown) Vital signs: (units unknown) (unknown) (unknown) (no date) (unknown) (unknown) a dose pack (Morgan babcock (Orlin)) #21 ea (units unknown) (unknown) (unknown) (no date) (unknown) (unknown) able to give y ou a 1 time dose of Toradol as well as IM Dilaudid here but I (units unknown) (unknown) (unknown) (no date) (unknown) (unknown) acute on chron ic worsening back pain. He states he has been unable to sleep for (units unknown) (unknown) (unknown) (no date) (unknown) (unknown) administrative purposes only. I did not have direct contact with this patient (units unknown) (unknown) (unknown) (no date) (unknown) (unknown) alcohol intake frequency: 0-2 drinks per day (units unknown) (unknown) (unknown) (no date) (unknown) (unknown) amitriptyline 50 MG tablet (units unknown) (unknown) (unknown) (no date) (unknown) (unknown) amitriptyline 50 mg tablet 50 mg PO HS ##0 10/30/16 (units unknown) (unknown) (unknown) (no date) (unknown) (unknown) any new sympto ms since the MRI was taken. (units unknown) (unknown) (unknown) (no date) (unknown) (unknown) appointment wi a volunteer specialist very soon for definitive management. (units unknown) (unknown) (unknown) (no date) (unknown) (unknown) appropriate pl víctor for repeat visits for opiate pain relief. Eventually a 1 time (units unknown) (unknown) (unknown) (no date) (unknown) (unknown) approximately a month. He states for the last 4 days he has been unable to (units unknown) (unknown) (unknown) (no date) (unknown) (unknown) as a steroid b urst to help with the symptoms until he is able to follow up with (units unknown) (unknown) (unknown) (no date) (unknown) (unknown) constipation, melena . (units unknown) (unknown) (unknown) (no date) (unknown) (unknown) cyclobenzaprin e 10 mg tablet 10 mg PO TID #20 tabs 01/25/23 (units unknown) (unknown) (unknown) (no date) (unknown) (unknown) cyclobenzaprin e 10 mg tablet (units unknown) (unknown) (unknown) (no date) (unknown) (unknown) denies any new weakness or focal nervous system changes. He is already had a (units unknown) (unknown) (unknown) (no date) (unknown) (unknown) department for similar symptoms in the past. (units unknown) (unknown) (unknown) (no date) (unknown) (unknown) dizziness. (units unknown) (unknown) (unknown) (no date) (unknown) (unknown) dose of Dilaud id IM will be given here for the patient as well as Toradol as (units unknown) (unknown) (unknown) (no date) (unknown) (unknown) dosing similar to this. Please use the prescribed medications as well as (units unknown) (unknown) (unknown) (no date) (unknown) (unknown) during this vi sit. They were seen independently by the APC. (units unknown) (unknown) (unknown) (no date) (unknown) (unknown) gabapentin 600 mg tablet 1,200 mg PO TID ##0 10/30/16 (units unknown) (unknown) (unknown) (no date) (unknown) (unknown) gabapentin [Ne urontin] 600 MG tablet (units unknown) (unknown) (unknown) (no date) (unknown) (unknown) has an appoint ment next Sunday, in 5 days. Already has a oxycodone (units unknown) (unknown) (unknown) (no date) (unknown) (unknown) he would a sti mulator placed scheduled. MRI was ordered which showed a jovany (units unknown) (unknown) (unknown) (no date) (unknown) (unknown) his spine spec ialist as he already has a prescription for oxycodone. Patient (units unknown) (unknown) (unknown) (no date) (unknown) (unknown) iated disc at T9. Has had sharp pain since the stimulator was placed. Patient (units unknown) (unknown) (unknown) (no date) (unknown) (unknown) icterus. No in jection or drainage. (units unknown) (unknown) (unknown) (no date) (unknown) (unknown) levothyroxine 200 mcg tablet 0.2 mg PO QDAY ##0 11/19/12 (units unknown) (unknown) (unknown) (no date) (unknown) (unknown) levothyroxine [Synthroid] 200 MCG tablet (units unknown) (unknown) (unknown) (no date) (unknown) (unknown) lisinopril 10 MG tablet (units unknown) (unknown) (unknown) (no date) (unknown) (unknown) lisinopril 10 mg tablet 10 mg PO QDAY ##0 10/30/16 (units unknown) (unknown) (unknown) (no date) (unknown) (unknown) methylpredniso lone 4 mg tablets in See Rx Instructions PO .COMPLEX 01/25/23 (units unknown) (unknown) (unknown) (no date) (unknown) (unknown) methylpredniso lone [Medrol (Orlin)] 4 mg tablets,dose pack (units unknown) (unknown) (unknown) (no date) (unknown) (unknown) muscular back pain, spinal stenosis (units unknown) (unknown) (unknown) (no date) (unknown) (unknown) orally per pac kage directions (units unknown) (unknown) (unknown) (no date) (unknown) (unknown) oxycodone 5 MG table t (units unknown) (unknown) (unknown) (no date) (unknown) (unknown) oxycodone 5 mg tablet 20 mg PO QID ##0 10/30/16 (units unknown) (unknown) (unknown) (no date) (unknown) (unknown) pain. Patient states this episode of pain has been affecting him for (units unknown) (unknown) (unknown) (no date) (unknown) (unknown) patient's [facility] visit. This chart is signed by myself for (units unknown) (unknown) (unknown) (no date) (unknown) (unknown) plan. (units unknown) (unknown) (unknown) (no date) (unknown) (unknown) prescription f or 10 mg t.i.d.. Patient complaining of mid back pain and T9. (units unknown) (unknown) (unknown) (no date) (unknown) (unknown) repeatedly req uested IM Dilaudid as he says this worked in the past, extensive (units unknown) (unknown) (unknown) (no date) (unknown) (unknown) seizures, incoordination. (units unknown) (unknown) (unknown) (no date) (unknown) (unknown) sleep due to t he severity of the pain. He is already taking oxycodone 10 mg (units unknown) (unknown) (unknown) (no date) (unknown) (unknown) states that he was instructed to come here through ?break through pain?. He (units unknown) (unknown) (unknown) (no date) (unknown) (unknown) strongly recom mend you do not return to the emergency department for repeat (units unknown) (unknown) (unknown) (no date) (unknown) (unknown) t.i.d. as pres cribed by his volunteer specialist in [facility]. He (units unknown) (unknown) (unknown) (no date) (unknown) (unknown) the last 4 day s. Offered IM Toradol, prescription for muscle relaxants, as well (units unknown) (unknown) (unknown) (no date) (unknown) (unknown) tonsillar hype rtrophy or exudate. Airway patent. (units unknown) (unknown) (unknown) (no date) (unknown) (unknown) tox were had w ith the patient regarding the risks of opiate dependency. (units unknown) (unknown) (unknown) (no date) (unknown) (unknown) well as muscle relaxants as well as steroids prescribed. Patient has an (units unknown) (unknown) (unknown) (no date) (unknown) (unknown) with the volunteer specialist. He denies any urinary or bowel incontinence, denies (units unknown) (unknown) (unknown) (no date) (unknown) (unknown) with your spin e specialist next Sunday. I sent your medications to [facility] and (units unknown) (unknown) Social History date description facility 2023-01-25 00:00 Never smoked tobacco (finding) [facility] Vital Signs date measurement value units [...]
--- NOTE | 2023-02-17 13:32 | ED Physician Documentation ---
PD HPI BACK PAIN - Stated complaint Stated Complaint: MID BACK PX - Chief complaint Chief Complaint: Back Pain - History obtained from History obtained from: Patient PD PAST MEDICAL HISTORY - Past Medical History Cardiovascular: Hypertension Respiratory: Sleep apnea, CPAP use Neuro: None Endocrine/Autoimmune: HyPOthyroidism GI: None : None HEENT: Chronic vision loss, Other Psych: Depression, Anxiety Musculoskeletal: Chronic back pain Derm: None - Past Surgical History Past Surgical History: Yes Ortho: Arthroscopic surgery, Spine surgery - Present Medications Home Medications: Ambulatory Orders Medication Instructions Recorded Confirmed Gabapentin [Neurontin] 600 mg PO TID 11/09/13 02/17/23 Levothyroxine [Synthroid] 225 mcg PO DAILY 11/09/13 02/17/23 Amitriptyline HCl 100 mg ORAL DAILY 12/22/16 02/17/23 DULoxetine [Cymbalta] 30 mg PO DAILY 03/08/18 02/17/23 Oxycodone HCl 10 mg PO Q6H PRN #20 tablet 12/01/22 02/17/23 Ibuprofen [Motrin] 600 mg PO Q6H PRN 01/26/23 02/17/23 - Allergies Allergies/Adverse Reactions: Allergies Allergy/AdvReac Type Severity Reaction Status Date / Time No Known Drug Allergies Allergy Verified 01/28/23 13:40 - Social History Does the pt smoke?: No Smoking Status: Never smoker Does the pt drink ETOH?: No Does the pt have substance abuse?: No - Immunizations Immunizations are current?: Yes - POLST Patient has POLST: No Results - Vitals Vitals: Vital Signs - 24 hr 02/17/23 02/17/23 12:58 17:12 Temperature 37.3 C Heart Rate 128 H 99 Respiratory 20 20 Rate Blood Pressure 171/119 H 136/91 H O2 Saturation 98 98 Oxygen O2 Source Room air PD Medical Decision Making - ED course Complexity details: reviewed old records (reviewed VANDANA from [facility], prior ER visits reports, and his medication log from recent ER visits, which has included several vistis with Dilaudid given in ER for current improvemetn in pain. No opioid scripts from the ER though. ), reviewed results (CT thoracic and lumbar - thoracic as that is where his pain is, with history of T9 disc process and his spine surgeon planning laminectomy in February. Lumbar obtained as that would be area affected if he is having new rectal area weakness. ), re-evaluated patient (He states pain is lessened from IM meds here. I do not expect to get him down to a very low pain level and certainly not gone. My goal was improved enough for now for edge off and to be able to tolerate lying for CT, since he states recent fall and new stool softness/inctonence. ), considered differential (patient with history of chronic back pain, prior surgeries, spinal sitmulator earlier in the year (which led to many ER visits for the pain it had during the healing phase). He states he fell few days ago and has increased pain over baseline and having soft stools with unable to hold it in.), d/w patient Reviewed Lab Results: CTs did not show acute injury process. No signs of severe cord space encroachment. Prior spinal stimulator not disrupted/moved. ED course: Patient here due to increased pain over baseline. Gets chronic pain meds from PCP. He states he was told to come to ER by the Ortho office. He staes he has not had this degree of pain before. But frankly, I would say his comments and such are the same ones expressed the same way as several prior visits at which I have seen him. I did check his ability to squeeze buttock and essantial sensation to touch in perirectal area. Legs showing some decresed senstion mediial lower leg which he says is residula from from nerve impingements prior to initial spine surgeries. Departure - Departure Disposition: 01 Home, Self Care Clinical Impression: Acute exacerbation of chronic low back pain Fall from slip, trip, or stumble Qualifiers: Encounter type: initial encounter Qualified Code(s): W01.0XXA - Fall on same level from slipping, tripping and stumbling without subsequent striking against object, initial encounter Condition: Stable Record reviewed to determine appropriate education?: Yes Follow-Up: Reuben Tolbert MD [Physician No Access] - Comments: Follow up with your Spine surgeon this coming week. Continue usual medications. The CT scans do not show any acute traumatic abnormality from the fall. Follow-up with your primary care if you continue with loose stool or diarrhea as I would investigate more intestinal issues if it persists. Discharge Date/Time: 02/17/23 17:13
[2023-02-17] MEDS ORDERED: KETOROLAC 30 MG/ML VIAL IM STA (13:58)
[2023-02-17] MEDS ORDERED: ACETAMINOPHEN 500 MG TABLET PO STA (13:59)
[2023-02-17] MEDS ORDERED: tiZANidine 4 MG TABLET PO STA (13:59)
[2023-02-17] MEDS ORDERED: HYDROmorphone 2 MG/ML VIAL IM STA ×2 (14:17→16:30)
--- NOTE | 2023-02-17 16:10 | CT Report ---
PROCEDURE: LUMBAR SPINE WO INDICATIONS: fell 2 d ago, increased TL area pain TECHNIQUE: Noncontrast 3 mm thick sections acquired from the T12 level to the sacrum. Sagittal and coronal refo rmats were constructed. For radiation dose reduction, the following was used: automated exposure co ntrol, adjustment of mA and/or kV according to patient size. COMPARISON: Comparison made to MRI lumbar spine 12/21/2022 FINDINGS: Image quality: Excellent. Bones: There is normal bony alignment. No acute vertebral body compression fractures. There are postsurgical changes at the L5-S1 level of laminectomy, posterior fusion, and disc spacer. There is also posterior bridging osteophyte. The hardware appears intact. Grade 1 L5-S1 anterolisthes is is stable. No suspicious lytic or blastic bony lesions. Central spinal caliber is of normal overall caliber. N o pars defects. Soft tissues: No retroperitoneal masses or hematomas. Visualized aorta is normal in caliber. Right renal cyst. IMPRESSION: No CT evidence of acute lumbar spine fracture or hardware fracture. No posttraumatic subluxation. No posttraumatic disc bulge. Reviewed by: Padma Aquino MD on 02/17/2023 3:09 PM LAURA Approved by: Padma Aquino MD on 02/17/2023 3:09 PM LAURA Station ID: [id number]
--- NOTE | 2023-02-17 16:35 | CT Report ---
PROCEDURE: THORACIC SPINE WO INDICATIONS: fell 2 days ago, increased TL area pain TECHNIQUE: Noncontrast 3 mm thick sections acquired through the region of interest in the thoracic spine. Sagit perla and coronal reformats were then constructed. For radiation dose reduction, the following was used : automated exposure control, adjustment of mA and/or kV according to patient size. COMPARISON: None. FINDINGS: Image quality: Excellent. Bones: There is normal overall bony alignment. No acute vertebral body compression fractures. There are mild degenerative anterior endplate spurs in the mid and lower thoracic spine. No suspicious scl erotic or lytic bony lesions. Central spinal canal is of normal overall caliber. Soft tissues: No paravertebral masses or hematomas. Visualized posteromedial lungs appear clear. N eurostimulator lead present dorsal epidural space at T8 and T9. IMPRESSION: 1. No CT evidence of acute thoracic spine injury. 2. Mild degenerative endplate changes as noted. Reviewed by: Padma Aquino MD on 02/17/2023 3:34 PM LAURA Approved by: Padma Aquino MD on 02/17/2023 3:34 PM LAURA Station ID: [id number]
[2023-02-17 17:16] VITALS: BP 136/91
== END 2023-02-17 17:13 | disposition home or self-care (01) ==
LOC: ED 12:40
DX: M54.50 Low back pain, unspecified (principal); G89.29 Other chronic pain; W01.0XXA Fall on same level from slipping, tripping and stumbling without subsequent striking against object, initial encounter; I10 Essential (primary) hypertension; E03.9 Hypothyroidism, unspecified; Z79.899 Other long term (current) drug therapy
CPT/HCPCS: 72128; 72131; 96372; 99284; A9270; J1170

== ENCOUNTER 2023-07-13 12:00 | Emergency (ER) | payer OTHER ==
[2023-07-13 13:04] LABS: BASOPHILS % (AUTO) 0.6 %; EOSINOPHILS # (AUTO) 0.2 10^3/uL (0.0-0.7); EOSINOPHILS % (AUTO) 3.7 %; HCT - HEMATOCRIT 37.3 % (42.0-52.0); HGB - HEMOGLOBIN 11.7 g/dL (14.0-18.0); LYMPHOCYTES # (AUTO) 1.4 10^3/uL (1.5-3.5); LYMPHOCYTES % (AUTO) 22.7 %; MEAN CORPUSCULAR HEMOGLOBIN 25.7 pg (27.0-31.0); MEAN CORPUSCULAR HGB CONC 31.4 g/dL (32.0-36.0); MEAN PLATELET VOLUME 8.9 fL (7.4-11.4); MONOCYTES # (AUTO) 0.4 10^3/uL (0.0-1.0); MONOCYTES % (AUTO) 6.4 %; NEUTROPHILS # (AUTO) 4.2 10^3/uL (1.5-6.6); NEUTROPHILS % (AUTO) 66.4 %; PLT - PLATELET COUNT 315 10^3/uL (130-450); RED BLOOD COUNT 4.55 10^6/uL (4.70-6.10); RED CELL DISTRIBUTION WIDTH 13.8 % (12.0-15.0); WHITE BLOOD COUNT 6.3 x10^3/uL (4.8-10.8)
[2023-07-13] MEDS ORDERED: BUFFERED LIDOCAINE 10 ML SYRINGE SUBQ STA (13:11)
--- NOTE | 2023-07-13 13:13 | ED Physician Documentation ---
PD HPI LOWER EXT INJURY - Stated complaint Stated Complaint: RT KNEE SWELLING,HOT,FEVER - Chief complaint Chief Complaint: Ext Problem - History obtained from History obtained from: Patient - History of Present Illness PD HPI LOW EXT INJURY LOCATION: Right - Additional information Additional information: 53-year-old gentleman with history of a lot of back pain but over the last 3 days has developed severe atraumatic right knee pain with a fever to 103 at home and knee swelling and difficulty bending the knee. PD PAST MEDICAL HISTORY - Past Medical History Cardiovascular: Hypertension Respiratory: Sleep apnea, CPAP use Neuro: None Endocrine/Autoimmune: HyPOthyroidism GI: None : None HEENT: Chronic vision loss, Other Psych: Depression, Anxiety Musculoskeletal: Chronic back pain Derm: None - Past Surgical History Past Surgical History: Yes Ortho: Arthroscopic surgery, Spine surgery - Present Medications Home Medications: Ambulatory Orders Medication Instructions Recorded Confirmed Gabapentin [Neurontin] 600 mg PO TID 11/09/13 02/17/23 Levothyroxine [Synthroid] 225 mcg PO DAILY 11/09/13 02/17/23 Amitriptyline HCl 100 mg ORAL DAILY 12/22/16 02/17/23 DULoxetine [Cymbalta] 30 mg PO DAILY 03/08/18 02/17/23 Oxycodone HCl 10 mg PO Q6H PRN #20 tablet 12/01/22 02/17/23 Ibuprofen [Motrin] 600 mg PO Q6H PRN 01/26/23 02/17/23 Oxycodone HCl/Acetaminophen 1 - 2 each PO Q6H PRN #14 tablet 07/13/23 [Percocet 5-325 mg Tablet] predniSONE [Deltasone] 20 mg PO [id number] #21 tab 07/13/23 - Allergies Allergies/Adverse Reactions: Allergies Allergy/AdvReac Type Severity Reaction Status Date / Time No Known Drug Allergies Allergy Verified 01/28/23 13:40 - Social History Does the pt smoke?: No Smoking Status: Never smoker Does the pt drink ETOH?: No Does the pt have substance abuse?: No - Immunizations Immunizations are current?: Yes - POLST Patient has POLST: No PD ED PE NORMAL - Vitals Vital signs reviewed: Yes - General General: Alert and oriented X 3, No acute distress - Extremities Extremities: Other (The right knee has an effusion and he has painful range of motion, albeit not necessarily to the level of a "septic joint." There is mild warmth. No redness.) - Neuro Neuro: Alert and oriented X 3, Normal speech Results - Vitals Vitals: Vital Signs - 24 hr 07/13/23 12:25 Temperature 36.8 C Heart Rate 120 H Respiratory 22 Rate Blood Pressure 148/94 H O2 Saturation 98 Oxygen O2 Source Room air - Labs Labs: Laboratory Tests 07/13/23 07/13/23 07/13/23 12:59 12:59 12:59 WBC 6.3 RBC 4.55 L Hgb 11.7 L Hct 37.3 L MCV 82.0 MCH 25.7 L MCHC 31.4 L RDW 13.8 Plt Count 315 MPV 8.9 Neut # (Auto) 4.2 Lymph # (Auto) 1.4 L [place] # (Auto) 0.4 Eos # (Auto) 0.2 Baso # (Auto) 0.0 Absolute Nucleated RBC 0.00 Nucleated RBC % 0.0 ESR 7 Sodium 138 Potassium 3.9 Chloride 105 Carbon Dioxide 27 Anion Gap 6.0 BUN 9 Creatinine 1.0 Estimated GFR (MDRD) 78 L Glucose 130 H Calcium 9.0 C-Reactive Protein 0.5 Fluid Source Fluid Color Fluid Clarity Fluid WBC Fluid RBC Fluid Crystals 07/13/23 07/13/23 13:30 13:30 WBC RBC Hgb Hct MCV MCH MCHC RDW Plt Count MPV Neut # (Auto) Lymph # (Auto) [place] # (Auto) Eos # (Auto) Baso # (Auto) Absolute Nucleated RBC Nucleated RBC % ESR Sodium Potassium Chloride Carbon Dioxide Anion Gap BUN Creatinine Estimated GFR (MDRD) Glucose Calcium C-Reactive Protein Fluid Source KNEE Fluid Color PINK Fluid Clarity HAZY Fluid WBC 227 Fluid RBC [address]235 Fluid Crystals NONE SEEN - Rads (name of study) Three-view x-ray of the right knee is negative. Relevant Findings:: Final report received, EMP independent interpretation of test Procedures - Arthrocentesis Joint: Knee, Right Preparation: Consent obtained, Sterile prep and drape Anesthesia: Lidocaine 1% Fluid: Bloody, Clear, Sent for cell count, Sent for crystals, Sent for culture, Fluid obtained - cc (10ml), Other (using sterile technique instilled 4ml of 0.5% ropivacaine in joint) Aftercare: Dressing applied PD Medical Decision Making - ED course ED course: He presents with symptoms that are certainly concerning for septic right knee joint, but both lab work including CBC with normal white count, sed rate normal, CRP normal, and subsequently arthrocentesis fluid without crystals or signs of infection were reassuring that that was not the diagnosis. He certainly did have an effusion that was symptomatic and probably arthritic. On further history when I queried him about the fever it turns out he was putting the thermometer on his knee so not sure of the accuracy of that. He did receive some ropivacaine in the joint during arthrocentesis sterilely which was helpful but certainly incompletely so for his pain so he also received a dose of IM Dilaudid and Toradol. Departure - Departure Disposition: Home, Self Care Clinical Impression: Knee effusion, right Condition: Good Record reviewed to determine appropriate education?: Yes Instructions: ED Effusion Knee Follow-Up: [facility] [Provider Group] Prescriptions: predniSONE [Deltasone] 20 mg PO [id number] #21 tab Oxycodone HCl/Acetaminophen [Percocet 5-325 mg Tablet] 1 - 2 each PO Q6H PRN #14 tablet PRN Reason: pain Comments: You were seen today for knee pain and you do have an effusion. This is fluid in the joint. The volume of fluid was abnormal but it did not show any signs of infection. I sent a prescription to [facility] in [place] for you, and you should follow-up with an orthopedist, the numbers on this form. Return for new or worsening symptoms. I am prescribing a short course of narcotic pain medication for you. These are potentially dangerous and addictive medications that should be used carefully. These medications may constipate you. Take an tgdk-dmn-gtttmsw stool softener (docusate) twice daily with plenty of water while taking these medications. If you go 24 hours without a bowel movement, take whht-zco-jvtqnnf miralax, per package instructions. Do not drink or drive while taking these medications. If you received narcotic or sedating medications while in the emergency department, do not drive for 24 hours. Store this medication in a safe, secure place and out of reach of children. It is a violation of federal law to give or sell this medication to another person or to use in a manner other than prescribed. The ED will not refill narcotic prescriptions, including prescriptions lost or stolen. To dispose of unwanted medications: 1. [facility] [employer] [facility] provides a drop box for medication in pill form only (no liquids) 8:00 am to 4:30 p.m. Sunday-Sunday in the lobby of the [facility], [address] [place] [address]. Empty pills into ziplock bag before disposal. Call [phone] for information. 2.[employer] is a free service available to all [facility] residents. Go to [email or web address]/ Note that many narcotic pain relievers also contain Tylenol/acetaminophen. Please ensure that your total dose of acetaminophen from all sources does not exceed 3 g (3000 mg) per day. Forms: PCP List
[2023-07-13 13:16] LABS: CRP - C-REACTIVE PROTEIN 0.5 mg/dL (<0.5); POTASSIUM 3.9 mmol/L (3.5-4.5)
[2023-07-13] MEDS ORDERED: ROPIVACAINE 0.5% PF 20 ML VIAL SUBQ STA (13:19)
[2023-07-13] MEDS ORDERED: KETOROLAC 60 MG/2 ML VIAL IM STA (13:56)
[2023-07-13] MEDS ORDERED: HYDROmorphone 1 MG/ML CARPUJECT IM STA (13:56)
[2023-07-13 14:07] LABS: CC,BF WBC 227 /mm^3
[2023-07-13 14:08] LABS: BF CLARITY HAZY; BF COLOR PINK; BF SOURCE KNEE; CC,BF RBC 19000 /mm^3
--- NOTE | 2023-07-13 14:15 | XRAY Report ---
PROCEDURE: Knee 3 View RT INDICATIONS: knee pain TECHNIQUE: 3 views of the right knee(s) were acquired. COMPARISON: X-ray right knee 09/11/2022. FINDINGS: Bones: No fractures or dislocations. Tricompartmental osteoarthritic changes with moderate lateral j oint space narrowing. No suspicious bony lesions. Soft tissues: Small knee joint effusion. No suspicious soft tissue calcifications or masses. IMPRESSION: No acute bony abnormality. Reviewed by: Corey Santos MD on 07/13/2023 2:13 PM PDT Approved by: Corey Santos MD on 07/13/2023 2:13 PM PDT Station ID: [id number]
[2023-07-13] MEDS ORDERED: oxyCODONE 5 MG TABLET PO STA (14:51)
[2023-07-13 15:14] VITALS: BP 169/105; O2SAT 100
[2023-07-13 15:34] LABS: LYMPHOCYTES %,BODY FLUID 10 %; MACROPHAGES %,BODY FLUID 49 %; NEUTROPHILS %, BF 12 %
[2023-07-13 15:35] LABS: OTHER CELLS %,BODY FLUID 29 %
== END 2023-07-13 15:13 | disposition home or self-care (01) ==
LOC: ED 12:00
DX: M25.461 Effusion, right knee (principal); I10 Essential (primary) hypertension; E03.9 Hypothyroidism, unspecified; Z79.899 Other long term (current) drug therapy
CPT/HCPCS: 20610; 36415; 73562; 80048; 85025; 85651; 86140; 87070; 87205; 89051; 89060; 96372; 99284; 99285; A9270; J1170; J2795

== ENCOUNTER 2023-10-14 15:02 | Emergency (ER) | payer OTHER ==
[2023-10-14 15:36] VITALS: O2SAT 99
[2023-10-14] MEDS ORDERED: KETOROLAC 60 MG/2 ML VIAL IM STA (16:58)
--- NOTE | 2023-10-14 17:00 | ED Physician Documentation ---
PD HPI BACK PAIN - Stated complaint Stated Complaint: GLF BACK PX - Chief complaint Chief Complaint: Back Pain - History obtained from History obtained from: Patient - Additional information Additional information: 53-year-old gentleman with chronic back pain. He was frequenting the emergency department last year, I think 13 visits but visits tapered off after surgical procedure in January. 5 days ago he fell on the ice and reinjured his low back. Pain is severe. Initially tells me he is only being taking hotv-ebc-ahjtesk medications for pain. I asked him when his last prescription for narcotic pain medication was, and he says it was in August and it was "a short course." I challenged him that earlier this month he got 112 oxycodone 10 mg and he has been getting that same prescription monthly and then he seem to recall that he was getting a prescription for oxycodone. He says he would like an x-ray to make sure he did not break anything. PD PAST MEDICAL HISTORY - Past Medical History Cardiovascular: Hypertension Respiratory: Sleep apnea, CPAP use Neuro: None Endocrine/Autoimmune: HyPOthyroidism GI: None : None HEENT: Chronic vision loss, Other Psych: Depression, Anxiety Musculoskeletal: Chronic back pain Derm: None - Past Surgical History Past Surgical History: Yes Ortho: Arthroscopic surgery, Spine surgery - Present Medications Home Medications: Ambulatory Orders Medication Instructions Recorded Confirmed Gabapentin [Neurontin] 600 mg PO TID 11/09/13 02/17/23 Levothyroxine [Synthroid] 225 mcg PO DAILY 11/09/13 02/17/23 Amitriptyline HCl 100 mg ORAL DAILY 12/22/16 02/17/23 DULoxetine [Cymbalta] 30 mg PO DAILY 03/08/18 02/17/23 Oxycodone HCl 10 mg PO Q6H PRN #20 tablet 12/01/22 02/17/23 Ibuprofen [Motrin] 600 mg PO Q6H PRN 01/26/23 02/17/23 Oxycodone HCl/Acetaminophen 1 - 2 each PO Q6H PRN #14 tablet 07/13/23 [Percocet 5-325 mg Tablet] predniSONE [Deltasone] 20 mg PO [id number] #21 tab 07/13/23 - Allergies Allergies/Adverse Reactions: Allergies Allergy/AdvReac Type Severity Reaction Status Date / Time No Known Drug Allergies Allergy Verified 10/14/23 15:37 - Social History Does the pt smoke?: No Smoking Status: Never smoker Does the pt drink ETOH?: No Does the pt have substance abuse?: No - Immunizations Immunizations are current?: Yes - POLST Patient has POLST: No PD ED PE NORMAL - Vitals Vital signs reviewed: Yes - General General: Alert and oriented X 3, No acute distress - Abdomen Abdomen: Normal bowel sounds, Soft, Non tender - Back Back: Other (Tender to low lumbar spine, more to the left than midline.) - Extremities Extremities: Other (Diminished sensation to the medial left calf which she says is chronic. Diminished reflexes in the lower extremities throughout but that is symmetric. No weakness.) Results - Vitals Vitals: Vital Signs - 24 hr 10/14/23 15:34 Temperature 36.5 C Heart Rate 113 H Respiratory 22 Rate Blood Pressure 151/119 H O2 Saturation 99 Oxygen O2 Source Room air - Rads (name of study) Lumbar spine x-ray with chronic findings, no acute trauma Relevant Findings:: Final report received, EMP independent interpretation of test PD Medical Decision Making - ED course ED course: 53-year-old gentleman had a fall on the ice and injuring his back. He does have chronic back pain and unfortunately was inconsistent to me during my initial evaluation about his narcotic use. Will obtain x-ray and 60 mg Toradol IM. Subsequently stated he wanted a shot of narcotic while here and apologized for his incomplete history as above but states to me he was not lying to me. Departure - Departure Disposition: 01 Home, Self Care Clinical Impression: Back pain Qualifiers: Back pain location: low back pain Chronicity: chronic Back pain laterality: midline Sciatica presence: without sciatica Qualified Code(s): M54.50 - Low back pain, unspecified Condition: Good Record reviewed to determine appropriate education?: Yes Instructions: ED Low Back Pain Injury Comments: Call your doctor to arrange a follow-up appointment, make the next available appointment. In the interim, return anytime if worse or if new symptoms develop.
--- NOTE | 2023-10-14 17:46 | XRAY Report ---
PROCEDURE: Lumbar Spine 2-3V INDICATIONS: back inj TECHNIQUE: 3 view(s) of the lumbar spine were acquired. COMPARISON: None. FINDINGS: Bones: Vertebral body height and alignment is maintained. No suspicious bony lesions. Convex left thoracolumbar scoliosis present. L5 decompressive laminectomy with L5-S1 posterior rajeev an d screw instrumentation and interbody fusion. Epidural stimulator pulse generator noted. Disc space narrowing and anterior osteophytes noted in the thoracolumbar junction. Consider atrophy n oted in the lower lumbar spine Soft tissues: Overlying bowel gas pattern is normal. No suspicious soft tissue calcifications. IMPRESSION: Degenerative disc disease and arthropathy without evidence of fracture or traumatic malalignment. L5-S1 instrumented interbody fusion. No hardware failure or loosening. Reviewed by: Ruben Ross MD on 10/14/2023 4:45 PM AK Approved by: Ruben Ross MD on 10/14/2023 4:45 PM [place] Station ID: [id number]
[2023-10-14] MEDS ORDERED: HYDROmorphone 1 MG/ML CARPUJECT IM STA (18:02)
[2023-10-14 18:31] VITALS: BP 163/98
== END 2023-10-14 18:23 | disposition home or self-care (01) ==
LOC: ED 15:02
DX: M54.50 Low back pain, unspecified (principal); W00.0XXA Fall on same level due to ice and snow, initial encounter; I10 Essential (primary) hypertension; Z79.899 Other long term (current) drug therapy
CPT/HCPCS: 72100; 96372; 99283; 99284; J1170

== ENCOUNTER 2024-01-28 10:46 | Emergency (ER) | payer OTHER ==
[2024-01-28 11:00] VITALS: BP 175/119; O2SAT 98
[2024-01-28] MEDS: KETOROLAC 60 MG/2 ML VIAL IM STA (11:35)
--- NOTE | 2024-01-28 12:06 | XRAY Report ---
PROCEDURE: Lumbar Spine 2-3V INDICATIONS: fall/pain TECHNIQUE: 3 views of the lumbar spine were acquired. COMPARISON: 10/14/2023. FINDINGS: Bones: 5 eum-lgf-ubozaew vertebrae are present. There is prior posterior fusion at L5-S1 level. How ever positions unchanged from prior study. No evidence of hardware loosening or failure. There is mil d rightward curvature of lumbar spine with apex at L3 level. No vertebral body compression fractures . No suspicious bony lesions. Soft tissues: Overlying bowel gas pattern is normal. No suspicious soft tissue calcifications. IMPRESSION: 1. No acute compression fracture or significant spondylolisthesis. Mild scoliosis as above. 2. Post surgical changes at L5-S1 level. No gross hardware loosening or failure. Reviewed by: Chucho Marcus MD on 01/28/2024 12:04 PM PDT Approved by: Chucho Marcus MD on 01/28/2024 12:04 PM PDT Station ID: [id number]
--- NOTE | 2024-01-28 12:17 | ED Physician Documentation ---
PD HPI BACK PAIN - Stated complaint Stated Complaint: LOW BACK PX - Chief complaint Chief Complaint: Back Pain - History obtained from History obtained from: Patient - Additional information Additional information: Patient is a 53-year-old male with a history of chronic low back pain.Patient did have surgery on his back almost 1 year ago.He has continued to require oxycodone for chronic pain since his surgery. He also has a spinal stimulator.Patient reports that on he slipped on a wet spot on a deck ramp and fell onto his back. This is exacerbated his chronic pain.Patient reports that he gets a prescription of oxycodone every 3 months and that he has only been needing to use it every few days. Denies bowel or bladder incontinence, saddle anesthesia. Patient's states his primary concern is to make sure nothing is broken in his back. On review of his [employer] patient appears to get 112 oxycodone filled every month. Review of Systems Constitutional: denies: Fever Cardiac: denies: Chest pain / pressure Respiratory: denies: Dyspnea GI: denies: Abdominal Pain Musculoskeletal: reports: Back pain PD PAST MEDICAL HISTORY - Past Medical History Cardiovascular: Hypertension Respiratory: Sleep apnea, CPAP use Neuro: None Endocrine/Autoimmune: HyPOthyroidism GI: None : None HEENT: Chronic vision loss, Other Psych: Depression, Anxiety Musculoskeletal: Chronic back pain Derm: None - Past Surgical History Past Surgical History: Yes Ortho: Arthroscopic surgery, Spine surgery - Present Medications Home Medications: Ambulatory Orders Medication Instructions Recorded Confirmed Gabapentin [Neurontin] 600 mg PO TID 11/09/13 02/17/23 Levothyroxine [Synthroid] 225 mcg PO DAILY 11/09/13 02/17/23 Amitriptyline HCl 100 mg ORAL DAILY 12/22/16 02/17/23 DULoxetine [Cymbalta] 30 mg PO DAILY 03/08/18 02/17/23 Oxycodone HCl 10 mg PO Q6H PRN #20 tablet 12/01/22 02/17/23 Ibuprofen [Motrin] 600 mg PO Q6H PRN 01/26/23 02/17/23 Oxycodone HCl/Acetaminophen 1 - 2 each PO Q6H PRN #14 tablet 07/13/23 [Percocet 5-325 mg Tablet] predniSONE [Deltasone] 20 mg PO [id number] #21 tab 07/13/23 Cyclobenzaprine [Flexeril] 10 mg PO TID PRN #15 tablet 01/28/24 - Allergies Allergies/Adverse Reactions: Allergies Allergy/AdvReac Type Severity Reaction Status Date / Time No Known Drug Allergies Allergy Verified 01/28/24 10:56 - Social History Does the pt smoke?: No Smoking Status: Never smoker Does the pt drink ETOH?: No Does the pt have substance abuse?: No - Immunizations Immunizations are current?: Yes - POLST Patient has POLST: No PD ED PE NORMAL - General General: Alert and oriented X 3, No acute distress - HEENT HEENT: Atraumatic - Neck Neck: Supple, no meningeal sign - Cardiac Cardiac: RRR, Strong equal pulses - Respiratory Respiratory: No respiratory distress - Abdomen Abdomen: Normal bowel sounds, Soft, Non tender, Non distended - Back Back: Other (Well-healed incisions to lower back, No significant midline tenderness, left lower lumbar tenderness with no redness or swelling ) - Extremities Extremities: No deformity, Other (Symmetric reflexes bilaterally, no weakness) - Neuro Neuro: Alert and oriented X 3, Normal speech Results - Vitals Vitals: Vital Signs - 24 hr 01/28/24 10:53 Temperature 36.4 C L Heart Rate 114 H Respiratory 20 Rate Blood Pressure 175/119 H O2 Saturation 98 Oxygen O2 Source Room air PD Medical Decision Making - ED course Complexity details: reviewed results, d/w patient ED course: Patient presenting for worsening of chronic low back pain after a fall few days ago. He is ambulatory here with a cane. No focal goal weakness noted on exam. X-ray was obtained which I reviewed I see no issues with patient's hardware or new fracture. Patient does have narcotic pain medication at home. He states he did not take any this morning as he thought he might get something stronger here. He was not forthcoming with how much pain medication he normally takes and how often it is prescribed - Initially telling me that he only takes 1 every few days That it was only prescribed every 3 months. Offered patient prescription for muscle relaxers to see if this also helps with his pain which he is agreeable to. Patient aware of need for close follow-up as well as concerning symptoms to return for. Departure - Departure Disposition: 01 Home, Self Care Clinical Impression: Acute exacerbation of chronic low back pain Condition: Stable Instructions: ED Neck Back Pain General Prescriptions: Cyclobenzaprine [Flexeril] 10 mg PO TID PRN #15 tablet PRN Reason: Spasms Comments: I have sent a prescription for muscle relaxer to the [facility] pharmacy. Please continue with your pain medications that you are prescribed. [facility] XRAY RESULTS IMPRESSION: 1. No acute compression fracture or significant spondylolisthesis. Mild scoliosis as above. 2. Post surgical changes at L5-S1 level. No gross hardware loosening or failure. Discharge Date/Time: 01/28/24 12:32
== END 2024-01-28 12:32 | disposition home or self-care (01) ==
LOC: ED 10:46
DX: M54.50 Low back pain, unspecified (principal); G89.29 Other chronic pain; W01.0XXA Fall on same level from slipping, tripping and stumbling without subsequent striking against object, initial encounter; Y92.89 Other specified places as the place of occurrence of the external cause; Z96.82 Presence of neurostimulator
CPT/HCPCS: 96372; 99283; 99284

== ENCOUNTER 2024-04-24 12:09 | Emergency (ER) | payer OTHER ==
--- NOTE | 2024-04-24 12:32 | ED Physician Documentation ---
History of Present Illness - Stated complaint Stated Complaint: R KNEE PX POST FALL - Chief complaint Chief Complaint: Trauma Ext - Additonal information Additional information: Patient is a 54-year-old male presenting to the emergency department with right knee pain. Patient notes he was walking down his driveway today when he tripped over a rock landing on his right knee. Patient notes persistent pain to his right knee with swelling and abrasion. He denies ever having history of right knee pain. He has chronic back pains which he takes oxycodone for daily. He notes he threw this medication up this morning and is unable to bear weight on his right knee. Patient unable to drive here due to severe pain. No numbness tingling loss of sensation to right knee. Patient denies hitting his head or losing consciousness. PD PAST MEDICAL HISTORY - Past Medical History Past Medical History: Yes Cardiovascular: Hypertension Respiratory: Sleep apnea, CPAP use Neuro: None Endocrine/Autoimmune: HyPOthyroidism GI: None : None HEENT: Chronic vision loss, Other Psych: Depression, Anxiety Musculoskeletal: Chronic back pain Derm: None - Past Surgical History Past Surgical History: Yes Ortho: Arthroscopic surgery, Spine surgery - Present Medications Home Medications: Ambulatory Orders Medication Instructions Recorded Confirmed Gabapentin [Neurontin] 600 mg PO TID 11/09/13 02/17/23 Levothyroxine [Synthroid] 225 mcg PO DAILY 11/09/13 02/17/23 Amitriptyline HCl 100 mg ORAL DAILY 12/22/16 02/17/23 DULoxetine [Cymbalta] 30 mg PO DAILY 03/08/18 02/17/23 Oxycodone HCl 10 mg PO Q6H PRN #20 tablet 12/01/22 02/17/23 Ibuprofen [Motrin] 600 mg PO Q6H PRN 01/26/23 02/17/23 Oxycodone HCl/Acetaminophen 1 - 2 each PO Q6H PRN #14 tablet 07/13/23 [Percocet 5-325 mg Tablet] predniSONE [Deltasone] 20 mg PO [id number] #21 tab 07/13/23 Cyclobenzaprine [Flexeril] 10 mg PO TID PRN #15 tablet 01/28/24 - Allergies Allergies/Adverse Reactions: Allergies Allergy/AdvReac Type Severity Reaction Status Date / Time No Known Drug Allergies Allergy Verified 04/24/24 12:14 - Social History Does the pt smoke?: No Smoking Status: Never smoker Does the pt drink ETOH?: No Does the pt have substance abuse?: No - Immunizations Immunizations are current?: Yes - POLST Patient has POLST: No PD ED PE NORMAL - Vitals Vital signs reviewed: Yes - General General: Alert and oriented X 3 - HEENT HEENT: Atraumatic - Neck Neck: Supple, no meningeal sign - Cardiac Cardiac: RRR, No murmur, No gallop, No rub, Strong equal pulses - Respiratory Respiratory: No respiratory distress, Clear bilaterally - Back Back: No spinal TTP - Extremities Extremities: No deformity, No edema, Other (Right knee shows small abrasion to the anterior knee over patella no obvious deformity reproducible anterior knee palpation. No obvious effusion or swelling appreciated. Intact range of motion on flexion and extension. No pain on palpation of ankle full range of motion of right ankle intact. ) - Neuro Neuro: Alert and oriented X 3 Results - Vitals Vitals: Vital Signs - 24 hr 04/24/24 12:14 Temperature 36.8 C Heart Rate 110 H Respiratory 16 Rate Blood Pressure 160/90 H O2 Saturation 99 Oxygen O2 Source Room air - Rads (name of study) X-ray of right knee Relevant Findings:: EMP independent interpretation of test (Moderate effusion but no appreciable fracture) PD Medical Decision Making - ED course Complexity details: reviewed old records, re-evaluated patient ED course: Patient is a 54-year-old male presenting to the emergency department with right knee pain patient has past medical history remarkable for chronic low back pain. He notes he was working outside when he tripped over a rock landing on his right knee. Notes he has been unable to ambulate on it he tried to take some oxycodone he had at home and threw it up. He notes no numbness or tingling, no obvious swelling, and small abrasion to right anterior knee. Vitals are stable on arrival mild tachycardia but patient is afebrile and normotensive. Physical exam shows pulses intact and sensation intact in bilateral lower extremities. X-ray obtained of right knee showsNo acute right knee fracture or dislocation. Mild to moderate tricompartmental osteoarthritis more notably in lateral femoral tibial compartment. Moderate joint effusion. Discussed with patient given symptoms and x-ray findings patient may have torn a ligament. Will have patient follow-up with his PCP in 1 week. Patient may require further imaging with concern for ligament tear with moderate effusion post fall. He was instructed ibuprofen and tylenol to help his pain at home and to keep it elevated and iced at home. Patient's pain improved here in the emergency department after Toradol Zofran and Hood. Patient given crutches and splint. Departure - Departure Disposition: Home, Self Care Clinical Impression: Effusion, right knee, Knee injury Condition: Good Instructions: ED Meniscal Injury Knee Poss, ED Effusion Knee Comments: You were seen here in the emergency department for your right knee pain the injury to your right knee showed some swelling around her right knee could be secondary to ligament tear you should ice elevate and I have given you crutches and splint to remain off of leg. You can take Tylenol and ibuprofen at home to help with pain control. You need to follow-up with your \PCP in one week to ensure resolution of symptoms. Forms: PCP List
[2024-04-24 12:47] VITALS: BP 160/90; O2SAT 99
[2024-04-24] MEDS: KETOROLAC 15 MG/ML VIAL IVP STA (12:58)
--- NOTE | 2024-04-24 12:59 | XRAY Report ---
PROCEDURE: Knee 3V RT INDICATIONS: right knee pain and swelling TECHNIQUE: 3 views of the knee(s) were acquired. COMPARISON: 07/13/2023. FINDINGS: Bones: No fractures or dislocations. No patella subluxation is seen. Mild to moderate tricompartmen t osteoarthritis is seen more notably in lateral femoral tibial compartment. No suspicious bony lesio ns. Soft tissues: Moderate knee joint effusion. No suspicious soft tissue calcifications or masses. IMPRESSION: No acute right knee fracture or dislocation. Mild to moderate tricompartmental osteoarthritis more no tably in lateral femoral tibial compartment. Moderate joint effusion. Reviewed by: Chucho Marcus MD on 04/24/2024 12:57 PM PDT Approved by: Chucho Marcus MD on 04/24/2024 12:57 PM PDT Station ID: [id number]
[2024-04-24] MEDS: KETOROLAC 15 MG/ML VIAL IM STA (13:18)
[2024-04-24] MEDS: ONDANSETRON ODT 4 MG TABLET TL STA (13:18)
[2024-04-24] MEDS: HYDROcod/ACETAM 10 MG/325 MG TABLET PO PRN (13:31)
== END 2024-04-24 13:51 | disposition home or self-care (01) ==
LOC: ED 12:09
DX: S80.211A Abrasion, right knee, initial encounter (principal); W01.0XXA Fall on same level from slipping, tripping and stumbling without subsequent striking against object, initial encounter; Y93.01 Activity, walking, marching and hiking; Y92.008 Other place in unspecified non-institutional (private) residence as the place of occurrence of the external cause; M25.461 Effusion, right knee; M17.11 Unilateral primary osteoarthritis, right knee
CPT/HCPCS: 73562; 96372; 99283; 99284; A9270; Q0162